=== PATIENT | male | born 1955 | race Caucasian/White ===

== ENCOUNTER → 2020-07-11 | Outpatient (CLI) | payer MEDICARE, MEDICAID ==
[~2020-07-11] MED LIST: CATHETER FLUSH 10 ML SYR IV PRN; HOLD METFORMIN - RECEIVED CONTRAST 20 ML VIAL IV SCH; IOHEXOL 350 MG/ML 100 ML (OMNIPAQUE 350) VIAL IV ONE; NS 100 ML (IVPB) BAG IV ONE
--- NOTE | 2020-07-11 11:02 | Diagnostic Imaging Report ---
PROCEDURE: CT head with and without contrast. TECHNIQUE: Multiple contiguous axial images were obtained through the brain before and after the administration of intravenous contrast. Auto Exposure Controls were utilized during the CT exam to meet ALARA standards for radiation dose reduction. INDICATION: Memory loss, headache and weakness. COMPARISON: No prior studies are available for comparison. FINDINGS: The ventricles and sulci are within normal limits. No sulcal effacement or midline shift is identified. No acute intra-axial or extra-axial hemorrhage is detected. Postcontrast images are without abnormal enhancement. Cisterns are patent. There is some minimal mucosal thickening in the left maxillary sinus. IMPRESSION: Essentially unremarkable pre and postcontrast CT of the brain. Dictated by: Dictated on workstation # [id number]
== END ==
LOC: RAD 10:15
PROVIDERS: ATTEND Family Medicine
DX: R51.9 Headache, unspecified (principal); R41.3 Other amnesia; R53.1 Weakness
CPT/HCPCS: 70470

== ENCOUNTER 2022-01-10 10:09 | Emergency (ER) | payer MEDICARE, MEDICAID ==
[~2022-01-10] VITALS: Ht 173 cm; Wt 77.0 kg
[2022-01-10 11:08] LABS: BILIRUBIN,URINE NEGATIVE (NEGATIVE); CLARITY,URINE CLEAR; COLOR,URINE YELLOW; GLUCOSE, URINE (UA) NEGATIVE (NEGATIVE); KETONES,URINE NEGATIVE (NEGATIVE); LEUKOCYTE ESTERASE ,URINE NEGATIVE (NEGATIVE); NITRITE,URINE NEGATIVE (NEGATIVE); PROTEIN,URINE 1+ (NEGATIVE)
--- NOTE | 2022-01-10 11:09 | ED Cardiac General ---
History of Present Illness General Chief Complaint: Cardiac/General Problems Stated Complaint: HIGH BP 205/105 Nursing Triage Note: PT AMB TO [facility] 5 WITH WITH C/O INCREASED BP OVER ABOUT 1 WEEK. PTS STATES THE DR TOLD HER TO TAKE IT TWICE A DAY AND LOG IT. PTS SYSTOLIC WAS 200S THIS MORNING AT HOME Source: patient Exam Limitations: no limitations History of Present Illness Date Seen by Provider: Jan 10, 2022 Time Seen by Provider: 10:33 Initial Comments Patient to ER with his and chief complaint that for the past week he has been having mounting increased blood pressure. He is on lisinopril 10 mg and atenolol 50 mg at baseline. He is not having any chest pain shortness of air dysuria cough fevers chills. He does have a little more fatigued the past couple days. He called Dr. More the primary care provider who recommended he double up on his lisinopril and follow him up in the clinic. His became concerned when today she noted his blood pressure was well over 220 systolic. In the past his blood pressure has been well controlled. He does not have a history of coronary disease. He has had 10 mg lisinopril this morning. He is on chronic opiate and gabapentin for pain related to throat cancer and diverticulitis and spinal stenosis. He has not ran out of his doses. His sets up his medications for him. No other changes in medications, sick contacts or travel. Allergies and Home Medications Allergies Coded Allergies: Milk Containing Products (Verified Allergy, Unknown, 01/10/22) Patient Home Medication List Home Medication List Reviewed: Yes Review of Systems Review of Systems Constitutional: No chills, No diaphoresis EENTM: No Blurred Vision, No Double Vision Respiratory: Denies Cough, Denies Shortness of Air Cardiovascular: Denies Lightheadedness Gastrointestinal: Denies Constipated, Denies Diarrhea, Denies Nausea Musculoskeletal: No back pain, No joint pain Skin: No pruritus, No rash Psychiatric/Neurological: Denies Anxiety, Denies Depressed All Other Systems Reviewed Negative Unless Noted: Yes Past Ylkvlub-Wgldsj-Expvqr Hx Patient Social History Tobacco Use?: No Substance use?: No Alcohol Use?: Yes Alcohol type: Beer Alcohol Frequency: Once in a while Pt feels they are or have been: No Immunizations Up To Date Influenza Vaccine Up-to-Date: Yes; Up-to-Date First/Initial COVID19 Vaccinat: UNKNOWN DATE Second COVID19 Vaccination Ankit: UNKNOWN DATE Third COVID19 Vaccination Date: UNKNOWN DATE Past Medical History Surgery/Hospitalization HX: CHRONIC PAIN, HX THROAT CANCER, HTN, HLD, SPINAL STENOSIS, DM Physical Exam Vital Signs Vital Signs - First Documented 01/10/22 10:15 Temp 36.5 Pulse 56 Resp 18 B/P (MAP) 224/114 (150) Capillary Refill : Height, Weight, BMI Height: '" Weight: lbs. oz. kg; 25.00 BMI Method: General Appearance: No Apparent Distress, WD/WN HEENT: PERRL/EOMI; No Pharynx Normal (Stable pharyngeal anatomy); Moist Mucous Membranes Neck: Full Range of Motion, Normal Inspection Respiratory: Chest Non Tender, Lungs Clear, Normal Breath Sounds, No Accessory Muscle Use, No Respiratory Distress Cardiovascular: Regular Rate, Rhythm, No Edema, Normal Peripheral Pulses Gastrointestinal: Normal Bowel Sounds, Non Tender, Soft Extremity: Normal Capillary Refill, Normal Inspection, No Pedal Edema Neurologic/Psychiatric: Alert, Oriented x3, No Motor/Sensory Deficits Skin: Normal Color, Warm/Dry Progress/Results/Core Measures Results/Orders Lab Results Laboratory Tests Test 01/10/22 10:25 01/10/22 10:54 Range/Units White Blood Count 6.7 4.3-11.0 10^3/uL Red Blood Count 4.36 4.30-5.52 10^6/uL Hemoglobin 12.0 L 13.3-17.7 g/dL Hematocrit 37 L 40-54 % Mean Corpuscular Volume 84 80-99 fL Mean Corpuscular Hemoglobin 28 25-34 pg Mean Corpuscular Hemoglobin Concent 33 32-36 g/dL Red Cell Distribution Width 15.9 H 10.0-14.5 % Platelet Count 394 130-400 10^3/uL Mean Platelet Volume 10.5 9.0-12.2 fL Immature Granulocyte % (Auto) 1 % Neutrophils (%) (Auto) 83 H 42-75 % Lymphocytes (%) (Auto) 8 L 12-44 % Monocytes (%) (Auto) 5 0-12 % Eosinophils (%) (Auto) 3 0-10 % Basophils (%) (Auto) 1 0-10 % Neutrophils # (Auto) 5.5 1.8-7.8 10^3/uL Lymphocytes # (Auto) 0.5 L 1.0-4.0 10^3/uL Monocytes # (Auto) 0.3 0.0-1.0 10^3/uL Eosinophils # (Auto) 0.2 0.0-0.3 10^3/uL Basophils # (Auto) 0.1 0.0-0.1 10^3/uL Immature Granulocyte # (Auto) 0.0 0.0-0.1 10^3/uL Prothrombin Time 13.7 12.2-14.7 SEC INR Comment 1.0 0.8-1.4 Sodium Level 139 135-145 MMOL/L Potassium Level 4.0 3.6-5.0 MMOL/L Chloride Level 100 98-107 MMOL/L Carbon Dioxide Level 28 21-32 MMOL/L Anion Gap 11 5-14 MMOL/L Blood Urea Nitrogen 19 H 7-18 MG/DL Creatinine 1.41 H 0.60-1.30 MG/DL Estimat Glomerular Filtration Rate 55 BUN/Creatinine Ratio 13 Glucose Level 137 H 70-105 MG/DL Calcium Level 9.6 8.5-10.1 MG/DL Corrected Calcium 9.5 8.5-10.1 MG/DL Magnesium Level 2.0 1.6-2.4 MG/DL Total Bilirubin 0.6 0.1-1.0 MG/DL Aspartate Amino Transf (AST/SGOT) 22 5-34 U/L Alanine Aminotransferase (ALT/SGPT) 7 0-55 U/L Alkaline Phosphatase 51 40-136 U/L Troponin I < 0.028 <0.028 NG/ML C-Reactive Protein High Sensitivity 0.25 0.00-0.50 MG/DL B-Type Natriuretic Peptide 97.1 <100.0 PG/ML Total Protein 6.8 6.4-8.2 GM/DL Albumin 4.1 3.2-4.5 GM/DL Urine Color YELLOW Urine Clarity CLEAR Urine pH 6.0 5-9 Urine Specific Romeo 1.010 L 1.016-1.022 Urine Protein 1+ H NEGATIVE Urine Glucose (UA) NEGATIVE NEGATIVE Urine Ketones NEGATIVE NEGATIVE Urine Nitrite NEGATIVE NEGATIVE Urine Bilirubin NEGATIVE NEGATIVE Urine Urobilinogen 0.2 < = 1.0 MG/DL Urine Leukocyte Esterase NEGATIVE NEGATIVE Urine RBC (Auto) NEGATIVE NEGATIVE Urine RBC NONE /HPF Urine WBC NONE /HPF Urine Squamous Epithelial Cells NONE /HPF Urine Crystals NONE /LPF Urine Bacteria NEGATIVE /HPF Urine Casts NONE /LPF Urine Mucus NEGATIVE /LPF Urine Culture Indicated NO My Orders Orders - MATA LIM Ua Culture If Indicated (01/10/22 10:50) Cbc With Automated Diff (01/10/22 10:50) Comprehensive Metabolic Panel (01/10/22 10:50) Hs C Reactive Protein (01/10/22 10:50) Ekg Tracing (01/10/22 10:50) Continuous Ekg Monitoring (01/10/22 10:50) Bnp Mariano (01/10/22 10:50) Troponin I Phelps (01/10/22 10:50) Protime With Inr (01/10/22 10:50) Magnesium (01/10/22 10:50) Hydralazine Injection (Apresoline Inject (01/10/22 11:15) Lisinopril Tablet (Zestril Tablet) (01/10/22 11:15) Lisinopril Tablet (Zestril Tablet) (01/10/22 11:15) Chest 1 View, Ap/Pa Only (01/10/22 11:10) Medications Given in ED Current Medications Medications Dose Ordered Sig/Jhonny Route Start Time Stop Time Status Last Admin Dose Admin Hydralazine HCl 10 mg ONCE ONCE IV 01/10/22 11:15 01/10/22 11:16 DC 01/10/22 11:15 10 MG Lisinopril 10 mg ONCE ONCE PO 01/10/22 11:15 01/10/22 11:16 DC 01/10/22 11:16 10 MG Lisinopril 20 mg ONCE ONCE PO 01/10/22 11:15 01/10/22 11:16 DC 01/10/22 11:16 20 MG Vital Signs/I&O 01/10/22 10:15 Temp 36.5 Pulse 56 Resp 18 B/P (MAP) 224/114 (150) Blood Pressure Mean: 150 Progress Progress Note #1: Time: 11:09 Progress Note Blood pressure stayed pretty stable around 2 20-2 10 systolic. We will give him 30 mg of lisinopril and while that is working give him a short acting dose of hydralazine. We will work him up but by history were not finding any other reason why his blood pressure has shot up. Neurologically he is intact. EKG chest x-ray, labs and urine. Progress Note #2: Time: 11:45 Progress Note Blood pressure has significantly improved to 150s systolic. Plan to let him go home on lisinopril 20 mg daily with a second 20 mg if he is still having high blood pressure and follow-up with primary care provider. Initial ECG Impression Date: Jan 10, 2022 Initial ECG Impression Time: 11:02 Initial ECG Rate: 55 Initial ECG Rhythm: Normal Sinus Initial ECG Intervals: Normal Initial ECG Impression: Normal, Nonspecific Changes Comment Normal sinus rhythm without clinically relevant ST changes. Diagnostic Imaging Diagonstic Imaging: Xray Plain Films/CT/US/NM/MRI: chest Comments NAME: JAYRO SCHMITT MED REC#: [id number] PT STATUS: REG ER : 1955 PHYSICIAN: MATA LIM MD ADMIT DATE: 01/10/22/ER Draft Date of Exam:01/10/22 CHEST 1 VIEW, AP/PA ONLY EXAMINATION: Chest, one view. HISTORY: Hypertension. COMPARISON: None available. FINDINGS: The lung volumes are normal. No focal consolidation is seen. No large pleural effusion or pneumothorax is seen. The cardiomediastinal silhouette is normal in size and contour. There is calcified aortic atherosclerotic plaque. No acute osseous abnormality is seen. IMPRESSION: 1. No acute pleural-parenchymal process. Dictated on workstation # [id number] Dict: 01/10/22 1134 Trans: 01/10/22 1140 [id number] Interpreted by: HIRAM MASON DO Electronically signed by: Reviewed: Reviewed by Me Departure Impression Primary Impression: Hypertension Qualified Codes: I10 - Essential (primary) hypertension Disposition: 01 HOME, SELF-CARE Condition: Stable Departure-Patient Inst. Decision time for Depature: 11:45 Referrals: ZAYDA MORE MD (PCP/Family) Primary Care Physician Patient Instructions: High Blood Pressure (DC) Add. Discharge Instructions: Lisinopril 20 mg daily. If your blood pressure remains above 180/100 then you may take another 20 mg. Return to the ER if you are having chest pain, shortness of air or other worrisome symptoms. Follow-up with your primary care doctor in 1 to 2 weeks to reevaluate your blood pressure. All discharge instructions reviewed with patient and/or family. Voiced understanding. Scripts Lisinopril (Lisinopril) 20 Mg Tablet 20 MG PO DAILY for 14 Days, #30 TAB 0 Refills Prov: MATA LIM 01/10/22 Copy Copies To 1: ZAYDA MORE MD, TITUS J Jan 10, 2022 11:09
[2022-01-10 11:10] LABS: BASOPHILS # (AUTO) 0.1 10^3/uL (0.0-0.1); BASOPHILS % (AUTO) 1 % (0-10); EOSINOPHILS # (AUTO) 0.2 10^3/uL (0.0-0.3); EOSINOPHILS % (AUTO) 3 % (0-10); HEMATOCRIT 37 % (40-54); LYMPHOCYTES # (AUTO) 0.5 10^3/uL (1.0-4.0); LYMPHOCYTES % (AUTO) 8 % (12-44); MEAN CORPUSCULAR HEMOGLOBIN 28 pg (25-34); MEAN CORPUSCULAR HGB CONC 33 g/dL (32-36); MEAN CORPUSCULAR VOLUME 84 fL (80-99); MEAN PLATELET VOLUME 10.5 fL (9.0-12.2); MONOCYTES # (AUTO) 0.3 10^3/uL (0.0-1.0); MONOCYTES % (AUTO) 5 % (0-12); NEUTROPHILS # (AUTO) 5.5 10^3/uL (1.8-7.8); NEUTROPHILS % (AUTO) 83 % (42-75); PLATELET COUNT 394 10^3/uL (130-400); WHITE BLOOD COUNT 6.7 10^3/uL (4.3-11.0)
[2022-01-10 11:15] LABS: ALBUMIN 4.1 GM/DL (3.2-4.5); CHLORIDE 100 MMOL/L (98-107); PROTHROMBIN TIME PATIENT 13.7 SEC (12.2-14.7); SODIUM 139 MMOL/L (135-145)
[2022-01-10] MEDS ORDERED: hydrALAZINE (APESOLINE) 20 MG/ML VIAL IV ONE (11:15)
[2022-01-10] MEDS ORDERED: lisINopril 20 MG (PRINIVIL) TABLET PO ONE (11:15)
[2022-01-10] MEDS ORDERED: lisINopril 10 MG (PRINIVIL) TABLET PO ONE (11:15)
[2022-01-10 11:16] LABS: CALCIUM 9.6 MG/DL (8.5-10.1)
[2022-01-10 11:17] LABS: GLUCOSE 137 MG/DL (70-105)
[2022-01-10 11:18] LABS: TOTAL PROTEIN 6.8 GM/DL (6.4-8.2)
[2022-01-10 11:19] LABS: BILIRUBIN,TOTAL 0.6 MG/DL (0.1-1.0); CARBON DIOXIDE 28 MMOL/L (21-32)
[2022-01-10 11:20] LABS: BACTERIA,URINE NEGATIVE /HPF
[2022-01-10 11:21] LABS: ALKALINE PHOSPHATASE 51 U/L (40-136); CREATININE SERUM 1.41 MG/DL (0.60-1.30); GFR ESTIMATED 55
[2022-01-10 11:22] LABS: BUN/CREATININE RATIO 13
[2022-01-10 11:24] LABS: ALANINE AMINOTRANSFERASE 7 U/L (0-55)
--- NOTE | 2022-01-10 11:40 | Diagnostic Imaging Report ---
EXAMINATION: Chest, one view. HISTORY: Hypertension. COMPARISON: None available. FINDINGS: The lung volumes are normal. No focal consolidation is seen. No large pleural effusion or pneumothorax is seen. The cardiomediastinal silhouette is normal in size and contour. There is calcified aortic atherosclerotic plaque. No acute osseous abnormality is seen. IMPRESSION: 1. No acute pleural-parenchymal process. Dictated by: Dictated on workstation # [id number]
[2022-01-10] MEDS ORDERED: LISI20TA26 PO (11:49)
[2022-01-10 11:57] VITALS: BP 133/68
== END 2022-01-10 12:00 | disposition home or self-care (01) ==
LOC: EDUNIT# 10:09 → ER 10:10
DX: I10 Essential (primary) hypertension (principal); C32.9 Malignant neoplasm of larynx, unspecified; Z79.891 Long term (current) use of opiate analgesic; Z28.310 Unvaccinated for COVID-19
CPT/HCPCS: 36415; 71045; 80053; 81000; 83735; 83880; 84484; 85025; 85610; 86141; 93005

== ENCOUNTER 2022-10-20 11:09 | Inpatient (IN) | payer MEDICARE, MEDICAID ==
[~2022-10-20] VITALS: Ht 172.2 cm; Wt 76.2 kg
[~2022-10-20 11:09] MED LIST changes: -CATHETER FLUSH 10 ML SYR IV PRN; -HOLD METFORMIN - RECEIVED CONTRAST 20 ML VIAL IV SCH; -IOHEXOL 350 MG/ML 100 ML (OMNIPAQUE 350) VIAL IV ONE; +LISI20TA26 PO; -NS 100 ML (IVPB) BAG IV ONE
[2022-10-20 11:35] VITALS: BP 137/68
--- NOTE | 2022-10-20 12:52 | PM&R Post Admission Assessment ---
PM&R HP Date of Visit: October 20, 2022 Time of Visit: 14:00 History of Present Illness CC: s/p surgery for lumbar spondylosis with myelopathy by Dr Kim HPI: CC - Lumbar laminectomy Post-op Recovery HPI: Manolo Rios is a 67 yo M who presents to inpatient rehab for recovery s/p L2-5 lumbar laminectomy on 10/18. He was seen in inpatient and treated for GERD and DM in addition to recovery. He is doing okay today working with PT upon exam. He notes pain in his hips and burning around his surgical site. He has had good UOP but no BM since Tuesday. He has been ambulating some with and generally working with PT/OT. He denies n/v/f/c at this time. He is eating and drinking without issue. PMH: Anxiety, Arthritis, asthma, head and neck cancer, choanal stenosis, chronic back pain and chronic leg pain (related to spinal stenosis he received procedure for), Depression, DM, Diverticulitis, dysphagia, HTN, GERD, HLD, Hypothyroidism, IBS, OA, PVD PSH: Appendectomy (2006), Cholecystectomy (2010), Colectomy (2006), Colostomy (2008), Laparotomy (10/2006 and 01/2007), large bowel resection (2006), BL Myringotomy (2020), R Neck surgery (2013), transverse colon and sigmoid resection (2006), radical surgery for palate cancer (2013), Rotational flap surgery (2014), Coronoidectomy (2013), Free muscle/myocutaneous flap w/microvasc R (2013), Tracheostomy (2013), Tympanostomy BL (2016, 2019, 2020), Mandibulotomy (2013), Maxillectomy (2013) FMHx: DM, heart disease, cancer, HTN, Alzheimer's, SHx: Former smoker (1ppd for 25 yrs; quit 2006); 3 standard drinks per week Allergy: Lactose and Statins Home Meds: metaxalone 800mg POD at bedtime, indomethacin 25 mg PO BID, dip henoxylate-atropine 2.5mg-0.025mg PRN (max 4 qday), tizanidine 2mg prn, norvasc 5mg POD, lisinopril 20mg POD, ropinirole 0.5mg PO 1 qday 3hr before bed, promethazine 25mg q6 prn, levothyroxine 112 mcg POD, gabapentin 300mg POD, fenofibrate 145 mg POD, atenolol 50mg 1/2 tab BID, albuterol prn, citalopram 20mg POD Current Meds: Standard PRN's + senna and lactulose ROS Constitutional: no fever, sweats, night sweats, or undue fatigue s/p surgery HEENT: No recent changes in vision, taste, or smell; no new issues swallowing Lungs: no respiratory distress, cough or wheezing CV: no chest pain, palpitations, or lightheadedness GI: no nausea or vomiting, some diarrhea : no issues voiding, no dysuria MSK: some hip pain, not joint aches or bone pain outside of recent procedure PE Gen: A&O x 3, NAD HEENT: PERRLA, EOMI, normocephalic, mucous membranes moist without lesion or exudate; no carotid bruit, no palpable adenopathy or thyromegaly CV: RRR, normal s1 and s2, no murmurs rubs or gallops Pulm: CTAB, equal work of breathing BL, no accesory muscle use. Abd: Bowel sounds active, soft, nontender, nondistended, no masses or organomegaly Skin: warm, dry Neuro: Mental status intact, CN 2-12 intact, no focal motor or sensory deficits Assessment: Spinal stenosis s/p laminectomy GERD DM Plan: - Aggressive IS use - ISS and accuchecks for DM - cont bowel regimen - pain mngmt - cont work with PT/OT - carefully monitor labs and vitals Past Sieigxp-Nmkndh-Mebqci Hx Past Med/Social Hx: Reviewed Nursing Past Med/Soc Hx, Reviewed and Corrections made Patient Social History Marrital Status: Employed/Student: retired Alcohol Use: Denies Use Smoking Status: Former Smoker Past Medical History Surgeries: Orthopedic head neck Cardiac: High Cholesterol, Hypertension Gastrointestinal: Gastroesophageal Reflux PM&R Allergy/Meds/Data Review Allergies Coded Allergies: Omuttrw-GXS-BxC Reductase Inhibitor (Verified Allergy, Unknown, 10/20/22) Home Medications Scheduled Amlodipine Besylate (Amlodipine Besylate), 5 MG PO HS, (Reported) Atenolol (Atenolol), 50 MG PO DAILY, (Reported) Citalopram Hydrobromide (Citalopram HBr), 20 MG PO HS, (Reported) Fenofibrate Nanocrystallized (Fenofibrate), 145 MG PO DAILY, (Reported) Gabapentin (Neurontin), 300 MG PO HS, (Reported) Levothyroxine Sodium (Levothyroxine Sodium), 112 MCG PO DAILY, (Reported) Lisinopril (Lisinopril), 20 MG PO DAILY, (Reported) Morphine Sulfate (Morphine Sulfate ER), 30 MG PO BID, (Reported) Pantoprazole Sodium (Pantoprazole Sodium), 40 MG PO DAILY, (Reported) Pilocarpine (Salagen), 5 MG PO BID, (Reported) Ropinirole HCl (Ropinirole HCl), 0.5 MG PO HS, (Reported) Scheduled PRN Albuterol Sulfate (Ventolin Hfa), 2 PUFF INH Q6H PRN for SHORTNESS OF BREATH, (Reported) Cyclobenzaprine HCl (Cyclobenzaprine HCl), 10 MG PO Q8H PRN for MUSCLE SPASMS, (Reported) Diphenoxylate HCl/Atropine (Diphenoxylate-Atrop 2.5-0.025), 1 EACH PO QID PRN for DIARRHEA, (Reported) Docusate Sodium (Docusate Sodium), 100 MG PO BID PRN for CONSTIPATION-1ST LINE, (Reported) Oxycodone HCl (Oxycodone HCl), 5 MG PO Q4H PRN for PAIN-SEVERE (8-10), (Reported) Promethazine HCl (Promethazine Tablet), 25 MG PO Q6H PRN for NAUSEA/VOMITING-2ND LINE, (Reported) Discontinued Medications Lisinopril (Lisinopril), 20 MG PO DAILY Discontinued Reason: Duplicate Order Current Medications Current Medications Reviewed Review of Systems Constitutional: see HPI, malaise, weakness EENTM: mouth pain Respiratory: no symptoms reported Cardiovascular: no symptoms reported Gastrointestinal: no symptoms reported Genitourinary: no symptoms reported Musculoskeletal: back pain, joint pain Psychiatric/Neurological: No Symptoms Reported All Other Systems Reviewed Negative Unless Noted: Yes Physical Exam Physical Exam Vital Signs Capillary Refill : Height, Weight, BMI Height: '" Weight: lbs. oz. kg; 25.00 BMI Method: General Appearance: No Apparent Distress, WD/WN, Chronically ill Eyes: Bilateral Eye Normal Inspection, Bilateral Eye PERRL HEENT: PERRL/EOMI, Normal ENT Inspection, Pharynx Normal Neck: Full Range of Motion, Normal Inspection, Non Tender, Supple, Carotid Bruit Respiratory: Chest Non Tender, Lungs Clear, Normal Breath Sounds, No Accessory Muscle Use, No Respiratory Distress Cardiovascular: Regular Rate, Rhythm, No Edema, No Gallop, No JVD, No Murmur, Normal Peripheral Pulses Gastrointestinal: Normal Bowel Sounds, No Organomegaly, No Pulsatile Mass, Non Tender, Soft Back: Normal Inspection, Decreased Range of Motion, Muscle Spasm, Vertebral Tenderness Extremity: Normal Capillary Refill, Normal Inspection, Normal Range of Motion, Non Tender, No Calf Tenderness, No Pedal Edema Neurologic/Psychiatric: Alert, Oriented x3, No Motor/Sensory Deficits, Normal Mood/Affect Skin: Normal Color, Warm/Dry Lymphatic: No Adenopathy PM&R Medical Assessment & Plan REHAB/MEDICAL ASSESSMENT AND PLAN: REHAB IMPAIRMENT GROUP: lumbar spondylosis with myelopathy by Dr Kim ETIOLOGIC DIAGNOSIS: umbar spondylosis with myelopathy by Dr Kim The comorbidities that impact the patients function and/or functional outcome by: head neck cancer hx with chronic dry mouth, severe pain, fall risk, poor nutrition intake REHAB PLAN: The patient is being admitted to our comprehensive inpatient rehabilitation facility and can tolerate the intensity of service consisting of at least: 180 minutes of therapy a day, 5 out of 7 days a week Rehab treatment will consist of: PT OT will focus on regaining ambulatory abil ities along with ADL's in order to return home The patient/family has a good understanding of our discharge process and will be nefit from an interdisciplinary inpatient rehabilitation program. The patient has potential to make improvement and is in need of at least two of the following multidisciplinary therapies including but not limited to physical, occupational, speech, and prosthetics and orthotics. Additionally the patient will need services from respiratory, nutritional services, wound care, psychol ogy, etc. (Customize this to each patient). Given the patients complex condition and risk of further medical complications, rehabilitation services cannot be safely or effectively provided at a lower level of care such as a detention facility. BARRIERS TO DISCHARGE: Severe pain and slow recovery ESTIMATED LOS: 10 days DISPOSITION: Home RELEVANT CHANGES SINCE PREADMISSION SCREENING: I have compared the patients medical and functional status at the time of the preadmission screening and there are: no changes PROGNOSIS: Good REHABILITATION GOALS: 1.PT OT will focus on regaining ambulatory abilities along with ADL's in order to return home All the above goals were reviewed with the patient and he/she is in agreement. By signing this document, I acknowledge that I have personally performed a full physical examination on this patient within 24 hours of admission to this inpatient rehabilitation facility and have determined the patient to be able to tolerate the above course of treatment at an intensive level for a reasonable period of time. I will be completing a detailed individualized Plan of Care for this patient by day #4 of the patients stay based upon the Preadmission Screen, the Post-Admission Evaluation, and the therapy evaluations. Admission Dx/Comorbidities: (1) Spondylosis, lumbar, with myelopathy ICD Codes: M47.16 - Other spondylosis with myelopathy, lumbar region Assessment/Plan Assessment and Plan Assess & Plan/Chief Complaint Assessment: s/p surgery for lumbar spondylosis with myelopathy by Dr Kim h/o head/neck surgery HTN HLP Depression DM Diverticulosis GERD Hypothyroidism PVD Plan: Monitor closely Fall risk Pain control Home meds PT OT YONAS JOHNSON DO October 20, 2022 12:52
[2022-10-20] MEDS ORDERED: FLEET ENEMA ADULT 1 EA BTL PR PRN (13:00)
[2022-10-20] MEDS ORDERED: cloNIDine 0.1 MG (CATAPRES) TAB PO PRN (13:00)
[2022-10-20] MEDS ORDERED: LOPERAMIDE 2 MG (IMODIUM) TABLET PO PRN (13:00)
[2022-10-20] MEDS ORDERED: ALPRAZolam 0.25 MG (XANAX) TAB PO PRN (13:00)
[2022-10-20] MEDS ORDERED: guaiFENesin/CODEINE (ROBITUSSIN AC) 10ML UDC PO PRN (13:00)
[2022-10-20] MEDS ORDERED: LACTULOSE SYRUP 10GM/15ML (ENULOSE) 30ML UDC PO PRN (13:00)
[2022-10-20] MEDS ORDERED: DOCUSATE SODIUM 100 MG (COLACE) CAP PO PRN ×2 (13:00→17:45)
[2022-10-20] MEDS ORDERED: CALCIUM CARBONATE 500 MG (TUMS) TAB.CHEW PO PRN (13:00)
[2022-10-20] MEDS ORDERED: diphenhydrAMINE 25 MG TAB (BENADRYL) PO PRN (13:00)
[2022-10-20] MEDS ORDERED: MELATONIN 3 MG TABLET PO PRN (13:00)
[2022-10-20] MEDS ORDERED: ACETAMINOPHEN 325 MG TABLET PO PRN (13:00)
[2022-10-20] MEDS ORDERED: BISACODYL 10 MG SUPP (DULCOLAX) PR PRN (13:00)
--- OUTSIDE RECORDS SUMMARY | 2022-10-20 13:02 | XMS REPORT ---
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 Jan, confirmed [id number] -693624_Migrated Problem Chronic cholecystitis K81.1 Nov, confirmed [id number] -693624_Migrated Problem 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 May, confirmed [id number] -693624_Migrated Problem Abnormal computed tomography of lung R91.8 Mar, 7 confirmed [id number] -693624_Migrated Problem Swelling, mass, or lump in head and neck R22.0 Mar, confirmed [id number] -693624_Migrated Problem Disease of larynx J38.7 Mar, confirmed [id number] -693624_Migrated Problem Pure hypercholesterolemia E78.00 confirmed [id number] Problem Acquired hypothyroidism E03.9 confirmed [id number] Problem Benign essential hypertension I10 confirm ed 8700640 Problem Chronic kidney disease, stage 3a N18.31 conf irmed [id number] Problem Degeneration of intervertebral disc, site unspecified [id number] confirmed -693624_Migrated Problem Loss of appetite R63.0 confirmed 287 62134 Problem Diverticulitis of colon (without mention of hemo rrhage)(562.11) K57.32 confirmed [id number] -693624_Migrat ed Problem Essential hypertension, benign I10 confir med 0786747 Problem Recurrent major depressive disorder, remission s tatus unspecified F33.9 confirmed 53897798 Problem Peripheral vascular disease, unspecified I73.9 confirmed 549482406 Problem Chronic kidney disease, stage 3 unspecified N18.30 confirmed 306839340 Problem Degeneration of intervertebral disc of lumbar region M51.36 confirmed [id number] ALLERGIES Allergen (clinical drug ingredient) Drug/Non Drug Allergy do cumented on EMR Reaction Allergy Type Onset Date Status simvastatin Zocor([facility] Code:[address]-28) leg cramps Drug Allergy Active Lactose([facility] Code:[address]-50) Unknown Drug Allergy Active Substance with 9-xiwruxf-8-methylglutary l-coenzyme A reductase inhibitor mechanism of action (substance) Statins muscle pain Drug Allergy Active ENCOUNTERS from 1955 to 2022-10-17 Encounter Location Date Provider Diagnosis [facility] [address] [facility] [id number] [place], [place] [phone] October, ZAYDAPERI OWENSDIA Type 2 diabetes mellitus with diabetic p olyneuropathy, without long-term current use of insulin E11.42 IMMUNIZATIONS Vaccine Route Administration Date Status 1st Booster MODERNA COVID-19, mRNA, 0.25mL Unknown May 202020 Administered PRIVATE FLULAVAL QUAD 0.5ML (6 MO AND UP) 2020 IM Intramuscular Mar 18, 2021 Administered COVID-19 Moderna (history) Unknown September 09, 2020 Admin istered COVID-19 Moderna (history) Unknown Aug 12, 2020 Admin istered PRIVATE FLUZONE HIGH DOSE QUAD 0.7ML (65 and UP) 2019 IM Int ramuscular Mar 18, 2020 Administered PRIVATE TDAP (BOOSTRIX) IM Intramuscular Jul 15, 2020 Adminis tered PRIVATE HIGH DOSE FLU 22-23 (FLUZONE HD) AGE 65YRS AND UP IM Intramuscular Apr 05, 2022 Administered PRIVATE PCV 13 (PREVNAR) Unknown Mar 18, 2017 Adminis tered 1st Booster MODERNA Bivalent, COVID-19, 0.5mL IM Intramuscular O 2021 Administered PRIVATE PPSV23 (PNEUMOVAX) IM Intramuscular Jul 15, 2020 Admi nistered PRIVATE PPSV23 (PNEUMOVAX) Unknown May 24, 2015 Admin istered SOCIAL HISTORY Sex Assigned At : Social History Observation Description Sex Assigned At Unknown Alcohol Screen (Audit-C) Question Answer Notes Did you have a drink containing alcohol in the past year? Ye s Points 6 Interpretation Positive How often did you have 6 or more drinks on one occasio n in the past year? Monthly (2 points) How many drinks did you have on a typica l day when you were drinking in the past year? 5 or 6 (2 points) How often did you have a drink containing alcohol in t he past year? Two to four times a month (2 points) PHQ2 Question Answer Notes In the last 2 weeks, how often have you had little interest or pleasure in doing things? Not at all In the last 2 weeks, how often have you been feeling down, depressed, or hopeless? Not at all Total PHQ2 Score 0 Tobacco use other than smoking: Question Answer Notes Are you an other tobacco user? No REASON FOR REFERRAL No Information VITAL SIGNS No information MEDICATIONS Medication SIG (Take, Route, Frequency, Duration) Notes Start Da te End Date Status Fenofibrate 145 MG Take 1 tablet by mouth once daily for 90 Active Percocet 10-325 mg 1 tablet as needed Orally every 6 hrs for 28 days Sep, Active Atenolol 50 MG Take 1/2 (one-half) tablet by mouth twice daily for 90 Active Citalopram Hydrobromide 20 MG Take 1 tablet by mouth once daily for 9 0 Active Salagen 5 MG 1 tablet Orally Three times a day Active rOPINIRole HCl 0.5 MG TAKE 1 TABLET BY MOUTH ONCE DAILY 1 TO 3 HOURS BEFORE BEDTIME for 90 Active Gabapentin 300 MG Take 2 capsules by mouth once daily for 30 Active NexIUM 40 MG 1 capsule Orally Once a day Active Pilocarpine HCl 5 MG Take 1 tablet by mouth twice daily for 90 Active ProAir HFA 108 (90 Base) MCG/ACT 2 puffs as needed Inh alation every 6 hrs for 30 Active Cyclobenzaprine HCl 10 MG 1 tablet as needed Orally Three times a day Active Lisinopril 20 MG Take 1 tablet by mouth once daily for 90 Active tiZANidine HCl 2 MG 1 tablet as needed Orally Three times a day for 14 days Feb, Active Promethazine HCl 25 MG TAKE 1 TABLET BY MOUTH EVERY 6 HOURS NEEDED FOR NAUSEA for 5 Active amLODIPine Besylate 5 MG Take 1 tablet by mouth once daily for 30 day s Active Ondansetron 4 MG as directed Orally Active Levothyroxine Sodium 112 MCG Take 1 tablet by mouth once daily for 90 Active Tricor 145 MG 1 tablet with food Orally Once a day Active Xanax 0.5 MG 1 tablet Orally Twice a day Active Morphine Sulfate ER 30 MG 1 tablet Orally 2 times a day for 28 d ays Sep, Active Pantoprazole Sodium 40 MG Take 1 tablet by mouth once daily for 90 Active Levitra 10 MG 1 tablet as needed Orally Once a day for 30 day(s) Active Ambien 10 MG 1 tablet at bedtime as needed Orally Once a day for 28 days Sep, Active PROCEDURES from 1955 to 2022-10-17 Procedure Date Ordered Date Performed Result Body Site ROUTINE VENIPUNCTURE 2020-11-06 2020-11-06 N/A RESULTS No Results REASON FOR VISIT Lab (walk-in) -emmie gutierrez MEDICAL (GENERAL) HISTORY Type Description Date Medical History Hypertension Medical History Hypercholesteremia Medical History Type 2 diabetes mellitus Medical History Cholecystitis Surgical History Colon Resection Surgical History Lap Claire Surgical History Lap Appy Surgical History Mouth Surgery Hospitalization History Surgeries Goals Section No Information Health Concerns No Information MEDICAL EQUIPMENT No Information MENTAL STATUS No Information FUNCTIONAL STATUS No Information ASSESSMENTS Encounter Date Diagnosis Assessment Notes Treatment Notes Treatm ent Clinical Notes October, Type 2 diabetes mellitus wit h diabetic polyneuropathy, without long-term current use of insulin (ICD-10 - E11.42) PLAN OF TREATMENT Medication Medication Name Sig Start Date Stop Date Pilocarpine HCl 5 MG Take 1 tablet by mouth twice daily for 90 Pantoprazole Sodium 40 MG Take 1 tablet by mouth once daily for 90 Lisinopril 20 MG Take 1 tablet by mouth once daily for 90 Morphine Sulfate ER 30 MG 1 tablet Orally 2 times a day for 28 days Sep, Gabapentin 300 MG Take 2 capsules by mouth once daily for 30 Citalopram Hydrobromide 20 MG Take 1 tablet by mouth once daily for 90 rOPINIRole HCl 0.5 MG TAKE 1 TABLET BY MOUTH ONCE DAILY 1 TO 3 HOURS BEFORE BEDTIME for 90 Ambien 10 MG 1 tablet at bedtime as needed Orally Onc e a day for 28 days Sep, amLODIPine Besylate 5 MG Take 1 tablet by mouth once daily for 3 0 days Fenofibrate 145 MG Take 1 tablet by mouth once daily for 90 Percocet 10-325 mg 1 tablet as needed Orally every 6 hrs fo r 28 days Sep, Next Appt Details Provider Name:ZAYDA MORE, 09:00:00 AM, [address] [place], [address], Insurance Providers Payer Name Payer Address Payer Phone Insured Name Patient Relati onship to Insured Coverage Start Date Coverage End Date Subscriber Number Group Nu mber WPS [facility] PART A [address] [facility] [phone] Manolo Rios Ginna Self - patient is the insured 2020 [id number] [place] [address] [facility] [id number] Manolo Rios A Self - patient is the insured 0 [id number] [place] MEDICARE Part A FI [address] [facility] [address] Manolo Rios A Self - patient is the insured [id number]
--- OUTSIDE RECORDS SUMMARY | 2022-10-20 13:02 | XMS REPORT ---
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 Jan, confirmed [id number] -693624_Migrated Problem Chronic cholecystitis K81.1 Nov, confirmed [id number] -693624_Migrated Problem 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 May, confirmed [id number] -693624_Migrated Problem Abnormal computed tomography of lung R91.8 Mar, 7 confirmed [id number] -693624_Migrated Problem Swelling, mass, or lump in head and neck R22.0 Mar, confirmed [id number] -693624_Migrated Problem Disease of larynx J38.7 Mar, confirmed [id number] -693624_Migrated Problem Pure hypercholesterolemia E78.00 confirmed 259582481 Problem Acquired hypothyroidism E03.9 confirmed 263436231 Problem Benign essential hypertension I10 confirm ed 0787077 Problem Chronic kidney disease, stage 3a N18.31 conf irmed [id number] Problem Degeneration of intervertebral disc, site unspecified [id number] confirmed -693624_Migrated Problem Loss of appetite R63.0 confirmed 685 76261 Problem Diverticulitis of colon (without mention of hemo rrhage)(562.11) K57.32 confirmed [id number] -693624_Migrat ed Problem Essential hypertension, benign I10 confir med 0418043 Problem Recurrent major depressive disorder, remission s tatus unspecified F33.9 confirmed 61532636 Problem Peripheral vascular disease, unspecified I73.9 confirmed 721446425 Problem Chronic kidney disease, stage 3 unspecified N18.30 confirmed 015747170 Problem Degeneration of intervertebral disc of lumbar region M51.36 confirmed 72646495 ALLERGIES Allergen (clinical drug ingredient) Drug/Non Drug Allergy do cumented on EMR Reaction Allergy Type Onset Date Status simvastatin Zocor([facility] Code:[address]-55) leg cramps Drug Allergy Active Lactose([facility] Code:[address]-03) Unknown Drug Allergy Active Substance with 2-eyzeiha-2-methylglutary l-coenzyme A reductase inhibitor mechanism of action (substance) Statins muscle pain Drug Allergy Active ENCOUNTERS from 1955 to 2022-09-22 Encounter Location Date [facility] [id number] [place] [address] Sep, ZAYDA MORE IMMUNIZATIONS Vaccine Route Administration Date Status 1st [...] by mouth once daily for 90 Active Pantoprazole Sodium 40 MG Take 1 tablet by mouth once daily for 90 Active Atenolol 50 MG Take 1/2 (one-half) tablet by mouth twice daily for 90 Active Ambien 10 MG 1 tablet at bedtime as needed Orally Once a day for 28 days Aug, Active tiZANidine HCl 2 MG 1 tablet as needed Orally Three times a day for 14 days Feb, Active rOPINIRole HCl 0.5 MG TAKE 1 TABLET BY MOUTH ONCE DAILY 1 TO 3 HOURS BEFORE BEDTIME for 90 Active Promethazine HCl 25 MG TAKE 1 TABLET BY MOUTH EVERY 6 HOURS NEEDED FOR NAUSEA for 5 Active Citalopram Hydrobromide 20 MG Take 1 tablet by mouth once daily for 9 0 Active ProAir HFA 108 (90 Base) MCG/ACT 2 puffs as needed Inh alation every 6 hrs for 30 Active Gabapentin 300 MG Take 2 capsules by mouth once daily for 30 Active Pilocarpine HCl 5 MG Take 1 tablet by mouth twice daily for 90 Active Tricor 145 MG 1 tablet with food Orally Once a day Active Lisinopril 20 MG Take 1 tablet by mouth once daily for 90 Active Levitra 10 MG 1 tablet as needed Orally Once a day for 30 day(s) Active Morphine Sulfate ER 30 MG 1 tablet Orally 2 times a day for 28 d ays Aug, Active Xanax 0.5 MG 1 tablet Orally Twice a day Active Salagen 5 MG 1 tablet Orally Three times a day Active amLODIPine Besylate 5 MG Take 1 tablet by mouth once daily for 30 day s Active NexIUM 40 MG 1 capsule Orally Once a day Active Ondansetron 4 MG as directed Orally Active Cyclobenzaprine HCl 10 MG 1 tablet as needed Orally Three times a day Active Levothyroxine Sodium 112 MCG Take 1 tablet by mouth once daily for 90 Active Percocet 10-325 mg 1 tablet as needed Orally every 6 hrs for 28 days Aug, Active PROCEDURES No Information RESULTS No Results REASON FOR VISIT Controlled Med Refill 10/13 MEDICAL (GENERAL) HISTORY Type Description Date Medical History Hypertension Medical History Hypercholesteremia Medical History Type 2 diabetes mellitus Medical History Cholecystitis Surgical History Colon Resection Surgical History Lap Claire Surgical History Lap Appy Surgical History Mouth Surgery Hospitalization History Surgeries Goals Section No Information Health Concerns No Information MEDICAL EQUIPMENT No Information MENTAL STATUS No Information FUNCTIONAL STATUS No Information ASSESSMENTS No Information PLAN OF TREATMENT Medication Medication Name Sig Start Date Stop Date amLODIPine Besylate 5 MG Take 1 tablet by mouth once daily for 3 0 days Lisinopril 20 MG Take 1 tablet by mouth once daily for 90 Percocet 10-325 mg 1 tablet as needed Orally every 6 hrs fo r 28 days Aug, Morphine Sulfate ER 30 MG 1 tablet Orally 2 times a day for 28 days Aug, rOPINIRole HCl 0.5 MG TAKE 1 TABLET BY MOUTH ONCE DAILY 1 TO 3 HOURS BEFORE BEDTIME for 90 Fenofibrate 145 MG Take 1 tablet by mouth once daily for 90 Citalopram Hydrobromide 20 MG Take 1 tablet by mouth once daily for 90 Ambien 10 MG 1 tablet at bedtime as needed Orally Onc e a day for 28 days Aug, Next Appt Details Provider Name:ZAYDA MORE, 09:00:00 AM, [address] [place], [address], Insurance Providers Payer Name Payer Address Payer Phone Insured Name Patient Relati onship to Insured Coverage Start Date Coverage End Date Subscriber Number Group Nu mber [employer] MEDICARE Part A [facility] [address] [facility] [phone] RiosManolo tomlin Ginna Self - patient is the insured [id number] [facility] PART A [address] [facility] [phone] Sonja Riosyd Ginna Self - patient is the insured 2020 [id number] [place] [address] [facility] [address] GabrielManolo Ginna Self - patient is the insured [id number]
[2022-10-20] MEDS ORDERED: LEVO112T55 PO (13:07)
[2022-10-20] MEDS ORDERED: LISI20TA26 PO (13:07)
[2022-10-20] MEDS ORDERED: AMLO-250 PO (13:07)
[2022-10-20] MEDS ORDERED: FENO145T26 PO (13:07)
[2022-10-20] MEDS ORDERED: NF-PILO5T PO (13:07)
[2022-10-20] MEDS ORDERED: CITA20TA9 PO (13:07)
[2022-10-20] MEDS ORDERED: MORP-69 PO (13:07)
[2022-10-20] MEDS ORDERED: ROPI0.5T4 PO (13:07)
[2022-10-20] MEDS ORDERED: PANT40TA52 PO (13:07)
[2022-10-20] MEDS ORDERED: CYCL10TA25 PO (13:07)
[2022-10-20] MEDS ORDERED: GABA300C PO (13:07)
[2022-10-20] MEDS ORDERED: DIPH1TAB25 PO (13:07)
[2022-10-20] MEDS ORDERED: ALBU18HF2 INH (13:07)
[2022-10-20] MEDS ORDERED: OXYC5TAB PO (13:07)
[2022-10-20] MEDS ORDERED: ATEN50TA PO (13:07)
[2022-10-20] MEDS ORDERED: DOCU100C37 PO (13:07)
--- NOTE | 2022-10-20 13:08 | Occupational Therapy Eval ---
OT Evaluation-General/PLF Medical Diagnosis Admission Date October 20, 2022 at 12:35 Medical Diagnosis: s/p L2-5 laminectomy Onset Date: October 18, 2022 Therapy Diagnosis Therapy Diagnosis: decreased ADL status, pain Precautions Comments Back precautions (no lifting >10lbs), back brace when OOB. Pt may shower, but sponge bath encouraged to prevent dressings from getting wet. Change bandages only if they become saturated. Do not soak the incision (bathing/swimming) until after follow up appt. Weight Bear Status Weight Bearing Restriction: Weight Bearing/Tolerated Referral Physician: Svitlana Referral Reason: Evaluation/Treatment Medical History Additional Medical History appendectomy, colectomy, lg bowel resection, myringotomy, neck radial dissect ion, anxiety, arthritis, colon cancer, oral cancer, depression, DM, GERD, HTN, IBS, OA, PVD Current History Chronic axial low back and leg pain, worsening over the last 3-4 months. 10/18/22 s/p L2-5 laminectomy. Social History Home: Single Level Current Living Status: Spouse Entry Into Home: Ramp ADL-Prior Level of Function SCALE: Activities may be completed with or without assistive devices. 8-Wtxzoivoyd-itmjlri completes the activity by him/herself with no assistance from a helper. 5-Set-up or Clean-up Assistance-helper sets up or cleans up; patient completes activity. Como assists only prior to or following the activity. 4-Supervision or Touching Assistance-helper provides verbal cues and/or touching/steadying and/or contact guard assistance as patient completes activity. Assistance may be provided throughout the activity or intermittently. 3-Partial/Moderate Assistance-helper does LESS THAN HALF the effort. Como lifts, holds or supports trunk or limbs, but provides less than half the effort. 2-Substantial/Maximal Assistance-helper does MORE THAN HALF the effort. Como lifts or holds trunk or limbs and provides more than half the effort. 0-Xwhsynpjl-fgzicj does ALL the effort. Patient does none of the effort to complete the activity. Or, the assistance of 2 or more helpers is required for the patient to complete the activity. If activity was not attempted, code reason: 7-Patient Refused. 9-Not Applicable-not attempted and the patient did not perform the activity before the current illness, exacerbation or injury. 10-Not Attempted due to Environmental Limitations-(lack of equipment, weather restraints, etc.). 88-Not Attempted due to Medical Conditions or Safety Concerns. ADL PLOF Comments Pt reports he is typically IND with ADLS and functional mobility at PLOF, using a cane. Based on pain, pt occasionally requires assistance with ADLs. Pt has a walk in shower with small SC. Pt has an elevated toilet. Self Care: Independent Functional Cognition: Independent DME/Equipment: Bath Chair, Shower, Tall Toilet DME/Equipment Comments cane and walker. OT Current Status Subjective Pt agreeable to OT evaluation and tx. Pt's spouse reports pt was able to move around without much pain shortly after surgery. When he sat on a low toilet at other hospital, pt felt a "pop" and has had increased pain and difficulty with mobility since. RN and care team notified. Mental Status/Objective Patient Orientation: Person, Place, Time, Situation Attachments: Other-See Comments (back brace) Current Upper Extremity ROM BUE shoulder flexion to approx 85 degrees. WFL at elbow/wrist/hand Upper Extremity Coordination WFL Upper Extremity Sensation PLOF numbness/tingling in fingers. Upper Extremity Strength Not formally tested due to back precautions and pain. Grossly 3/5 BUEs. ADL-Treatment Eating (QC): 6 Oral Hygiene (QC): 5 (oral swab) Shower/Bathe Self (QC): 3 (Mod A shower due to pain.) Upper Body Dressing (QC): 3 (Assist back brace. pt able to don insole tack puller hand shirt per pt and spouse report.) Lower Body Dressing (QC): 1 (Per report, assist all parts due to pain.) On/Off Footwear (QC): 1 (Per report, assist all parts due to pain.) Toileting Hygiene (QC): 3 (Mod A overall due to pain.) Other Treatments OT evaluation complete. Pt and spouse provided information about PLOF and home set up and pt participated in UE screen. Pt and spouse provide information about current level of function with ADLS. Pt had total assist with footwear and LE clothing prior to transfer to ARU due to pain, pt able to don shirt, but required assistance with back brace. Pt pleasantly declined completing these tasks at this time due to pain and just getting dressed prior to transferring to ARU. Post tx, pt in w/c, PT and pt's spouse present, all needs met. Education OT Patient Education: Correct positioning, Energy conservation, Modified ADL techniques, Progress toward Goal/Update tx plan, Purpose of tx/functional activities, Rehab process Teaching Recipient: Patient Teaching Methods: Discussion Response to Teaching: Verbalize Understanding BIMS CAM BIMS Expression of Ideas and Wants: Difficulty (some difficulty, this is PLOF.) Understanding Verbal Content: Understands Brief Interview/Mental Status: Yes IRF KASHMIR BIMS: IRF KASHMIR BIMS Response (Comments) Value Repitition of Three Words Three 3 Recalls Socks Yes, No Cue Required 2 Recalls Blue Yes, No Cue Required 2 Recalls Bed Yes, After Cueing 1 Year Correct 3 Month Accurate Within 5 Days 2 Day Correct 1 Total 14 [address] Ass[address] Mental [address] No CAM Mental Status Change/Baseline: 0 Inattention: 0 Disorganized thinkin Altered level of consciousness: 0 OT Short Term Goals Short Term Goals Time Frame: November 05, 2022 Toileting hygiene: 4 Upper body dressin Lower body dressin Putting on/taking off footwear: 4 OT Pipe Changer Goals Senior Care Goals Time Frame: Nov 19, 2022 Eating (QC): 6 Oral Hygiene (QC): 6 Toileting Hygiene (QC): 6 Shower/Bathe Self (QC): 5 Upper Body Dressing (QC): 6 Lower Body Dressing (QC): 6 On/Off Footwear (QC): 6 Additional Goals: 1-Demonstrate ADL Tasks, 2-Verbalize Understanding, 3- ImproveStrength/Bradley 1=Demonstrate adherence to instructed precautions during ADL tasks. 2=Patient will verbalize/demonstrate understanding of assistive devices/modifications for ADL. 3=Patient will improve strength/tolerance for activity to enable patient to perform ADL's. OT Education/Plan Problem List/Assessment Assessment: Decreased Activ Tolerance, Decreased UE Strength, Impaired Funct Balance, Impaired I ADL's, Impaired Self-Care Skills Discharge Recommendations Plan/Recommendations: Continue POC Treatment Plan/Plan of Care Patient would benefit from OT for education, treatment and training to promote independence in ADL's, mobility, safety and/or upper extremity function for ADL's. Plan of Care: ADL Retraining, Functional Mobility, Group Exercise/Act as Ind, UE Funct Exercise/Act Treatment Duration: Nov 19, 2022 Frequency: At least 5 of 7 days/Wk (IRF) Estimated Hrs Per Day: 1.5 hours per day Agreement: Yes Rehab Potential: Good Time Start Time: 12:35 Stop Time: 12:55 DATE: October 20, 2022 Total Time Billed (hr/min): 20 Billed Treatment Time 1, PARAG LINN OT October 20, 2022 13:08
[2022-10-20] MEDS ORDERED: SALIVA STIMULANT GEL 1.5 OZ (BIOTENE) TUBE PO PRN (13:15)
[2022-10-20] MEDS ORDERED: PROM25TA14 PO (13:15)
--- NOTE | 2022-10-20 14:16 | Physical Therapy Evaluation ---
PT Evaluation-General Medical Diagnosis Admission Date October 20, 2022 at 12:35 Medical Diagnosis: s/p L2-5 laminectomy Onset Date: October 18, 2022 Therapy Diagnosis Therapy Diagnosis: s/p lumbar laminectomy Precautions Precautions/Isolations: Fall Prevention, Standard Precautions Back precautions - no bending/lifting/twisting. LSO on when out of bed. 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 4-Znkvloajtx-zhscxdw completes the activity by him/herself with no assistance from a helper. 5-Set-up or Clean-up Assistance-helper sets up or cleans up; patient completes activity. [place] assists only prior to or following the activity. 4-Supervision or Touching Assistance-helper provides verbal cues and/or touching/steadying and/or contact guard assistance as patient completes activity. Assistance may be provided throughout the activity or intermittently. 3-Partial/Moderate Assistance-helper does LESS THAN HALF the effort. [place] lifts, holds or supports trunk or limbs, but provides less than half the effort. 2-Substantial/Maximal Assistance-helper does MORE THAN HALF the effort. [place] l ifts or holds trunk or limbs and provides more than half the effort. 4-Knlpjjtor-jkfxop does ALL the effort. Patient does none of the effort to complete the activity. Or, the assistance of 2 or more helpers is required for the patient to complete the activity. If activity was not attempted, code reason: 7-Patient Refused. 9-Not Applicable-not attempted and the patient did not perform the activity before the current illness, exacerbation or injury. 10-Not Attempted due to Environmental Limitations-(lack of equipment, weather restraints, etc.). 88-Not Attempted due to Medical Conditions or Safety Concerns. Bed Mobility: 6 Transfers (B,C,W/C): 6 Gait: 6 Stairs: 6 (curbs, small steps (has ramp at home)) Wheelchair Mobility: 9 Indoor Mobility (Ambulation): Independent Stairs: Not [place] Prior Devices Use: None Has acquired a FWW from Marit[facility] Garcia. PT Evaluation-Current Subjective Rates his (R) hip pain a 9/10. states that patient was doing good after surgery, then sat on a low toilet and felt a pop in his (R) hip and has had increased pain since that time. This information was passed on to nursing and Dr. Shane. Patient with significant dysarthria/garbled speech due to tongue removal. Recommend communication board/white board. Pain Section J - Health Conditions 1. Rarely or not at all 2. Occasionally 3. Frequently 4. Almost constantly 8. Unable to answer Pain Effect on Sleep: 3 Pain Interference with Therapy: 4 Pain Interference w/Day-to-Day: 4 Pt/Family Goals To return home with Objective Patient Orientation: Normal For Age TLSO on when out of bed ROM/Strength ROM Lower Extremities decreased actively (R) ankle DF and hip flexion/abduction/adduction due to pain. Functional at (R) knee given time to complete. (L) LE WFL. Strength Lower Extremities (L) LE: ankle 4+/5 DF/PF, knee extension 3+/5, knee flexion 3+/5, hip flexion 3-/5, hip abd/add 3-/5 in sitting (R) LE: ankle 3-/5 DF, 4/5 PF, knee extension 3-/5, knee flexion 3/5, hip flexion 1+/5, hip abd/add 3-/5 in sitting Transfers Roll Left & Right (QC): 3 (min (A) and cues to log roll safely) Sit to Lying (QC): 2 (max (A) of 1 to maintain LE's in line with upper body) Lying to Sitting/Side of Bed(Q: 2 (max of 1 due to muscle relaxer taking effect) Sit to Stand (QC): 3 (mod (A) of 1 with v.c. for correct hand placement) Chair/Bdy-un-Hacbm Xfer(QC): 3 (min-mod (A) of 1 with FWW and v.c. to fully turn prior to sitting and assist to control descent) Toilet Transfer (QC): 3 (min (A) of 1 with grab bars to step, mod (A) to control descent and to stand back up) Car Transfer (QC): 3 (min (A) of 1 without device, stand pivot) Gait Does the Patient Walk?: Yes Mode of Locomotion: Both Anticipated Mode of Locomotion: Walk Walk 10 feet (QC): 3 (min (A) with FWW, slow benjamin, equal step length (B)) Walk 50 ft with 2 Turns(QC): 88 (unable to cover 50' distance due to pain and f atigue) Walk 150 ft (QC): 88 (unable to cover 50' distance due to pain and fatigue) Walking 10ft/uneven surface-QC: 3 (min-mod (A) of 1 with FWW) Distance: 20' Gait Assistive Device: FWW Comments/Gait Description w/c back-up Wheelchair Training Does the Pt Use a Wheelchair?: Yes Distance: 50' Wheel 50 ft with 2 turns (QC): 5 (using (B) UE's) Wheel 150 ft (QC): 88 (distance not tested due to fatigue, pain in sitting) Type of Wheelchair: Manual Stairs 1 Step (curb) (QC): 3 (2" curb min (A) with FWW) 4 Steps (QC): 88 12 Steps (QC): 88 Walking Assistive Device: Walker Balance Sitting Dynamic: Poor Standing Static: Fair Standing Dynamic: Poor Picking up an Object (QC): 88 (not safe to attempt at end of session due to pain and muscle relaxer taking effect) Special Test Comments Elderly Mobility Index: 10/07 Assessment/Needs 67 year old male with significant continued (R) hip pain following laminectomy - difficult to determine if it is radicular in nature or not. Did have "pop" in hip when sitting on low toilet while in [place] - Dr. Shane aware. Has mobility deficits that require ARU intervention so that patient can regain functional (I) to return home with . Co-treatments may be necessary to address multiple issues due to acuity, requiring 2 skilled therapists to address safely. Rehab Potential: Fair Equipment Needs FWW, W/C PT Jail Goals Jail Goals PT Trolley Car Mechanic Goals Time Frame: November 10, 2022 Roll Left to Right (QC): 6 Sit to Lying (QC): 6 Lying-Sitting on Side/Bed(QC): 6 Sit to Stand (QC): 6 Chair/Rce-lf-Cpcod Xfer(QC): 6 Toilet/Commode Transfer (QC): 6 Car Transfer (QC): 5 Does the Patient Walk: Yes Walk 10 feet (QC): 6 Walk 10ft-Uneven Surface(QC): 6 Walk 50ft with 2 Turns (QC): 6 Walk 150 ft (QC): 5 Does the Pt use WC or Scooter?: No Wheel 50 feet with 2 turns (QC: 6 Type: Manual Wheel 150 feet: 6 Type: Manual 1 Step (curb) (QC): 5 (with FWW) 4 Steps (QC): 5 (with rails) 12 Steps (QC): 9 Picking up an Object (QC): 6 (with AD) Elderly Mobility Index score 10/20 or greater PT Plan Problem List Problem List: Activity Tolerance, Functional Strength, Safety, Balance, Gait, Transfer, Bed Mobility Treatment/Plan Treatment Plan: Continue Plan of Care Treatment Plan: Bed Mobility, Education, Functional Activity Bradley, Functional Strength, Group Therapy, Gait, Safety, Therapeutic Exercise, Transfers, Other (co-treatment as needed to address multiple functional deficits safely with need of 2 skilled therapists) Treatment Duration: November 10, 2022 Frequency: At least 5 of 7 days/Wk (IRF) Estimated Hrs Per Day: 1.5 hours per day Patient and/or Family Agrees t: Yes Safety Risks/Education Safety Risk Comments: Fall risk. Back precautions Patient Education: Gait Training, Transfer Techniques, Safety Issues Teaching Recipient: Patient Teaching Methods: Demonstration, Discussion, Audiovisual Response to Teaching: Reinforcement Needed Discharge Recommendations Therapy Discharge Recommendati: Home & Family, Post Acute PT Equpiment Recommendations-D/C: Front Wheeled Walker Time Time In: 1255 Time Out: 1325 DATE: October 20, 2022 Total Billed Treatment Time: 30 Total Billed Treatment 30' - Amita Hernandez PT October 20, 2022 14:16
--- NOTE | 2022-10-20 14:49 | Progress Note ---
HELEN OTTO 10/20/22 1049: Progress Note CC - Lumbar laminectomy Post-op Recovery HPI: Manolo Rios is a 67 yo M who presents to inpatient rehab for recovery s/p L2-5 lumbar laminectomy on 10/18. He was seen in inpatient and treated for GERD and DM in addition to recovery. He is doing okay today working with PT upon exam. He notes pain in his hips and burning around his surgical site. He has had good UOP but no BM since Tuesday. He has been ambulating some with and generally working with PT/OT. He denies n/v/f/c at this time. He is eating and drinking without issue. PMH: Anxiety, Arthritis, asthma, head and neck cancer, choanal stenosis, chronic back pain and chronic leg pain (related to spinal stenosis he received procedure for), Depression, DM, Diverticulitis, dysphagia, HTN, GERD, HLD, Hypothyroidism, IBS, OA, PVD PSH: Appendectomy (2006), Cholecystectomy (2010), Colectomy (2006), Colostomy (2008), Laparotomy (10/2006 and 01/2007), large bowel resection (2006), BL Myringotomy (2020), R Neck surgery (2013), transverse colon and sigmoid resection (2006), radical surgery for palate cancer (2013), Rotational flap surgery (2014), Coronoidectomy (2013), Free muscle/myocutaneous flap w/microvasc R (2013), Tracheostomy (2013), Tympanostomy BL (2016, 2019, 2020), Mandibulotomy (2013), Maxillectomy (2013) FMHx: DM, heart disease, cancer, HTN, Alzheimer's, SHx: Former smoker (1ppd for 25 yrs; quit 2006); 3 standard drinks per week Allergy: Lactose and Statins Home Meds: metaxalone 800mg POD at bedtime, indomethacin 25 mg PO BID, diphenoxylate-atropine 2.5mg-0.025mg PRN (max 4 qday), tizanidine 2mg prn, norvasc 5mg POD, lisinopril 20mg POD, ropinirole 0.5mg PO 1 qday 3hr before bed, promethazine 25mg q6 prn, levothyroxine 112 mcg POD, gabapentin 300mg POD, fenofibrate 145 mg POD, atenolol 50mg 1/2 tab BID, albuterol prn, citalopram 20mg POD Current Meds: Standard PRN's + senna and lactulose ROS Constitutional: no fever, sweats, night sweats, or undue fatigue s/p surgery HEENT: No recent changes in vision, taste, or smell; no new issues swallowing Lungs: no respiratory distress, cough or wheezing CV: no chest pain, palpitations, or lightheadedness GI: no nausea or vomiting, some diarrhea : no issues voiding, no dysuria MSK: some hip pain, not joint aches or bone pain outside of recent procedure PE Gen: A&O x 3, NAD HEENT: PERRLA, EOMI, normocephalic, mucous membranes moist without lesion or exudate; no carotid bruit, no palpable adenopathy or thyromegaly CV: RRR, normal s1 and s2, no murmurs rubs or gallops Pulm: CTAB, equal work of breathing BL, no accesory muscle use. Abd: Bowel sounds active, soft, nontender, nondistended, no masses or organomegaly Skin: warm, dry Neuro: Mental status intact, CN 2-12 intact, no focal motor or sensory deficits Assessment: Spinal stenosis s/p laminectomy GERD DM Plan: - Aggressive IS use - ISS and accuchecks for DM - cont bowel regimen - pain mngmt - cont work with PT/OT - carefully monitor labs and vitals LUPE JOHNSON DO 10/20/222047: Supervisory-Addendum Brief Verification & Attestation Participated in pt care: history, MDM, physical Personally performed: exam, history, MDM, supervision of care Care discussed with: Medical Student Procedures: n/a Results interpretation: Verified all documentation Verification and Attestation of Medical Student E/M Service A medical student performed and documented this service in my presence. I reviewed and verified all information documented by the medical student and made modifications to such information, when appropriate. I personally performed the physical exam and medical decision making. Lupe Johnson October 20, 2022,20:47 HELEN OTTO October 20, 2022 14:49 LUPE JOHNSON DO October 20, 2022 20:48
--- NOTE | 2022-10-20 15:01 | Occupational Ther Daily Note ---
OT Current Status-Daily Note Subjective Took over care from PT. Pt agrees to therapy. Pt c/o pain though does not rate. states that he had muscle relaxer prior to leaving previous hospital. Pt to order lunch from dietary in room. PT/OT co-treat ([id number]), skills of 2 clinicians required to decrease fall risk, increase stamina and decrease pain. PT focusing on transfers, bed mobility and BLE strengthening while OT focusing on functional mobility, B UE placement during transfers and B UE strengthening. Mental Status/Objective Patient Orientation: Person, Place, Time, Situation Attachments: Other-See Comments (back brace) ADL-Treatment Therapy Code Descriptions/Definitions Functional [place] Measure: 0=Not Assessed/NA 4=Minimal Assistance 1=Total Assistance 5=Supervision or Setup 2=Maximal Assistance 6=Modified [place] 3=Moderate Assistance 7=Complete IndependenceSCALE: Activities may be completed with or without assistive devices. 2-Ygbgshykyb-xvjvvnr completes the activity by him/herself with no assistance from a helper. 5-Set-up or Clean-up Assistance-helper sets up or cleans up; patient completes activity. [place] assists only prior to or following the activity. 4-Supervision or Touching Assistance-helper provides verbal cues and/or touching/steadying and/or contact guard assistance as patient completes activity. Assistance may be provided throughout the activity or intermittently. 3-Partial/Moderate Assistance-helper does LESS THAN HALF the effort. [place] lifts, holds or supports trunk or limbs, but provides less than half the effort. 2-Substantial/Maximal Assistance-helper does MORE THAN HALF the effort. [place] lifts or holds trunk or limbs and provides more than half the effort. 8-Vdwlkjsja-mpjhxx does ALL the effort. Patient does none of the effort to complete the activity. Or, the assistance of 2 or more helpers is required for the patient to complete the activity. If activity was not attempted, code reason: 7-Patient Refused. 9-Not Applicable-not attempted and the patient did not perform the activity before the current illness, exacerbation or injury. 10-Not Attempted due to Environmental Limitations-(lack of equipment, weather restraints, etc.). 88-Not Attempted due to Medical Conditions or Safety Concerns. Other Treatment Pt demonstrated WFL AROM of B UE's. Pt c/o pain in L shldr, R hip and burning sensation in back at surgical site. Pt able to complete B UE tasks against gravity while in supine to increase strength and stamina for daily functional tasks. Pt takes increased time to complete tasks due to lengthy recovery breaks and pain. After therapy, pt left in care of CLERK CHECKER. All needs met in room. OT Short Term Goals Short Term Goals Time Frame: November 05, 2022 Toileting hygiene: 4 Upper body dressin Lower body dressin Putting on/taking off footwear: 4 OT Mcfp Goals Director Of Music Goals Time Frame: Nov 19, 2022 Acute change in mental status: 0 Inattention: 0 Disorganized thinkin Altered level of consciousness: 0 Eating (QC): 6 Oral Hygiene (QC): 6 Toileting Hygiene (QC): 6 Shower/Bathe Self (QC): 5 Upper Body Dressing (QC): 6 Lower Body Dressing (QC): 6 On/Off Footwear (QC): 6 Additional Goals: 1-Demonstrate ADL Tasks, 2-Verbalize Understanding, 3- ImproveStrength/Bradley 1=Demonstrate adherence to instructed precautions during ADL tasks. 2=Patient will verbalize/demonstrate understanding of assistive device s/modifications for ADL. 3=Patient will improve strength/tolerance for activity to enable patient to perform ADL's. OT Education/Plan Problem List/Assessment Assessment: Decreased Activ Tolerance, Decreased UE Strength, Impaired Bed Mobility, Impaired Self-Care Skills Discharge Recommendations Plan/Recommendations: Continue POC Treatment Plan/Plan of Care Patient would benefit from OT for education, treatment and training to promote independence in ADL's, mobility, safety and/or upper extremity function for ADL's. Plan of Care: ADL Retraining, Functional Mobility, Group Exercise/Act as Ind, UE Funct Exercise/Act Treatment Duration: Nov 19, 2022 Frequency: At least 5 of 7 days/Wk (IRF) Estimated Hrs Per Day: 1.5 hours per day Agreement: Yes Rehab Potential: Good Time Start Time: 13:25 Stop Time: 14:35 DATE: October 20, 2022 Total Time Billed (hr/min): 70 Billed Treatment Time 1 visit-EX 5 (70 min) co-treat with PT [id number], individual [id number] FELI SILVER October 20, 2022 15:01
--- NOTE | 2022-10-20 15:27 | Physical Therapy Daily Note ---
PT Daily Note-Current Subjective pt in bed laying down upon arrival. pt willing for therapy. pt reports pain but no number noted. Pt did state he was given a MM relaxor prior to tranfer and pt is very lethargic with attempts at staying awake and waking several times. pt did order dietary in room as he stated he was hungry PT/OT co-treat ([id number]), skills of 2 clinicians required to decrease fall risk, increase stamina and decrease pain. PT focusing on transfers, bed mobility and BLE strengthening while OT focusing on functional mobility, B UE placement during transfers and B UE strengtheng. . Pain Section J - Health Conditions 1. Rarely or not at all 2. Occasionally 3. Frequently 4. Almost constantly 8. Unable to answer Pain Effect on Sleep: 3 Pain Interference with Therapy: 4 Pain Interference w/Day-to-Day: 4 Mental Status Patient Orientation: Person, Place, Time, Situation Transfers SCALE: Activities may be completed with or without assistive devices. 0-Epzciuglgn-blhwsmz completes the activity by him/herself with no assistance from a helper. 5-Set-up or Clean-up Assistance-helper sets up or cleans up; patient completes activity. [place] assists only prior to or following the activity. 4-Supervision or Touching Assistance-helper provides verbal cues and/or touching/steadying and/or contact guard assistance as patient completes activity. Assistance may be provided throughout the activity or intermittently. 3-Partial/Moderate Assistance-helper does LESS THAN HALF the effort. [place] lifts, holds or supports trunk or limbs, but provides less than half the effort. 2-Substantial/Maximal Assistance-helper does MORE THAN HALF the effort. [place] lifts or holds trunk or limbs and provides more than half the effort. 8-Oxjayacyn-oaccep does ALL the effort. Patient does none of the effort to complete the activity. Or, the assistance of 2 or more helpers is required for the patient to complete the activity. If activity was not attempted, code reason: 7-Patient Refused. 9-Not Applicable-not attempted and the patient did not perform the activity before the current illness, exacerbation or injury. 10-Not Attempted due to Environmental Limitations-(lack of equipment, weather restraints, etc.). 88-Not Attempted due to Medical Conditions or Safety Concerns. Weight Bearing Weight Bearing/Tolerated Weight Bearing/Tolerated Exercises Supine Ex: Bridging, Ankle pumps, Quad Set, Glut sets, Heel Slides, Short Arc Quads, Straight leg raise, Hip abd/add Treatments Pt preformed bed mobility and supine ther-ex in all planes of motion available with BLE. pt is able to execute 4 sets of 10-20 reps each depending on pain level. glute sets were the most painful to the patient at this time. pt preformed standing with therapist with MAX A secondary to lethargy from mm relaxer and requires multiple VC for safety this day. Assessment Current Status: Fair Progress PT Halfway Goals Seafood Preparer Goals PT Seafood Preparer Goals Time Frame: November 10, 2022 Roll Left & Right (QC): 6 Sit to Lying (QC): 6 Lying-Sitting on Side/Bed(QC): 6 Sit to Stand (QC): 6 Chair/Cpl-sl-Bntry Xfer(QC): 6 Toilet Transfer (QC): 6 Car Transfer (QC): 5 Does the Patient Walk: Yes Walk 10 feet (QC): 6 Walk 50ft with 2 Turns (QC): 6 Walk 150 ft (QC): 5 Walking 10ft on Uneven Surface: 6 1 Step (curb) (QC): 5 (with FWW) 4 Steps (QC): 5 (with rails) 12 Steps (QC): 9 Picking up an Object (QC): 6 (with AD) Does the Pt use WC or Scooter?: No Wheel 50 feet with 2 turns (QC: 6 Type: Manual Wheel 150 feet: 6 Type: Manual PT Plan Problem List Problem List: Activity Tolerance Treatment/Plan Treatment Plan: Continue Plan of Care Treatment Plan: Bed Mobility, Education, Functional Activity Bradley, Functional Strength, Group Therapy, Gait, Safety, Therapeutic Exercise, Transfers, Other (co-treatment as needed to address multiple functional deficits safely with need of 2 skilled therapists) Treatment Duration: November 10, 2022 Frequency: At least 5 of 7 days/Wk (IRF) Estimated Hrs Per Day: 1.5 hours per day Patient and/or Family Agrees t: Yes Time Time In: 1400 Time Out: 1500 DATE: October 20, 2022 Total Billed Treatment Time: 60 Total Billed Treatment 1 EX x 4 Co treat was 35 mins form 1400 to 1435 Tayler Guzmán LIVESTOCK HAULIER October 20, 2022 15:27
[2022-10-20] MEDS ORDERED: RX-DIPHENO./ATROP. 2.5/0.25 MG (LOMOTIL) TAB PPK#4 PO PRN (17:45)
[2022-10-20] MEDS ORDERED: PROMETHAZINE 25 MG (PHENERGAN) TAB PO PRN (17:45)
[2022-10-20] MEDS ORDERED: RX-CYCLOBENZAPRINE 10 MG (FLEXERIL) TAB PPK#3 PO PRN (17:45)
[2022-10-20] MEDS ORDERED: RT-ALBUTEROL SULF 2.5 MG/3 ML PRE-MIX VIAL INH PRN (17:45)
[2022-10-20] MEDS: SALIVA SUBSTITUTE 236 ML SPRAY (MOUTHKOTE) MM PRN (18:04)
[2022-10-20] MEDS ORDERED: CYCLOBENZAPRINE 10 MG (FLEXERIL) TAB PO PRN (18:15)
[2022-10-20 19:44] VITALS: BP 169/79
[2022-10-20] MEDS: SENNA W/DOCUSATE (SENOKOT S) TABLET PO SCH (20:52)
[2022-10-20] MEDS: GABAPENTIN 300 MG (NEURONTIN) CAP PO SCH (20:52)
[2022-10-20] MEDS ORDERED: amLODIPine 5 MG (NORVASC) TAB PO SCH (21:00)
[2022-10-20] MEDS ORDERED: NON-FORMULARY MEDICATION 1 EA EA (Ropinirole HCl 0.5 MG) PO SCH (21:00)
[2022-10-20] MEDS: rOPINIRole 0.25 MG (REQUIP) TAB PO SCH (21:01)
[2022-10-20] MEDS: morphine ER 30 MG (MS CONTIN) TAB PO SCH (21:07)
[2022-10-20] MEDS: DOCUSATE SODIUM 100 MG (COLACE) CAP PO SCH (21:17)
[2022-10-20] MEDS: polyethylene glycoL POWDER 17 GM (MIRALAX) PACK PO SCH (21:17)
--- NOTE | 2022-10-21 05:30 | PM&R Progress Note ---
Subjective HPI/CC On Admission Date Seen by Provider: October 21, 2022 Time Seen by Provider: 11:30 Subjective/Events-last exam 10/21/2022: Doing well Pain controlled BM regimen maintained No falls Right hip xray ordered Review of Systems General: Fatigue, Malaise Musculoskeletal: back pain Objective Exam Vital Signs Vital Signs Date Time Temp Pulse Resp B/P (MAP) Pulse Ox O2 Delivery O2 Flow Rate FiO2 10/21/22 21:54 96 Room Air 10/21/22 20:00 36.0 63 18 149/73 (98) 10/21/22 07:22 0.00 Capillary Refill : General Appearance: No Apparent Distress, WD/WN, Chronically ill HEENT: PERRL/EOMI, Normal ENT Inspection, Pharynx Normal Neck: Full Range of Motion, Normal Inspection, Non Tender, Supple, Carotid Bruit Respiratory: Chest Non Tender, Lungs Clear, Normal Breath Sounds, No Accessory Muscle Use, No Respiratory Distress Cardiovascular: Regular Rate, Rhythm, No Edema, No Gallop, No JVD, No Murmur, Normal Peripheral Pulses Gastrointestinal: Normal Bowel Sounds, No Organomegaly, No Pulsatile Mass, Non Tender, Soft Back: Normal Inspection, Decreased Range of Motion, Muscle Spasm, Vertebral Tenderness Extremity: Normal Capillary Refill, Normal Inspection, Normal Range of Motion, Non Tender, No Calf Tenderness, No Pedal Edema Neurologic/Psychiatric: Alert, Oriented x3, No Motor/Sensory Deficits, Normal Mood/Affect Skin: Normal Color, Warm/Dry Lymphatic: No Adenopathy Results/Procedures Lab Patient resulted labs reviewed. FIM Transfers Therapy Code Descriptions/Definitions Functional [place] Measure: 0=Not Assessed/NA 4=Minimal Assistance 1=Total Assistance 5=Supervision or Setup 2=Maximal Assistance 6=Modified [place] 3=Moderate Assistance 7=Complete IndependenceSCALE: Activities may be completed with or without assistive devices. 0-Lmqzmzlwvz-ipllnkp completes the activity by him/herself with no assistance from a helper. 5-Set-up or Clean-up Assistance-helper sets up or cleans up; patient completes activity. [place] assists only prior to or following the activity. 4-Supervision or Touching Assistance-helper provides verbal cues and/or touching/steadying and/or contact guard assistance as patient completes activity. Assistance may be provided throughout the activity or intermittently. 3-Partial/Moderate Assistance-helper does LESS THAN HALF the effort. [place] lifts, holds or supports trunk or limbs, but provides less than half the effort. 2-Substantial/Maximal Assistance-helper does MORE THAN HALF the effort. [place] lifts or holds trunk or limbs and provides more than half the effort. 2-Moncaosjt-umizre does ALL the effort. Patient does none of the effort to complete the activity. Or, the assistance of 2 or more helpers is required for the patient to complete the activity. If activity was not attempted, code reason: 7-Patient Refused. 9-Not Applicable-not attempted and the patient did not perform the activity before the current illness, exacerbation or injury. 10-Not Attempted due to Environmental Limitations-(lack of equipment, weather restraints, etc.). 88-Not Attempted due to Medical Conditions or Safety Concerns. Roll Left to Right (QC): 3 (min (A) and cues to log roll safely) Sit to Lying (QC): 2 (max (A) of 1 to maintain LE's in line with upper body) Sit to Stand (QC): 3 (mod (A) of 1 with v.c. for correct hand placement) Chair/Lcx-bj-Nxvvi Xfer(QC): 3 (min-mod (A) of 1 with FWW and v.c. to fully turn prior to sitting and assist to control descent) Car Transfer (QC): 3 (min (A) of 1 without device, stand pivot) Gait Training Does the Patient Walk?: Yes Walk 10 feet (QC): 3 (min (A) with FWW, slow benjamin, equal step length (B)) Walk 50 ft with 2 Turns(QC): 88 (unable to cover 50' distance due to pain and fatigue) Walk 150 ft (QC): 88 (unable to cover 50' distance due to pain and fatigue) Walking 10ft/uneven surface-QC: 3 (min-mod (A) of 1 with FWW) Gait Assistive Device: FWW Wheelchair Training Does the Pt Use a Wheelchair?: Yes Distance: 50' Wheel 50 ft with 2 turns (QC): 5 (using (B) UE's) Wheel 150 ft (QC): 88 (distance not tested due to fatigue, pain in sitting) Type of Wheelchair: Manual Stair Training 1 Step (curb) (QC): 3 (2" curb min (A) with FWW) 4 Steps (QC): 88 12 Steps (QC): 88 Balance Picking up an Object (QC): 88 (not safe to attempt at end of session due to pain and muscle relaxer taking effect) ADL-Treatment Eating (QC): 6 Oral Hygiene (QC): 5 (oral swab) Shower/Bathe Self (QC): 3 (Mod A shower due to pain.) Upper Body Dressing (QC): 3 (Assist back brace. pt able to don car clerk pullman shirt per pt and spouse report.) Lower Body Dressing (QC): 1 (Per report, assist all parts due to pain.) On/Off Footwear (QC): 1 (Per report, assist all parts due to pain.) Toileting Hygiene (QC): 3 (Mod A overall due to pain.) Assessment/Plan Assessment and Plan Assess & Plan/Chief Complaint Assessment: s/p surgery for lumbar spondylosis with myelopathy by Dr Kim h/o head/neck surgery HTN HLP Depression DM Diverticulosis GERD Hypothyroidism PVD Right hip pain since small fall onto toilet in [place] with negative xray Plan: Monitor closely Fall risk Pain control Home meds PT OT 10/21/2022: Reviewed right hip xray (1) Spondylosis, lumbar, with myelopathy YONAS JOHNSON DO October 21, 2022 05:30
--- NOTE | 2022-10-21 05:30 | Individualized Plan of Care ---
Individualized Plan of Care Rehab Nursing IPOC Order Admission Date October 20, 2022 at 12:35 Current Orders Orders Admission Arrival Bed Request (10/20/22 12:44) Admission Order(Inpt,Obs,Sdc) (10/20/22 12:47) Ervin Upton (10/20/22 12:47) Sequential Compression Device (10/20/22 12:47) Picking Table Worker-Inpt Rehab Con (10/20/22 12:47) Rehab Nursing Orders-Ipoc (10/20/22 12:47) Physical Therapy Rehab Orders (10/20/22 12:47) Occupational Therapy Rehab Ord (10/20/22 12:47) Speech Therapy Rehab Orders (10/20/22 12:47) Cbc With Automated Diff (10/21/22 06:00) Comprehensive Metabolic Panel (10/21/22 06:00) Precautions (Aru) (10/20/22 12:47) Weekly Weight WEEK (10/20/22 12:47) Rehab-Intensity Of Therapy (10/20/22 12:47) Initiate Admission Nursing Pro .admission (10/20/22 12:47) Alprazolam Tablet (Xanax Tablet) (10/20/22 13:00) Calcium Carbonate Chew Tablet (Antacid C (10/20/22 13:00) Diphenhydramine Tablet (Benadryl Tablet) (10/20/22 13:00) Docusate Sodium Capsule (Colace Capsule) (10/20/22 21:00) Docusate Sodium Capsule (Colace Capsule) (10/20/22 13:00) Bisacodyl Suppository (Dulcolax Supposit (10/20/22 13:00) Lactulose Oral Solution (Enulose Oral So (10/20/22 13:00) Na Phos/Na Biphos Enema (Fleet Enema Gregg (10/20/22 13:00) Guaifenesin/Codeine Syrup (Robitussin Ac (10/20/22 13:00) Loperamide Tablet (Imodium Tablet) (10/20/22 13:00) Melatonin Tablet (Melatonin Tablet) (10/20/22 13:00) Polyethylene Glycol Powder Pkt (Miralax (10/20/22 21:00) Ondansetron Oral Dissolve Tab (Zofran (10/20/22 13:00) Senna S Tablet (Senokot S Tablet) (10/20/22 21:00) Acetaminophen Tablet/Caplet (Tylenol T (10/20/22 13:00) Code/Resuscitation (10/20/22 12:47) Clonidine Tablet (Catapres Tablet) (10/20/22 13:00) Saliva Stimulant Gel (Biotene Oral Delroy (10/20/22 13:15) Saliva Substitute (Mouthkote Solution) (10/20/22 14:00) Nursing Communication (Order) (10/20/22 14:17) General/Regular (10/20/22 Lunch) Follow-Up Appointment (10/20/22 14:33) Nursing Communication (Order) (10/20/22 14:28) Occupational Therapy Order (10/20/22 14:28) Occupational Therapy Order (10/20/22 14:28) Exercise Therap, Ea 15 Min (10/20/22 ) Albuterol Pre-Mix Nebs (Rt) (Proventil (10/20/22 17:45) Amlodipine Tablet (Norvasc Tablet) (10/20/22 21:00) Citalopram Tablet (Celexa Tablet) (10/20/22 21:00) Rx-Cyclobenzaprine Tablet (Rx-Flexeril T (10/20/22 17:45) Rx-Diphenoxylate/Atropine (Rx-Lomotil 2. (10/20/22 17:45) Docusate Sodium Capsule (Colace Capsule) (10/20/22 17:45) Gabapentin Capsule/Tablet (Neurontin Cap (10/20/22 21:00) Levothyroxine Tablet (Synthroid Tablet) (10/21/22 06:30) Lisinopril Tablet (Zestril Tablet) (10/21/22 09:00) Morphine Er Tablet (Ms Contin Tablet) (10/20/22 21:00) Oxycodone Immediate Rel Tablet (Oxyir Ta (10/20/22 17:45) Pantoprazole Tablet (Protonix Tablet) (10/21/22 09:00) Promethazine Tablet (Phenergan Tablet) (10/20/22 17:45) (Nf) Atenolol (10/21/22 09:00) (Nf) Fenofibrate Nanocrystallized (Fenof (10/21/22 09:00) (Nf) Ropinirole Hcl (10/20/22 21:00) Svn Small Volume Nebulizer (10/20/22 17:45) Atenolol Tablet (Tenormin Tablet) (10/21/22 09:00) Fenofibrate,Micronized Capsule (Lofibra (10/21/22 09:00) Ropinirole Tablet (Requip Tablet) (10/20/22 21:00) Cyclobenzaprine Tablet (Flexeril Tablet) (10/20/22 18:15) Diphenoxylate/Atropine Tablet (Lomotil T (10/20/22 18:15) Manual Differential (10/21/22 05:03) Patient Visit (10/20/22 ) Pt Eval Moderate Complexity (10/20/22 ) Hip, Right, 2 Views (10/21/22 10:14) Amlodipine Tablet (Norvasc Tablet) (10/21/22 11:00) Amlodipine Tablet (Norvasc Tablet) (10/22/22 09:00) Patient Visit (10/21/22 ) Gait Training, Ea 15 Min (10/21/22 ) Exercise Therap, Ea 15 Min (10/21/22 ) Bladder Scan-Straight Cath-Pos (10/21/22 13:42) Lidocaine 2% (Urojet) (Xylocaine Urojet) (10/21/22 14:00) Lidocaine 2% (Urojet) (Xylocaine Urojet) (10/21/22 13:48) Patient Visit (10/21/22 ) Functional Activities, Ea 15 (10/21/22 ) Ensure Plus Variety (10/21/22 14:58) Lidocaine 2% (Urojet) (Xylocaine Urojet) (10/21/22 15:30) Patient May Use Own Meds, All (Patient M (10/21/22 19:00) (Nf) [place] (Salagen) (10/21/22 21:00) Rehab Nursing Orders: Ongoing Assess. of Cognitive Status, Ongoing Assess. of Function Status, Bladder Management, Bladder Scan, Bladder Training, Bowel Management, Bowel Training, Disease Management & Educaiton, DVT Prophylaxis, Fall Prevention, Fluid/Electrolyte/Nutrition Mgmt, Infection Prevention, Medication Management & Education, Management of Risks & Complications, Management of Skin Intergrity, Nutrition Management, Pain Management, Patient/Family Support, Safety Management, Wound Management Intensity of Therapy to be met Patient to be seen: Min.3h per day/5 of 7d PT IPOC Problem List: Activity Tolerance Treatment Plan: Continue Plan of Care Bed Mobility, Education, Functional Activity [place], Functional Strength, Group Therapy, Gait, Safety, Therapeutic Exercise, Transfers, Other (co-treatment as needed to address multiple functional deficits safely with need of 2 skilled therapists) Treatment Duration: November 10, 2022 Frequency: At least 5 of 7 days/Wk (IRF) Estimated Hrs Per Day: 1.5 hours per day OT IPOC Problems: Decreased Activ Tolerance, Decreased UE Strength, Impaired Bed Mobility, Impaired Self-Care Skills OT Treatment, Training and Edu: Yes Plan of Care: ADL Retraining, Functional Mobility, Group Exercise/Act as Ind, UE Funct Exercise/Act Treatment Duration: Nov 19, 2022 Frequency: At least 5 of 7 days/Wk (IRF) Estimated Hrs Per Day: 1.[address] IPOC Speech Therapy Treatment Plan: Discontinue ST Treatment Duration: October 21, 2022 Frequency: Modified Program (IRF) Estimated Hrs Per Day: Other Picking Table Worker/Case Mgmt Picking Table Worker/Case Managemen: Discharge Planning Dietitian/Brick And Blocker Aid Labor Dietitian/[place] [place] [employer] Aid Labor to monitor nutritional status and make changes and/or recommendations as needed and work with speech pathology on dietary upgrades as the occur. Physician IPOC Medical Issues being managed closely and that require the 24 hour availability of a physician: Recent complex lumbar spine surgery with h/o head and neck CA will require close monitoring for any decompensation due to co-morbidities of DM HTN. Medical Issues: Bowel/Bladder Function, DVT Prophylaxis, Falls Precautions, Fluid/Electrolyte/Nutrition Balance, Infection Protection, Pain Management, Wound Care Brief Synthesis of Preadmission Screen, Post-Admission Evaluation, and Therapy Evaluations: PT OT will focus on regaining function with AD in order to regain ambulatory function and ADL's Medical Prognosis: Good Anticipated Length of Stay: 7 days YONAS JOHNSON DO October 21, 2022 05:30
[2022-10-21 05:42] LABS: BASOPHILS % (AUTO) 0 % (0-10); EOSINOPHILS % (AUTO) 0 % (0-10); HEMATOCRIT 29 % (40-54); HEMOGLOBIN 9.4 g/dL (13.3-17.7); LYMPHOCYTES # (AUTO) 0.4 10^3/uL (1.0-4.0); LYMPHOCYTES % (AUTO) 3 % (12-44); MEAN CORPUSCULAR HEMOGLOBIN 27 pg (25-34); MEAN CORPUSCULAR HGB CONC 33 g/dL (32-36); MEAN CORPUSCULAR VOLUME 83 fL (80-99); MONOCYTES % (AUTO) 6 % (0-12); NEUTROPHILS # (AUTO) 14.6 10^3/uL (1.8-7.8); NEUTROPHILS % (AUTO) 90 % (42-75); PLATELET COUNT 365 10^3/uL (130-400); WHITE BLOOD COUNT 16.2 10^3/uL (4.3-11.0)
[2022-10-21 05:56] LABS: ALBUMIN 3.1 GM/DL (3.2-4.5); POTASSIUM 3.5 MMOL/L (3.6-5.0)
[2022-10-21 05:57] LABS: CALCIUM 9.9 MG/DL (8.5-10.1)
[2022-10-21 05:59] LABS: TOTAL PROTEIN 6.3 GM/DL (6.4-8.2)
[2022-10-21 06:00] LABS: BILIRUBIN,TOTAL 0.5 MG/DL (0.1-1.0)
[2022-10-21 06:02] LABS: CREATININE SERUM 1.08 MG/DL (0.60-1.30)
[2022-10-21 06:14] LABS: ANISOCYTOSIS SLIGHT; LYMPHOCYTES % (MANUAL) 1 %; MONOCYTES % (MANUAL) 5 %; NEUTROPHILS % (MANUAL) 94 %
[2022-10-21] MEDS: LEVOTHYROXINE 112 MCG (LEVOTHROID) TAB PO SCH (06:27)
[2022-10-21] MEDS: ATENOLOL 25 MG (TENORMIN) TAB PO SCH (07:18)
[2022-10-21] MEDS: lisINopril 20 MG (PRINIVIL) TABLET PO SCH (07:19)
[2022-10-21] MEDS: PANTOPRAZOLE 40 MG (PROTONIX) TAB PO SCH (07:19)
[2022-10-21] MEDS: FENOFIBRATE 134 MG (LOFIBRA) CAPSULE PO SCH (07:19)
[2022-10-21] MEDS: morphine ER 30 MG (MS CONTIN) TAB PO SCH ×2 (07:19→21:32)
[2022-10-21] MEDS: SALIVA SUBSTITUTE 236 ML SPRAY (MOUTHKOTE) MM PRN (07:20)
[2022-10-21 07:23] VITALS: BP 173/75
--- NOTE | 2022-10-21 07:41 | Occupational Ther Daily Note ---
OT Current Status-Daily Note Subjective Pt laying in bed eating breakfast. OT provided education on importance of sitting upright with intake, but pt adamantly declined all offered repositioning due to pain. 9+/10 pain reported in R hip, no pain reported in back. Pt has had increased hip pain since he felt a "pop" at OSH prior to transferring to ARU. Pt feels like he needs imaging of his him. OT notified RN and therapy care team. Mental Status/Objective Patient Orientation: Normal For Age Attachments: Other-See Comments (back brace OOB) ADL-Treatment Therapy Code Descriptions/Definitions Functional [place] Measure: 0=Not Assessed/NA 4=Minimal Assistance 1=Total Assistance 5=Supervision or Setup 2=Maximal Assistance 6=Modified [place] 3=Moderate Assistance 7=Complete IndependenceSCALE: Activities may be completed with or without assistive devices. 9-Ipjxuwjmdt-irnayst completes the activity by him/herself with no assistance from a helper. 5-Set-up or Clean-up Assistance-helper sets up or cleans up; patient completes activity. [place] assists only prior to or following the activity. 4-Supervision or Touching Assistance-helper provides verbal cues and/or touching/steadying and/or contact guard assistance as patient completes activity. Assistance may be provided throughout the activity or intermittently. 3-Partial/Moderate Assistance-helper does LESS THAN HALF the effort. [place] lifts, holds or supports trunk or limbs, but provides less than half the effort. 2-Substantial/Maximal Assistance-helper does MORE THAN HALF the effort. [place] lifts or holds trunk or limbs and provides more than half the effort. 1-Fxvzelcjs-vlbnpn does ALL the effort. Patient does none of the effort to complete the activity. Or, the assistance of 2 or more helpers is required for the patient to complete the activity. If activity was not attempted, code reason: 7-Patient Refused. 9-Not Applicable-not attempted and the patient did not perform the activity before the current illness, exacerbation or injury. 10-Not Attempted due to Environmental Limitations-(lack of equipment, weather restraints, etc.). 88-Not Attempted due to Medical Conditions or Safety Concerns. Eating (QC): 6 Upper Body Dressing (QC): 2 (Max A donning/doffing back brace due to pain) Other Treatment Pt laying in bed eating breakfast. OT provided education on importance of sitting upright with intake, but pt adamantly declined all offered repositioning due to pain. After breakfast, pt transferred supine to sit EOB with min A. Pt stood from EOB, min A, then used FWW to transfer to w/c, CGA. Pt had difficulty positioning in w/c due to R hip pain. Pt propelled w/c around ARU Common area, then reports increased pain requesting to return to bed. Pt able to tolerate sitting up in w/c ~20 mins. Pt stood from w/c, min A, then CGA transfer to EOB, min A sit to supine. OT tx terminated at this time, as pt is unable to tolerate further OT tx due to extreme R hip pain. OT will attempt tx again later today. Post tx, pt in recliner, call light in reach and all needs met. Education OT Patient Education: Correct positioning, Energy conservation, Modified ADL techniques, Progress toward Goal/Update tx plan, Purpose of tx/functional activities, Rehab process Teaching Recipient: Patient Teaching Methods: Discussion Response to Teaching: Verbalize Understanding OT Short Term Goals Short Term Goals Time Frame: November 05, 2022 Toileting hygiene: 4 Upper body dressin Lower body dressin Putting on/taking off footwear: 4 OT Local Bulk Driver Goals [facility] Goals Time Frame: Nov 19, 2022 Acute change in mental status: 0 Inattention: 0 Disorganized thinkin Altered level of consciousness: 0 Eating (QC): 6 Oral Hygiene (QC): 6 Toileting Hygiene (QC): 6 Shower/Bathe Self (QC): 5 Upper Body Dressing (QC): 6 Lower Body Dressing (QC): 6 On/Off Footwear (QC): 6 Additional Goals: 1-Demonstrate ADL Tasks, 2-Verbalize Understanding, 3- ImproveStrength/[place] 1=Demonstrate adherence to instructed precautions during ADL tasks. 2=Patient will verbalize/demonstrate understanding of assistive devices/modifications for ADL. 3=Patient will improve strength/tolerance for activity to enable patient to perform ADL's. OT Education/Plan Problem List/Assessment Assessment: Decreased Activ Tolerance, Decreased UE Strength, Impaired Funct Balance, Impaired I ADL's, Impaired Self-Care Skills Discharge Recommendations Plan/Recommendations: Continue POC Treatment Plan/Plan of Care Patient would benefit from OT for education, treatment and training to promote independence in ADL's, mobility, safety and/or upper extremity function for ADL's. Plan of Care: ADL Retraining, Functional Mobility, Group Exercise/Act as Ind, UE Funct Exercise/Act Treatment Duration: Nov 19, 2022 Frequency: At least 5 of 7 days/Wk (IRF) Estimated Hrs Per Day: 1.5 hours per day Agreement: Yes Rehab Potential: Fair Time Start Time: 07:30 Stop Time: 08:30 DATE: October 21, 2022 Total Time Billed (hr/min): 60 Billed Treatment Time 1, ADL 2 (30'), FA 2 (30') PARAG VALDERRAMA OT October 21, 2022 07:41
[2022-10-21] MEDS: polyethylene glycoL POWDER 17 GM (MIRALAX) PACK PO SCH ×2 (08:43→21:30)
[2022-10-21] MEDS: DOCUSATE SODIUM 100 MG (COLACE) CAP PO SCH ×2 (08:43→21:34)
[2022-10-21] MEDS: SENNA W/DOCUSATE (SENOKOT S) TABLET PO SCH ×2 (08:44→21:30)
[2022-10-21] MEDS ORDERED: NON-FORMULARY MEDICATION 1 EA EA (Fenofibrate Nanocrystallized (Fenofibrate) 145 MG) PO SCH (09:00)
[2022-10-21] MEDS ORDERED: NON-FORMULARY MEDICATION 1 EA EA (Atenolol 50 MG) PO SCH (09:00)
[2022-10-21] MEDS ORDERED: amLODIPine 5 MG (NORVASC) TAB PO NR (11:00)
--- NOTE | 2022-10-21 11:21 | Occupational Ther Daily Note ---
OT Current Status-Daily Note Subjective Pt agreeable to OT tx. Pt had an xray of R hip earlier this AM, he is awaiting results Mental Status/Objective Patient Orientation: Normal For Age ADL-Treatment Therapy Code Descriptions/Definitions Functional [place] Measure: 0=Not Assessed/NA 4=Minimal Assistance 1=Total Assistance 5=Supervision or Setup 2=Maximal Assistance 6=Modified [place] 3=Moderate Assistance 7=Complete IndependenceSCALE: Activities may be completed with or without assistive devices. 2-Lirgxvatla-fhcmzyo completes the activity by him/herself with no assistance from a helper. 5-Set-up or Clean-up Assistance-helper sets up or cleans up; patient completes activity. [place] assists only prior to or following the activity. 4-Supervision or Touching Assistance-helper provides verbal cues and/or touching/steadying and/or contact guard assistance as patient completes activity. Assistance may be provided throughout the activity or intermittently. 3-Partial/Moderate Assistance-helper does LESS THAN HALF the effort. [place] lifts, holds or supports trunk or limbs, but provides less than half the effort. 2-Substantial/Maximal Assistance-helper does MORE THAN HALF the effort. [place] lifts or holds trunk or limbs and provides more than half the effort. 4-Scfksktxi-ckyxxv does ALL the effort. Patient does none of the effort to complete the activity. Or, the assistance of 2 or more helpers is required for the patient to complete the activity. If activity was not attempted, code reason: 7-Patient Refused. 9-Not Applicable-not attempted and the patient did not perform the activity before the current illness, exacerbation or injury. 10-Not Attempted due to Environmental Limitations-(lack of equipment, weather restraints, etc.). 88-Not Attempted due to Medical Conditions or Safety Concerns. Other Treatment Pt laying supine in bed, states he has most pain relief in his hip while laying down. Pt did not verbalize pain rating during tx. OT tx focused on increasing BUE strength and activity. Pt completed BUE dowel exercises, 1lb dowel magali, 2x15 reps each of the following: front punch, shoulder flexion, bicep curls. Pt required rest breaks between exercises. Post tx, pt in bed, call light in reach and all needs met. Education OT Patient Education: Correct positioning, Energy conservation, Modified ADL techniques, Progress toward Goal/Update tx plan, Purpose of tx/functional activities, Rehab process Teaching Recipient: Patient Teaching Methods: Discussion Response to Teaching: Verbalize Understanding OT Short Term Goals Short Term Goals Time Frame: November 05, 2022 Toileting hygiene: 4 Upper body dressin Lower body dressin Putting on/taking off footwear: 4 OT [place] Goals Group Home Goals Time Frame: Nov 19, 2022 Acute change in mental status: 0 Inattention: 0 Disorganized thinkin Altered level of consciousness: 0 Eating (QC): 6 Oral Hygiene (QC): 6 Toileting Hygiene (QC): 6 Shower/Bathe Self (QC): 5 Upper Body Dressing (QC): 6 Lower Body Dressing (QC): 6 On/Off Footwear (QC): 6 Additional Goals: 1-Demonstrate ADL Tasks, 2-Verbalize Understanding, 3- ImproveStrength/[place] 1=Demonstrate adherence to instructed precautions during ADL tasks. 2=Patient will verbalize/demonstrate understanding of assistive devices/modifications for ADL. 3=Patient will improve strength/tolerance for activity to enable patient to perform ADL's. OT Education/Plan Problem List/Assessment Assessment: Decreased Activ Tolerance, Decreased UE Strength, Impaired Funct Balance, Impaired I ADL's, Impaired Self-Care Skills Discharge Recommendations Plan/Recommendations: Continue POC Treatment Plan/Plan of Care Patient would benefit from OT for education, treatment and training to promote independence in ADL's, mobility, safety and/or upper extremity function for ADL's. Plan of Care: ADL Retraining, Functional Mobility, Group Exercise/Act as Ind, UE Funct Exercise/Act Treatment Duration: Nov 19, 2022 Frequency: At least 5 of 7 days/Wk (IRF) Estimated Hrs Per Day: 1.5 hours per day Agreement: Yes Rehab Potential: Fair Time Start Time: 11:10 Stop Time: 11:40 DATE: October 21, 2022 Total Time Billed (hr/min): 30 Billed Treatment Time 1, EX 2 PARAG VALDERRAMA OT October 21, 2022 11:20
[2022-10-21] MEDS: ONDANSETRON 4 MG (ZOFRAN) ORAL DISSOLVE TAB PO PRN (12:31)
--- NOTE | 2022-10-21 12:39 | Physical Therapy Daily Note ---
PT Daily Note-Current Subjective Pt laying in bed upon arrival and stated his pain is currently 7/10 nursing is aware. pt agreed to TENS until for pain management of Right Hip. pt has stated earlier in the morning that pain was at a 9/10 sitting in WC for aprox 20 mins. Pt stated pain did decrease to 6.5/10 after TENS unit. after TENS pt did ambulat e and stated pain shot back up to a 9/10. X ray was ordered this day per nursing. Pain Section J - Health Conditions 1. Rarely or not at all 2. Occasionally 3. Frequently 4. Almost constantly 8. Unable to answer Pain Effect on Sleep: 3 Pain Interference with Therapy: 4 Pain Interference w/Day-to-Day: 4 Transfers SCALE: Activities may be completed with or without assistive devices. 3-Vlcwbnbdsb-jlduzsc completes the activity by him/herself with no assistance from a helper. 5-Set-up or Clean-up Assistance-helper sets up or cleans up; patient completes activity. Mathias assists only prior to or following the activity. 4-Supervision or Touching Assistance-helper provides verbal cues and/or touching/steadying and/or contact guard assistance as patient completes ac tivity. Assistance may be provided throughout the activity or intermittently. 3-Partial/Moderate Assistance-helper does LESS THAN HALF the effort. Mathias lifts, holds or supports trunk or limbs, but provides less than half the effort. 2-Substantial/Maximal Assistance-helper does MORE THAN HALF the effort. Mathias lifts or holds trunk or limbs and provides more than half the effort. 6-Wkfcnxyyn-egafof does ALL the effort. Patient does none of the effort to complete the activity. Or, the assistance of 2 or more helpers is required for the patient to complete the activity. If activity was not attempted, code reason: 7-Patient Refused. 9-Not Applicable-not attempted and the patient did not perform the activity before the current illness, exacerbation or injury. 10-Not Attempted due to Environmental Limitations-(lack of equipment, weather restraints, etc.). 88-Not Attempted due to Medical Conditions or Safety Concerns. Weight Bearing Weight Bearing/Tolerated Weight Bearing/Tolerated Gait Training Pt is able to ambulate 46ft with RW and CGA with 2 pivot turns. Pt requires VC for sequencing of foot and AD for 20% to prevent falls. Exercises Supine Ex: Bridging, Ankle pumps, Quad Set, Rolling, Glut sets, Heel Slides, Short Arc Quads, Scooting, Straight leg raise Treatments Pt received TENS education and was preformed to decrease pain in the right Lower hip. TENS was applied for 20 min on right lower posterior hip area . Pulse was 20 sec on 5 sec off. Frequency was 100Hz Intensity was 6 then ramped to 8. pt was able to preform bed to WC tranfers with Min a getting legs in and out of bed to stay in precautions before back brace is on. Pt is able to preform sit to stand from EOB with CGA. PT Composer Teaching Artist Goals Snf Goals PT Snf Goals Time Frame: November 10, 2022 Roll Left & Right (QC): 6 Sit to Lying (QC): 6 Lying-Sitting on Side/Bed(QC): 6 Sit to Stand (QC): 6 Chair/Hqd-mf-Rhbqg Xfer(QC): 6 Toilet Transfer (QC): 6 Car Transfer (QC): 5 Does the Patient Walk: Yes Walk 10 feet (QC): 6 Walk 50ft with 2 Turns (QC): 6 Walk 150 ft (QC): 5 Walking 10ft on Uneven Surface: 6 1 Step (curb) (QC): 5 (with FWW) 4 Steps (QC): 5 (with rails) 12 Steps (QC): 9 Picking up an Object (QC): 6 (with AD) Does the Pt use WC or Scooter?: No Wheel 50 feet with 2 turns (QC: 6 Type: Manual Wheel 150 feet: 6 Type: Manual PT Plan Problem List Problem List: Activity Tolerance Treatment/Plan Treatment Plan: Continue Plan of Care Treatment Plan: Bed Mobility, Education, Functional Activity Bradley, Functional Strength, Group Therapy, Gait, Safety, Therapeutic Exercise, Transfers, Other (co-treatment as needed to address multiple functional deficits safely with need of 2 skilled therapists) Treatment Duration: November 10, 2022 Frequency: At least 5 of 7 days/Wk (IRF) Estimated Hrs Per Day: 1.5 hours per day Patient and/or Family Agrees t: Yes Time Time In: 929 Time Out: 1025 DATE: October 21, 2022 Total Billed Treatment Time: 55 Total Billed Treatment 1 TNS GT EX x 3 Tayler Guzmán TURNING MACHINE OPERATOR HELPER October 21, 2022 12:39
--- NOTE | 2022-10-21 13:17 | Diagnostic Imaging Report ---
HIP, RIGHT, 2 VIEWS INDICATION: Right hip pain. COMPARISON: None available. TECHNIQUE: Two views of the right hip. FINDINGS: Mild osteoarthritis of the right hip. Osseous bump along the femoral neck can predispose to femoroacetabular impingement. No fracture. No features of avascular necrosis. IMPRESSION: No acute osseous abnormality about the right hip. Dictated by: Dictated on workstation # [id number]
[2022-10-21] MEDS ORDERED: LIDOCAINE UROJET 2% GEL 10 ML PKG ONE (13:48)
[2022-10-21] MEDS ORDERED: LIDOCAINE UROJET 2% GEL 10 ML PKG TOP ONE (14:00)
--- NOTE | 2022-10-21 14:16 | Physical Therapy Daily Note ---
PT Daily Note-Current Subjective Pt laying in bed upon arrival. pt willing for therapy. pt stated he felt hot and his cheeks were flushed. had nursing check his temp. it was WNL no sign of fever. pt stated his pain was 7/10. pt asked if i could step out twice to use the urinal. upon reentering the room pt had voided a miniscule amount. spoke with nursing about a possible UTI and nursing did a bladder scan. upon scanning bladder after pt had just voided, scan showed 1451 ml in the bladder. nursing called dr for possible catheter placement. pt was left in bed with call light and all needs met after therapy. Pain Section J - Health Conditions 1. Rarely or not at all 2. Occasionally 3. Frequently 4. Almost constantly 8. Unable to answer Pain Effect on Sleep: 3 Pain Interference with Therapy: 4 Pain Interference w/Day-to-Day: 4 Transfers SCALE: Activities may be completed with or without assistive devices. 4-Hwjmxlsdzh-upeydwr completes the activity by him/herself with no assistance from a helper. 5-Set-up or Clean-up Assistance-helper sets up or cleans up; patient completes activity. [place]vid assists only prior to or following the activity. 4-Supervision or Touching Assistance-helper provides verbal cues and/or touching/steadying and/or contact guard assistance as patient completes activity. Assistance may be provided throughout the activity or intermittently. 3-Partial/Moderate Assistance-helper does LESS THAN HALF the effort. Ovid lifts, holds or supports trunk or limbs, but provides less than half the effort. 2-Substantial/Maximal Assistance-helper does MORE THAN HALF the effort. Ovid lifts or holds trunk or limbs and provides more than half the effort. 8-Pljamqdah-gpqytb does ALL the effort. Patient does none of the effort to complete the activity. Or, the assistance of 2 or more helpers is required for the patient to complete the activity. If activity was not attempted, code reason: 7-Patient Refused. 9-Not Applicable-not attempted and the patient did not perform the activity before the current illness, exacerbation or injury. 10-Not Attempted due to Environmental Limitations-(lack of equipment, weather restraints, etc.). 88-Not Attempted due to Medical Conditions or Safety Concerns. Weight Bearing Weight Bearing/Tolerated Weight Bearing/Tolerated Treatments pt bridging and preforming bed mobility to preform urine expulsion into the urinal. pt was very fatigued and required rest in between bed mobility. Vc of 40% were needed for correct movement to prevent any breaking of precautions from recent surgery PT Utility Worker [place] Goals Utility Worker [place] Goals PT Senior Care Goals Time Frame: November 10, 2022 Roll Left & Right (QC): 6 Sit to Lying (QC): 6 Lying-Sitting on Side/Bed(QC): 6 Sit to Stand (QC): 6 Chair/Kov-kc-Lcmmd Xfer(QC): 6 Toilet Transfer (QC): 6 Car Transfer (QC): 5 Does the Patient Walk: Yes Walk 10 feet (QC): 6 Walk 50ft with 2 Turns (QC): 6 Walk 150 ft (QC): 5 Walking 10ft on Uneven Surface: 6 1 Step (curb) (QC): 5 (with FWW) 4 Steps (QC): 5 (with rails) 12 Steps (QC): 9 Picking up an Object (QC): 6 (with AD) Does the Pt use WC or Scooter?: No Wheel 50 feet with 2 turns (QC: 6 Type: Manual Wheel 150 feet: 6 Type: Manual PT Plan Treatment/Plan Treatment Plan: Continue Plan of Care Treatment Plan: Bed Mobility, Education, Functional Activity Bradley, Functional Strength, Group Therapy, Gait, Safety, Therapeutic Exercise, Transfers, Other (co-treatment as needed to address multiple functional deficits safely with need of 2 skilled therapists) Treatment Duration: November 10, 2022 Frequency: At least 5 of 7 days/Wk (IRF) Estimated Hrs Per Day: 1.5 hours per day Patient and/or Family Agrees t: Yes Time Time In: 1300 Time Out: 1335 DATE: October 21, 2022 Total Billed Treatment Time: 35 Total Billed Treatment 1 FA x 2 Tayler Guzmán RIB BENDER October 21, 2022 14:16
[2022-10-21] MEDS ORDERED: LIDOCAINE UROJET 2% GEL 10 ML PKG TOP PRN (15:30)
[2022-10-21] MEDS ORDERED: PATIENT MAY USE OWN MEDS, ALL MC SCH (19:00)
[2022-10-21 20:00] VITALS: BP 149/73
[2022-10-21] MEDS: rOPINIRole 0.25 MG (REQUIP) TAB PO SCH (21:32)
[2022-10-21] MEDS: GABAPENTIN 300 MG (NEURONTIN) CAP PO SCH (21:33)
[2022-10-21] MEDS: PILOCARPINE 5 MG TABLET PO SCH (21:35)
[2022-10-22] MEDS: ONDANSETRON 4 MG (ZOFRAN) ORAL DISSOLVE TAB PO PRN (02:39)
--- NOTE | 2022-10-22 06:26 | PM&R Progress Note ---
Subjective HPI/CC On Admission Date Seen by Provider: October 22, 2022 Time Seen by Provider: 11:30 Subjective/Events-last exam 10/22/2022: Doing well No major pain unless he moves Will start pain pill at 0600 before therapy In/Out catheter required Check UA today Flomax initiated 10/21/2022: Doing well Pain controlled BM regimen maintained No falls Right hip xray ordered Review of Systems General: Fatigue, Malaise Musculoskeletal: back pain Objective Exam Vital Signs Vital Signs Date Time Temp Pulse Resp B/P (MAP) Pulse Ox O2 Delivery O2 Flow Rate FiO2 10/22/22 19:13 35.8 60 20 102/57 (72) 94 Room Air 10/22/22 07:45 0.00 0.00 Capillary Refill : General Appearance: No Apparent Distress, WD/WN, Chronically ill HEENT: PERRL/EOMI, Normal ENT Inspection, Pharynx Normal Neck: Full Range of Motion, Normal Inspection, Non Tender, Supple, Carotid Bruit Respiratory: Chest Non Tender, Lungs Clear, Normal Breath Sounds, No Accessory Muscle Use, No Respiratory Distress Cardiovascular: Regular Rate, Rhythm, No Edema, No Gallop, No JVD, No Murmur, Normal Peripheral Pulses Gastrointestinal: Normal Bowel Sounds, No Organomegaly, No Pulsatile Mass, Non Tender, Soft Back: Normal Inspection, Decreased Range of Motion, Muscle Spasm, Vertebral Tenderness Extremity: Normal Capillary Refill, Normal Inspection, Normal Range of Motion, Non Tender, No Calf Tenderness, No Pedal Edema Neurologic/Psychiatric: Alert, Oriented x3, No Motor/Sensory Deficits, Normal Mood/Affect Skin: Normal Color, Warm/Dry Lymphatic: No Adenopathy Results/Procedures Lab Patient resulted labs reviewed. FIM Transfers Therapy Code Descriptions/Definitions Functional [place] Measure: 0=Not Assessed/NA 4=Minimal Assistance 1=Total Assistance 5=Supervision or Setup 2=Maximal Assistance 6=Modified [place] 3=Moderate Assistance 7=Complete IndependenceSCALE: Activities may be completed with or without assistive devices. 1-Hfmbxwlway-kdktdxb completes the activity by him/herself with no assistance from a helper. 5-Set-up or Clean-up Assistance-helper sets up or cleans up; patient completes activity. [place] assists only prior to or following the activity. 4-Supervision or Touching Assistance-helper provides verbal cues and/or touching/steadying and/or contact guard assistance as patient completes activity. Assistance may be provided throughout the activity or intermittently. 3-Partial/Moderate Assistance-helper does LESS THAN HALF the effort. [place] lifts, holds or supports trunk or limbs, but provides less than half the effort. 2-Substantial/Maximal Assistance-helper does MORE THAN HALF the effort. [place] lifts or holds trunk or limbs and provides more than half the effort. 9-Ofwdhdghn-bxkjbg does ALL the effort. Patient does none of the effort to complete the activity. Or, the assistance of 2 or more helpers is required for the patient to complete the activity. If activity was not attempted, code reason: 7-Patient Refused. 9-Not Applicable-not attempted and the patient did not perform the activity before the current illness, exacerbation or injury. 10-Not Attempted due to Environmental Limitations-(lack of equipment, weather restraints, etc.). 88-Not Attempted due to Medical Conditions or Safety Concerns. Roll Left to Right (QC): 3 (min (A) and cues to log roll safely) Sit to Lying (QC): 2 (max (A) of 1 to maintain LE's in line with upper body) Sit to Stand (QC): 3 (mod (A) of 1 with v.c. for correct hand placement) Chair/Wws-zw-Colbp Xfer(QC): 3 (min-mod (A) of 1 with FWW and v.c. to fully turn prior to sitting and assist to control descent) Car Transfer (QC): 3 (min (A) of 1 without device, stand pivot) Gait Training Does the Patient Walk?: Yes Walk 10 feet (QC): 3 (min (A) with FWW, slow benjamin, equal step length (B)) Walk 50 ft with 2 Turns(QC): 88 (unable to cover 50' distance due to pain and fatigue) Walk 150 ft (QC): 88 (unable to cover 50' distance due to pain and fatigue) Walking 10ft/uneven surface-QC: 3 (min-mod (A) of 1 with FWW) Gait Assistive Device: FWW Wheelchair Training Does the Pt Use a Wheelchair?: Yes Distance: 50' Wheel 50 ft with 2 turns (QC): 5 (using (B) UE's) Wheel 150 ft (QC): 88 (distance not tested due to fatigue, pain in sitting) Type of Wheelchair: Manual Stair Training 1 Step (curb) (QC): 3 (2" curb min (A) with FWW) 4 Steps (QC): 88 12 Steps (QC): 88 Balance Picking up an Object (QC): 88 (not safe to attempt at end of session due to pain and muscle relaxer taking effect) ADL-Treatment Eating (QC): 6 Oral Hygiene (QC): 5 (oral swab) Shower/Bathe Self (QC): 3 (Mod A shower due to pain.) Upper Body Dressing (QC): 2 (Max A donning/doffing back brace due to pain) Lower Body Dressing (QC): 1 (Per report, assist all parts due to pain.) On/Off Footwear (QC): 1 (Per report, assist all parts due to pain.) Toileting Hygiene (QC): 3 (Mod A overall due to pain.) Assessment/Plan Assessment and Plan Assess & Plan/Chief Complaint Assessment: s/p surgery for lumbar spondylosis with myelopathy by Dr Kim h/o head/neck surgery HTN HLP Depression DM Diverticulosis GERD Hypothyroidism PVD Right hip pain since small fall onto toilet in [place] with negative xray Urinary retention-in/out caths ordered Plan: Monitor closely Fall risk Pain control Home meds PT OT 10/21/2022: Reviewed right hip xray 10/22/2022: Check UA (1) Spondylosis, lumbar, with myelopathy YONAS JOHNSON DO October 22, 2022 06:26
[2022-10-22] MEDS: LEVOTHYROXINE 112 MCG (LEVOTHROID) TAB PO SCH (06:35)
[2022-10-22 07:41] VITALS: BP 149/73
[2022-10-22 07:42] VITALS: BP 132/62
[2022-10-22 07:45] VITALS: BP 132/62
[2022-10-22] MEDS: polyethylene glycoL POWDER 17 GM (MIRALAX) PACK PO SCH ×2 (07:46→19:30)
--- NOTE | 2022-10-22 08:29 | Speech Therapy Progress Note ---
Therapy Progress Note Speech pathology received a "cognitive training" consultation for the patient as a part of the group acute rehabilitation order set. At this time, skilled speech pathology services have not been requested or warranted. Please re-consult speech pathology with any changes or concerns. Thank you. ALFREDA SHEARER October 22, 2022 08:29
[2022-10-22] MEDS: ATENOLOL 25 MG (TENORMIN) TAB PO SCH (08:34)
[2022-10-22] MEDS: SENNA W/DOCUSATE (SENOKOT S) TABLET PO SCH ×2 (08:34→20:52)
[2022-10-22] MEDS: PANTOPRAZOLE 40 MG (PROTONIX) TAB PO SCH (08:35)
[2022-10-22] MEDS: FENOFIBRATE 134 MG (LOFIBRA) CAPSULE PO SCH (08:35)
[2022-10-22] MEDS: DOCUSATE SODIUM 100 MG (COLACE) CAP PO SCH ×2 (08:35→20:52)
[2022-10-22] MEDS: lisINopril 20 MG (PRINIVIL) TABLET PO SCH (08:35)
[2022-10-22] MEDS: morphine ER 30 MG (MS CONTIN) TAB PO SCH ×2 (08:35→20:25)
[2022-10-22] MEDS: amLODIPine 5 MG (NORVASC) TAB PO SCH (08:35)
[2022-10-22] MEDS: PILOCARPINE 5 MG TABLET PO SCH ×2 (08:38→20:23)
--- NOTE | 2022-10-22 08:59 | Occupational Ther Daily Note ---
OT Current Status-Daily Note Subjective Pt agreeable to OT tx, rates pain / ADL-Treatment Therapy Code Descriptions/Definitions Functional [place] Measure: 0=Not Assessed/NA 4=Minimal Assistance 1=Total Assistance 5=Supervision or Setup 2=Maximal Assistance 6=Modified [place] 3=Moderate Assistance 7=Complete IndependenceSCALE: Activities may be completed with or without assistive devices. 1-Mutpssenzl-arvxlto completes the activity by him/herself with no assistance from a helper. 5-Set-up or Clean-up Assistance-helper sets up or cleans up; patient completes activity. [place] assists only prior to or following the activity. 4-Supervision or Touching Assistance-helper provides verbal cues and/or touching/steadying and/or contact guard assistance as patient completes activity. Assistance may be provided throughout the activity or intermittently. 3-Partial/Moderate Assistance-helper does LESS THAN HALF the effort. [place] lifts, holds or supports trunk or limbs, but provides less than half the effort. 2-Substantial/Maximal Assistance-helper does MORE THAN HALF the effort. [place] lifts or holds trunk or limbs and provides more than half the effort. 9-Fjzkliswf-pegupn does ALL the effort. Patient does none of the effort to co mplete the activity. Or, the assistance of 2 or more helpers is required for the patient to complete the activity. If activity was not attempted, code reason: 7-Patient Refused. 9-Not Applicable-not attempted and the patient did not perform the activity before the current illness, exacerbation or injury. 10-Not Attempted due to Environmental Limitations-(lack of equipment, weather restraints, etc.). 88-Not Attempted due to Medical Conditions or Safety Concerns. Eating (QC): 7 (Pt declined breakfast due to feeling sick throughout night/morning) Shower/Bathe Self (QC): 4 (SBA, Education on AE for washing/dring LEs.) Upper Body Dressing (QC): 3 (Min A doffing overhead shirt, pt able to doff back brace with VCs. SBA with donning shirt and back brace.) Lower Body Dressing (QC): 2 (Pt required assistance with threading BLEs and some assist wtih pant hike due to c/o pain.) On/Off Footwear: 4 (Pt able to doff gripper socks with SBA, VCs for precautions. Pt able to don slip on shoes with set up.) Other Treatment Pt in bed, agreeable to OT Tx with focus on ADLs. Pt transferred supine to sit EOB, min A. Sit to stand from EOB, CGA, CGA with FWW to transfer to SC. Pt doffed clothes, completed shower, then donned clothes. Frequent rest breaks required throughout session due to c/o pain. Pt used FWW to transfer to recliner, CGA. OT educated pt on UE AROM HEP, copy placed in pt's possession, paper chart, and 1 copy attached to dry erase board in his room. Pt instructed on 6/6 exercises, no resistance band utilized due to c/o pain, x10 reps each. Pt used FWW to transfer from recliner to EOB, CGA, then min A to transfer supine. Post tx, pt in bed, call light in reach and all needs met. Education OT Patient Education: Correct positioning, Energy conservation, Modified ADL techniques, Progress toward Goal/Update tx plan, Purpose of tx/functional activities, Rehab process Teaching Recipient: Patient Teaching Methods: Discussion Response to Teaching: Verbalize Understanding OT Short Term Goals Short Term Goals Time Frame: November 05, 2022 Toileting hygiene: 4 Upper body dressin Lower body dressin Putting on/taking off footwear: 4 OT Longterm Goals Ruffler Goals Time Frame: Nov 19, 2022 Acute change in mental status: 0 Inattention: 0 Disorganized thinkin Altered level of consciousness: 0 Eating (QC): 6 Oral Hygiene (QC): 6 Toileting Hygiene (QC): 6 Shower/Bathe Self (QC): 5 Upper Body Dressing (QC): 6 Lower Body Dressing (QC): 6 On/Off Footwear (QC): 6 Additional Goals: 1-Demonstrate ADL Tasks, 2-Verbalize Understanding, 3- ImproveStrength/Bradley 1=Demonstrate adherence to instructed precautions during ADL tasks. 2=Patient will verbalize/demonstrate understanding of assistive devices/modifications for ADL. 3=Patient will improve strength/tolerance for activity to enable patient to perform ADL's. OT Education/Plan Problem List/Assessment Assessment: Decreased Activ Tolerance, Decreased UE Strength, Impaired Funct Balance, Impaired I ADL's, Impaired Self-Care Skills Discharge Recommendations Plan/Recommendations: Continue POC Treatment Plan/Plan of Care Patient would benefit from OT for education, treatment and training to promote independence in ADL's, mobility, safety and/or upper extremity function for ADL's. Plan of Care: ADL Retraining, Functional Mobility, Group Exercise/Act as Ind, UE Funct Exercise/Act Treatment Duration: Nov 19, 2022 Frequency: At least 5 of 7 days/Wk (IRF) Estimated Hrs Per Day: 1.5 hours per day Agreement: Yes Rehab Potential: Fair Time Start Time: 07:25 Stop Time: 08:55 DATE: October 22, 2022 Total Time Billed (hr/min): 90 Billed Treatment Time 1, ADL 5 (75'), EX (15') PARAG VALDERRAMA OT October 22, 2022 08:59
[2022-10-22] MEDS: TAMSULOSIN 0.4 MG (FLOMAX) CAP PO SCH ×2 (11:43→20:25)
--- NOTE | 2022-10-22 14:08 | Physical Therapy Daily Note ---
PT Daily Note-Current Subjective pt in bed upon arrival and willing for therapy. pt reports 5/10 pain this day lowest it has been since arrival. pt stated that during ambulation pain increased to a 7/10. pt stated this day he is feeling the best he has since arrival. Pain Section J - Health Conditions 1. Rarely or not at all 2. Occasionally 3. Frequently 4. Almost constantly 8. Unable to answer Pain Effect on Sleep: 3 Pain Interference with Therapy: 4 Pain Interference w/Day-to-Day: 4 Transfers SCALE: Activities may be completed with or without assistive devices. 3-Kegfxoezvx-bjlnmat completes the activity by him/herself with no assistance from a helper. 5-Set-up or Clean-up Assistance-helper sets up or cleans up; patient completes activity. [place] assists only prior to or following the activity. 4-Supervision or Touching Assistance-helper provides verbal cues and/or touching/steadying and/or contact guard assistance as patient completes activity. Assistance may be provided throughout the activity or intermittently. 3-Partial/Moderate Assistance-helper does LESS THAN HALF the effort. Scott lift s, holds or supports trunk or limbs, but provides less than half the effort. 2-Substantial/Maximal Assistance-helper does MORE THAN HALF the effort. [place] lifts or holds trunk or limbs and provides more than half the effort. 1-Ecqghdrjq-xqzxmo does ALL the effort. Patient does none of the effort to complete the activity. Or, the assistance of 2 or more helpers is required for the patient to complete the activity. If activity was not attempted, code reason: 7-Patient Refused. 9-Not Applicable-not attempted and the patient did not perform the activity before the current illness, exacerbation or injury. 10-Not Attempted due to Environmental Limitations-(lack of equipment, weather restraints, etc.). 88-Not Attempted due to Medical Conditions or Safety Concerns. Weight Bearing Weight Bearing/Tolerated Weight Bearing/Tolerated Exercises Standing: Mini squats Treatments Pt ambulated 337 ft with RW and SBA with 1 rest aprox prison though and is able to resume ambulation after rest. pt is able to preform 8 stairs ascend and descend with SBA. pt is also able to preform sitting ther-ex with red thera band. for 2 sets of 15 this day with BLE in all planes of motion available. Assessment Current Status: Excellent Progress PT Custodial Goals Mounter [place] [employer] [place] Goals PT Custodial Goals Time Frame: November 10, 2022 Roll Left & Right (QC): 6 Sit to Lying (QC): 6 Lying-Sitting on Side/Bed(QC): 6 Sit to Stand (QC): 6 Chair/Cdh-gr-Pseew Xfer(QC): 6 Toilet Transfer (QC): 6 Car Transfer (QC): 5 Does the Patient Walk: Yes Walk 10 feet (QC): 6 Walk 50ft with 2 Turns (QC): 6 Walk 150 ft (QC): 5 Walking 10ft on Uneven Surface: 6 1 Step (curb) (QC): 5 (with FWW) 4 Steps (QC): 5 (with rails) 12 Steps (QC): 9 Picking up an Object (QC): 6 (with AD) Does the Pt use WC or Scooter?: No Wheel 50 feet with 2 turns (QC: 6 Type: Manual Wheel 150 feet: 6 Type: Manual PT Plan Treatment/Plan Treatment Plan: Continue Plan of Care Treatment Plan: Bed Mobility, Education, Functional Activity Bradley, Functional Strength, Group Therapy, Gait, Safety, Therapeutic Exercise, Transfers, Other (co-treatment as needed to address multiple functional deficits safely with need of 2 skilled therapists) Treatment Duration: November 10, 2022 Frequency: At least 5 of 7 days/Wk (IRF) Estimated Hrs Per Day: 1.5 hours per day Patient and/or Family Agrees t: Yes Time Time In: 929 Time Out: 1030 DATE: October 22, 2022 Total Billed Treatment Time: 60 Total Billed Treatment 1 GT x 2 EX x 2 Tayler Guzmán PTA October 22, 2022 14:08
--- NOTE | 2022-10-22 14:12 | Physical Therapy Daily Note ---
PT Daily Note-Current Subjective pt in recliner upon arrival and willing for therapy. pt states his pain was at 3/10 after resting. pt notes no increased pain during therapy. Pain Section J - Health Conditions 1. Rarely or not at all 2. Occasionally 3. Frequently 4. Almost constantly 8. Unable to answer Pain Effect on Sleep: 3 Pain Interference with Therapy: 4 Pain Interference w/Day-to-Day: 4 Transfers SCALE: Activities may be completed with or without assistive devices. 0-Etkklrgetk-mqsyxdt completes the activity by him/herself with no assistance from a helper. 5-Set-up or Clean-up Assistance-helper sets up or cleans up; patient completes activity. [place] assists only prior to or following the activity. 4-Supervision or Touching Assistance-helper provides verbal cues and/or touching/steadying and/or contact guard assistance as patient completes acti vity. Assistance may be provided throughout the activity or intermittently. 3-Partial/Moderate Assistance-helper does LESS THAN HALF the effort. [place] lifts, holds or supports trunk or limbs, but provides less than half the effort. 2-Substantial/Maximal Assistance-helper does MORE THAN HALF the effort. [place] lifts or holds trunk or limbs and provides more than half the effort. 5-Xdcxwpggd-cvsvbf does ALL the effort. Patient does none of the effort to complete the activity. Or, the assistance of 2 or more helpers is required for the patient to complete the activity. If activity was not attempted, code reason: 7-Patient Refused. 9-Not Applicable-not attempted and the patient did not perform the activity before the current illness, exacerbation or injury. 10-Not Attempted due to Environmental Limitations-(lack of equipment, weather restraints, etc.). 88-Not Attempted due to Medical Conditions or Safety Concerns. Weight Bearing Weight Bearing/Tolerated Weight Bearing/Tolerated Treatments Pt is able to preform 10 stairs ascend and descend with SBA. rest after. pt is able to preform car transfer with SBA. pt is able to preform transfers out of and into recliner with no VC. pt left sitting EOB wt call light and all needs met. Assessment Current Status: Excellent Progress PT Dive Superintendent Goals Dive Superintendent Goals PT Residential Goals Time Frame: November 10, 2022 Roll Left & Right (QC): 6 Sit to Lying (QC): 6 Lying-Sitting on Side/Bed(QC): 6 Sit to Stand (QC): 6 Chair/Ilv-gi-Iqlkx Xfer(QC): 6 Toilet Transfer (QC): 6 Car Transfer (QC): 5 Does the Patient Walk: Yes Walk 10 feet (QC): 6 Walk 50ft with 2 Turns (QC): 6 Walk 150 ft (QC): 5 Walking 10ft on Uneven Surface: 6 1 Step (curb) (QC): 5 (with FWW) 4 Steps (QC): 5 (with rails) 12 Steps (QC): 9 Picking up an Object (QC): 6 (with AD) Does the Pt use WC or Scooter?: No Wheel 50 feet with 2 turns (QC: 6 Type: Manual Wheel 150 feet: 6 Type: Manual PT Plan Treatment/Plan Treatment Plan: Continue Plan of Care Treatment Plan: Bed Mobility, Education, Functional Activity [place], Functional Strength, Group Therapy, Gait, Safety, Therapeutic Exercise, Transfers, Other (co-treatment as needed to address multiple functional deficits safely with need of 2 skilled therapists) Treatment Duration: November 10, 2022 Frequency: At least 5 of 7 days/Wk (IRF) Estimated Hrs Per Day: 1.5 hours per day Patient and/or Family Agrees t: Yes Time Time In: 1245 Time Out: 1315 DATE: October 22, 2022 Total Billed Treatment Time: 30 Total Billed Treatment 1 GT FA Tayler Guzmán PHOTOSTAT OPERATOR October 22, 2022 14:12
[2022-10-22 18:40] LABS: BILIRUBIN,URINE NEGATIVE (NEGATIVE); CLARITY,URINE CLEAR; COLOR,URINE YELLOW; GLUCOSE, URINE (UA) NEGATIVE (NEGATIVE); KETONES,URINE NEGATIVE (NEGATIVE); LEUKOCYTE ESTERASE ,URINE TRACE (NEGATIVE); NITRITE,URINE NEGATIVE (NEGATIVE); PH,URINE 5.5 (5-9); PROTEIN,URINE 2+ (NEGATIVE)
[2022-10-22 18:49] LABS: AMORPHOUS SEDIMENT,UR RARE AMOR URATES /LPF; BACTERIA,URINE TRACE /HPF; RBC,URINE RARE /HPF; SQUAMOUS EPITHELIAL CELL,UR 0-2 /HPF
[2022-10-22 18:50] LABS: HYALINE CASTS, URINE 0-2 /LPF
[2022-10-22 19:13] VITALS: BP 102/57
[2022-10-22] MEDS: GABAPENTIN 300 MG (NEURONTIN) CAP PO SCH (20:25)
[2022-10-22] MEDS: rOPINIRole 0.25 MG (REQUIP) TAB PO SCH (20:25)
[2022-10-23] MEDS: DIPHENOXYLATE/ATROPINE 2.5MG/0.025MG (LOMOTIL) TAB PO PRN ×3 (02:07→14:07)
[2022-10-23] MEDS: LEVOTHYROXINE 112 MCG (LEVOTHROID) TAB PO SCH (06:21)
--- NOTE | 2022-10-23 06:45 | PM&R Progress Note ---
Subjective HPI/CC On Admission Date Seen by Provider: October 23, 2022 Time Seen by Provider: 11:30 Subjective/Events-last exam 10/23/2022: Doing ok Slow recovery Diarrhea is chronic No pain reported except back Hypotension noted so changing Flomax 10/22/2022: Doing well No major pain unless he moves Will start pain pill at 0600 before therapy In/Out catheter required Check UA today Flomax initiated 10/21/2022: Doing well Pain controlled BM regimen maintained No falls Right hip xray ordered Review of Systems General: Fatigue, Malaise Musculoskeletal: back pain Objective Exam Vital Signs Vital Signs Date Time Temp Pulse Resp B/P (MAP) Pulse Ox O2 Delivery O2 Flow Rate FiO2 10/23/22 09:40 Room Air 0.00 10/23/22 08:30 59 20 124/62 (82) 94 10/23/22 07:20 36.2 Capillary Refill : General Appearance: No Apparent Distress, WD/WN, Chronically ill HEENT: PERRL/EOMI, Normal ENT Inspection, Pharynx Normal Neck: Full Range of Motion, Normal Inspection, Non Tender, Supple, Carotid Bruit Respiratory: Chest Non Tender, Lungs Clear, Normal Breath Sounds, No Accessory Muscle Use, No Respiratory Distress Cardiovascular: Regular Rate, Rhythm, No Edema, No Gallop, No JVD, No Murmur, Normal Peripheral Pulses Gastrointestinal: Normal Bowel Sounds, No Organomegaly, No Pulsatile Mass, Non Tender, Soft Back: Normal Inspection, Decreased Range of Motion, Muscle Spasm, Vertebral Tenderness Extremity: Normal Capillary Refill, Normal Inspection, Normal Range of Motion, Non Tender, No Calf Tenderness, No Pedal Edema Neurologic/Psychiatric: Alert, Oriented x3, No Motor/Sensory Deficits, Normal Mood/Affect Skin: Normal Color, Warm/Dry Lymphatic: No Adenopathy Results/Procedures Lab Patient resulted labs reviewed. FIM Transfers Therapy Code Descriptions/Definitions Functional [place] Measure: 0=Not Assessed/NA 4=Minimal Assistance 1=Total Assistance 5=Supervision or Setup 2=Maximal Assistance 6=Modified [place] 3=Moderate Assistance 7=Complete IndependenceSCALE: Activities may be completed with or without assistive devices. 8-Psoylifjir-entxkmj completes the activity by him/herself with no assistance from a helper. 5-Set-up or Clean-up Assistance-helper sets up or cleans up; patient completes activity. [place] assists only prior to or following the activity. 4-Supervision or Touching Assistance-helper provides verbal cues and/or touching/steadying and/or contact guard assistance as patient completes activity. Assistance may be provided throughout the activity or intermittently. 3-Partial/Moderate Assistance-helper does LESS THAN HALF the effort. [place] lifts, holds or supports trunk or limbs, but provides less than half the effort. 2-Substantial/Maximal Assistance-helper does MORE THAN HALF the effort. [place] lifts or holds trunk or limbs and provides more than half the effort. 4-Qoladspmw-nlrthd does ALL the effort. Patient does none of the effort to complete the activity. Or, the assistance of 2 or more helpers is required for the patient to complete the activity. If activity was not attempted, code reason: 7-Patient Refused. 9-Not Applicable-not attempted and the patient did not perform the activity before the current illness, exacerbation or injury. 10-Not Attempted due to Environmental Limitations-(lack of equipment, weather restraints, etc.). 88-Not Attempted due to Medical Conditions or Safety Concerns. Roll Left to Right (QC): 3 (min (A) and cues to log roll safely) Sit to Lying (QC): 2 (max (A) of 1 to maintain LE's in line with upper body) Sit to Stand (QC): 3 (mod (A) of 1 with v.c. for correct hand placement) Chair/Vvs-rt-Yoyjk Xfer(QC): 3 (min-mod (A) of 1 with FWW and v.c. to fully turn prior to sitting and assist to control descent) Car Transfer (QC): 3 (min (A) of 1 without device, stand pivot) Gait Training Does the Patient Walk?: Yes Walk 10 feet (QC): 3 (min (A) with FWW, slow benjamin, equal step length (B)) Walk 50 ft with 2 Turns(QC): 88 (unable to cover 50' distance due to pain and fatigue) Walk 150 ft (QC): 88 (unable to cover 50' distance due to pain and fatigue) Walking 10ft/uneven surface-QC: 3 (min-mod (A) of 1 with FWW) Gait Assistive Device: FWW Wheelchair Training Does the Pt Use a Wheelchair?: Yes Distance: 50' Wheel 50 ft with 2 turns (QC): 5 (using (B) UE's) Wheel 150 ft (QC): 88 (distance not tested due to fatigue, pain in sitting) Type of Wheelchair: Manual Stair Training 1 Step (curb) (QC): 3 (2" curb min (A) with FWW) 4 Steps (QC): 88 12 Steps (QC): 88 Balance Picking up an Object (QC): 88 (not safe to attempt at end of session due to pain and muscle relaxer taking effect) ADL-Treatment Eating (QC): 7 (Pt declined breakfast due to feeling sick throughout night/morning) Oral Hygiene (QC): 5 (oral swab) Shower/Bathe Self (QC): 4 (SBA, Education on AE for washing/dring LEs.) Upper Body Dressing (QC): 3 (Min A doffing overhead shirt, pt able to doff back brace with VCs. SBA with donning shirt and back brace.) Lower Body Dressing (QC): 2 (Pt required assistance with threading BLEs and some assist wtih pant hike due to c/o pain.) On/Off Footwear (QC): 4 (Pt able to doff gripper socks with SBA, VCs for precautions. Pt able to don slip on shoes with set up.) Toileting Hygiene (QC): 3 (Mod A overall due to pain.) Assessment/Plan Assessment and Plan Assess & Plan/Chief Complaint Assessment: s/p surgery for lumbar spondylosis with myelopathy by Dr Kim h/o head/neck surgery HTN HLP Depression DM Diverticulosis GERD Hypothyroidism PVD Right hip pain since small fall onto toilet in [place] with negative xray Urinary retention-in/out caths ordered Plan: Monitor closely Fall risk Pain control Home meds PT OT 10/21/2022: Reviewed right hip xray 10/22/2022: Check UA 10/23/2022: Flomax change to once daily at night due to hypotension (1) Spondylosis, lumbar, with myelopathy YONAS JOHNSON DO October 23, 2022 06:45
[2022-10-23 07:20] VITALS: BP 88/53
[2022-10-23 08:30] VITALS: BP 124/62
[2022-10-23] MEDS: morphine ER 30 MG (MS CONTIN) TAB PO SCH ×2 (08:38→21:25)
[2022-10-23] MEDS: PANTOPRAZOLE 40 MG (PROTONIX) TAB PO SCH (08:38)
[2022-10-23] MEDS: FENOFIBRATE 134 MG (LOFIBRA) CAPSULE PO SCH (08:38)
[2022-10-23] MEDS: PILOCARPINE 5 MG TABLET PO SCH ×2 (08:41→21:24)
[2022-10-23] MEDS: lisINopril 20 MG (PRINIVIL) TABLET PO SCH (09:00)
[2022-10-23] MEDS ORDERED: ATENOLOL 25 MG (TENORMIN) TAB PO SCH (09:00)
[2022-10-23] MEDS: DOCUSATE SODIUM 100 MG (COLACE) CAP PO SCH ×2 (12:40→19:21)
[2022-10-23] MEDS: SENNA W/DOCUSATE (SENOKOT S) TABLET PO SCH ×2 (12:40→19:21)
[2022-10-23] MEDS: polyethylene glycoL POWDER 17 GM (MIRALAX) PACK PO SCH ×2 (12:40→19:21)
[2022-10-23] MEDS: amLODIPine 5 MG (NORVASC) TAB PO SCH (12:41)
[2022-10-23] MEDS: ONDANSETRON 4 MG (ZOFRAN) ORAL DISSOLVE TAB PO PRN (14:07)
[2022-10-23 20:20] VITALS: BP 109/61
[2022-10-23] MEDS ORDERED: VANCOMYCIN INJECTION 0.1 MG in NS (IVPB) 250 ML IV SCH (20:30)
[2022-10-23] MEDS ORDERED: NS IV 1000 ML 1,000 ML IV SCH (20:30)
--- NOTE | 2022-10-23 20:55 | Diagnostic Imaging Report ---
INDICATION: Fever. COMPARISON: 01/10/2022. FINDINGS: There are chronic pulmonary interstitial changes within the lungs with new interstitial alveolar airspace opacities within the mid right lung and at the right base likely reflecting a pneumonia. The left lung remains clear. There is no effusion. There is no pneumothorax. Heart size is normal. There are surgical clips in the right neck. IMPRESSION: Chronic pulmonary interstitial changes with new interstitial and alveolar airspace opacities within the mid right lung and at the right base suggesting a new right-sided pneumonia. Dictated by: Dictated on workstation # [id number]
[2022-10-23] MEDS ORDERED: TAMSULOSIN 0.4 MG (FLOMAX) CAP PO SCH (21:00)
[2022-10-23 21:06] LABS: POTASSIUM 3.5 MMOL/L (3.6-5.0)
[2022-10-23 21:07] LABS: CALCIUM 8.7 MG/DL (8.5-10.1)
[2022-10-23 21:08] LABS: TOTAL PROTEIN 6.3 GM/DL (6.4-8.2)
[2022-10-23 21:09] LABS: ABG BASE EXCESS -0.7 MMOL/L (-2.5-2.5); ABG OXYGEN SATURATION 67 % (94-100); ABG PCO2 39 MMHG (35-45); ABG PO2 44 MMHG (79-93); ABG TCO2 24.6 MMOL/L (21.0-31.0)
[2022-10-23 21:10] LABS: BILIRUBIN,TOTAL 0.4 MG/DL (0.1-1.0)
[2022-10-23 21:10] LABS: ALLENS TEST YES-POS; INSPIRED O2 6; VENTILATOR NO
[2022-10-23] MEDS: RT-ALBUTEROL/IPRATROPIUM 3 ML (DUONEB) VIAL INH SCH (21:11)
[2022-10-23 21:12] LABS: CREATININE SERUM 2.19 MG/DL (0.60-1.30)
[2022-10-23] MEDS ORDERED: VANCOMYCIN 1500MG/300ML PREMIX 300 ML IV ONE (21:15)
[2022-10-23] MEDS ORDERED: PIPERACILLIN SODIUM/TAZOBACTAM 4.5 GM in NS (IVPB) 100 ML IV ONE (21:15)
[2022-10-23 21:25] VITALS: BP 107/66
[2022-10-23] MEDS: GABAPENTIN 300 MG (NEURONTIN) CAP PO SCH (21:26)
[2022-10-23] MEDS: rOPINIRole 0.25 MG (REQUIP) TAB PO SCH (21:26)
[2022-10-23 21:33] LABS: BASOPHILS % (AUTO) 0 % (0-10); EOSINOPHILS # (AUTO) 0.2 10^3/uL (0.0-0.3); EOSINOPHILS % (AUTO) 4 % (0-10); HEMATOCRIT 29 % (40-54); HEMOGLOBIN 9.5 g/dL (13.3-17.7); LYMPHOCYTES # (AUTO) 0.2 10^3/uL (1.0-4.0); LYMPHOCYTES % (AUTO) 3 % (12-44); MEAN CORPUSCULAR HEMOGLOBIN 27 pg (25-34); MEAN CORPUSCULAR HGB CONC 33 g/dL (32-36); MEAN CORPUSCULAR VOLUME 81 fL (80-99); MEAN PLATELET VOLUME 11.5 fL (9.0-12.2); MONOCYTES # (AUTO) 0.4 10^3/uL (0.0-1.0); MONOCYTES % (AUTO) 7 % (0-12); NEUTROPHILS # (AUTO) 4.9 10^3/uL (1.8-7.8); NEUTROPHILS % (AUTO) 85 % (42-75); PLATELET COUNT 513 10^3/uL (130-400); WHITE BLOOD COUNT 5.8 10^3/uL (4.3-11.0)
[2022-10-23 21:53] LABS: BILIRUBIN,URINE NEGATIVE (NEGATIVE); CLARITY,URINE CLEAR; COLOR,URINE YELLOW; GLUCOSE, URINE (UA) NEGATIVE (NEGATIVE); KETONES,URINE NEGATIVE (NEGATIVE); LEUKOCYTE ESTERASE ,URINE NEGATIVE (NEGATIVE); NITRITE,URINE NEGATIVE (NEGATIVE); PH,URINE 5.5 (5-9); PROTEIN,URINE TRACE (NEGATIVE)
[2022-10-23 22:05] LABS: AMORPHOUS SEDIMENT,UR FEW AMOR URATES /LPF; BACTERIA,URINE TRACE /HPF; SQUAMOUS EPITHELIAL CELL,UR RARE /HPF; WBC,URINE 0-2 /HPF
[2022-10-23 22:24] VITALS: BP 97/59
[2022-10-24] MEDS ORDERED: PIPERACILLIN SODIUM/TAZOBACTAM 4.5 GM in NS (IVPB) 100 ML IV SCH (03:00)
[2022-10-24 03:11] LABS: ABG BASE EXCESS -2.2 MMOL/L (-2.5-2.5); ABG OXYGEN SATURATION 63 % (94-100); ABG PCO2 41 MMHG (35-45); ABG PH 7.35 (7.37-7.43); ABG PO2 41 MMHG (79-93); ABG TCO2 23.9 MMOL/L (21.0-31.0); ALLENS TEST YES-POS
[2022-10-24 03:12] LABS: INSPIRED O2 15L; PATIENT TEMP 36.2; VENTILATOR NO
[2022-10-24] MEDS: DIPHENOXYLATE/ATROPINE 2.5MG/0.025MG (LOMOTIL) TAB PO PRN (03:50)
[2022-10-24] MEDS: ONDANSETRON 4 MG (ZOFRAN) ORAL DISSOLVE TAB PO PRN (04:15)
[2022-10-24 05:40] LABS: BASOPHILS % (AUTO) 0 % (0-10); EOSINOPHILS % (AUTO) 1 % (0-10); HEMATOCRIT 25 % (40-54); HEMOGLOBIN 8.2 g/dL (13.3-17.7); LYMPHOCYTES # (AUTO) 0.1 10^3/uL (1.0-4.0); LYMPHOCYTES % (AUTO) 3 % (12-44); MEAN CORPUSCULAR HEMOGLOBIN 27 pg (25-34); MEAN CORPUSCULAR HGB CONC 33 g/dL (32-36); MEAN CORPUSCULAR VOLUME 82 fL (80-99); MEAN PLATELET VOLUME 11.3 fL (9.0-12.2); MONOCYTES # (AUTO) 0.3 10^3/uL (0.0-1.0); MONOCYTES % (AUTO) 7 % (0-12); NEUTROPHILS # (AUTO) 3.6 10^3/uL (1.8-7.8); NEUTROPHILS % (AUTO) 89 % (42-75); PLATELET COUNT 384 10^3/uL (130-400)
[2022-10-24 06:13] LABS: ALBUMIN 2.6 GM/DL (3.2-4.5); BILIRUBIN,TOTAL 0.7 MG/DL (0.1-1.0); CALCIUM 8.3 MG/DL (8.5-10.1); CREATININE SERUM 2.86 MG/DL (0.60-1.30); POTASSIUM 3.3 MMOL/L (3.6-5.0); TOTAL PROTEIN 5.4 GM/DL (6.4-8.2)
[2022-10-24] MEDS: LEVOTHYROXINE 112 MCG (LEVOTHROID) TAB PO SCH (06:33)
[2022-10-24] MEDS ORDERED: LIDOCAINE UROJET 2% GEL 10 ML PKG TOP ONE (06:45)
--- NOTE | 2022-10-24 07:02 | Discharge Summary ---
Diagnosis/Chief Complaint Date of Admission October 20, 2022 at 12:35 Date of Discharge Discharge Diagnosis Assessment: Acute hypoxic respiratory failure due to RLL HAP requiring transfer to ICU on 10/24/22 and placed on Vapotherm Acute kidney injury from normal 1.0 to 2.9 creat s/p surgery for lumbar spondylosis with myelopathy by Dr Kim h/o head/neck surgery HTN HLP Depression DM Diverticulosis GERD Hypothyroidism PVD Right hip pain since small fall onto toilet in [place] with negative xray Urinary retention-in/out caths ordered Plan: Monitor closely Fall risk Pain control Home meds PT OT 10/21/2022: Reviewed right hip xray 10/22/2022: Check UA 10/23/2022: Flomax change to once daily at night due to hypotension Discharge Summary Discharge Physical Examination Allergies: Coded Allergies: Bnwlwzh-UGN-PeX Reductase Inhibitor (Verified Allergy, Unknown, 10/20/22) Vitals & I&Os Vital Signs Date Time Temp Pulse Resp B/P (MAP) Pulse Ox O2 Delivery O2 Flow Rate FiO2 10/24/22 07:43 97 Vapotherm 35.00 75 10/23/22 22:25 38.4 10/23/22 22:24 95 20 97/59 (72) Hospital Course Was the Problem List Reviewed?: Yes Standard course after he was admitted on 10/20 from [place] after an uncomplicated lumbar spine surgery. Patient has had a multitude of medical issues including head/neck cancer and multiple colon resections and was chronically ill and debilitated but he seemed to remain stable and improved during his ARU but he rapidly decompensated and required ICU transfer for new onset RLL PNA HAP requiring Vapotherm and new JULITA with creat 2.9. Labs (last 24 hrs) Laboratory Tests 10/21/22 05:03: White Blood Count 16.2H, Red Blood Count 3.47L, Hemoglobin 9.4L, Hematocrit 29L, Mean Corpuscular Volume 83, Mean Corpuscular Hemoglobin 27, Mean Corpuscular Hemoglobin Concent 33, Red Cell Distribution Width 17.3H, Platelet Count 365, Mean Platelet Volume 11.0, Immature Granulocyte % (Auto) 1, Neutrophils (%) (Auto) 90H, Lymphocytes (%) (Auto) 3L, Monocytes (%) (Auto) 6, Eosinophils (%) (Auto) 0, Basophils (%) (Auto) 0, Neutrophils # (Auto) 14.6H, Lymphocytes # (Auto) 0.4L, Monocytes # (Auto) 1.0, Eosinophils # (Auto) 0.0, Basophils # (Auto) 0.0, Immature Granulocyte # (Auto) 0.1, Neutrophils % (Manual) 94, Lymphocytes % (Manual) 1, Monocytes % (Manual) 5, Anisocytosis SLIGHT, Sodium Level 135, Potassium Level 3.5L, Chloride Level 100, Carbon Dioxide Level 24, Anion Gap 11, Blood Urea Nitrogen 26H, Creatinine 1.08, Estimat Glomerular Filtration Rate 75, BUN/Creatinine Ratio 24, Glucose Level 114H, Calcium Level 9.9, Corrected Calcium 10.6H, Total Bilirubin 0.5, Aspartate Amino Transf (AST/SGOT) 28, Alanine Aminotransferase (ALT/SGPT) 6, Alkaline Phosphatase 37L, Total Protein 6.3L, Albumin 3.1L 10/22/22 18:30: Urine Color YELLOW, Urine Clarity CLEAR, Urine pH 5.5, Urine Specific [place] 1.020, Urine Protein 2+H, Urine Glucose (UA) NEGATIVE, Urine Ketones NEGATIVE, Urine Nitrite NEGATIVE, Urine Bilirubin NEGATIVE, Urine Urobilinogen 0.2, Urine Leukocyte Esterase TRACEH, Urine RBC (Auto) NEGATIVE, Urine RBC RARE, Urine WBC 5-10H, Urine Squamous Epithelial Cells 0-2, Urine Crystals PRESENTH, Urine Amorphous Sediment RARE ELISA URATESH, Urine Bacteria TRACE, Urine Casts PRESENT, Urine Hyaline Casts 0-2H, Urine Mucus SMALLH, Urine Culture Indicated YES 10/23/22 20:41: Lactic Acid Level 0.89 10/23/22 20:46: White Blood Count 5.8, Red Blood Count 3.58L, Hemoglobin 9.5L, Hematocrit 29L, Mean Corpuscular Volume 81, Mean Corpuscular Hemoglobin 27, Mean Corpuscular Hemoglobin Concent 33, Red Cell Distribution Width 16.7H, Platelet Count 513H, Mean Platelet Volume 11.5, Immature Granulocyte % (Auto) 1, Neutrophils (%) (Auto) 85H, Lymphocytes (%) (Auto) 3L, Monocytes (%) (Auto) 7, Eosinophils (%) (Auto) 4, Basophils (%) (Auto) 0, Neutrophils # (Auto) 4.9, Lymphocytes # (Auto) 0.2L, Monocytes # (Auto) 0.4, Eosinophils # (Auto) 0.2, Basophils # (Auto) 0.0, Immature Granulocyte # (Auto) 0.0, Sodium Level 127L, Potassium Level 3.5L, Chloride Level 93L, Carbon Dioxide Level 19L, Anion Gap 15H, Blood Urea Nitrogen 64H, Creatinine 2.19H, Estimat Glomerular Filtration Rate 32, BUN/Creatinine Ratio 29, Glucose Level 114H, Calcium Level 8.7, Corrected Calcium 9.5, Total Bilirubin 0.4, Aspartate Amino Transf (AST/SGOT) 45H, Alanine Aminotransferase (ALT/SGPT) 20, Alkaline Phosphatase 56, Total Protein 6.3L, Albumin 3.0L 10/23/22 20:53: Glucometer 119H 10/23/22 21:00: Blood Gas Puncture Site LEFT RADIAL, Blood Gas Patient Temperature UNKNOWN, Arterial Blood pH 7.40, Arterial Blood Partial Pressure CO2 39, Arterial Blood Partial Pressure O2 44L, Arterial Blood HCO3 23, Arterial Blood Total CO2 24.6, Arterial Blood Oxygen Saturation 67L, Arterial Blood Base Excess -0.7, [place] Test YES-POS, Blood Gas Ventilator Setting NO, Blood Gas Inspired Oxygen 6 10/23/22 21:09: Influenza Type A (RT-PCR) Not Detected, Influenza Type B (RT-PCR) Not Detected, SARS-CoV-2 RNA (RT-PCR) Not Detected 10/23/22 21:45: Urine Color YELLOW, Urine Clarity CLEAR, Urine pH 5.5, Urine Specific [place] 1.010L, Urine Protein TRACEH, Urine Glucose (UA) NEGATIVE, Urine Ketones NEGATIVE, Urine Nitrite NEGATIVE, Urine Bilirubin NEGATIVE, Urine Urobilinogen 0.2, Urine Leukocyte Esterase NEGATIVE, Urine RBC (Auto) NEGATIVE, Urine RBC NONE, Urine WBC 0-2, Urine Squamous Epithelial Cells RARE, Urine Crystals PRESENTH, Urine Amorphous Sediment FEW ELISA URATESH, Urine Bacteria TRACE, Urine Casts NONE, Urine Mucus NEGATIVE, Urine Culture Indicated NO 10/24/22 03:05: Blood Gas Puncture Site LEFT RADIAL, Blood Gas Patient Temperature 36.2, Arterial Blood pH 7.35L, Arterial Blood Partial Pressure CO2 41, Arterial Blood Partial Pressure O2 41L, Arterial Blood HCO3 23, Arterial Blood Total CO2 23.9, Arterial Blood Oxygen Saturation 63L, Arterial Blood Base Excess -2.2, [place] Test YES-POS, Blood Gas Ventilator Setting NO, Blood Gas Inspired Oxygen 15L 10/24/22 05:25: White Blood Count 4.0L, Red Blood Count 3.02L, Hemoglobin 8.2L, Hematocrit 25L, Mean Corpuscular Volume 82, Mean Corpuscular Hemoglobin 27, Mean Corpuscular Hemoglobin Concent 33, Red Cell Distribution Width 16.8H, Platelet Count 384, Mean Platelet Volume 11.3, Immature Granulocyte % (Auto) 0, Neutrophils (%) (Auto) 89H, Lymphocytes (%) (Auto) 3L, Monocytes (%) (Auto) 7, Eosinophils (%) (Auto) 1, Basophils (%) (Auto) 0, Neutrophils # (Auto) 3.6, Lymphocytes # (Auto) 0.1L, Monocytes # (Auto) 0.3, Eosinophils # (Auto) 0.0, Basophils # (Auto) 0.0, Immature Granulocyte # (Auto) 0.0, Sodium Level 128L, Potassium Level 3.3L, Chloride Level 96L, Carbon Dioxide Level 20L, Anion Gap 12, Blood Urea Nitrogen 67H, Creatinine 2.86#H, Estimat Glomerular Filtration Rate 23, BUN/Creatinine Ratio 23, Glucose Level 123H, Calcium Level 8.3L, Corrected Calcium 9.4, Total Bilirubin 0.7, Aspartate Amino Transf (AST/SGOT) 82H, Alanine Aminotransferase (ALT/SGPT) 26, Alkaline Phosphatase 59, Total Protein 5.4L, Albumin 2.6L Microbiology 10/23/22 Blood Culture - Preliminary, Resulted No growth 10/22/22 Urine Culture - Final, Complete NO GROWTH Pending Labs Microbiology Date/Time Source Procedure Growth Status 10/23/22 20:46 Peripheral Lt Ac Blood Culture - Preliminary No growth Resulted 10/23/22 20:41 Peripheral Rt Ac Blood Culture - Preliminary No growth Resulted 10/22/22 18:30 Urine Clean Catch Urine Culture - Final NO GROWTH Complete Laboratory Tests 10/21/22 05:03: White Blood Count 16.2, Red Blood Count 3.47, Hemoglobin 9.4, Hematocrit 29, Mean Corpuscular Volume 83, Mean Corpuscular Hemoglobin 27, Mean Corpuscular Hemoglobin Concent 33, Red Cell Distribution Width 17.3, Platelet Count 365, Mean Platelet Volume 11.0, Immature Granulocyte % (Auto) 1, Neutrophils (%) (Auto) 90, Lymphocytes (%) (Auto) 3, Monocytes (%) (Auto) 6, Eosinophils (%) (Auto) 0, Basophils (%) (Auto) 0, Neutrophils # (Auto) 14.6, Lymphocytes # (Auto) 0.4, Monocytes # (Auto) 1.0, Eosinophils # (Auto) 0.0, Basophils # (Auto) 0.0, Immature Granulocyte # (Auto) 0.1, Neutrophils % (Manual) 94, Lymphocytes % (Manual) 1, Monocytes % (Manual) 5, Anisocytosis SLIGHT, Sodium Level 135, Potassium Level 3.5, Chloride Level 100, Carbon Dioxide Level 24, Anion Gap 11, Blood Urea Nitrogen 26, Creatinine 1.08, Estimat Glomerular Filtration Rate 75, BUN/Creatinine Ratio 24, Glucose Level 114, Calcium Level 9.9, Corrected Calcium 10.6, Total Bilirubin 0.5, Aspartate Amino Transf (AST/SGOT) 28, Alanine Aminot ransferase (ALT/SGPT) 6, Alkaline Phosphatase 37, Total Protein 6.3, Albumin 3.1 10/22/22 18:30: Urine Color YELLOW, Urine Clarity CLEAR, Urine pH 5.5, Urine Specific [place] 1.020, Urine Protein 2+, Urine Glucose (UA) NEGATIVE, Urine Ketones NEGATIVE, Urine Nitrite NEGATIVE, Urine Bilirubin NEGATIVE, Urine Urobilinogen 0.2, Urine Leukocyte Esterase TRACE, Urine RBC (Auto) NEGATIVE, Urine RBC RARE, Urine WBC 5-10, Urine Squamous Epithelial Cells 0-2, Urine Crystals PRESENT, Urine Amorpho us Sediment RARE ELISA URATES, Urine Bacteria TRACE, Urine Casts PRESENT, Urine Hyaline Casts 0-2, Urine Mucus SMALL, Urine Culture Indicated YES 10/23/22 20:41: Lactic Acid Level 0.89 10/23/22 20:46: White Blood Count 5.8, Red Blood Count 3.58, Hemoglobin 9.5, Hematocrit 29, Mean Corpuscular Volume 81, Mean Corpuscular Hemoglobin 27, Mean Corpuscular Hemoglobin Concent 33, Red Cell Distribution Width 16.7, Platelet Count 513, Mean Platelet Volume 11.5, Immature Granulocyte % (Auto) 1, Neutrophils (%) (Auto) 85, Lymphocytes (%) (Auto) 3, Monocytes (%) (Auto) 7, Eosinophils (%) (Auto) 4, Basophils (%) (Auto) 0, Neutrophils # (Auto) 4.9, Lymphocytes # (Auto) 0.2, Monocytes # (Auto) 0.4, Eosinophils # (Auto) 0.2, Basophils # (Auto) 0.0, Immature Granulocyte # (Auto) 0.0, Sodium Level 127, Potassium Level 3.5, Chloride Level 93, Carbon Dioxide Level 19, Anion Gap 15, Blood Urea Nitrogen 64, Creatinine 2.19, Estimat Glomerular Filtration Rate 32, BUN/Creatinine Ratio 29, Glucose Level 114, Calcium Level 8.7, Corrected Calcium 9.5, Total Bilirubin 0.4, Aspartate Amino Transf (AST/SGOT) 45, Alanine Aminotransferase (ALT/SGPT) 20, Alkaline Phosphatase 56, Total Protein 6.3, Albumin 3.0 10/23/22 20:53: Glucometer 119 10/23/22 21:00: Blood Gas Puncture Site LEFT RADIAL, Blood Gas Patient Temperature UNKNOWN, Arterial Blood pH 7.40, Arterial Blood Partial Pressure CO2 39, Arterial Blood Partial Pressure O2 44, Arterial Blood HCO3 23, Arterial Blood Total CO2 24.6, Arterial Blood Oxygen Saturation 67, Arterial Blood Base Excess -0.7, [place] Test YES-POS, Blood Gas Ventilator Setting NO, Blood Gas Inspired Oxygen 6 10/23/22 21:09: Influenza Type A (RT-PCR) Not Detected, Influenza Type B (RT-PCR) Not Detected, SARS-CoV-2 RNA (RT-PCR) Not Detected 10/23/22 21:45: Urine Color YELLOW, Urine Clarity CLEAR, Urine pH 5.5, Urine Specific [place] 1.010, Urine Protein TRACE, Urine Glucose (UA) NEGATIVE, Urine Ketones NEGATIVE, Urine Nitrite NEGATIVE, Urine Bilirubin NEGATIVE, Urine Urobilinogen 0.2, Urine Leukocyte Esterase NEGATIVE, Urine RBC (Auto) NEGATIVE, Urine RBC NONE, Urine WBC 0-2, Urine Squamous Epithelial Cells RARE, Urine Crystals PRESENT, Urine Amorphous Sediment FEW ELISA URATES, Urine Bacteria TRACE, Urine Casts NONE, Urine Mucus NEGATIVE, Urine Culture Indicated NO 10/24/22 03:05: Blood Gas Puncture Site LEFT RADIAL, Blood Gas Patient Temperature 36.2, Arterial Blood pH 7.35, Arterial Blood Partial Pressure CO2 41, Arterial Blood Partial Pressure O2 41, Arterial Blood HCO3 23, Arterial Blood Total CO2 23.9, Arterial Blood Oxygen Saturation 63, Arterial Blood Base Excess -2.2, [place] Test YES-POS, Blood Gas Ventilator Setting NO, Blood Gas Inspired Oxygen 15L 10/24/22 05:25: White Blood Count 4.0, Red Blood Count 3.02, Hemoglobin 8.2, Hematocrit 25, Mean Corpuscular Volume 82, Mean Corpuscular Hemoglobin 27, Mean Corpuscular Hemoglobin Concent 33, Red Cell Distribution Width 16.8, Platelet Count 384, Mean Platelet Volume 11.3, Immature Granulocyte % (Auto) 0, Neutrophils (%) (Auto) 89, Lymphocytes (%) (Auto) 3, Monocytes (%) (Auto) 7, Eosinophils (%) (Auto) 1, Basophils (%) (Auto) 0, Neutrophils # (Auto) 3.6, Lymphocytes # (Auto) 0.1, Monocytes # (Auto) 0.3, Eosinophils # (Auto) 0.0, Basophils # (Auto) 0.0, Immature Granulocyte # (Auto) 0.0, Sodium Level 128, Potassium Level 3.3, Chloride Level 96, Carbon Dioxide Level 20, Anion Gap 12, Blood Urea Nitrogen 67, Creatinine 2.86, Estimat Glomerular Filtration Rate 23, BUN/Creatinine Ratio 23, Glucose Level 123, Calcium Level 8.3, Corrected Calcium 9.4, Total Bilirubin 0.7, Aspartate Amino Transf (AST/SGOT) 82, Alanine Aminotransferase (ALT/SGPT) 26, Alkaline Phosphatase 59, Total Protein 5.4, Albumin 2.6 Discharge Home Medications: Active Scripts Active Reported Promethazine Tablet (Promethazine HCl) 25 Mg Tablet 25 Mg PO Q6H PRN Ropinirole HCl 0.5 Mg Tablet 0.5 Mg PO HS [place] (Pilocarpine) 5 Mg Tab 5 Mg PO BID Pantoprazole Sodium 40 Mg Tablet.dr 40 Mg PO DAILY Oxycodone HCl 5 Mg Tablet 5 Mg PO Q4H PRN MDD 30MG Morphine Sulfate ER (Morphine Sulfate) 30 Mg Tablet.er 30 Mg PO BID Lisinopril 20 Mg Tablet 20 Mg PO DAILY Levothyroxine Sodium 112 Mcg Tablet 112 Mcg PO DAILY Neurontin (Gabapentin) 300 Mg Capsule 300 Mg PO HS Fenofibrate (Fenofibrate Nanocrystallized) 145 Mg Tablet 145 Mg PO DAILY Docusate Sodium 100 Mg Capsule 100 Mg PO BID PRN Diphenoxylate-Atrop 2.5-0.025 (Diphenoxylate HCl/Atropine) 2.5 Mg-0.025 Mg Tablet 1 Each PO QID PRN Cyclobenzaprine HCl 10 Mg Tablet 10 Mg PO Q8H PRN Citalopram HBr (Citalopram Hydrobromide) 20 Mg Tablet 20 Mg PO HS Atenolol 50 Mg Tablet 50 Mg PO DAILY Amlodipine Besylate 5 Mg Tablet 5 Mg PO HS Ventolin Hfa (Albuterol Sulfate) 90 Mcg Hfa.aer.ad 2 Puff INH Q6H PRN Instructions to patient/family Please see electronic discharge instructions given to patient. Diagnosis/Problems Diagnosis/Problems (1) Spondylosis, lumbar, with myelopathy YONAS JOHNSON DO October 24, 2022 07:02
[2022-10-24] MEDS: RT-ALBUTEROL/IPRATROPIUM 3 ML (DUONEB) VIAL INH SCH (07:43)
[2022-10-24] MEDS ORDERED: morphine ER 15 MG (MS CONTIN) TAB PO SCH (09:00)
[2022-10-24] MEDS ORDERED: RT-ALBUTEROL/IPRATROPIUM 3 ML (DUONEB) VIAL INH SCH (10:00)
[2022-10-24] MEDS ORDERED: VANCOMYCIN 1 GM/NS 250 ML IVPB IV SCH ×2 (23:00)
--- NOTE | 2022-10-25 12:39 | Therapy Team Discharge Summary ---
Therapy Discharge Summary Discharge Recommendations Date of Discharge Physical Therapy Roll Left to Right (QC): 3 (min (A) and cues to log roll safely) Sit to Lying (QC): 2 (max (A) of 1 to maintain LE's in line with upper body) Lying to Sitting/Side of Bed(Q: 2 (max of 1 due to muscle relaxer taking effect) Sit to Stand (QC): 3 (mod (A) of 1 with v.c. for correct hand placement) Chair/Xvc-cb-Bihyz Xfer(QC): 3 (min-mod (A) of 1 with FWW and v.c. to fully turn prior to sitting and assist to control descent) Toilet Transfer (QC): 4 Car Transfer (QC): 3 (min (A) of 1 without device, stand pivot) Does the Patient Walk: Yes Mode of Locomotion: Both Anticipated Mode of Locomotion: Walk Walk 10 feet (QC): 3 (min (A) with FWW, slow benjamin, equal step length (B)) Walk 50 ft with 2 Turns(QC): 88 (unable to cover 50' distance due to pain and fatigue) Walk 150 ft (QC): 88 (unable to cover 50' distance due to pain and fatigue) Walking 10ft on uneven surface: 3 (min-mod (A) of 1 with FWW) Distance: 20' Gait Assistive Device: FWW Does the Pt Use a Wheelchair: Yes Wheelchair Distance: 50' Wheel 50 ft with 2 turns (QC): 5 (using (B) UE's) Wheel 150 ft (QC): 88 (distance not tested due to fatigue, pain in sitting) Type of Wheelchair: Manual 1 Step (curb) (QC): 3 (2" curb min (A) with FWW) 4 Steps (QC): 88 12 Steps (QC): 88 Walking Assistive Device: Walker Balance Sitting Dynamic: Poor Balance-Standing Static: Fair Picking up an Object (QC): 88 (not safe to attempt at end of session due to pain and muscle relaxer taking effect) Occupational Therapy Pt admitted to [facility]U s/p L2-5 laminectomy. At [facility], pt was independent with ADLs and functional mobility. Upon initial evaluation, pt was independent with eating, required set up with oral care, mod A showering, UE dressing and toileting, and total assist with LE dressing and footwear. OT tx focused on increased BUE Strength and activity tolerance, and increasing safety and independence with ADLs and functional mobility. Pt had a decline in medical status, requiring transfer to ICU, thus QC scores unable to be obtained prior to discharge. Pt made some functional progress towards ADLs while on ARU, but only attained LTG for eating due to short stay. Pt discharged to higher level of care , d/c from OT. Decreased Activ Tolerance, Decreased UE Strength, Impaired Funct Balance, Impaired I ADL's, Impaired Self-Care Skills Eating (QC): 7 (Pt declined breakfast due to feeling sick throughout night/morning) Oral Hygiene (QC): 5 (oral swab) Shower/Bathe Self (QC): 4 (SBA, Education on AE for washing/dring LEs.) Upper Body Dressing (QC): 3 (Min A doffing overhead shirt, pt able to doff back brace with VCs. SBA with donning shirt and back brace.) Lower Body Dressing (QC): 2 (Pt required assistance with threading BLEs and some assist wtih pant hike due to c/o pain.) On/Off Footwear (QC): 4 (Pt able to doff gripper socks with SBA, VCs for precautions. Pt able to don slip on shoes with set up.) Toileting Hygiene (QC): 3 (Mod A overall due to pain.) PT Mcfp Goals [place] Operator Goals PT [place] Operator Goals Time Frame: November 10, 2022 Roll Left to Right (QC): 6 Sit to Lying (QC): 6 Lying-Sitting on Side/Bed(QC): 6 Sit to Stand (QC): 6 Chair/Uzp-oj-Tmbku Xfer(QC): 6 Toilet/Commode Transfer (QC): 6 Car Transfer (QC): 5 Does the Patient Walk: Yes Walk 10 feet (QC): 6 Walk 10ft-Uneven Surface(QC): 6 Walk 50ft with 2 Turns (QC): 6 Walk 150 ft (QC): 5 Does the Pt use WC or Scooter?: No Wheel 50 feet with 2 turns (QC: 6 Type: Manual Wheel 150 feet: 6 Type: Manual 1 Step (curb) (QC): 5 (with FWW) 4 Steps (QC): 5 (with rails) 12 Steps (QC): 9 Picking up an Object (QC): 6 (with AD) OT [place] Operator Goals [place] Operator Goals Time Frame: Nov 19, 2022 Acute change in mental status: 0 Inattention: 0 Disorganized thinkin Altered level of consciousness: 0 Eating (QC): 6 (met) Oral Hygiene (QC): 6 (not met) Toileting Hygiene (QC): 6 (not met) Shower/Bathe Self (QC): 5 (not met) Upper Body Dressing (QC): 6 (not met) Lower Body Dressing (QC): 6 (not met) On/Off Footwear (QC): 6 (not met) Additional Goals: 1-Demonstrate ADL Tasks, 2-Verbalize Understanding, 3- ImproveStrength/Bradley 1=Demonstrate adherence to instructed precautions during ADL tasks. 2=Patient will verbalize/demonstrate understanding of assistive devices/modifications for ADL. 3=Patient will improve strength/tolerance for activity to enable patient to perform ADL's. PARAG VALDERRAMA OT October 25, 2022 12:39
[2022-10-25] MEDS ORDERED: TROUGH ORDER-PHARMACY XX NR (22:00)
--- NOTE | 2022-10-26 08:20 | Therapy Team Discharge Summary ---
Therapy Discharge Summary Discharge Recommendations Date of Discharge Physical Therapy Patient admitted to ARU s/p lumbar laminectomy, but D/C'd to acute 10/23/22 due to medical complications. Had been having a lot of urinary retention while on ARU. Pain remained high on ARU with TENS unit utilized in attempt to decrease pain. As of 10/22/22, pt ambulated 337 ft with RW and SBA with 1 rest aprox correction though and was able to resume ambulation after rest. Patient was able to perform 8 stairs ascend and descend with SBA. pt was also able to perform sitting ther- ex with red thera band, for 2 sets of 15 with BLE in all planes of motion available. He was CGA for sit<>stand on 10/21/22 and min (A) with bed mobility with assist with LE's prior to donning brace. Roll Left to Right (QC): 3 (min (A) and cues to log roll safely) Sit to Lying (QC): 3 Lying to Sitting/Side of Bed(Q: 3 Sit to Stand (QC): 4 Chair/Hnp-ti-Qdswi Xfer(QC): 3 Toilet Transfer (QC): 4 Car Transfer (QC): 3 (No change from eval - unable to reassess due to d/c to acute) Does the Patient Walk: Yes Mode of Locomotion: Both Anticipated Mode of Locomotion: Walk Walk 10 feet (QC): 5 Walk 50 ft with 2 Turns(QC): 5 Walk 150 ft (QC): 5 Walking 10ft on uneven surface: 3 (No change since eval - unable to reassess due to D/C to acute) Distance: 20' Gait Assistive Device: FWW Does the Pt Use a Wheelchair: Yes Wheelchair Distance: 337' Wheel 50 ft with 2 turns (QC): 5 (using (B) UE's) Wheel 150 ft (QC): 5 Type of Wheelchair: Manual 1 Step (curb) (QC): 5 (with FWW) 4 Steps (QC): 5 (with (B) rails) 12 Steps (QC): 9 Walking Assistive Device: Walker Balance Sitting Dynamic: Poor Balance-Standing Static: Fair Picking up an Object (QC): 88 (no change since eval - not assessed due to unexpected D/C to acute.) Occupational Therapy Decreased Activ Tolerance, Decreased UE Strength, Impaired Funct Balance, Impaired I ADL's, Impaired Self-Care Skills Eating (QC): 7 (Pt declined breakfast due to feeling sick throughout night/morning) Oral Hygiene (QC): 5 (oral swab) Shower/Bathe Self (QC): 4 (SBA, Education on AE for washing/dring LEs.) Upper Body Dressing (QC): 3 (Min A doffing overhead shirt, pt able to doff back brace with VCs. SBA with donning shirt and back brace.) Lower Body Dressing (QC): 2 (Pt required assistance with threading BLEs and some assist wtih pant hike due to c/o pain.) On/Off Footwear (QC): 4 (Pt able to doff gripper socks with SBA, VCs for precautions. Pt able to don slip on shoes with set up.) Toileting Hygiene (QC): 3 (Mod A overall due to pain.) PT Group Home Goals Group Home Goals PT Group Home Goals Time Frame: November 10, 2022 Roll Left to Right (QC): 6 Sit to Lying (QC): 6 Lying-Sitting on Side/Bed(QC): 6 Sit to Stand (QC): 6 Chair/Era-gk-Qpuzv Xfer(QC): 6 Toilet/Commode Transfer (QC): 6 Car Transfer (QC): 5 Does the Patient Walk: Yes Walk 10 feet (QC): 6 Walk 10ft-Uneven Surface(QC): 6 Walk 50ft with 2 Turns (QC): 6 Walk 150 ft (QC): 5 Does the Pt use WC or Scooter?: No Wheel 50 feet with 2 turns (QC: 6 Type: Manual Wheel 150 feet: 6 Type: Manual 1 Step (curb) (QC): 5 (with FWW) 4 Steps (QC): 5 (with rails) 12 Steps (QC): 9 Picking up an Object (QC): 6 (with AD) OT Ware Server Goals Group Home Goals Time Frame: Nov 19, 2022 Acute change in mental status: 0 Inattention: 0 Disorganized thinkin Altered level of consciousness: 0 Eating (QC): 6 (met) Oral Hygiene (QC): 6 (not met) Toileting Hygiene (QC): 6 (not met) Shower/Bathe Self (QC): 5 (not met) Upper Body Dressing (QC): 6 (not met) Lower Body Dressing (QC): 6 (not met) On/Off Footwear (QC): 6 (not met) Additional Goals: 1-Demonstrate ADL Tasks, 2-Verbalize Understanding, 3- ImproveStrength/Bradley 1=Demonstrate adherence to instructed precautions during ADL tasks. 2=Patient will verbalize/demonstrate understanding of assistive devices/modifications for ADL. 3=Patient will improve strength/tolerance for activity to enable patient to perform ADL's. Amita Velez PT October 26, 2022 08:20
== END 2022-10-24 07:35 | disposition short-term general hospital (02) | DRG 93 ==
PROVIDERS: ADMIT Internal Medicine; ATTEND Internal Medicine
DX: G95.89 Other specified diseases of spinal cord (principal); R53.81 Other malaise; Z98.890 Other specified postprocedural states; K21.9 Gastro-esophageal reflux disease without esophagitis; I10 Essential (primary) hypertension; M25.551 Pain in right hip; R33.9 Retention of urine, unspecified; F41.9 Anxiety disorder, unspecified; F32.A Depression, unspecified; E03.9 Hypothyroidism, unspecified; M19.90 Unspecified osteoarthritis, unspecified site; E11.51 Type 2 diabetes mellitus with diabetic peripheral angiopathy without gangrene; E78.00 Pure hypercholesterolemia, unspecified; R68.2 Dry mouth, unspecified; K57.90 Diverticulosis of intestine, part unspecified, without perforation or abscess without bleeding; Z87.891 Personal history of nicotine dependence; Z85.89 Personal history of malignant neoplasm of other organs and systems; Z79.899 Other long term (current) drug therapy; Z20.822 Contact with and (suspected) exposure to COVID-19
CPT/HCPCS: 36415; 36600; 71045; 73502; 80053; 81000; 82805; 82947; 83605; 85007; 85025; 85027; 87040; 87088; 87636; 94640; 94664; 94760

== ENCOUNTER 2022-10-24 07:00 | Inpatient (IN) | payer MEDICARE, MEDICAID ==
[~2022-10-24] VITALS: Ht 172 cm; Wt 75.8 kg
[~2022-10-24 07:00] MED LIST changes: +ALBU18HF2 INH; +AMLO-250 PO; +ATEN50TA PO; +CITA20TA9 PO; +CYCL10TA25 PO; +DIPH1TAB25 PO; +DOCU100C37 PO; +FENO145T26 PO; +GABA300C PO; +LEVO112T55 PO; +MORP-69 PO; +NF-PILO5T PO; +OXYC5TAB PO; +PANT40TA52 PO; +PROM25TA14 PO; +ROPI0.5T4 PO
--- OUTSIDE RECORDS SUMMARY | 2022-10-24 07:40 | XMS REPORT ---
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 Jan, confirmed [id number] -693624_Migrated Problem Chronic cholecystitis K81.1 Nov, confirmed [id number] -693624_Migrated Problem 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 May, confirmed [id number] -693624_Migrated Problem Abnormal computed tomography of lung R91.8 Mar, 7 confirmed [id number] -693624_Migrated Problem Swelling, mass, or lump in head and neck R22.0 Mar, confirmed [id number] -693624_Migrated Problem Disease of larynx J38.7 Mar, confirmed [id number] -693624_Migrated Problem Pure hypercholesterolemia E78.00 confirmed [id number] Problem Acquired hypothyroidism E03.9 confirmed 039568261 Problem Benign essential hypertension I10 confirm ed 3765296 Problem Chronic kidney disease, stage 3a N18.31 conf irmed [id number] Problem Degeneration of intervertebral disc, site unspecified [id number] confirmed -693624_Migrated Problem Loss of appetite R63.0 confirmed 913 03225 Problem Diverticulitis of colon (without mention of hemo rrhage)(562.11) K57.32 confirmed [id number] -693624_Migrat ed Problem Essential hypertension, benign I10 confir med 5020465 Problem Recurrent major depressive disorder, remission s tatus unspecified F33.9 confirmed 33267904 Problem Peripheral vascular disease, unspecified I73.9 confirmed 762851191 Problem Chronic kidney disease, stage 3 unspecified N18.30 confirmed 192654026 Problem Degeneration of intervertebral disc of lumbar region M51.36 confirmed 71400551 ALLERGIES Allergen (clinical drug ingredient) Drug/Non Drug Allergy do cumented on EMR Reaction Allergy Type Onset Date Status simvastatin Zocor([facility] Code:[address]-29) leg cramps Drug Allergy Active Lactose(ND Code:[address]-66) Unknown Drug Allergy Active Substance with 6-ccirtwm-2-methylglutary l-coenzyme A reductase inhibitor mechanism of action (substance) Statins muscle pain Drug Allergy Active ENCOUNTERS from 1955 to 2022-10-20 Encounter Location Date Provider Diagnosis [facility] [id number] [place] [address] October, ZAYDA MORE IMMUNIZATIONS Vaccine Route Administration Date Status PRIVATE TDAP (BOOSTRIX) IM Intramuscular Jul 15, 2020 Adminis tered PRIVATE FLUZONE HIGH DOSE QUAD 0.7ML (65 and UP) 2019 IM Int ramuscular Mar 18, 2020 Administered PRIVATE HIGH DOSE FLU 22-23 (FLUZONE HD) AGE 65YRS AND UP IM Intramuscular Apr 05, 2022 Administered 1st Booster MODERNA Bivalent, COVID-19, 0.5mL IM Intramuscular O ct 2021 Administered PRIVATE FLULAVAL QUAD 0.5ML (6 MO AND UP) 2020 IM Intramuscular Mar 18, 2021 Administered COVID-19 Moderna (history) Unknown September 09, 2020 Admin istered PRIVATE PPSV23 (PNEUMOVAX) IM Intramuscular Jul 15, 2020 Admi nistered COVID-19 Moderna (history) Unknown Aug 12, 2020 Admin istered 1st Booster MODERNA COVID-19, mRNA, 0.25mL Unknown May 202020 Administered PRIVATE PCV 13 (PREVNAR) Unknown Mar 18, 2017 Adminis tered PRIVATE PPSV23 (PNEUMOVAX) Unknown May 24, 2015 [...] day for 28 days Sep, Active PROCEDURES No Information RESULTS No Results REASON FOR VISIT Controlled Med Refill 11/10 MEDICAL (GENERAL) HISTORY Type Description Date Medical [...] Provider Name:ZAYDA MORE, 09:00:00 AM, [address] [place], [address], Insurance Providers Payer Name Payer Address Payer Phone Insured Name Patient Relati onship to Insured Coverage Start Date Coverage End Date Subscriber Number Group Nu mber [place] [employer] [address] [facility] [id number] Manolo Rios Ginna Self - patient is the insured 0 [id number] W[facility] PART A [address] [facility] [id number] Manolo Rios Ginna Self - patient is the insured 2020 [id number] [employer] MED[employer] Part A [address] [facility] [phone] RiosManolo tomlin Ginna Self - patient is the insured [id number]
[2022-10-24] MEDS ORDERED: NS IV 1000 ML 1,000 ML ONE (07:52)
[2022-10-24] MEDS ORDERED: polyethylene glycoL POWDER 17 GM (MIRALAX) PACK PO PRN (08:00)
[2022-10-24] MEDS ORDERED: LACTULOSE SYRUP 10GM/15ML (ENULOSE) 30ML UDC PO PRN (08:00)
[2022-10-24] MEDS ORDERED: ANTACID SUSP 30 ML UDC (MYLANTA) PO PRN (08:00)
[2022-10-24] MEDS ORDERED: BISACODYL 10 MG SUPP (DULCOLAX) PR PRN (08:00)
[2022-10-24] MEDS ORDERED: MELATONIN 3 MG TABLET PO PRN (08:00)
[2022-10-24] MEDS ORDERED: PHARMACY TO DOSE IV SCH (08:00)
[2022-10-24] MEDS ORDERED: NS IV 500 ML 500 ML IV PRN (08:00)
[2022-10-24] MEDS ORDERED: ACETAMINOPHEN 325 MG TABLET PO PRN (08:00)
[2022-10-24] MEDS ORDERED: diphenhydrAMINE 25 MG TAB (BENADRYL) PO PRN (08:00)
[2022-10-24] MEDS ORDERED: MILK OF MAGNESIA 400 MG/5 ML 30 ML UDC PO PRN (08:00)
[2022-10-24] MEDS ORDERED: ONDANSETRON 4 MG (ZOFRAN) ORAL DISSOLVE TAB PO PRN (08:00)
[2022-10-24] MEDS ORDERED: NS IV 1000 ML 1,000 ML IV SCH ×2 (08:00→16:15)
[2022-10-24] MEDS ORDERED: RT-ALBUTEROL/IPRATROPIUM 3 ML (DUONEB) VIAL INH PRN (08:00)
--- NOTE | 2022-10-24 08:31 | Tele-ICU Progress Note ---
Subjective Date Seen by a Provider: October 24, 2022 Subjective/Events-last exam This virtual visit was conducted using real time audio/video. Thank you for asking us to see this patient for respiratory insufficiency due to R pna and possible undiagnosed COPD. Also hypotensive. Recent events: Transferred from rehab s/p laminectomy 10/18. PMH: ENT cancer, DM, HTN, GERD, Dep., PAD, spinal sten. SH: smoking history:former: quit 2006. FH: Non-contributory PE: VSS. SBP 108 following NS 1 L bolus. O2 sat 94% on Vapotherm 100% HEENT: No obvious masses, adenopathy or JVD. Chest: clear to auscultation. CV: RRR S1 S2 No murmur or added sounds. Abd: Non-tender. Bowel sounds Y. : Unremarkable. Fong .Y LINOTYPE OPERATOR/psychiatric: Grossly intact. No obvious focal findings. Extremities: No edema. Capillary refill < 3 seconds. Skin: unremarkable. Results: Elevated BUN 67, Creat 2.86, BG 123. Decreased WCC 4.0, Hb 8.2. AB.35/41/41 on 15 LPM. CXR: hyperinflated with new R infilts.. Available chart/ vitals / labs / images reviewed. Video assessment done using teleICU camera, rest of exam as per RN. A/P: Respiratory insufficiency: Continue present management with VT/ BiPAP PRN. Duonebs added. Monitor for increasing oxygenation needs and/or need for intubation. Critical Care: critically ill patient. Cont. abx, pain meds PRN, Levo PRN. Discussed with RN Doris white 2. Asked RN to reach out to eICU if any questions or concerns later. Time spent with patient/coordination of care with other health professionals (mins): 25 Sepsis Event Evaluation Height, Weight, BMI Height: '" Weight: lbs. oz. kg; 25.69 BMI Method: Exam Exam Patient acknowledged, consented, and participated in this virtual visit which was conducted using real time audio/video Height & Weight Height: '" Weight: lbs. oz. kg; 25.69 BMI Method: General Appearance: Cachetic, Moderate Distress Respiratory: Decreased Breath Sounds (See free text) Peripheral Pulses: 1+ Dorsalis Pedis (R), 1+ Left Dors-Pedis (L) Assessment/Plan Assessment/Plan See free text. Critical Care: Critically Ill Patient DAVID LAN MD October 24, 2022 08:31
[2022-10-24] MEDS: DOCUSATE SODIUM 100 MG (COLACE) CAP PO SCH ×2 (08:40→21:04)
[2022-10-24] MEDS: SENNOSIDES 8.6 MG (SENOKOT) TAB PO SCH ×2 (08:40→21:04)
--- NOTE | 2022-10-24 08:40 | History & Physical ---
History of Present Illness HPI/Chief Complaint CC: RLL HAP with hypoxic acute respiratory failure with JULITA and hypotension HPI: This is a 67yoWM clinic patient of [facility] who was transferred from ARU after admitted on 10/20/22 following 3 day course in [facility] following uncomplicated lumbar spine surgery by Dr Kim but he suffered from slow recovery. He participated in therapy and remained stable but became febrile and hypoxic on evening of 10/23/22 requiring septic w/u and empiric abx for RLL HAP and given IVF due to JULITA but he required Vapotherm and ICU transfer due to worsened status. Currently he is stable and midline is in process of being placed due to poor vascular access. at bedside and patient and very clear he is DNI if his lungs should worsen. Hopefully we can improve status and ultimately return back to ARU within 3 days. Source: patient, family, RN/MD, old records Exam Limitations: clinical condition Date Seen 10/24/22 Time Seen by a Provider: 11:00 Attending Physician Rudi Larsen MD PCP Admitting Physician: Lupe Shane DO Attending Physician: Lupe Shane DO Referring Physician Date of Admission October 24, 2022 at 07:32 Home Medications & Allergies Home Medications Reviewed patient Home Medication Reconciliation performed by pharmacy medication reconciliations artificial breeding technician and/or nursing. Patients Allergies have been reviewed. Allergies Allergies Coded Allergies Utagctc-UZT-PiQ Reductase Inhibitor (Verified Allergy, Unknown, 10/20/22) Past Cmdfqsw-Sgdnlg-Kakxqc Hx Past Med/Social Hx: Reviewed Nursing Past Med/Soc Hx, Reviewed and Corrections made Patient Social History Marrital Status: Employed/Student: retired Alcohol Use: Denies Use Smoking Status: Former Smoker Past Medical History Surgeries: Orthopedic head neck Cardiac: High Cholesterol, Hypertension Gastrointestinal: Gastroesophageal Reflux Cancer: Colon, Oral What Type of Treatment Did You: Chemotherapy, Radiation, Surgical Intervention Review of Systems Constitutional: see HPI, dizziness, fever, malaise, weakness EENTM: no symptoms reported Respiratory: dyspnea on exertion, short of breath Cardiovascular: no symptoms reported Gastrointestinal: no symptoms reported Genitourinary: no symptoms reported Musculoskeletal: back pain Skin: no symptoms reported Psychiatric/Neurological: No Symptoms Reported All Other Systems Reviewed Negative Unless Noted: Yes Physical Exam Physical Exam Vital Signs Vital Signs - First Documented 10/24/22 10/24/22 10/24/22 07:35 07:45 12:00 Pulse 62 Resp 10 B/P (MAP) 87/45 (59) Pulse Ox 95 O2 Delivery Vapotherm O2 Flow Rate 25.00 FiO2 95 Capillary Refill : Height, Weight, BMI Height: '" Weight: lbs. oz. kg; 25.69 BMI Method: General Appearance: Chronically ill, Cachetic, Mild Distress, Thin, Other (pale) Eyes: Bilateral Eye Normal Inspection, Bilateral Eye PERRL HEENT: PERRL/EOMI, TMs Normal, Normal ENT Inspection, Pharynx Normal Neck: Full Range of Motion, Normal Inspection, Non Tender, Supple, Carotid Bruit Respiratory: No Respiratory Distress, Accessory Muscle Use, Decreased Breath Sounds (See free text) Cardiovascular: Regular Rate, Rhythm, No Edema, No Gallop, No JVD, No Murmur, Normal Peripheral Pulses Gastrointestinal: Normal Bowel Sounds, No Organomegaly, No Pulsatile Mass, Non Tender, Soft Back: Normal Inspection, CVA Tenderness (L), CVA Tenderness (R), Decreased Range of Motion Extremity: Normal Capillary Refill, Normal Inspection, Normal Range of Motion, Non Tender, No Calf Tenderness, No Pedal Edema Neurologic/Psychiatric: Alert, Oriented x3, chief deputy coroner II-XII Norm as Tested, Depressed Affect, Motor Weakness (generalized) Skin: Normal Color, Warm/Dry Lymphatic: No Adenopathy Results Results/Procedures Labs Laboratory Tests 10/24/22 15:10 Patient resulted labs reviewed. Assessment/Plan Admission Diagnosis Assessment: Acute hypoxic respiratory failure requiring ICU transfer and Vapotherm Sepsis RLL HAP JULITA s/p lumbar spine surgery on 10/18/22 DM HTN HLP Head/neck cancer hx Colon resections Anemia Plan: IV abx ICU Vapotherm Pain control Admission Status: Inpatient Order (span 2 midnights) Reason for Inpatient Admission: sepsis LUPE SHANE DO October 24, 2022 08:40
[2022-10-24] MEDS: NS IV 1000 ML 1,000 ML IV SCH ×2 (09:06→18:22)
[2022-10-24] MEDS: POTASSIUM CL 10MEQ/50ML IVPB 50 ML IV SCH ×7 (09:06→19:48)
--- NOTE | 2022-10-24 09:18 | Diagnostic Imaging Report ---
INDICATION: Dyspnea, follow-up pneumonia. COMPARISON: 10/23/2022. DISCUSSION: Single portable upright view of the chest was obtained. Patchy infiltrates throughout the right lung are increased, likely worsening pneumonia. Stable heart size. Left lung is unremarkable. No pleural fluid or pneumothorax. No osseous abnormality. IMPRESSION: 1. Worsening right-sided pulmonary infiltrates. Dictated by: Dictated on workstation # [id number]
[2022-10-24] MEDS: CALCIUM CARBONATE 500 MG (TUMS) TAB.CHEW PO PRN (09:47)
[2022-10-24] MEDS: PIPERACILLIN SODIUM/TAZOBACTAM 4.5 GM in NS (IVPB) 100 ML IV SCH ×2 (09:47→18:22)
[2022-10-24] MEDS: NOREPINEPHRINE 8 MG/250 ML 250 ML IV SCH (10:05)
[2022-10-24 14:22] VITALS: BP 92/39
[2022-10-24 15:29] LABS: POTASSIUM 3.9 MMOL/L (3.6-5.0)
[2022-10-24 15:30] LABS: CALCIUM 8.2 MG/DL (8.5-10.1)
[2022-10-24 15:34] LABS: CREATININE SERUM 2.22 MG/DL (0.60-1.30)
[2022-10-24 15:36] LABS: MAGNESIUM 1.9 MG/DL (1.6-2.4)
[2022-10-24] MEDS: RT-ALBUTEROL/IPRATROPIUM 3 ML (DUONEB) VIAL INH SCH ×2 (18:25→21:15)
[2022-10-24] MEDS ORDERED: TROUGH ORDER-PHARMACY XX NR (22:00)
[2022-10-24] MEDS ORDERED: VANCOMYCIN 1 GM/NS 250 ML IVPB IV SCH ×2 (23:00)
[2022-10-25] MEDS: NS IV 1000 ML 1,000 ML IV SCH ×2 (00:19→08:20)
[2022-10-25] MEDS: NOREPINEPHRINE 8 MG/250 ML 250 ML IV SCH ×2 (00:50→17:33)
[2022-10-25] MEDS: PIPERACILLIN SODIUM/TAZOBACTAM 4.5 GM in NS (IVPB) 100 ML IV SCH ×3 (02:03→17:44)
[2022-10-25] MEDS: RT-ALBUTEROL/IPRATROPIUM 3 ML (DUONEB) VIAL INH SCH ×6 (02:08→21:37)
[2022-10-25 03:59] LABS: BASOPHILS % (AUTO) 0 % (0-10); EOSINOPHILS % (AUTO) 1 % (0-10); HEMATOCRIT 22 % (40-54); HEMOGLOBIN 7.5 g/dL (13.3-17.7); LYMPHOCYTES # (AUTO) 0.1 10^3/uL (1.0-4.0); LYMPHOCYTES % (AUTO) 3 % (12-44); MEAN CORPUSCULAR HEMOGLOBIN 27 pg (25-34); MEAN CORPUSCULAR HGB CONC 34 g/dL (32-36); MEAN CORPUSCULAR VOLUME 80 fL (80-99); MONOCYTES # (AUTO) 0.3 10^3/uL (0.0-1.0); MONOCYTES % (AUTO) 8 % (0-12); NEUTROPHILS # (AUTO) 3.2 10^3/uL (1.8-7.8); NEUTROPHILS % (AUTO) 87 % (42-75); PLATELET COUNT 421 10^3/uL (130-400); WHITE BLOOD COUNT 3.7 10^3/uL (4.3-11.0)
[2022-10-25 04:18] LABS: ALBUMIN 2.4 GM/DL (3.2-4.5); BILIRUBIN,TOTAL 0.4 MG/DL (0.1-1.0); CALCIUM 8.2 MG/DL (8.5-10.1); CREATININE SERUM 1.68 MG/DL (0.60-1.30); MAGNESIUM 1.8 MG/DL (1.6-2.4); PHOSPHORUS 2.2 MG/DL (2.3-4.7); TOTAL PROTEIN 5.2 GM/DL (6.4-8.2)
[2022-10-25] MEDS ORDERED: POTASSIUM CL 10MEQ/50ML IVPB 400 ML IV ONE (04:32)
[2022-10-25] MEDS: POTASSIUM CL 10MEQ/50ML IVPB 50 ML IV SCH ×7 (04:41→11:53)
[2022-10-25] MEDS: CALCIUM CARBONATE 500 MG (TUMS) TAB.CHEW PO PRN (04:43)
[2022-10-25] MEDS ORDERED: NS IV 500 ML 500 ML IV SCH (05:30)
[2022-10-25] MEDS: MAGNESIUM 1 GM/100 ML IVPB 100 ML IV SCH (06:13)
[2022-10-25] MEDS: KCL 20 MEQ TAB (K-DUR) PO SCH (06:14)
[2022-10-25] MEDS ORDERED: PIPERACILLIN SODIUM/TAZOBACTAM 4.5 GM in NS (IVPB) 100 ML IV ONE (07:18)
--- NOTE | 2022-10-25 08:07 | Diagnostic Imaging Report ---
EXAMINATION: Chest 1 view HISTORY: Short of breath COMPARISON: 10/24/2022 FINDINGS: Right-sided airspace opacities have worsened. No pneumothorax. No pleural effusion. Heart size is normal. There are surgical clips in the neck. IMPRESSION: 1. Worsening right-sided airspace opacities likely representing pneumonia. Dictated by: Dictated on workstation # [id number]
[2022-10-25] MEDS: ONDANSETRON 4 MG/2 ML (SDV) Z0FRAN IV PRN (08:19)
[2022-10-25 08:25] VITALS: BP 161/74
[2022-10-25 08:30] VITALS: BP 162/68
[2022-10-25 08:35] VITALS: BP 149/68
[2022-10-25 08:40] VITALS: BP 159/73
[2022-10-25] MEDS: DOCUSATE SODIUM 100 MG (COLACE) CAP PO SCH ×2 (09:00→21:42)
[2022-10-25] MEDS: SENNOSIDES 8.6 MG (SENOKOT) TAB PO SCH ×2 (09:00→21:42)
[2022-10-25] MEDS ORDERED: ATENOLOL 25 MG (TENORMIN) TAB PO ONE (10:00)
[2022-10-25] MEDS: diphenhydrAMINE 50 MG/ML INJ (BENADRYL) IVP PRN (10:30)
--- NOTE | 2022-10-25 10:31 | Tele-ICU Progress Note ---
Subjective Date Seen by a Provider: October 25, 2022 Time Seen by a Provider: 10:31 Subjective/Events-last exam (Tele-ICU Physician , Progress Note ) Service provided via interactive audio and video telecommunications E-CARE system to a patient admitted to ICU bed in [facility]. Patient is seen today due to persistent need of ICU care Available chart/ vitals / labs / Images reviewed Video assessment done using teleICU camera, rest of exam as per RN Discussed with RN Events overnight : Afebrile hemodynamically stable Respiratory - - VT 30L 70 % I/O = + Drips: NS 125 Pressors- no Hospital course: (10/24) 67 y M from floor (rehab) with ARF, PNA post recent Lami L2-L5 10/25 - VT 30L 70 % A/P Acute hypoxic respiratory failure rdue to PNA- on - VT 30L 70 % - cont abx -stop IVF - DNI Sepsis= vital stable - stop IVF RLL HAP - zosyn and vanco - speech eval - ? asp PNA JULITA/ CKD - stable , folow Hyponatremia - slow improvement s/p lumbar spine surgery on 10/18/22 - pain control DM - ISS Anemia - slow drift 9.4-->7.5 - no acute bleeding iron level orded Anxiety - cont xanax Head/neck cancer hx Colon resections DNI Lines : periph , (Central Line Necessity Reviewed) Fong: + OG: Nutrition: Analgesia: Anxiety/ delirium VTE Prophylaxis: hep q8 Stress Ulcer Prophylaxis: PPI Plans in collaboration with bedside consultants and IM MDs. Discussed with RN to reach out if any questions or concerns Case and care daily discussed on multidisciplinary rounds ( RN, PharmD, Life Support Technician , Respiratory Therapy, derrick worker ) A total of 31 minutes of critical care time was devoted to this patient today, required to treat and/or prevent further deterioration of critical care condition ( as above ) . I am remotely monitoring this patient from another state. I am unable to do the bedside exam, and history/physical and pertinent information is taken from other notes in the computer and bedside staff. Sepsis Event Evaluation Height, Weight, BMI Height: '" Weight: lbs. oz. kg; 25.75 BMI Method: Focused Exam Lactate Level 10/24/22 09:09: Lactic Acid Level 1.58 Exam Exam Patient acknowledged, consented, and participated in this virtual visit which was conducted using real time audio/video Vital Signs Date Time Temp Pulse Resp B/P (MAP) Pulse Ox O2 Delivery O2 Flow Rate FiO2 10/25/22 10:23 91 Vapotherm 30.00 60 10/25/22 09:30 107 26 180/77 (111) 96 Vapotherm 30.00 60.00 10/25/22 09:15 105 25 171/79 (125) 96 Vapotherm 30.00 60.00 10/25/22 09:00 105 31 166/72 (107) 95 Vapotherm 30.00 60.00 10/25/22 08:45 107 31 158/96 (106) 96 Vapotherm 30.00 70.00 10/25/22 08:40 36.8 107 18 159/73 95 Vapotherm 30.00 10/25/22 08:35 36.8 106 18 149/68 96 Vapotherm 30.00 70 10/25/22 08:30 105 34 149/68 (111) 91 Vapotherm 30.00 70.00 10/25/22 08:30 36.8 104 18 162/68 92 Vapotherm 30.00 100 10/25/22 08:25 36.8 105 18 161/74 90 30.00 100 10/25/22 08:15 113 18 161/108 (125) 89 Vapotherm 30.00 70.00 10/25/22 08:00 96 Vapotherm 30.00 70 10/25/22 08:00 36.6 10/25/22 08:00 106 28 151/74 (99) 94 Vapotherm 30.00 70.00 10/25/22 07:45 106 27 155/84 (111) 94 Vapotherm 30.00 70.00 10/25/22 07:30 104 30 142/67 (101) 94 Vapotherm 30.00 70.00 10/25/22 07:24 104 10/25/22 07:15 101 23 138/63 (91) 94 Vapotherm 30.00 70.00 10/25/22 07:00 104 27 134/66 (88) 93 Vapotherm 30.00 70.00 10/25/22 06:44 93 30.00 70 10/25/22 06:33 Vapotherm 30.00 60.00 10/25/22 06:22 90 Vapotherm 30.00 40 10/25/22 06:00 98 21 127/67 (87) 94 Vapotherm 30.00 40.00 10/25/22 05:10 160 10/25/22 05:10 95 10/25/22 05:00 96 20 128/63 (84) 93 Vapotherm 30.00 40.00 10/25/22 04:00 36.0 10/25/22 04:00 97 22 133/58 (83) 94 Vapotherm 30.00 40.00 10/25/22 04:00 96 Vapotherm 30.00 40 10/25/22 03:53 99 10/25/22 03:52 166 10/25/22 03:00 108 19 122/60 (83) 94 Vapotherm 30.00 40.00 10/25/22 02:08 94 Vapotherm 30.00 40 10/25/22 02:00 105 18 127/63 (88) 93 Vapotherm 30.00 40.00 10/25/22 01:00 103 13 116/60 (76) 94 Vapotherm 30.00 40.00 10/25/22 01:00 103 10/25/22 00:00 36.2 10/25/22 00:00 96 Vapotherm 30.00 40 10/25/22 00:00 106 20 125/61 (82) 94 Vapotherm 30.00 40.00 10/24/22 23:00 109 26 127/62 (83) 96 Vapotherm 30.00 40.00 10/24/22 22:00 106 21 132/67 (93) 95 Vapotherm 30.00 40.00 10/24/22 21:18 107 15 96 Vapotherm 30.00 40.00 10/24/22 21:15 99 Vapotherm 30.00 45 10/24/22 21:00 111 19 113/57 (69) 96 Vapotherm 30.00 45.00 10/24/22 20:00 97 Vapotherm 30.00 45 10/24/22 20:00 36.0 Vapotherm 30.00 45.00 10/24/22 20:00 113 18 121/53 (82) 95 Vapotherm 30.00 45.00 10/24/22 19:45 108 16 138/57 (87) 92 Vapotherm 30.00 50.00 10/24/22 19:41 135 10/24/22 19:30 114 13 157/83 (102) 90 Vapotherm 30.00 50.00 10/24/22 19:15 107 15 128/58 (99) 95 Vapotherm 30.00 50.00 10/24/22 19:00 111 10/24/22 19:00 111 13 151/68 (111) 92 Vapotherm 30.00 50.00 10/24/22 18:33 Vapotherm 30.00 50.00 10/24/22 18:25 93 Vapotherm 30.00 45 10/24/22 18:05 92 Vapotherm 25.00 55.00 10/24/22 18:00 87 18 154/71 (98) 87 Vapotherm 25.00 55.00 10/24/22 17:03 80 15 120/71 (87) 95 Vapotherm 25.00 55.00 10/24/22 16:00 68 10 86/43 (57) 95 Vapotherm 25.00 55.00 10/24/22 16:00 97 Vapotherm 25.00 10/24/22 15:44 95 Vapotherm 25.00 45 10/24/22 15:06 71 10 112/70 (84) 97 Vapotherm 25.00 55.00 10/24/22 14:22 35.8 67 92 10/24/22 14:00 67 13 104/49 (67) 100 Vapotherm 25.00 55.00 10/24/22 13:00 65 25 85/47 (60) 96 Vapotherm 25.00 55.00 10/24/22 12:16 67 10/24/22 12:05 67 13 92/39 (56) 92 Vapotherm 25.00 55.00 10/24/22 12:00 Vapotherm 25.00 95 10/24/22 11:00 74 8 122/48 (72) 97 Vapotherm 30.00 50.00 10/24/22 11:00 35.8 I & O 10/25/22 07:00 Intake Total 3500 ml Output Total 2800 ml Balance 700 ml Height & Weight Height: '" Weight: lbs. oz. kg; 25.75 BMI Method: General Appearance: Chronically ill, Cachetic, Mild Distress, Thin, Other (pale) HEENT: PERRL/EOMI, TMs Normal, Normal ENT Inspection, Pharynx Normal Neck: Full Range of Motion, Normal Inspection, Non Tender, Supple, Carotid Bruit Respiratory: No Respiratory Distress, Accessory Muscle Use, Decreased Breath Sounds (See free text) Cardiovascular: Regular Rate, Rhythm, No Edema, No Gallop, No JVD, No Murmur, Normal Peripheral Pulses Peripheral Pulses: 1+ Dorsalis Pedis (R), 1+ Left Dors-Pedis (L) Extremity: Normal Capillary Refill, Normal Inspection, Normal Range of Motion, Non Tender, No Calf Tenderness, No Pedal Edema Neurologic/Psychiatric: Alert, Oriented x3, weekend caregiver II-XII Norm as Tested, Depressed Affect, Motor Weakness (generalized) Skin: Normal Color, Warm/Dry Lymphatic: No Adenopathy Results Lab Laboratory Tests 10/24/22 15:10 10/25/22 03:23 Assessment/Plan Assessment/Plan 1 LUIS CARLOS ANAYA MD October 25, 2022 10:31
--- NOTE | 2022-10-25 10:58 | Progress Note ---
HELEN OTTO 10/25/22 1057: Subjective Date Seen by a Provider: October 25, 2022 Time Seen by a Provider: 09:00 Subjective/Events-last exam Pt doing okay today, appears to be in some distress. Satting 92% on 30Lpm 70%% FiO2 vapotherm. He endorses pleuritic chest pain. some nausea, and episodes of vomiting last night and the night before. He denies fevers or chills. He has been unable to eat well or drink much. Focused Exam Lactate Level 10/24/22 09:09: Lactic Acid Level 1.58 Objective Exam Last Set of Vital Signs Vital Signs Date Time Temp Pulse Resp B/P (MAP) Pulse Ox O2 Delivery O2 Flow Rate FiO2 10/25/22 10:23 91 Vapotherm 30.00 60 10/25/22 09:30 107 26 180/77 (111) 10/25/22 08:40 36.8 Capillary Refill : I&O Intake and Output 10/25/22 00:00 Intake Total 3050 ml Output Total 1900 ml Balance 1150 ml Intake Oral 750 ml IV Total 2300 ml Output Urine Total 1900 ml # Bowel Movements 1 Daily Weight Change Unsure General: Alert, Oriented X3, Cooperative, Mild Distress HEENT: Atraumatic, PERRLA Neck: Supple, No JVD Lungs: Other (Decreased breath sounds and crackles) Heart: Regular Rate (tachycardic), Normal S1, Normal S2, No Murmurs Abdomen: Normal Bowel Sounds, Soft, No Tenderness, No Hepatosplenomegaly, No Masses Extremities: No Clubbing, No Cyanosis, No Edema, Normal Pulses, No Tenderness/Swelling Results Lab Laboratory Tests 10/24/22 15:10: Sodium Level 132L, Potassium Level 3.9, Chloride Level 100, Carbon Dioxide Level 18L, Anion Gap 14, Blood Urea Nitrogen 62H, Creatinine 2.22H, Estimat Glomerular Filtration Rate 32, BUN/Creatinine Ratio 28, Glucose Level 104, Calcium Level 8.2L, Magnesium Level 1.9 10/25/22 03:23: Sodium Level 134L, Potassium Level 3.0L, Chloride Level 105, Carbon Dioxide Level 18L, Anion Gap 11, Blood Urea Nitrogen 45H, Creatinine 1.68H, Estimat Glomerular Filtration Rate 44, BUN/Creatinine Ratio 27, Glucose Level 167H, Calcium Level 8.2L, Magnesium Level 1.8, White Blood Count 3.7L, Red Blood Count 2.81L, Hemoglobin 7.5L, Hematocrit 22L, Mean Corpuscular Volume 80, Mean Corpuscular Hemoglobin 27, Mean Corpuscular Hemoglobin Concent 34, Red Cell Distribution Width 17.2H, Platelet Count 421H, Mean Platelet Volume 11.0, Immature Granulocyte % (Auto) 1, Neutrophils (%) (Auto) 87H, Lymphocytes (%) (Auto) 3L, Monocytes (%) (Auto) 8, Eosinophils (%) (Auto) 1, Basophils (%) (Auto) 0, Neutrophils # (Auto) 3.2, Lymphocytes # (Auto) 0.1L, Monocytes # (Auto) 0.3, Eosinophils # (Auto) 0.0, Basophils # (Auto) 0.0, Immature Granulocyte # (Auto) 0.0, Corrected Calcium 9.5, Phosphorus Level 2.2L, Total Bilirubin 0.4, Aspartate Amino Transf (AST/SGOT) 32, Alanine Aminotransferase (ALT/SGPT) 17, Alkaline Phosphatase 51, Total Protein 5.2L, Albumin 2.4L 10/25/22 10:08: Microbiology 10/24/22 MRSA Screen - Final, Complete MRSA not isolated Assessment/Plan Assessment/Plan Assess & Plan/Chief Complaint AHRF - 2/2 PNA - on VT 30L 70% - DNI - ctm Sepsis (resolved) RLL HAP - vitals now stable - CXR's worsening - cont vanc and zosyn - narrow abx as able with ID and susceptibilities - possible aspiration PNA given location, may need speech eval JULITA - resolving - Cr down to 1.68 today - ctm Anemia - Hb 7.5 this am - receiving 1U PRBC's - ctm Chronic: DM - ISS and accuchecks HTN - atenolol HLP - ctm Head/neck cancer hx Colon resections LUPE JOHNSON DO 10/26/22 0512: Supervisory-Addendum Brief Verification & Attestation Participated in pt care: history, MDM, physical Personally performed: exam, history, MDM, supervision of care Care discussed with: Medical Student Procedures: n/a Results interpretation: Verified all documentation Verification and Attestation of Medical Student E/M Service A medical student performed and documented this service in my presence. I reviewed and verified all information documented by the medical student and made modifications to such information, when appropriate. I personally performed the physical exam and medical decision making. Lupe Johnson, October 26, 2022,05:12 HELEN OTTO October 25, 2022 10:57 LUPE JOHNSON DO October 26, 2022 05:12
--- NOTE | 2022-10-25 11:38 | Diagnostic Imaging Report ---
INDICATION: PICC line placement COMPARISON: Imaging from same date. TECHNIQUE: 3 radiographs of the chest are submitted dated 10/25/2022. Two of these images appear to be the same image with different processing. FINDINGS: Interval placement of a left-sided PICC line. The distal tip is not well visualized secondary to overlying structures. The distal tip extends at least into the mid aspect of the superior vena cava. No pneumothorax. The cardiac silhouette is within normal limits in size. No significant pulmonary vascular congestion. Surgical clips in the right neck are again noted. Extensive bilateral pulmonary infiltrates are again identified, right greater than left. This is slightly improved on the right when compared to the prior examination. This is slightly worsened on the left. No significant pleural effusion. No pneumothorax. Scattered osseous degenerative changes without acute osseous abnormality. IMPRESSION: Interval placement of left-sided PICC line. The distal tip is difficult to definitively visualize, though it extends at least into the mid aspect of the superior vena cava. No pneumothorax. Persistent right greater than left pulmonary opacities, slightly improved on the right though slightly worsened within the left lung base. Additional stable findings as above. Dictated by: Dictated on workstation # [id number]
--- NOTE | 2022-10-25 12:17 | Speech Therapy Progress Note ---
Therapy Progress Note Speech pathology attempted requested clinical bedside swallowing evaluation at 1100 on this date. At this time, the patient is undergoing a sterile procedure at bedside. ST will re-attempt the evaluation as able. Thank you. ALFREDA SHEARER October 25, 2022 12:17
--- NOTE | 2022-10-25 14:27 | Speech Therapy Progress Note ---
Therapy Progress Note Speech pathology attempted the clinical bedside swallowing evaluation on this date. At this time, the patient is nauseated and politely requests a HOLD on the clinical bedside swallowing assessment. The patient's is present at bedside and provides a large amount of beneficial prior medical history for the clinician. The patient completed a video swallow in 2017 or 2018 at [facility]. Per patient's spouse, the patient was recommended thickened liquids at the time of his swallow study in 2017 or 2018, however, "they were too hard and it didn't do them." The clinician visited with the patient and the patient's per plan of care. The patient's stated, "I don't think he wants a feeding tube again. He might do the thickened liquids but I don't know for sure." The patient is unable to raise the head of bed higher than 30 degrees. Consuming P.O. at 30 degrees is deemed unsafe by the clinician and highly not recommended, increasing aspiration risks. The information was shared with the patient but he stated he would be unable to be seated any higher at this time due to pain. The patient has a current and prior medical history placing him at a high risk factor for aspiration and silent aspiration with P.O. intake of any kind (head and neck cancer reconstruction, radiation therapy, previous tracheostomy, previous PEG tube placement, use of heated high flow nasal cannula). The clinician will continue attempts at completion once the patient's nausea improves. The speech pathologist visited with the patient's RN following the discussion. If PT and OT are warranted and appropriate, ST will attempt to complete the assessment once PT and OT are able to have the patient seated at bedside (appropriate swallowing position). ALFREDA SHEARER October 25, 2022 14:27
[2022-10-25] MEDS ORDERED: METOCLOPRAMIDE INJ 10 MG/2 ML (REGLAN) IVP PRN (16:15)
[2022-10-25] MEDS: meTOprolol 5 MG/5 ML (LOPRESSOR) VIAL IV PRN ×2 (16:33→21:39)
[2022-10-25] MEDS ORDERED: TROUGH ORDER-PHARMACY XX NR (22:00)
[2022-10-25] MEDS ORDERED: VANCOMYCIN 1250MG/250ML PREMIX 250 ML IV SCH (23:30)
[2022-10-26] MEDS: PIPERACILLIN SODIUM/TAZOBACTAM 4.5 GM in NS (IVPB) 100 ML IV SCH ×3 (01:09→18:00)
[2022-10-26] MEDS: meTOprolol 5 MG/5 ML (LOPRESSOR) VIAL IV PRN ×2 (01:09→16:59)
[2022-10-26] MEDS: RT-ALBUTEROL/IPRATROPIUM 3 ML (DUONEB) VIAL INH SCH ×6 (02:47→21:29)
[2022-10-26] MEDS: hydrALAZINE (APESOLINE) 20 MG/ML VIAL IV PRN ×2 (03:53→20:46)
[2022-10-26 04:21] LABS: BASOPHILS # (AUTO) 0.1 10^3/uL (0.0-0.1); BASOPHILS % (AUTO) 1 % (0-10); EOSINOPHILS % (AUTO) 0 % (0-10); HEMATOCRIT 28 % (40-54); HEMOGLOBIN 9.7 g/dL (13.3-17.7); LYMPHOCYTES # (AUTO) 0.3 10^3/uL (1.0-4.0); LYMPHOCYTES % (AUTO) 2 % (12-44); MEAN CORPUSCULAR HGB CONC 35 g/dL (32-36); MEAN CORPUSCULAR VOLUME 79 fL (80-99); MEAN PLATELET VOLUME 10.4 fL (9.0-12.2); MONOCYTES # (AUTO) 0.4 10^3/uL (0.0-1.0); MONOCYTES % (AUTO) 2 % (0-12); NEUTROPHILS # (AUTO) 18.3 10^3/uL (1.8-7.8); NEUTROPHILS % (AUTO) 94 % (42-75); PLATELET COUNT 661 10^3/uL (130-400); WHITE BLOOD COUNT 19.4 10^3/uL (4.3-11.0)
[2022-10-26 04:22] LABS: MEAN CORPUSCULAR HEMOGLOBIN 27 pg (25-34)
[2022-10-26 04:42] LABS: ALBUMIN 2.5 GM/DL (3.2-4.5); BILIRUBIN,TOTAL 0.8 MG/DL (0.1-1.0); CALCIUM 8.7 MG/DL (8.5-10.1); CREATININE SERUM 1.13 MG/DL (0.60-1.30); TOTAL PROTEIN 5.7 GM/DL (6.4-8.2)
[2022-10-26] MEDS: POTASSIUM CL 10MEQ/50ML IVPB 50 ML IV SCH (05:07)
[2022-10-26] MEDS: KCL 20 MEQ TAB (K-DUR) PO SCH (05:08)
[2022-10-26] MEDS: MAGNESIUM 1 GM/100 ML IVPB 100 ML IV SCH (05:08)
[2022-10-26] MEDS ORDERED: POTASSIUM PHOSPHATE INJ 30 MM in NS (IVPB) 250 ML IV ONE (06:30)
[2022-10-26] MEDS: ONDANSETRON 4 MG/2 ML (SDV) Z0FRAN IV PRN ×2 (06:31→22:49)
--- NOTE | 2022-10-26 06:52 | Diagnostic Imaging Report ---
INDICATION: 67-year-old male follow-up shortness of breath, ICA care management COMPARISONS: 10/25/2022 FINDINGS: Single view chest shows the cardiac contour to be normal. There is extensive 5 lobe alveolar infiltrates more prominent in the right lower lobe and inferior right upper lobe. There is increasing infiltrates in the left lower lobe. There is no effusion or pneumothorax. Cardiac contour is normal. There is aortic calcific atherosclerosis. Soft tissues and bony thorax are unchanged. IMPRESSION: 1. Increasing right lung infiltrates primarily in the right lower lobe and lower right upper lobe. 2. There is also increasing left lower lobe alveolar infiltrates. Dictated by: Dictated on workstation # [id number]
[2022-10-26] MEDS: DOCUSATE SODIUM 100 MG (COLACE) CAP PO SCH ×2 (09:00→20:17)
[2022-10-26] MEDS: SENNOSIDES 8.6 MG (SENOKOT) TAB PO SCH ×2 (09:00→20:17)
[2022-10-26] MEDS ORDERED: CYANOCOBALAMIN INJ 1000 MCG/ML IM ONE (09:15)
[2022-10-26] MEDS: IRON SUCROSE 200 MG/10 ML (VENOFER) VIAL IV SCH (10:29)
[2022-10-26] MEDS: ATENOLOL 25 MG (TENORMIN) TAB PO SCH (10:31)
--- NOTE | 2022-10-26 11:01 | ST Dysphagia Evaluation ---
Speech Evaluation-General Medical Diagnosis Right Lobe Pneumonia Onset Date: October 26, 2022 Therapy Diagnosis Therapy Diagnosis: Suspected Oropharyngeal Dysphagia Precautions Precautions: Fall, Pressure Ulcer, Aspiration Precautions/Isolations: Aspiration, Fall Prevention, Standard Precautions, Pressure Ulcer Referral Referring Physician: Dr. Shane Reason for Referral: Evaluation/Treatment Medical History Pertinent Medical History: Atrial Fib, Arthritis, Back Injury, DM, Diverticulitis, HTN, Hypothroidism, PVD - Head and neck cancer (treated with radiation therapy and reconstruction). - Prior tracheostomy (removed). - Prior PEG tube (removed). Reviewed History: Yes Speech PLF/Current-Dysphagia Prior Level of Function Please refer to the patient's prior speech pathology progress note for extensive past level of function and medical history. Subjective The patient recently completed physical therapy and occupational therapy, therefore, he was seated upright in the recliner. The patient was alert and awake upon entrance to his room by the clinician. Per patient's spouse, the patient is "very confused" on this date. The patient greeted the clinician and was agreeable to participation in the clinical bedside swallowing evaluation. The patient is receiving heated high flow nasal cannula (HHFNC, Vapotherm) at a rate of 40 L/min, 100 FiO2. The patient's oxygen needs have increased from the prior date of 30 L/min. 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 The dysarthria results in reduced articulation and reduced overall intelligibility.) Tracheostomy Type: Other (Previous tracheostomy, removed.) Other Contributing Factors: Radiation Therapy (Approximately 2014, 33 treatments, head and neck region.), PEG Tube (Prior, removed.) Voice Voice Phonatory-Based Quality: Breathy, Harsh Voice Pitch: Normal Voice Loudness: Normal Face Facial Symmetry: Asymmetrical (Due to oral reconstruction secondary to head and neck cancer.) Oral-Facial Assessment Labial Seal Description: Reduced ROM, Poor Coordination Lingual Protrusion: Abnormal (Previous right lingual resection. Limited protrusion to the left, limited bilateral range of motion.) Lingual ROM: Abnormal Lingual Strength: Abnormal Volitional Dry Swallow: Yes Voluntary Cough: Yes Can Clear Throat Volitionally: Yes Productive Cough: Yes Productive Throat Clear: Yes Dysphagia Evaluation Consistencies Presented: Thin Liquid (Teaspoon.), [place] Thick Liquid (Teaspoon.), Pureed (Coated teaspoon.) Oral Phase: Reduced Oral Transit The patient displayed poor oral coordination, bolus formation, and timely posterior bolus transfer secondary to decreased oral and lingual range of motion and strength (oral, lingual reconstruction, flap placement) Pharyngeal Phase: Multiple Swallow Attempts, Reduced Laryngeal Elevation (Suspected.), Delayed Swallow (Suspected.) The patient displays two effortful swallows per each small, teaspoon bolus. Funct. Velo/Pharyngeal Symptom: Clears Throat, Cough After Swallow The patient was provided two ice chips, three teaspoons of water, five teaspoons of nectar-thick liquid, and one coated teaspoon of puree. The patient was unable to complete the pharyngeal swallow with the puree consistency, displaying a "hacking-like" motion and expectorating the bolus into a tissue. The patient was unable to explain the cause of the expectoration and politely refused additional puree boluses. The patient consistently displayed a delayed, rigorous cough following each consistency provided, as well as, an intermittent subtle throat clear. The patient politely deferred additional consistencies due to respiratory fatigue and overall effort required for P.O. intake. Dietary Recommendations: NPO Liquid Recommendations: NPO Recommendations: - N.P.O. - Frequent and excellent oral care to reduce the transfer of oral bacteria to the lungs should aspiration of secretions occur. - Ice chips, sparingly, for oral comfort and rehabilitation. - Completion of a modified barium swallow to visualize the oral pharyngeal swal low function and rule out the presence of aspiration with specific P.O. consistencies. - The patient's modified barium swallow is schedule for 10/27/22, at 1115. - Additional recommendations to follow completion of the modified barium swallow. The results and recommendations were discussed extensively with the patient, the patient's spouse, the patient's daughter, and the RN. P.O. items were removed from bedside by this clinician. Dysphagia Evaluation Summary The patient displayed suspected oropharyngeal dysphagia characterized by reduced oral and lingual range of motion, strength, coordination, and sensation, a suspected delay in the pharyngeal swallow, and poor airway protection in the presence of bolus material. Due to the s/s of suspected aspiration displayed throughout the bedside swallowing evaluation, as well as, the patient's aspiration risk factors (head and neck cancer, reconstruction of the oral cavity, radiation therapy to the head and neck region, current right lower lobe pneumonia), the clinician recommends a modified barium swallow to assess for the possibility of aspiration with P.O. intake. Additionally, high flow nasal cannula rates above 40 L/min are associated with increased risk of aspiration and a decreased swallowing function Speech Short Term Goals Short Term Goals Short Term Goals 1. The patient will demonstrate safe swallowing maneuvers and strategies with 80% accuracy, independently. Time Frame-STG: Three Days. Speech Fdc Goals Fdc Goals 1. The patient will tolerate the least restrictive diet consistency without s/s of suspected aspiration. Time Frame: Five Days. Speech-Plan Treatment Plan Speech Therapy Treatment Plan: Continue Plan of Care Treatment Duration: October 29, 2022 Frequency: 3 times per week Estimated Hrs Per Day: .25 hour per day Rehab Potential: Guarded Pt/Family Agrees to Plan: Yes Safety Risks/Education Teaching Recipient: Patient, Family, Significant Other Teaching Methods: Discussion Response to Teaching: Verbalize Understanding Education Topics Provided: Results, Recommendations, Plan of Care, S/S of Suspected Aspiration, Aspiration Risks Time Speech Therapy Time In: 10:35 Speech Therapy Time Out: 10:55 DATE: October 26, 2022 Total Billed Time: 20 Billed Treatment Time 1, TODD BOWMAN [facility] ST October 26, 2022 11:01
--- NOTE | 2022-10-26 11:09 | Physical Therapy Evaluation ---
PT Evaluation-General Medical Diagnosis Admission Date October 24, 2022 at 07:32 Medical Diagnosis: pneumonia Onset Date: October 24, 2022 Therapy Diagnosis Therapy Diagnosis: debility/weakness Precautions Precautions/Isolations: Fall Prevention, Standard Precautions Referral Physician: Svitlana Medical History Pertinent Medical History: Atrial Fib, Arthritis, Back Injury, DM, Diverticulitis, HTN, Hypothroidism, PVD Additional Medical History s/p lumbar laminectomy Current History transfer from ARU due to increase im O2 demand (currently on Vapotherm 100%/40L) Reviewed History: Yes Social History Home: Single Level Current Living Status: Spouse Entry Into Home: Ramp Prior Prior Level of Function SCALE: Activities may be completed with or without assistive devices. 7-Hxgsdqbioq-ucnxwdy completes the activity by him/herself with no assistance from a helper. 5-Set-up or Clean-up Assistance-helper sets up or cleans up; patient completes activity. [place] assists only prior to or following the activity. 4-Supervision or Touching Assistance-helper provides verbal cues and/or touching/steadying and/or contact guard assistance as patient completes activity. Assistance may be provided throughout the activity or intermittently. 3-Partial/Moderate Assistance-helper does LESS THAN HALF the effort. [place] lifts, holds or supports trunk or limbs, but provides less than half the effort. 2-Substantial/Maximal Assistance-helper does MORE THAN HALF the effort. [place] lifts or holds trunk or limbs and provides more than half the effort. 4-Pnogaqasi-bqbwaa does ALL the effort. Patient does none of the effort to complete the activity. Or, the assistance of 2 or more helpers is required for the patient to complete the activity. If activity was not attempted, code reason: 7-Patient Refused. 9-Not Applicable-not attempted and the patient did not perform the activity before the current illness, exacerbation or injury. 10-Not Attempted due to Environmental Limitations-(lack of equipment, weather restraints, etc.). 88-Not Attempted due to Medical Conditions or Safety Concerns. Bed Mobility: 6 Transfers (B,C,W/C): 6 Gait: 6 Indoor Mobility (Ambulation): Independent PT Evaluation-Current Subjective Patient slightly confused on this date. Agrees to PT. Family present and very attentive. Objective Patient Orientation: Person ROM/Strength ROM Lower Extremities bilateral LE WFL Strength Lower Extremities no formal testing due to patient's urgency for commode use (grossly 3/5 bilaterally) Integumentary/Posture Bladder Incontinence: Fong Cath Posture WFL Neuromuscular (Tone, Coordination, Reflexes) grossly intact Sensory Vision: Functional Hearing: Impaired Transfers Lying to Sitting/Side of Bed(Q: 3 Sit to Stand (QC): 3 Chair/Ljx-vj-Qrcsb Xfer(QC): 3 Toilet Transfer (QC): 3 Gait Mode of Locomotion: Walk Anticipated Mode of Locomotion: Walk Walk 10 feet (QC): 3 Walk 50 ft with 2 Turns(QC): 88 Walk 150 ft (QC): 88 Distance: 10' Gait Assistive Device: FWW Comments/Gait Description limited by Vapotherm tubing (functional gait sequence) Balance Sitting Static: Normal Sitting Dynamic: Normal Standing Static: Fair Standing Dynamic: Fair Assessment/Needs Patient will benefit from skilled PT to address functional strength and mobility to improve current LOF. Patient currently require min to mod assist with all mobility and demonstrate barrel to left side to perform bed mobility to sit EOB. Dependent assist to don TLSO. Rehab Potential: Guarded PT Motor Rebuilder Goals Motor Rebuilder Goals PT Mcc Goals Time Frame: November 13, 2022 Roll Left & Right (QC): 6 Sit to Lying (QC): 6 Lying-Sitting on Side/Bed(QC): 6 Sit to Stand (QC): 6 Chair/Vel-pl-Rceug Xfer(QC): 6 Toilet Transfer (QC): 6 Walk 10 feet (QC): 4 Walk 50ft with 2 Turns (QC): 4 Walk 150 ft (QC): 4 PT Plan Problem List Problem List: Activity Tolerance, Functional Strength, Safety, Balance, Gait, Transfer, Bed Mobility Treatment/Plan Treatment Plan: Continue Plan of Care Treatment Plan: Bed Mobility, Education, Functional Activity [place], Functional Strength, Gait, Safety, Therapeutic Exercise, Transfers Treatment Duration: November 13, 2022 Frequency: 6 times per week Estimated Hrs Per Day: .25 hour per day Time Time In: 1020 Time Out: 1036 DATE: October 26, 2022 Total Billed Treatment Time: 16 Total Billed Treatment 1 visit EVMod 16 min CHENG PAPPAS PT October 26, 2022 11:09
--- NOTE | 2022-10-26 11:32 | Progress Note ---
HELEN OTTO 10/26/22 1132: Subjective Date Seen by a Provider: October 26, 2022 Time Seen by a Provider: 09:15 Subjective/Events-last exam Pt severely agitated and delirious this morning. Nursing reports pt was acting this way overnight after being told he could not take a shower at 2am. On exam his arrived. Unable to perform ROS at that time. Later, after pt's was able to calm him down pt did endorse pain in his back and some nausea. He was on VT 40Lpm at 100 FiO2 with O2 sats below 90 when agitated and occasionally above 90 at rest. He has not had BM since 10/24 but is producing urine. Focused Exam Lactate Level 10/24/22 09:09: Lactic Acid Level 1.58 Objective Exam Last Set of Vital Signs Vital Signs Date Time Temp Pulse Resp B/P (MAP) Pulse Ox O2 Delivery O2 Flow Rate FiO2 10/26/22 11:08 96 Vapotherm 40.00 100 10/26/22 11:00 105 29 10/25/22 21:00 36.0 Capillary Refill : I&O Intake and Output 10/26/22 00:00 Intake Total 1050 ml Output Total 2800 ml Balance -1750 ml Intake Oral 1050 ml Output Urine Total 2800 ml General: Alert, Moderate Distress, Other (agitated and delirious) HEENT: Atraumatic, PERRLA Neck: Supple, No JVD Lungs: Other (unable to examine 2/2 agitation) Heart: Other (unable to examine 2/2 agitation) Abdomen: Other (unable to examine 2/2 agitation) Extremities: No Clubbing, No Cyanosis, No Edema, Normal Pulses, No Tenderness/ Swelling Psych/Mental Status: Other (Pt agitated and delirious) Results Lab Laboratory Tests 10/25/22 22:05: Vancomycin Level Trough 9.3L 10/26/22 04:05: White Blood Count 19.4H, Red Blood Count 3.53L, Hemoglobin 9.7#L, Hematocrit 28L , Mean Corpuscular Volume 79L, Mean Corpuscular Hemoglobin 27, Mean Corpuscular Hemoglobin Concent 35, Red Cell Distribution Width 17.2H, Platelet Count 661H, Mean Platelet Volume 10.4, Immature Granulocyte % (Auto) 1, Neutrophils (%) (Auto) 94H, Lymphocytes (%) (Auto) 2L, Monocytes (%) (Auto) 2, Eosinophils (%) (Auto) 0, Basophils (%) (Auto) 1, Neutrophils # (Auto) 18.3H, Lymphocytes # (Auto) 0.3L, Monocytes # (Auto) 0.4, Eosinophils # (Auto) 0.0, Basophils # (Auto) 0.1, Immature Granulocyte # (Auto) 0.2H, Sodium Level 140, Potassium Level 3.0L, Chloride Level 105, Carbon Dioxide Level 20L, Anion Gap 15H, Blood Urea Nitrogen 26H, Creatinine 1.13, Estimat Glomerular Filtration Rate 71, BUN/Creatinine Ratio 23, Glucose Level 146H, Calcium Level 8.7, Corrected Calcium 9.9, Phosphorus Level 2.0L, Magnesium Level 2.0, Total Bilirubin 0.8, Aspartate Amino Transf (AST/SGOT) 22, Alanine Aminotransferase (ALT/SGPT) 12, Alkaline Phosphatase 52, Total Protein 5.7L, Albumin 2.5L Microbiology 10/24/22 Blood Culture - Preliminary, Resulted No growth 10/24/22 MRSA Screen - Final, Complete MRSA not isolated Assessment/Plan Assessment/Plan Assess & Plan/Chief Complaint Mixed Delirium/Toxic Metabolic Encephalopathy - long hospital course s/p surgery and general anesthesia - sepsis 2/2 PNA leading to transfer from IRF to ICU - continue to treat underlying issues (abx, duonebs, and O2 support for PNA and AHRF; bowel regimen for constipation; pain control s/p lumbar spine surgery) - orient as able AHRF - 2/2 PNA - on VT 40L 100% - poor sats (<90%) with agitation and okay saturations (89-92%) at rest - DNI, now "no chest compressions" as well - cont duonebs - ctm Sepsis (resolved) RLL HAP - vitals now stable - CXR's worsening - MRSA nares negative, dc vanc - bcx's no growth - cont zosyn - possible aspiration PNA given location, speech unable to complete evaluation, known swallowing issues HTN - atenolol and metoprolol tartrate + hydralazine prn for SBP <160 Constipation - start bowel regimen - ctm S/p lumbar spine surgery 10/18 - pain control - ctm JULITA - resolved - Cr down to 1.13 today - ctm Anemia - resolved - Hb 9.7 this am - Iron deficient, will supplement with venefor 200mg IV q48 - ctm Chronic: DM - ISS and accuchecks HLP - ctm Head/neck cancer hx Colon resections LUPE JOHNSON DO 10/27/22 0507: Assessment/Plan Assessment/Plan Assess & Plan/Chief Complaint Prognosis poor Supportive care DNI and no chest compressions Supervisory-Addendum Brief Verification & Attestation Participated in pt care: history, MDM, physical Personally performed: exam, history, MDM, supervision of care Care discussed with: Medical Student Procedures: n/a Results interpretation: Verified all documentation Verification and Attestation of Medical Student E/M Service A medical student performed and documented this service in my presence. I reviewed and verified all information documented by the medical student and made modifications to such information, when appropriate. I personally performed the physical exam and medical decision making. Lupe Johnson October 27, 2022,05:06 HELEN OTTO October 26, 2022 11:32 LUPE JOHNSON DO October 27, 2022 05:07
[2022-10-26] MEDS ORDERED: VANCOMYCIN INJECTION 0.1 MG in NS (IVPB) 250 ML IV SCH (11:45)
--- NOTE | 2022-10-26 11:49 | Occupational Therapy Eval ---
OT Evaluation-General/PLF Medical Diagnosis Admission Date October 24, 2022 at 07:32 Medical Diagnosis: Right Lobe Pneumonia Onset Date: October 26, 2022 Therapy Diagnosis Therapy Diagnosis: weakness Precautions Precautions/Isolations: Aspiration, Fall Prevention, Standard Precautions, Pressure Ulcer Weight Bear Status Weight Bearing Restriction: Weight Bearing/Tolerated Referral Physician: Svitlana Medical History Pertinent Medical History: Atrial Fib, Arthritis, Back Injury, DM, Diverticulitis, HTN, Hypothroidism, PVD Reviewed History: Yes Social History Home: Single Level Current Living Status: Spouse Entry Into Home: Ramp ADL-Prior Level of Function SCALE: Activities may be completed with or without assistive devices. 4-Eqzfrjvcqk-jfhkiai completes the activity by him/herself with no assistance from a helper. 5-Set-up or Clean-up Assistance-helper sets up or cleans up; patient completes activity. Roxana assists only prior to or following the activity. 4-Supervision or Touching Assistance-helper provides verbal cues and/or touching/steadying and/or contact guard assistance as patient completes activity. Assistance may be provided throughout the activity or intermittently. 3-Partial/Moderate Assistance-helper does LESS THAN HALF the effort. Roxana l ifts, holds or supports trunk or limbs, but provides less than half the effort. 2-Substantial/Maximal Assistance-helper does MORE THAN HALF the effort. Roxana lifts or holds trunk or limbs and provides more than half the effort. 6-Hhuyixxez-twjvgu does ALL the effort. Patient does none of the effort to complete the activity. Or, the assistance of 2 or more helpers is required for t he patient to complete the activity. If activity was not attempted, code reason: 7-Patient Refused. 9-Not Applicable-not attempted and the patient did not perform the activity before the current illness, exacerbation or injury. 10-Not Attempted due to Environmental Limitations-(lack of equipment, weather restraints, etc.). 88-Not Attempted due to Medical Conditions or Safety Concerns. ADL PLOF Comments PLOF from ARU Self Care: Needed Some Help Functional Cognition: Needed Some Help Drive Self: No OT Current Status Subjective Confused, attention focus on transfer to BSC and medical lines, required new 02 forehead monitor, spouse and daughter present in room during evaluation.Multitude of distreaction form various staff and family member in room reduced patient attending to therapy tasks. Current Upper Extremity ROM B UE ROM WFLS Upper Extremity Coordination impaired Upper Extremity Strength -4/5 BUE calciminer 4/5 ADL-Treatment Eating (QC): 88 (NPO) Oral Hygiene (QC): 88 (NPO, use swabs please) Shower/Bathe Self (QC): 88 Upper Body Dressing (QC): 3 Lower Body Dressing (QC): 2 (LSO donned by therapist in sitting EOB, patient does not attempt to assist, implusive to exit bed wtihout LSO. Amberly does lift BUEs when asked for OT to secure and place brace) On/Off Footwear (QC): 1 Toileting Hygiene (QC): 2 Education OT Patient Education: Correct positioning, Modified ADL techniques, Progress toward Goal/Update tx plan, Purpose of tx/functional activities, Reviewed precautions, Rehab process, Safety issues, Transfer techniques, Use of adapted equipment Teaching Recipient: Patient, Family Teaching Methods: Demonstration, Discussion Response to Teaching: Reinforcement Needed OT Prison Goals Belt Changer Goals Oral Hygiene (QC): 4 Toileting Hygiene (QC): 4 Shower/Bathe Self (QC): 3 Upper Body Dressing (QC): 5 Lower Body Dressing (QC): 4 On/Off Footwear (QC): 4 (w/ ADs) 1=Demonstrate adherence to instructed precautions during ADL tasks. 2=Patient will verbalize/demonstrate understanding of assistive devices/modifications for ADL. 3=Patient will improve strength/tolerance for activity to enable patient to perform ADL's. OT Education/Plan Problem List/Assessment Assessment: Decreased Activ Tolerance, Decreased Safety Aware, Decreased UE Strength, Impaired Cognition, Impaired Coordination, Impaired Funct Balance, Impaired Self-Care Skills Discharge Recommendations Plan/Recommendations: Continue POC Therapy Discharge Recommendati: Post Acute OT Treatment Plan/Plan of Care Treatment,Training & Education: Yes Patient would benefit from OT for education, treatment and training to promote independence in ADL's, mobility, safety and/or upper extremity function for ADL's. Plan of Care: ADL Retraining, Cognitive Retraining, Concurrent Therapy, Group Exercise/Act as Ind, UE Funct Exercise/Act Treatment Duration: November 06, 2022 Frequency: 3 times per week (3-5 times per week) Estimated Hrs Per Day: .25 hour per day Agreement: Yes Rehab Potential: Fair Time Start Time: 10:15 Stop Time: 10:34 DATE: October 26, 2022 Total Time Billed (hr/min): 19 Billed Treatment Time EVM 19 min LEVI LINDSAY OT October 26, 2022 11:49
--- NOTE | 2022-10-26 14:33 | Tele-ICU Progress Note ---
Subjective Date Seen by a Provider: October 26, 2022 Time Seen by a Provider: 14:27 Subjective/Events-last exam (Tele-ICU Physician , Progress Note ) Service provided via interactive audio and video telecommunications E-CARE sys tem to a patient admitted to ICU bed in [facility]. Patient is seen today due to persistent need of ICU care Available chart/ vitals / labs / Images reviewed Video assessment done using teleICU camera, rest of exam as per RN Discussed with RN Events overnight : Still c/o sob and noted ot have increased O2 requirement. CXR notable for worsening infiltrates concerning for possible pneumonia. Respiratory - - VT 40L 100 % I/O = + Drips: NS 125 Pressors- no A/P Acute hypoxic respiratory failure 2/2 aspiration PNA- on - VT 30L 70 % - cont abx (given rising WBC readded Vanc and cont Zosyn) - DNI Sepsis= -will check lactate and sent sputum culture -Antibiotics as noted above. -failed speech eval given increased FiO2 hold feeds at this time. JULITA/ CKD - stable , follow Hyponatremia - resolved s/p lumbar spine surgery on 10/18/22 - pain control DM - ISS Anemia -Stable Anxiety - cont xanax Head/neck cancer hx Colon resections DNI Lines : periph , (Central Line Necessity Reviewed) Fong: + Nutrition: NPO VTE Prophylaxis: hep SQ Stress Ulcer Prophylaxis: PPI Plans in collaboration with bedside consultants and IM MDs. Discussed with RN to reach out if any questions or concerns A total of 31 minutes of critical care time was devoted to this patient today, required to treat and/or prevent further deterioration of critical care condition ( as above ) I am remotely monitoring this patient from another state. I am unable to do the bedside exam, and history/physical and pertinent information is taken from other notes in the computer and bedside staff. Sepsis Event Evaluation Height, Weight, BMI Height: '" Weight: lbs. oz. kg; 26.06 BMI Method: Focused Exam Lactate Level 10/24/22 09:09: Lactic Acid Level 1.58 Exam Exam Patient acknowledged, consented, and participated in this virtual visit which was conducted using real time audio/video Vital Signs Date Time Temp Pulse Resp B/P (MAP) Pulse Ox O2 Delivery O2 Flow Rate FiO2 10/26/22 12:52 112 10/26/22 11:08 96 Vapotherm 40.00 100 10/26/22 11:00 105 29 94 Vapotherm 40.00 100.00 10/26/22 10:01 91 Vapotherm 40.00 100 10/26/22 10:00 107 12 86 Vapotherm 40.00 100.00 10/26/22 08:00 115 34 90 Vapotherm 40.00 100.00 10/26/22 07:31 113 10/26/22 07:00 117 146/94 (111) 90 Vapotherm 40.00 100.00 10/26/22 06:42 89 Vapotherm 40.00 100 10/26/22 06:00 107 146/81 (102) 98 Vapotherm 40.00 100.00 10/26/22 05:00 112 147/103 (116) 97 Vapotherm 40.00 100.00 10/26/22 04:00 114 161/73 (93) 93 Vapotherm 40.00 100.00 10/26/22 04:00 92 Vapotherm 40.00 100 10/26/22 03:35 Vapotherm 40.00 100.00 10/26/22 03:00 117 167/77 (98) 85 Vapotherm 30.00 80.00 10/26/22 02:47 92 Vapotherm 30.00 80 10/26/22 02:00 113 165/77 (94) 97 Vapotherm 30.00 80.00 10/26/22 01:30 138 139/78 (114) 91 Vapotherm 30.00 80.00 10/26/22 01:00 174 22 163/101 (111) 81 Vapotherm 30.00 80.00 10/26/22 01:00 174 10/26/22 00:00 124 32 147/82 (121) 85 Vapotherm 30.00 80.00 10/26/22 00:00 89 Vapotherm 30.00 80 10/25/22 23:00 163 27 166/82 (107) Vapotherm 30.00 80.00 10/25/22 22:30 118 11 134/91 (105) 87 Vapotherm 30.00 80.00 10/25/22 22:00 114 13 152/78 (122) 88 Vapotherm 30.00 80.00 10/25/22 21:37 Vapotherm 30.00 60 10/25/22 21:35 Vapotherm 30.00 80.00 10/25/22 21:15 125 37 158/64 (95) 86 Vapotherm 30.00 60.00 10/25/22 21:00 122 21 177/67 (105) 88 Vapotherm 30.00 60.00 10/25/22 21:00 36.0 10/25/22 20:45 125 20 139/86 (103) 89 Vapotherm 30.00 60.00 10/25/22 20:00 124 24 147/81 (96) 91 Vapotherm 30.00 60.00 10/25/22 20:00 91 Vapotherm 30.00 80 10/25/22 19:45 126 34 171/91 (106) 89 Vapotherm 30.00 60.00 10/25/22 19:30 129 18 172/76 (90) 92 Vapotherm 30.00 60.00 10/25/22 19:15 130 21 184/83 (118) 94 Vapotherm 30.00 60.00 10/25/22 19:00 126 10/25/22 19:00 126 29 187/94 (108) 90 Vapotherm 30.00 60.00 10/25/22 18:37 91 Vapotherm 30.00 60 10/25/22 18:00 114 153/73 (99) 92 Vapotherm 30.00 60.00 10/25/22 17:33 116 164/94 10/25/22 17:00 116 164/94 (117) 90 Vapotherm 30.00 60.00 10/25/22 16:22 124 10/25/22 16:21 148 10/25/22 16:20 96 Vapotherm 30.00 60 10/25/22 16:11 120 10/25/22 16:09 128 10/25/22 16:08 128 10/25/22 16:00 36.0 10/25/22 16:00 138 202/81 (121) 90 Vapotherm 30.00 60.00 10/25/22 15:00 122 186/64 (104) 93 Vapotherm 30.00 60.00 10/25/22 14:38 93 Vapotherm 30.00 60 I & O 10/26/22 07:00 Intake Total 1140 ml Output Total 2800 ml Balance -1660 ml Height & Weight Height: '" Weight: lbs. oz. kg; 26.06 BMI Method: General Appearance: Chronically ill, Cachetic, Mild Distress, Thin, Other (pale) HEENT: PERRL/EOMI, TMs Normal, Normal ENT Inspection, Pharynx Normal Neck: Full Range of Motion, Normal Inspection, Non Tender, Supple, Carotid Bruit Respiratory: No Respiratory Distress, Accessory Muscle Use, Decreased Breath Sounds (See free text) Cardiovascular: Regular Rate, Rhythm, No Edema, No Gallop, No JVD, No Murmur, Normal Peripheral Pulses Peripheral Pulses: 1+ Dorsalis Pedis (R), 1+ Left Dors-Pedis (L) Extremity: Normal Capillary Refill, Normal Inspection, Normal Range of Motion, Non Tender, No Calf Tenderness, No Pedal Edema Neurologic/Psychiatric: Alert, Oriented x3, 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 CHRIST ALLEN MD October 26, 2022 14:33
[2022-10-26] MEDS ORDERED: ADENOSINE 6 MG/2 ML (ADENOCARD) VIAL IV ONE (17:06)
[2022-10-26] MEDS ORDERED: meTOprolol 5 MG/5 ML (LOPRESSOR) VIAL IV NR (17:15)
[2022-10-26] MEDS ORDERED: dilTIAZem DRIP PRE-MIX 125 ML IV ONE (17:25)
--- NOTE | 2022-10-26 17:29 | Consultation-Cardiology ---
HPI-Cardiology Cardiology Consultation: Date of Consultation 10/26/22 Time Seen by a Provider: 17:05 Date of Admission Attending Physician Rudi Larsen MD Admitting Physician Admitting Physician: Lupe Shane DO Attending Physician: Lupe Shane DO Consulting Physician TODD LEMUS MD, MA, FACP, FACC, [facility], CCDS Physician requesting consult: Dr Shane HPI: Chief Complaint: Reason for consultation: Tachycardia 67 yo man admitted to Dr Shane's service in the ICU with ac on ch resp failure, pneumonia, and sepsis. Remains short of breath and is generally weak. Denies cp. Has been exhibiting tachycardia and we have been asked to see him for that. He does not report cp. He does not report h/o SVT or A Fib or other tachyarrhythmias. He denies swelling. He has had intermittent nausea and diarrhea and some vomiting. He has chronic swallowing difficulty (since surgery for tongue cancer in 2013) and recently been having problems with aspiration. He does not report syncope. He has expressed the desire not to be intubated or be put on [facility] ventilation. Review of Systems-Cardiology Review of Systems Constitutional: malaise; No weight loss Eyes: No vision change Ears/Nose/Throat: No ear discharge, No nasal drainage, No recent hearing loss Respiratory: As described under HPI Cardiovascular: As described under HPI Gastrointestinal: As described under HPI Genitourinary: No hematuria Musculoskeletal: back pain (chroni) Skin: No rash, No ulcerations Psychiatric/Neurological: No seizure, No focal weakness, No syncope Hematologic: No bleeding abnormalities All Other Systems Reviewed Negative Unless Noted: Yes [id number] Hx Patient Social History Marrital Status: Employed/Student: retired Smoking Status: Former Smoker Have you traveled recently?: No Alcohol Use?: No Pt feels they are or have been: No Past Medical History PMH As described under Assessment. Family Medical History Family Medical History: He does not report fam h/o early CAD or SCD Allergies and Home Medications Allergies Coded Allergies: Oslnkro-FUH-WaF Reductase Inhibitor (Verified Allergy, Unknown, 10/20/22) simvastatin (Verified Allergy, Unknown, leg cramps, 10/25/22) Uncoded Allergies: SUBSTANCE WITH 3-[id number]-METHYLGL (Allergy, Unknown, muscle pain, 10/25/22) Patient Home Medication List Home Medication List Reviewed: Yes Albuterol Sulfate (Ventolin Hfa) 90 Mcg Hfa.aer.ad, 2 PUFF INH Q6H PRN for SHORTNESS OF BREATH, (Reported) Entered as Reported by: LUCIA PURDY on 10/20/221306 Amlodipine Besylate (Amlodipine Besylate) 5 Mg Tablet, 5 MG PO HS, (Reported) Entered as Reported by: LUCIA PURDY on 10/20/221306 Atenolol (Atenolol) 50 Mg Tablet, 50 MG PO DAILY, (Reported) Entered as Reported by: LUCIA PURDY on 10/20/221306 Citalopram Hydrobromide (Citalopram HBr) 20 Mg Tablet, 20 MG PO HS, (Reported) Entered as Reported by: LUCIA PURDY on 10/20/221306 Cyclobenzaprine HCl (Cyclobenzaprine HCl) 10 Mg Tablet, 10 MG PO Q8H PRN for MUSCLE SPASMS, (Reported) Entered as Reported by: LUCIA PURDY on 10/20/221306 Diphenoxylate HCl/Atropine (Diphenoxylate-Atrop 2.5-0.025) 2.5 Mg-0.025 Mg Tablet, 1 EACH PO QID PRN for DIARRHEA, (Reported) Entered as Reported by: LUCIA PURDY on 10/20/221306 Docusate Sodium (Docusate Sodium) 100 Mg Capsule, 100 MG PO BID PRN for CONSTIPATION-1ST LINE, (Reported) Entered as Reported by: LUCIA PURDY on 10/20/221306 Fenofibrate Nanocrystallized (Fenofibrate) 145 Mg Tablet, 145 MG PO DAILY, (Reported) Entered as Reported by: LUCIA PURDY on 10/20/221306 Gabapentin (Neurontin) 300 Mg Capsule, 300 MG PO HS, (Reported) Entered as Reported by: LUCIA PURDY on 10/20/221306 Levothyroxine Sodium (Levothyroxine Sodium) 112 Mcg Tablet, 112 MCG PO DAILY, (Reported) Entered as Reported by: LUCIA PURDY on 10/20/221306 Lisinopril (Lisinopril) 20 Mg Tablet, 20 MG PO DAILY, (Reported) Entered as Reported by: LUCIA PURDY on 10/20/22 1307 Morphine Sulfate (Morphine Sulfate ER) 30 Mg Tablet.er, 30 MG PO BID, (Reported) Entered as Reported by: LUCIA PURDY on 10/20/22 1307 Oxycodone HCl (Oxycodone HCl) 5 Mg Tablet, 5 MG PO Q4H PRN for PAIN-SEVERE (8- 10), (Reported) Entered as Reported by: LUCIA PURDY on 10/20/22 1307 Pantoprazole Sodium (Pantoprazole Sodium) 40 Mg Tablet.dr, 40 MG PO DAILY, (Reported) Entered as Reported by: LUCIA PURDY on 10/20/22 1307 Pilocarpine (Salagen) 5 Mg Tab, 5 MG PO BID, (Reported) Entered as Reported by: LUCIA PURYD on 10/20/22 1307 Promethazine HCl (Promethazine Tablet) 25 Mg Tablet, 25 MG PO Q6H PRN for NAUSEA/VOMITING-2ND LINE, (Reported) Entered as Reported by: LUCIA PURDY on 10/20/22 1315 Ropinirole HCl (Ropinirole HCl) 0.5 Mg Tablet, 0.5 MG PO HS, (Reported) Entered as Reported by: LUCIA PURDY on 10/20/22 1307 Discontinued Medications Lisinopril (Lisinopril) 20 Mg Tablet, 20 MG PO DAILY Discontinued Reason: Duplicate Order Prescribed by: MATA LIM on 01/10/22 1149 Physical Exam-Cardiology Physical Exam Vital Signs/I&O 10/26/22 10/26/22 10/26/22 10/26/22 06:00 06:42 07:00 07:31 Pulse 107 117 113 B/P (MAP) 146/81 (102) 146/94 (111) Pulse Ox 98 89 90 O2 Delivery Vapotherm Vapotherm Vapotherm O2 Flow Rate 40.00 40.00 40.00 100.00 100.00 FiO2 100 10/26/22 10/26/22 10/26/22 10/26/22 08:00 10:00 10:01 11:00 Pulse 115 107 105 Resp 34 12 29 B/P (MAP) Pulse Ox 90 86 91 94 O2 Delivery Vapotherm Vapotherm Vapotherm Vapotherm O2 Flow Rate 40.00 40.00 40.00 40.00 100.00 100.00 100.00 FiO2 100 10/26/22 10/26/22 10/26/22 10/26/22 11:08 12:00 12:52 13:45 Pulse 112 104 Resp 28 B/P (MAP) 132/74 (93) Pulse Ox 96 91 97 O2 Delivery Vapotherm Vapotherm Vapotherm O2 Flow Rate 40.00 40.00 40.00 100.00 FiO2 100 100 10/26/22 10/26/22 14:00 14:06 Pulse 103 Pulse Ox 95 O2 Delivery Vapotherm O2 Flow Rate 40.00 FiO2 100 10/26/22 00:00 Intake Total 450 ml Output Total 1350 ml Balance -900 ml Capillary Refill : Constitutional: AAO x 3, well-developed, other (frail, short of breath) HEENT: PERRL, EOMI, hearing is well preserved; No xanthelasmas are seen Neck: carotid pulses are 2 + bilaterally, with good upstrokes Respiratory: accessory muscle use, chest expansion is symmetric, chest is bilaterally symmetric, other (scattered rhonchi, exp wheezes, prolonged exp, basal coarse crackles) Cardiovascular: irregularly irregular, S1 and S2, systolic murmur (soft LYNETTE at card base) Gastrointestinal: No tender; soft; No guarding, No rebound; audible bowel sounds Extremities: No clubbing, No cyanosis, No significant edema Neurologic/Psychiatric: oriented x 3, other (moves all limbs) Skin: No rash on exposed areas, No ulcerations on exposed areas Data Review Labs Laboratory Tests 10/25/22 22:05: Vancomycin Level Trough 9.3L 10/26/22 04:05: White Blood Count 19.4H, Red Blood Count 3.53L, Hemoglobin 9.7#L, Hematocrit 28L , Mean Corpuscular Volume 79L, Mean Corpuscular Hemoglobin 27, Mean Corpuscular Hemoglobin Concent 35, Red Cell Distribution Width 17.2H, Platelet Count 661H, Mean Platelet Volume 10.4, Immature Granulocyte % (Auto) 1, Neutrophils (%) (Auto) 94H, Lymphocytes (%) (Auto) 2L, Monocytes (%) (Auto) 2, Eosinophils (%) (Auto) 0, Basophils (%) (Auto) 1, Neutrophils # (Auto) 18.3H, Lymphocytes # (Auto) 0.3L, Monocytes # (Auto) 0.4, Eosinophils # (Auto) 0.0, Basophils # (Auto) 0.1, Immature Granulocyte # (Auto) 0.2H, Sodium Level 140, Potassium Level 3.0L, Chloride Level 105, Carbon Dioxide Level 20L, Anion Gap 15H, Blood Urea Nitrogen 26H, Creatinine 1.13, Estimat Glomerular Filtration Rate 71, BUN /Creatinine Ratio 23, Glucose Level 146H, Calcium Level 8.7, Corrected Calcium 9.9, Phosphorus Level 2.0L, Magnesium Level 2.0, Total Bilirubin 0.8, Aspartate Amino Transf (AST/SGOT) 22, Alanine Aminotransferase (ALT/SGPT) 12, Alkaline Phosphatase 52, Total Protein 5.7L, Albumin 2.5L 10/26/22 11:40: 10/26/22 12:57: Lab Scanned Report Transfusion Reaction Form Microbiology 10/24/22 Blood Culture - Preliminary, Resulted No growth 10/24/22 MRSA Screen - Final, Complete MRSA not isolated Laboratory Tests 10/25/22 03:23 10/26/22 04:05 A/P-Cardiology Assessment/Admission Diagnosis Ac resp failure probably due to aspiration pneumonia on advanced COPD Sepsis PAF with RVR due to above-mentioned conditions Poor swallowing since tongue cancer surgery in 2014 N/V/D of undetermined etiology - frequent diarrhea resulting in electrolyte abnormalities Discussion and Recomendations * We recommend intensive treatment of patient's pneumonia, sepsis, electrolyte abnormalities, breathing issues, diarrhea, anemia, and ac resp failure. These issues are being managed by Dr Shane and EICU service. Without good control of these issues, heart rate cannot be expected to be in the normal range * Start iv dilt with the goal of keeping average heart rate around 120 or less. Consider dig if dilt inadequate * Eliquis for stroke prophylaxis if allowed by the Hospitalist and EICU services. If Eliquis is not suitable (because of swallowing issues) then consider treatment-dose enoxaparin TODD LEMUS [facility] CCDS October 26, 2022 17:29
[2022-10-26] MEDS ORDERED: ENOXAPARIN 100 MG/1 ML (LOVENOX) SYR SC SCH (17:45)
[2022-10-26] MEDS: ENOXAPARIN 80 MG/0.8 ML (LOVENOX) SYR SC SCH (18:31)
[2022-10-26] MEDS: HYDROmorphone 2 MG/ML VIAL (DILAUDID) IV PRN (22:43)
[2022-10-26] MEDS: VANCOMYCIN 1250MG/250ML PREMIX 250 ML IV SCH (23:12)
[2022-10-26] MEDS: dilTIAZem DRIP PRE-MIX 125 ML IV SCH (23:12)
[2022-10-27] MEDS: PIPERACILLIN SODIUM/TAZOBACTAM 4.5 GM in NS (IVPB) 100 ML IV SCH (02:02)
[2022-10-27] MEDS: TEMAZEPAM 15 MG (RESTORIL) CAP PO ONE ×2 (02:02→02:11)
[2022-10-27] MEDS: RT-ALBUTEROL/IPRATROPIUM 3 ML (DUONEB) VIAL INH SCH ×6 (02:37→22:13)
[2022-10-27] MEDS: hydrALAZINE (APESOLINE) 20 MG/ML VIAL IV PRN (03:52)
[2022-10-27 04:15] LABS: BASOPHILS # (AUTO) 0.1 10^3/uL (0.0-0.1); BASOPHILS % (AUTO) 1 % (0-10); EOSINOPHILS % (AUTO) 0 % (0-10); HEMATOCRIT 27 % (40-54); HEMOGLOBIN 9.3 g/dL (13.3-17.7); LYMPHOCYTES # (AUTO) 0.4 10^3/uL (1.0-4.0); LYMPHOCYTES % (AUTO) 2 % (12-44); MEAN CORPUSCULAR HEMOGLOBIN 27 pg (25-34); MEAN CORPUSCULAR HGB CONC 35 g/dL (32-36); MEAN CORPUSCULAR VOLUME 78 fL (80-99); MEAN PLATELET VOLUME 10.2 fL (9.0-12.2); MONOCYTES # (AUTO) 0.8 10^3/uL (0.0-1.0); MONOCYTES % (AUTO) 4 % (0-12); NEUTROPHILS # (AUTO) 20.9 10^3/uL (1.8-7.8); NEUTROPHILS % (AUTO) 89 % (42-75); PLATELET COUNT 728 10^3/uL (130-400); WHITE BLOOD COUNT 23.4 10^3/uL (4.3-11.0)
[2022-10-27 04:16] LABS: ALBUMIN 2.3 GM/DL (3.2-4.5)
[2022-10-27 04:17] LABS: POTASSIUM 2.8 MMOL/L (3.6-5.0)
[2022-10-27 04:18] LABS: CALCIUM 8.7 MG/DL (8.5-10.1)
[2022-10-27 04:19] LABS: TOTAL PROTEIN 5.5 GM/DL (6.4-8.2)
[2022-10-27 04:21] LABS: BILIRUBIN,TOTAL 0.6 MG/DL (0.1-1.0)
[2022-10-27 04:22] LABS: PHOSPHORUS 2.1 MG/DL (2.3-4.7)
[2022-10-27 04:23] LABS: CREATININE SERUM 0.87 MG/DL (0.60-1.30)
[2022-10-27 04:50] LABS: EOSINOPHILS % (MANUAL) 1 %; LYMPHOCYTES % (MANUAL) 3 %; MONOCYTES % (MANUAL) 1 %; NEUTROPHILS % (MANUAL) 95 %
[2022-10-27 04:51] LABS: ELLIPT/OVALOCYTES SLIGHT; MICROCYTOSIS SLIGHT; NUCLEATED RED BLOOD CELLS 1
[2022-10-27] MEDS: KCL 20 MEQ TAB (K-DUR) PO SCH (05:52)
[2022-10-27] MEDS: POTASSIUM CL 10MEQ/50ML IVPB 50 ML IV SCH ×7 (05:52→13:00)
[2022-10-27] MEDS: MAGNESIUM 1 GM/100 ML IVPB 100 ML IV SCH (05:52)
[2022-10-27] MEDS: ENOXAPARIN 80 MG/0.8 ML (LOVENOX) SYR SC SCH ×2 (06:08→17:58)
[2022-10-27 07:12] LABS: ABG BASE EXCESS -0.6 MMOL/L (-2.5-2.5); ABG OXYGEN SATURATION 77 % (94-100); ABG PCO2 36 MMHG (35-45); ABG PH 7.42 (7.37-7.43); ABG PO2 46 MMHG (79-93); ABG TCO2 24.5 MMOL/L (21.0-31.0)
[2022-10-27 07:13] LABS: ALLENS TEST YES-POS; INSPIRED O2 100%; PATIENT TEMP 36.1; VENTILATOR NO
[2022-10-27 08:18] VITALS: BP 169/81
--- NOTE | 2022-10-27 08:50 | Diagnostic Imaging Report ---
INDICATION: Shortness of air. COMPARISON: 10/26/2022 FINDINGS: Single frontal radiograph view the chest was obtained and demonstrates persistent stable scattered patchy and confluent infiltrate appearing opacities greatest within the right midlung and left base. There is no large effusion or pneumothorax. Cardiac silhouette and pulmonary vasculature are within normal limits. Left upper extremity PICC line is seen with tip in the SVC. IMPRESSION: 1. Stable exam of the chest showing bilateral diffuse pneumonia type infiltrate. Dictated by: Dictated on workstation # [id number]
--- NOTE | 2022-10-27 08:55 | Progress Note - Cardiology ---
Cardiology SOAP Progress Note Objective: I&O/Vital Signs 10/27/22 10/27/22 10/27/22 10/27/22 22:00 22:13 23:00 23:05 Pulse 90 96 105 Resp 25 34 B/P (MAP) 183/79 (113) 189/79 (115) 176/85 Pulse Ox 95 95 96 O2 Delivery Vapotherm Vapotherm Vapotherm O2 Flow Rate 40.00 40.00 40.00 50.00 50.00 FiO2 50 10/28/22 10/28/22 10/28/22 10/28/22 00:00 00:00 00:00 01:00 Temp 36.1 Pulse 91 90 Resp 22 B/P (MAP) 170/83 (112) 168/97 (120) Pulse Ox 97 92 97 O2 Delivery Vapotherm Vapotherm Vapotherm O2 Flow Rate 40.00 40.00 40.00 50.00 50.00 FiO2 50 10/28/22 10/28/22 10/28/22 10/28/22 01:00 02:00 02:10 03:00 Pulse 92 86 87 Resp 24 30 B/P (MAP) 166/81 (109) 180/80 (113) Pulse Ox 98 95 96 O2 Delivery Vapotherm Vapotherm Vapotherm O2 Flow Rate 40.00 35.00 40.00 50.00 50.00 FiO2 45 10/28/22 10/28/22 10/28/22 10/28/22 04:00 04:00 04:00 05:00 Temp 35.8 Pulse 90 88 Resp 20 27 B/P (MAP) 144/93 (110) 196/87 (123) Pulse Ox 95 91 96 O2 Delivery Vapotherm Vapotherm Vapotherm O2 Flow Rate 40.00 40.00 40.00 50.00 50.00 FiO2 50 10/28/22 10/28/22 10/28/22 10/28/22 06:00 07:00 07:00 08:00 Temp 35.9 Pulse 91 89 92 Resp 23 31 B/P (MAP) 187/72 (110) 197/82 (120) Pulse Ox 97 95 O2 Delivery Vapotherm Vapotherm O2 Flow Rate 40.00 40.00 50.00 50.00 10/28/22 10/28/22 10/28/22 08:00 08:01 09:00 Pulse 85 78 Resp 29 25 B/P (MAP) 191/93 (125) 186/93 (124) Pulse Ox 98 95 98 O2 Delivery Vapotherm Vapotherm Vapotherm O2 Flow Rate 40.00 35.00 40.00 50.00 50.00 FiO2 50 10/28/22 00:00 Intake Total 200 ml Output Total 1500 ml Balance -1300 ml Constitutional: AAO x 3, well-developed, other (frail, short of breath) Respiratory: accessory muscle use, chest expansion is symmetric, chest is bilaterally symmetric, other (scattered rhonchi, exp wheezes, prolonged exp, basal coarse crackles) Cardiovascular: regular rate-rhythm, S1 and S2, systolic murmur (soft LYNETTE at card base) Gastrointestional: No tender; soft; No guarding, No rebound; audible bowel sounds Extremities: No clubbing, No cyanosis, No significant edema Neurologic/Psychiatric: oriented x 3, other (moves all limbs) Skin: No rash on exposed areas, No ulcerations on exposed areas Results/Procedures: Labs Laboratory Tests 10/27/22 18:19: Potassium Level 3.4L 10/27/22 22:15: Vancomycin Level Trough 9.9L 10/28/22 05:25: Potassium Level 3.1L, White Blood Count 26.8H, Red Blood Count 3.41L, Hemoglobin 9.3L, Hematocrit 27L, Mean Corpuscular Volume 79L, Mean Corpuscular Hemoglobin 27, Mean Corpuscular Hemoglobin Concent 34, Red Cell Distribution Width 18.1H, Platelet Count 717H, Mean Platelet Volume 10.2, Immature Granulocyte % (Auto) 9, Neutrophils (%) (Auto) 85H, Lymphocytes (%) (Auto) 2L, Monocytes (%) (Auto) 4, Eosinophils (%) (Auto) 0, Basophils (%) (Auto) 0, Neutrophils # (Auto) 22.6H, Lymphocytes # (Auto) 0.5L, Monocytes # (Auto) 1.1H, Eosinophils # (Auto) 0.1, Basophils # (Auto) 0.1, Immature Granulocyte # (Auto) 2.4H, Sodium Level 146H, Chloride Level 116H, Carbon Dioxide Level 17L, Anion Gap 13, Blood Urea Nitrogen 23H, Creatinine 0.81, Estimat Glomerular Filtration Rate 97, BUN/Creatinine Ratio 28, Glucose Level 123H, Calcium Level 8.9, Corrected Calcium 10.1, Phosphorus Level 2.8, Magnesium Level 2.9H, Total Bilirubin 0.5, Aspartate Amino Transf (AST/SGOT) 25, Alanine Aminotransferase (ALT/SGPT) 13, Alkaline Phosphatase 73, Total Protein 5.7L, Albumin 2.5L Microbiology 10/26/22 Stool Culture - Preliminary, Resulted 10/24/22 Blood Culture - Preliminary, Resulted No growth 10/24/22 MRSA Screen - Final, Complete MRSA not isolated A/P: Assessment: Ac resp failure probably due to aspiration pneumonia on advanced COPD Dysphagia - failed bedside swallow eval on 10-26-22 (possible video swallow eval today) Sepsis PAF with RVR due to above-mentioned conditions - converted to SR as of 10-27-22 Poor swallowing since tongue cancer surgery in 2013 N/V/D of undetermined etiology - frequent diarrhea resulting in electrolyte abnormalities Plan: * We recommend intensive treatment of patient's pneumonia, sepsis, electrolyte abnormalities, breathing issues, diarrhea, anemia, and ac resp failure. These issues are being managed by Dr Shane and EICU service. Without good control of these issues, heart rate cannot be expected to be in the normal range * Converted to SR - Continue iv dilt and IV BB (d/t inability to take oral) * Continue Lovenox * Continue IV meds d/t failed swallow eval on 10-26-22 YENIFER OLMOS October 27, 2022 08:55
[2022-10-27] MEDS: SENNOSIDES 8.6 MG (SENOKOT) TAB PO SCH (09:00)
[2022-10-27] MEDS: DOCUSATE SODIUM 100 MG (COLACE) CAP PO SCH (09:00)
[2022-10-27] MEDS: ATENOLOL 25 MG (TENORMIN) TAB PO SCH (09:00)
--- NOTE | 2022-10-27 09:52 | Tele-ICU Progress Note ---
Subjective Date Seen by a Provider: October 27, 2022 Time Seen by a Provider: 09:52 Subjective/Events-last exam 1 Sepsis Event Evaluation Height, Weight, BMI Height: '" Weight: lbs. oz. kg; 27.58 BMI Method: Exam Exam Patient acknowledged, consented, and participated in this virtual visit which was conducted using real time audio/video Vital Signs Date Time Temp Pulse Resp B/P (MAP) Pulse Ox O2 Delivery O2 Flow Rate FiO2 10/27/22 09:00 92 17 155/80 (105) 100 Vapotherm 40.00 80.00 10/27/22 08:18 36.2 86 100 100 10/27/22 08:00 88 23 167/68 (101) 100 Vapotherm 40.00 80.00 10/27/22 08:00 94 23 150/79 (102) 97 Vapotherm 40.00 80.00 10/27/22 08:00 92 Vapotherm 40.00 80 10/27/22 07:47 36.2 Vapotherm 40.00 80.00 10/27/22 07:10 Vapotherm 40.00 80.00 10/27/22 07:04 Vapotherm 40.00 80 10/27/22 07:00 100 Vapotherm 40.00 100 10/27/22 07:00 89 10/27/22 07:00 89 20 169/81 (110) 97 Vapotherm 40.00 100.00 10/27/22 06:00 86 24 161/71 (101) 100 Vapotherm 40.00 100.00 10/27/22 05:00 88 30 140/77 (98) 100 Vapotherm 40.00 100.00 10/27/22 04:00 88 23 167/68 (101) 100 Vapotherm 40.00 100.00 10/27/22 04:00 92 Vapotherm 40.00 100 10/27/22 03:48 35.9 10/27/22 03:00 89 26 163/79 (107) 100 Vapotherm 40.00 100.00 10/27/22 02:37 99 Vapotherm 40.00 100 10/27/22 02:15 87 29 164/85 (111) Vapotherm 40.00 100.00 10/27/22 01:00 84 10/27/22 01:00 84 25 142/78 (99) 100 Vapotherm 40.00 100.00 10/27/22 00:00 92 26 139/54 (82) 95 Vapotherm 40.00 100.00 10/27/22 00:00 94 Vapotherm 40.00 100 10/26/22 23:21 36.3 10/26/22 23:12 94 129/100 10/26/22 23:00 92 37 129/100 (104) 100 Vapotherm 40.00 100.00 10/26/22 22:30 93 24 158/70 (91) 97 Vapotherm 40.00 100.00 10/26/22 22:00 88 26 143/83 (96) 100 Vapotherm 40.00 100.00 10/26/22 21:30 100 Vapotherm 40.00 100 10/26/22 21:30 90 28 137/71 (93) 100 Vapotherm 40.00 100.00 10/26/22 21:00 92 100 Vapotherm 40.00 100.00 10/26/22 20:00 92 Vapotherm 40.00 100 10/26/22 20:00 99 32 95 Vapotherm 40.00 100.00 10/26/22 19:47 36.2 19 170/108 (128) 91 Vapotherm 40.00 100.00 10/26/22 19:11 90 Vapotherm 40.00 100 10/26/22 19:00 98 10/26/22 19:00 98 27 91 Vapotherm 40.00 100.00 10/26/22 17:00 172 28 179/109 (132) 90 Vapotherm 40.00 100.00 10/26/22 16:45 149 18 146/118 (127) 90 Vapotherm 40.00 100.00 10/26/22 14:06 95 Vapotherm 40.00 100 10/26/22 14:00 103 10/26/22 13:45 104 28 132/74 (93) 97 Vapotherm 40.00 100.00 10/26/22 12:52 112 10/26/22 12:00 91 Vapotherm 40.00 100 10/26/22 11:08 96 Vapotherm 40.00 100 10/26/22 11:00 105 29 94 Vapotherm 40.00 100.00 10/26/22 10:01 91 Vapotherm 40.00 100 10/26/22 10:00 107 12 86 Vapotherm 40.00 100.00 I & O 10/27/22 07:00 Intake Total 910 ml Output Total 1300 ml Balance -390 ml Height & Weight Height: '" Weight: lbs. oz. kg; 27.58 BMI Method: General Appearance: Chronically ill, Cachetic, Mild Distress, Thin, Other (pale) HEENT: PERRL/EOMI, TMs Normal, Normal ENT Inspection, Pharynx Normal Neck: Full Range of Motion, Normal Inspection, Non Tender, Supple, Carotid Bruit Respiratory: No Respiratory Distress, Accessory Muscle Use, Decreased Breath Sounds (See free text) Cardiovascular: Regular Rate, Rhythm, No Edema, No Gallop, No JVD, No Murmur, Normal Peripheral Pulses Capillary Refill: Less Than 3 Seconds Peripheral Pulses: 1+ Dorsalis Pedis (R), 1+ Left Dors-Pedis (L) Extremity: Normal Capillary Refill, Normal Inspection, Normal Range of Motion, Non Tender, No Calf Tenderness, No Pedal Edema Neurologic/Psychiatric: Alert, Oriented x3, screw machine tender II-XII Norm as Tested, Depressed Affect, Motor Weakness (generalized) Skin: Normal Color, Warm/Dry Lymphatic: No Adenopathy Results Lab Laboratory Tests 10/26/22 04:05 10/27/22 04:00 Assessment/Plan Assessment/Plan 1 LUIS CARLOS ANAYA MD October 27, 2022 09:52
--- NOTE | 2022-10-27 10:10 | Speech Therapy Progress Note ---
Therapy Progress Note Radiology contacted stating modified barium swallow orders were not in place. ST contacted the RN at 0835 on this date requesting placement of the modified barium swallow orders from the prior assessment. RN stated the order would be placed. ALFREDA SHEARER October 27, 2022 10:10
--- NOTE | 2022-10-27 10:28 | Speech Therapy Progress Note ---
Therapy Progress Note Radiology contacted the clinician at 1022. Per RN, the patient is not appropriate for participation in the modified barium swallow on this date due to increased oxygen needs. 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 Due to the RN's request, the patient will be placed on HOLD on this date. ST will continue to re-schedule the modified barium swallow pending appropriateness of the patient to safely participate. At this time, the patient's modified barium swallow is rescheduled to 10/28/2022 at 1245. ALFREDA SHEARER October 27, 2022 10:28
--- NOTE | 2022-10-27 11:51 | Occ Therapy Progress Note ---
Therapy Progress Note OT arrived for therapy w/ RN consent to treat. Patient family member refused therapy this morning stated that patient has not slept in 30+ hours. Family member request patient be seen at later time today. OT advised family member of possibility of not returning this afternoon and recalled family request at 4 pm yesterday to walk patient for second time and no available therapist at that time OT informed family member PT would monitor for appropriateness of session and consent. Family member acknowledges LEVI LINDSAY OT October 27, 2022 11:51
[2022-10-27] MEDS: HYDROmorphone 2 MG/ML VIAL (DILAUDID) IV PRN (12:07)
--- NOTE | 2022-10-27 12:26 | Speech Therapy Progress Note ---
Therapy Progress Note Speech pathologist visited the patient's room at 1130 to discuss speech pathology's plan of care with the patient and his spouse and answer any questions within speech pathology's scope of practice. Upon entrance, the patient's returned the clinician's verbal greeting with "well, I guess we're going to [place]." The clinician stated she had not received updated information or recommendations from the medical team at this time but arrived to the room to answer any questions the family may have regarding the patient's swallowing function. The patient appears discouraged at this time. Per , "I'm not directing this at you, I know this is not your fault, but I don't think his swallowing is the reason for all this. I think he vomited downstairs and aspirated some of that but he was doing fine before that." The clinician provided supportive listening to the spouse and allowed the spouse to discuss her concerns in an accepting environment. The clinician stated she was unable to respond to medical questions outside of her scope of practice but could explain the swallowing function and it's correlation to the respiratory system, as well as, specific risk factors the clinician must consider prior to recommending P.O. intake. The clinician stated she did not have an opportunity to evaluate the patient prior to his most recent surgical procedure, during the time period his stated the patient was "doing well." The clinician explained she received a consultation request two days prior and must evaluate the patient at his current level with all current risk factors in place. The patient's stated, "I know he's probably been aspirating, the other study showed that, but he has compensations he does for it. It may take it awhile but he gets it down. Every one wants to just focus on his swallowing now and that's not it. Now they are talking feeding tubes." The clinician provided education on feeding tube decisions, rehabilitation course of the oropharyngeal swallowing function, and quality of life. Per patient's , "I know he didn't want that. He worked hard to get off the tube the last time." Due to the 's statement, the clinician encouraged a quality of life discussion between the patient and the (as information and extensive education has been provided to the patient's by the clinician regarding the patient's aspiration risk factors and possible risks of continued aspiration). The clinician will continue to monitor the patient for appropriateness of safe participation in the modified barium swallow as deemed by the medical team. The patient's spouse denied additional questions for the clinician at this time but was encouraged to have staff contact the clinician for any additional questions that may arise. ALFREDA SHEARER October 27, 2022 12:26
--- NOTE | 2022-10-27 13:04 | Progress Note ---
HELEN OTTO 10/27/22 1304: Subjective Date Seen by a Provider: October 27, 2022 Time Seen by a Provider: 11:00 Subjective/Events-last exam Yesterday afternoon pt had multiple runs of SVT and was able to resolve the first 2 with prn metoprolol and vaso-vagal maneuvers. Cardiology was consulted and pt was identified to be in afib with RVR. Diltiazem drip was started and resolved pt's arrhythmia. Pt sleeping upon arrival for first time in two days, report obtained per nursing and pt's . Nurse noted he was confused, agitated, and at times combative over the past 24hrs. Additionally, pt has continued to experience nausea but has not vomited He is NPO for failed speech evaluation and continued aspiration of water. Decision was made with pts to have PEG tube placed. Pt is sleeping comfortably satting 93% on VT 40Lpm 60%. Objective Exam Last Set of Vital Signs Vital Signs Date Time Temp Pulse Resp B/P (MAP) Pulse Ox O2 Delivery O2 Flow Rate FiO2 10/27/22 12:03 37.0 10/27/22 11:09 Vapotherm 40.00 60.00 10/27/22 11:03 94 60 10/27/22 11:00 92 28 Capillary Refill : Less Than 3 Seconds I&O Intake and Output 10/26/22 23:59 Intake Total 990 ml Output Total 1675 ml Balance -685 ml Intake Oral 990 ml Output Urine Total 1675 ml General: No Acute Distress, Other (Sleeping at time of exam/per report was still confused at time of exam) HEENT: Atraumatic, PERRLA Neck: Supple, No JVD, No Thyromegaly Lungs: Normal Air Movement, Other (some crackles) Heart: Regular Rate, Normal S1, Normal S2, No Murmurs Abdomen: Normal Bowel Sounds, Soft, No Tenderness Extremities: No Clubbing, No Cyanosis, No Edema, Normal Pulses, No Tender ness/Swelling Results Lab Laboratory Tests 10/27/22 04:00: White Blood Count 23.4H, Red Blood Count 3.44L, Hemoglobin 9.3L, Hematocrit 27L, Mean Corpuscular Volume 78L, Mean Corpuscular Hemoglobin 27, Mean Corpuscular Hemoglobin Concent 35, Red Cell Distribution Width 17.4H, Platelet Count 728H, Mean Platelet Volume 10.2, Immature Granulocyte % (Auto) 5, Neutrophils (%) (Auto) 89H, Lymphocytes (%) (Auto) 2L, Monocytes (%) (Auto) 4, Eosinophils (%) (Auto) 0, Basophils (%) (Auto) 1, Neutrophils # (Auto) 20.9H, Lymphocytes # (Auto) 0.4L, Monocytes # (Auto) 0.8, Eosinophils # (Auto) 0.0, Basophils # (Auto) 0.1, Immature Granulocyte # (Auto) 1.1H, Neutrophils % (Manual) 95, Lymphocytes % (Manual) 3, Monocytes % (Manual) 1, Eosinophils % (Manual) 1, Nucleated Red Blood Cells 1, Dohle Bodies SLIGHT, Microcytosis SLIGHT, Elliptocytes SLIGHT, Sodium Level 139, Potassium Level 2.8L, Chloride Level 107, Carbon Dioxide Level 19L, Anion Gap 13, Blood Urea Nitrogen 24H, Creatinine 0.87, Estimat Glomerular Filtration Rate 95, BUN/Creatinine Ratio 28, Glucose Level 111H, Calcium Level 8.7, Corrected Calcium 10.1, Phosphorus Level 2.1L, Magnesium Level 2.0, Total Bilirubin 0.6, Aspartate Amino Transf (AST/SGOT) 27, Alanine Aminotransferase (ALT/SGPT) 13, Alkaline Phosphatase 69, Total Protein 5.5L, Albumin 2.3L 10/27/22 06:57: Blood Gas Puncture Site RIGHT RADIAL, Blood Gas Patient Temperature 36.1, Arterial Blood pH 7.42, Arterial Blood Partial Pressure CO2 36, Arterial Blood Partial Pressure O2 46L, Arterial Blood HCO3 23, Arterial Blood Total CO2 24.5, Arterial Blood Oxygen Saturation 77L, Arterial Blood Base Excess -0.6, Arnulfo Test YES-POS, Blood Gas Ventilator Setting NO, Blood Gas Inspired Oxygen 100% Microbiology 10/24/22 Blood Culture - Preliminary, Resulted No growth 10/24/22 MRSA Screen - Final, Complete MRSA not isolated Assessment/Plan Assessment/Plan Assess & Plan/Chief Complaint Mixed Delirium/Toxic Metabolic Encephalopathy - long hospital course s/p surgery and general anesthesia - sepsis 2/2 PNA leading to transfer from IRF to ICU - continue to treat underlying issues (abx, duonebs, and O2 support for PNA and AHRF; bowel regimen for constipation; pain control s/p lumbar spine surgery) - orient as able aFib w/ RVR - cards consulted and managing - diltiazem, drip AHRF - 2/2 PNA - on VT 40L 60% - better saturations (89-95%) at rest today - DNI, now "no chest compressions" as well - cont duonebs - ctm Sepsis (resolved) RLL HAP - vitals now stable - CXR stable today - bcx's no growth (though obtained after empiric abxs) - cont vanc and zosyn - possible aspiration PNA given location, speech unable to complete evaluation, known swallowing issues (cont NPO) Aspiration/swallowing issues - s/p multiple head and neck surgeries and radiation doses for head and neck cancer - continue aspiration and failed speech eval requiring NPO - approves of PEG tube needed for food and medication - consult surgery for PEG placement HTN - atenolol and metoprolol tartrate + hydralazine prn for SBP <160 - better s/p diltiazem drip Constipation (resolved) - multiple loose stools yesterday - ctm S/p lumbar spine surgery 10/18 - pain control - ctm JULITA - resolved - Cr down to 1.13 today - ctm Anemia - resolved - Hb 9.3 this am - Iron deficient, will supplement with venefor 200mg IV q48 - ctm Chronic: DM - ISS and accuchecks HLP - ctm Head/neck cancer hx Colon resections LUPE JOHNSON DO 10/28/22 0506: Supervisory-Addendum Brief Verification & Attestation Participated in pt care: history, MDM, physical Personally performed: exam, history, MDM, supervision of care Care discussed with: Medical Student Procedures: n/a Results interpretation: Verified all documentation Verification and Attestation of Medical Student E/M Service A medical student performed and documented this service in my presence. I reviewed and verified all information documented by the medical student and made modifications to such information, when appropriate. I personally performed the physical exam and medical decision making. Lupe Johnson, October 28, 2022,05:06 HELEN OTTO October 27, 2022 13:04 LUPE JOHNSON DO October 28, 2022 05:06
--- NOTE | 2022-10-27 13:14 | Progress Note - Cardiology ---
Cardiology SOAP Progress Note Subjective: Gen weakness and malaise No cp or palp or syncope Shortness of breath at rest Swallowing difficulty and nausea and diarrhea continue No focal weakness No swelling Objective: I&O/Vital Signs 10/27/22 10/27/22 10/27/22 10/27/22 02:15 02:37 03:00 03:48 Temp 35.9 Pulse 87 89 Resp 29 26 B/P (MAP) 164/85 (111) 163/79 (107) Pulse Ox 99 100 O2 Delivery Vapotherm Vapotherm Vapotherm O2 Flow Rate 40.00 40.00 40.00 100.00 100.00 FiO2 100 10/27/22 10/27/22 10/27/22 10/27/22 04:00 04:00 05:00 06:00 Pulse 88 88 86 Resp 23 30 24 B/P (MAP) 167/68 (101) 140/77 (98) 161/71 (101) Pulse Ox 92 100 100 100 O2 Delivery Vapotherm Vapotherm Vapotherm Vapotherm O2 Flow Rate 40.00 40.00 40.00 40.00 100.00 100.00 100.00 FiO2 100 10/27/22 10/27/22 10/27/22 10/27/22 07:00 07:00 07:00 07:04 Pulse 89 89 Resp 20 B/P (MAP) 169/81 (110) Pulse Ox 97 100 O2 Delivery Vapotherm Vapotherm Vapotherm O2 Flow Rate 40.00 40.00 40.00 100.00 FiO2 100 80 10/27/22 10/27/22 10/27/22 10/27/22 07:10 07:47 08:00 08:00 Temp 36.2 Pulse 94 Resp 23 B/P (MAP) 150/79 (102) Pulse Ox 92 97 O2 Delivery Vapotherm Vapotherm Vapotherm Vapotherm O2 Flow Rate 40.00 40.00 40.00 40.00 80.00 80.00 80.00 FiO2 80 10/27/22 10/27/22 10/27/22 10/27/22 08:00 08:18 09:00 10:00 Temp 36.2 Pulse 88 86 92 91 Resp 23 17 28 B/P (MAP) 167/68 (101) 155/80 (105) 178/94 (122) Pulse Ox 100 100 100 96 O2 Delivery Vapotherm Vapotherm Vapotherm O2 Flow Rate 40.00 40.00 40.00 80.00 80.00 80.00 FiO2 100 10/27/22 10/27/22 10/27/22 10/27/22 10:58 11:00 11:03 11:09 Pulse 92 Resp 28 B/P (MAP) 158/76 (103) Pulse Ox 96 95 94 O2 Delivery Vapotherm Vapotherm Vapotherm Vapotherm O2 Flow Rate 40.00 40.00 40.00 40.00 80.00 60.00 FiO2 80 60 10/27/22 12:03 Temp 37.0 10/27/22 00:00 Intake Total 450 ml Output Total 775 ml Balance -325 ml Constitutional: AAO x 3, well-developed, other (frail, short of breath; impaired speech) Respiratory: accessory muscle use, chest expansion is symmetric, chest is bilaterally symmetric, other (scattered rhonchi, exp wheezes, prolonged exp, basal coarse crackles) Cardiovascular: regular rate-rhythm, S1 and S2, systolic murmur (soft LYNETTE at card base) Gastrointestional: No tender; soft; No guarding, No rebound; audible bowel sounds Extremities: No clubbing, No cyanosis, No significant edema Neurologic/Psychiatric: oriented x 3, other (moves all limbs) Skin: No rash on exposed areas, No ulcerations on exposed areas Results/Procedures: Labs Laboratory Tests 10/27/22 04:00: White Blood Count 23.4H, Red Blood Count 3.44L, Hemoglobin 9.3L, Hematocrit 27L, Mean Corpuscular Volume 78L, Mean Corpuscular Hemoglobin 27, Mean Corpuscular Hemoglobin Concent 35, Red Cell Distribution Width 17.4H, Platelet Count 728H, Mean Platelet Volume 10.2, Immature Granulocyte % (Auto) 5, Neutrophils (%) (Auto) 89H, Lymphocytes (%) (Auto) 2L, Monocytes (%) (Auto) 4, Eosinophils (%) (Auto) 0, Basophils (%) (Auto) 1, Neutrophils # (Auto) 20.9H, Lymphocytes # (Auto) 0.4L, Monocytes # (Auto) 0.8, Eosinophils # (Auto) 0.0, Basophils # (Auto) 0.1, Immature Granulocyte # (Auto) 1.1H, Neutrophils % (Manual) 95, Lymphocytes % (Manual) 3, Monocytes % (Manual) 1, Eosinophils % (Manual) 1, N ucleated Red Blood Cells 1, Dohle Bodies SLIGHT, Microcytosis SLIGHT, Elliptocytes SLIGHT, Sodium Level 139, Potassium Level 2.8L, Chloride Level 107, Carbon Dioxide Level 19L, Anion Gap 13, Blood Urea Nitrogen 24H, Creatinine 0.87, Estimat Glomerular Filtration Rate 95, BUN/Creatinine Ratio 28, Glucose Level 111H, Calcium Level 8.7, Corrected Calcium 10.1, Phosphorus Level 2.1L, Magnesium Level 2.0, Total Bilirubin 0.6, Aspartate Amino Transf (AST/SGOT) 27, Alanine Aminotransferase (ALT/SGPT) 13, Alkaline Phosphatase 69, Total Protein 5.5L, Albumin 2.3L 10/27/22 06:57: Blood Gas Puncture Site RIGHT RADIAL, Blood Gas Patient Temperature 36.1, Ar terial Blood pH 7.42, Arterial Blood Partial Pressure CO2 36, Arterial Blood Partial Pressure O2 46L, Arterial Blood HCO3 23, Arterial Blood Total CO2 24.5, Arterial Blood Oxygen Saturation 77L, Arterial Blood Base Excess -0.6, Arnulfo Test YES-POS, Blood Gas Ventilator Setting NO, Blood Gas Inspired Oxygen 100% Microbiology 10/24/22 Blood Culture - Preliminary, Resulted No growth 10/24/22 MRSA Screen - Final, Complete MRSA not isolated Laboratory Tests 10/26/22 04:05 10/27/22 04:00 A/P: Assessment: Ac resp failure probably due to aspiration pneumonia on advanced COPD Dysphagia - failed bedside swallow eval on 10-26-22 (possible video swallow eval today) Sepsis PAF with RVR due to above-mentioned conditions - converted to SR as of 10-27-22 Poor swallowing since tongue cancer surgery in 2014 N/V/D of undetermined etiology - frequent diarrhea resulting in electrolyte abnormalities Plan: * We recommend intensive treatment of patient's pneumonia, sepsis, electrolyte abnormalities, breathing issues, diarrhea, anemia, and ac resp failure. These issues are being managed by Dr Shane and EICU service. * Converted to SR - Continue iv dilt and IV BB (d/t inability to take oral) * Continue Lovenox * Continue IV meds d/t failed swallow eval on 10-26-22 TODD LEMUS MD FACP FACC CCDS October 27, 2022 13:14
--- NOTE | 2022-10-27 14:46 | Physical Therapy Progress Note ---
Therapy Progress Note Patient family member refused treatment reporting the patient has not slept well. Nurse notified and reports patient may be transferring to [facility] due to decline in medical status. Will attempt treatment again in the am and progress per patient tolerance. BIA PLAZA PT October 27, 2022 14:46
--- NOTE | 2022-10-27 14:49 | Progress Note-Pre Operative ---
Pre-Operative Progress Note Date of Available H&P: October 27, 2022 Date H&P Reviewed: October 27, 2022 Time H&P Reviewed: 14:30 History & Physical: No changes noted Pre-Operative Diagnosis: dysphagia, failed swallow KATJA GARCIA MD October 27, 2022 14:49
[2022-10-27] MEDS: meTOprolol 5 MG/5 ML (LOPRESSOR) VIAL IV PRN (17:58)
--- NOTE | 2022-10-27 18:40 | CONSULTATION REPORT ---
DATE OF SERVICE: 10/27/2022 ATTENDING PRIMARY CARE PHYSICIAN: Dr. Larsen. ADMITTING PHYSICIAN: Dr. Shane. HISTORY OF PRESENT ILLNESS: The patient is a 67-year-old male who was transferred from the acute rehabilitation unit. He underwent an uncomplicated lumbar surgery and was then transferred on 10/20/2022 for rehabilitation due to weakness and slow recovery. The patient remained stable; however, but did develop fever as well as hypoxia and was worked up and was found to have a right lower lobe pneumonia as well as acute kidney injury and was placed on Vapotherm therapy and transferred to the ICU. Due to the patient's respiratory issues and inability to proceed with alimentation, the patient was also evaluated by speech therapy. The patient was deemed to be a high risk of aspiration due to his respiratory condition and it was recommended that he proceed with placement of a percutaneous endoscopic gastrostomy tube. This was discussed with the patient's family and they are understanding of the risks and benefits of the procedure and would like to proceed with the placement of the gastrostomy tube, which we will schedule. PAST MEDICAL HISTORY: Hypertension, hypercholesterolemia, gastroesophageal reflux disease, hypothyroid, restless leg, peripheral neuropathy, history of oropharyngeal cancer, spinal stenosis. PAST SURGICAL HISTORY: Previous tracheostomy and gastrostomy tube, L5-S1 laminectomy. SOCIAL HISTORY: Previous smoker, negative alcohol. FAMILY HISTORY: Noncontributory. ALLERGIES: HMG-CoA REDUCTASE INHIBITORS, SUBSTANCES WITH 3-HYDROXY-3. VITAL SIGNS: Temperature 37.0, blood pressure 166/72, pulse 101, respirations 28, pulse ox 91% on 40% Vapotherm. REVIEW OF SYSTEMS: A well-nourished male, on the Vapotherm therapy, who does have some exertional shortness of breath as well as cough. No nausea, vomiting. No hematemesis or coffee-ground emesis. He is unsure when he had his last bowel movement. He does not report any episodes of diarrhea as well as no red blood per rectum, nor any dark tarry stools. No known fever or chills or any recent inadvertent weight loss. All other review of systems negative. PHYSICAL EXAMINATION: CHEST: Decreased breath sounds and scattered rhonchi and wheezes bilaterally. HEART: Regular. No murmurs. EXTREMITIES: No lower extremity edema. Negative Homans sign. HEENT: No scleral icterus. No cervical lymphadenopathy. ABDOMEN: Soft, nontender, nondistended. SKIN: Warm, dry. LABORATORY DATA: WBC 23.4, hemoglobin 9.3, hematocrit 27, platelets 728, BUN 24, creatinine 0.87. Liver function enzymes normal. ASSESSMENT AND PLAN: A 67-year-old male with high aspiration risk as well as bilateral pneumonia. He will require an EGD and placement of a percutaneous endoscopic gastrostomy tube for alimentation which we will proceed with in the a.m. Job ID: [id number] DocumentID: [id number] Dictated Date: 10/27/2022 17:44:23 Dehydrator Operator Date: 10/27/2022 18:37:00 Dictated By: KATJA GARCIA MD MTDD
[2022-10-27] MEDS: NOREPINEPHRINE 8 MG/250 ML 250 ML IV SCH (19:21)
[2022-10-27] MEDS ORDERED: TROUGH ORDER-PHARMACY XX ONE (22:00)
[2022-10-27] MEDS: dilTIAZem DRIP PRE-MIX 125 ML IV SCH (23:05)
[2022-10-28] MEDS: VANCOMYCIN 1250MG/250ML PREMIX 250 ML IV SCH (00:05)
[2022-10-28] MEDS: RT-ALBUTEROL/IPRATROPIUM 3 ML (DUONEB) VIAL INH SCH ×5 (02:10→22:21)
[2022-10-28] MEDS ORDERED: PIPERACILLIN SODIUM/TAZOBACTAM 4.5 GM in NS (IVPB) 100 ML IV ONE (04:35)
[2022-10-28] MEDS: HYDROmorphone 2 MG/ML VIAL (DILAUDID) IV PRN ×5 (04:40→19:58)
[2022-10-28] MEDS: meTOprolol 5 MG/5 ML (LOPRESSOR) VIAL IV PRN ×2 (05:22→12:24)
[2022-10-28 05:40] LABS: BASOPHILS # (AUTO) 0.1 10^3/uL (0.0-0.1); BASOPHILS % (AUTO) 0 % (0-10); EOSINOPHILS # (AUTO) 0.1 10^3/uL (0.0-0.3); EOSINOPHILS % (AUTO) 0 % (0-10); HEMATOCRIT 27 % (40-54); HEMOGLOBIN 9.3 g/dL (13.3-17.7); LYMPHOCYTES # (AUTO) 0.5 10^3/uL (1.0-4.0); LYMPHOCYTES % (AUTO) 2 % (12-44); MEAN CORPUSCULAR HEMOGLOBIN 27 pg (25-34); MEAN CORPUSCULAR HGB CONC 34 g/dL (32-36); MEAN CORPUSCULAR VOLUME 79 fL (80-99); MEAN PLATELET VOLUME 10.2 fL (9.0-12.2); MONOCYTES # (AUTO) 1.1 10^3/uL (0.0-1.0); MONOCYTES % (AUTO) 4 % (0-12); NEUTROPHILS # (AUTO) 22.6 10^3/uL (1.8-7.8); NEUTROPHILS % (AUTO) 85 % (42-75); PLATELET COUNT 717 10^3/uL (130-400); WHITE BLOOD COUNT 26.8 10^3/uL (4.3-11.0)
[2022-10-28 05:49] LABS: ALBUMIN 2.5 GM/DL (3.2-4.5); POTASSIUM 3.1 MMOL/L (3.6-5.0)
[2022-10-28 05:50] LABS: CALCIUM 8.9 MG/DL (8.5-10.1)
[2022-10-28 05:52] LABS: TOTAL PROTEIN 5.7 GM/DL (6.4-8.2)
[2022-10-28 05:54] LABS: BILIRUBIN,TOTAL 0.5 MG/DL (0.1-1.0)
[2022-10-28 05:55] LABS: PHOSPHORUS 2.8 MG/DL (2.3-4.7)
[2022-10-28 05:56] LABS: CREATININE SERUM 0.81 MG/DL (0.60-1.30)
[2022-10-28 05:58] LABS: MAGNESIUM 2.9 MG/DL (1.6-2.4)
[2022-10-28] MEDS: KCL 20 MEQ TAB (K-DUR) PO SCH (06:08)
[2022-10-28] MEDS: MAGNESIUM 1 GM/100 ML IVPB 100 ML IV SCH (06:08)
[2022-10-28] MEDS: POTASSIUM CL 10MEQ/50ML IVPB 50 ML IV SCH ×7 (06:08→13:33)
[2022-10-28] MEDS: hydrALAZINE (APESOLINE) 20 MG/ML VIAL IV PRN ×3 (06:22→13:34)
[2022-10-28] MEDS: ONDANSETRON 4 MG/2 ML (SDV) Z0FRAN IV PRN (07:03)
--- NOTE | 2022-10-28 07:16 | Progress Note ---
Subjective Date Seen by a Provider: October 28, 2022 Time Seen by a Provider: 11:00 Subjective/Events-last exam Doing about the same Remains with elevated BP PEG tube today Poor prognosis overall [place] when able Review of Systems General: Fatigue, Malaise Neurological: Confusion Objective Exam Last Set of Vital Signs Vital Signs Date Time Temp Pulse Resp B/P (MAP) Pulse Ox O2 Delivery O2 Flow Rate FiO2 10/28/22 06:00 91 23 187/72 (110) 97 Vapotherm 40.00 50.00 10/28/22 04:00 50 10/28/22 04:00 35.8 Capillary Refill : Less Than 3 Seconds I&O Intake and Output 10/28/22 00:00 Intake Total 710 ml Output Total 2325 ml Balance -1615 ml Intake Oral 260 ml IV Total 450 ml Output Urine Total 2325 ml General: Alert, Other (confused) Lungs: Other (coarse) Heart: Regular Rate Results Lab Laboratory Tests 10/27/22 18:19: Potassium Level 3.4L 10/27/22 22:15: Vancomycin Level Trough 9.9L 10/28/22 05:25: Potassium Level 3.1L, White Blood Count 26.8H, Red Blood Count 3.41L, Hemoglobin 9.3L, Hematocrit 27L, Mean Corpuscular Volume 79L, Mean Corpuscular Hemoglobin 27, Mean Corpuscular Hemoglobin Concent 34, Red Cell Distribution Width 18.1H, Platelet Count 717H, Mean Platelet Volume 10.2, Immature Granulocyte % (Auto) 9, Neutrophils (%) (Auto) 85H, Lymphocytes (%) (Auto) 2L, Monocytes (%) (Auto) 4, Eosinophils (%) (Auto) 0, Basophils (%) (Auto) 0, Neutrophils # (Auto) 22.6H, Lymphocytes # (Auto) 0.5L, Monocytes # (Auto) 1.1H, Eosinophils # (Auto) 0.1, Basophils # (Auto) 0.1, Immature Granulocyte # (Auto) 2.4H, Sodium Level 146H, Chloride Level 116H, Carbon Dioxide Level 17L, Anion Gap 13, Blood Urea Nitrogen 23H, Creatinine 0.81, Estimat Glomerular Filtration Rate 97, BUN/Creatinine Ratio 28, Glucose Level 123H, Calcium Level 8.9, Corrected Calcium 10.1, Phosphorus Level 2.8, Magnesium Level 2.9H, Total Bilirubin 0.5, Aspartate Amino Transf (AST/SGOT) 25, Alanine Aminotransferase (ALT/SGPT) 13, Alkaline Phosphatase 73, Total Protein 5.7L, Albumin 2.5L Microbiology 10/26/22 Stool Culture - Preliminary, Resulted 10/24/22 Blood Culture - Preliminary, Resulted No growth 10/24/22 MRSA Screen - Final, Complete MRSA not isolated Assessment/Plan Assessment/Plan Assess & Plan/Chief Complaint Prognosis poor Supportive care DNI and no chest compressions Assessment: Assess & Plan/Chief Complaint Mixed Delirium/Toxic Metabolic Encephalopathy - long hospital course s/p surgery and general anesthesia - sepsis 2/2 PNA leading to transfer from IRF to ICU - continue to treat underlying issues (abx, duonebs, and O2 support for PNA and AHRF; bowel regimen for constipation; pain control s/p lumbar spine surgery) - orient as able aFib w/ RVR - cards consulted and managing - diltiazem, drip AHRF - 2/2 PNA - on VT 40L 60% - better saturations (89-95%) at rest today - DNI, now "no chest compressions" as well - cont duonebs - ctm Sepsis (resolved) RLL HAP - vitals now stable - CXR stable today - bcx's no growth (though obtained after empiric abxs) - cont vanc and zosyn - possible aspiration PNA given location, speech unable to complete evaluation, known swallowing issues (cont NPO) Aspiration/swallowing issues - s/p multiple head and neck surgeries and radiation doses for head and neck cancer - continue aspiration and failed speech eval requiring NPO - approves of PEG tube needed for food and medication - consult surgery for PEG placement HTN - atenolol and metoprolol tartrate + hydralazine prn for SBP <160 - better s/p diltiazem drip Constipation (resolved) - multiple loose stools yesterday - ctm S/p lumbar spine surgery 10/18 - pain control - ctm JULITA - resolved - Cr down to 1.13 today - ctm Anemia - resolved - Hb 9.3 this am - Iron deficient, will supplement with venefor 200mg IV q48 - ctm Chronic: DM - ISS and accuchecks HLP - ctm Head/neck cancer hx Colon resections YONAS JOHNSON DO October 28, 2022 07:16
[2022-10-28] MEDS: PIPERACILLIN SODIUM/TAZOBACTAM 4.5 GM in NS (IVPB) 100 ML IV SCH ×2 (08:08→17:58)
[2022-10-28] MEDS: IRON SUCROSE 200 MG/10 ML (VENOFER) VIAL IV SCH (08:08)
[2022-10-28] MEDS: ATENOLOL 25 MG (TENORMIN) TAB PO SCH (08:08)
--- NOTE | 2022-10-28 09:44 | Progress Note - Cardiology ---
Cardiology SO Progress Note Objective: I&O/Vital Signs 10/28/22 10/28/22 10/28/22 10/28/22 20:00 20:00 20:00 21:00 Temp 36.7 Pulse 80 77 Resp 23 24 Pulse Ox 99 97 95 O2 Delivery High Flow N/C High Flow N/C Nasal Cannula High Flow N/C O2 Flow Rate 6.00 6.00 10.00 6.00 10/28/22 10/28/22 10/28/22 10/29/22 22:00 22:21 23:00 00:00 Pulse 69 76 68 Resp 25 30 26 B/P (MAP) 188/93 (124) Pulse Ox 98 98 98 98 O2 Delivery High Flow N/C High Flow N/C High Flow N/C High Flow N/C O2 Flow Rate 6.00 6.00 6.00 6.00 10/29/22 10/29/22 10/29/22 10/29/22 00:32 01:00 01:00 01:22 Pulse 82 82 83 Resp 20 B/P (MAP) 141/114 (123) 175/81 Pulse Ox 96 91 O2 Delivery High Flow N/C High Flow N/C O2 Flow Rate 6.00 6.00 10/29/22 10/29/22 10/29/22 10/29/22 01:59 02:00 03:00 04:00 Pulse 68 71 Resp 19 27 B/P (MAP) 160/73 (102) 162/66 (98) Pulse Ox 99 100 96 92 O2 Delivery High Flow N/C High Flow N/C High Flow N/C High Flow N/C O2 Flow Rate 5.00 4.00 4.00 4.00 10/29/22 10/29/22 10/29/22 10/29/22 04:00 05:00 06:00 06:39 Pulse 81 79 82 Resp 30 15 12 B/P (MAP) 170/85 (113) 161/94 (116) 154/119 (131) Pulse Ox 92 95 90 98 O2 Delivery High Flow N/C High Flow N/C High Flow N/C Vapotherm O2 Flow Rate 4.00 4.00 4.00 30.00 FiO2 50 10/29/22 10/29/22 10/29/22 06:50 07:00 07:00 Pulse 94 87 Resp 16 B/P (MAP) 177/83 (99) O2 Delivery Vapotherm Vapotherm O2 Flow Rate 30.00 30.00 50.00 50.00 10/29/22 00:00 Intake Total 150 ml Output Total 1025 ml Balance -875 ml Constitutional: AAO x 3, well-developed, other (frail, short of breath; impaired speech) Respiratory: accessory muscle use, chest expansion is symmetric, chest is bilaterally symmetric, other (scattered rhonchi, exp wheezes, prolonged exp, basal coarse crackles) Cardiovascular: regular rate-rhythm, S1 and S2, systolic murmur (soft LYNETTE at card base) Gastrointestional: No tender; soft; No guarding, No rebound; audible bowel sounds Extremities: No clubbing, No cyanosis, No significant edema Neurologic/Psychiatric: oriented x 3, other (moves all limbs) Skin: No rash on exposed areas, No ulcerations on exposed areas Results/Procedures: Labs Laboratory Tests 10/28/22 19:00: Potassium Level 4.4 10/29/22 04:15: Potassium Level 4.0, White Blood Count 32.2*H, Red Blood Count 3.94L, Hemoglobin 10.5L, Hematocrit 32L, Mean Corpuscular Volume 81, Mean Corpuscular Hemoglobin 27, Mean Corpuscular Hemoglobin Concent 33, Red Cell Distribution Width 18.6H, Platelet Count 772H, Mean Platelet Volume 10.3, Immature Granulocyte % (Auto) 14, Neutrophils (%) (Auto) 80H, Lymphocytes (%) (Auto) 3L, Monocytes (%) (Auto) 3, Eosinophils (%) (Auto) 0, Basophils (%) (Auto) 1, Neutrophils # (Auto) 25.6H, Lymphocytes # (Auto) 0.8L, Monocytes # (Auto) 1.1H, Eosinophils # (Auto) 0.1, Basophils # (Auto) 0.2H, Immature Granulocyte # (Auto) 4.5H, Sodium Level 150H, Chloride Level 120H, Carbon Dioxide Level 20L, Anion Gap 10, Blood Urea Nitrogen 26H, Creatinine 0.86, Estimat Glomerular Filtration Rate 95, BUN/Creatinine Ratio 30, Glucose Level 135H, Calcium Level 8.4L, Corrected Calcium 9.8, Phosphorus Level 2.9, Magnesium Level 2.1, Total Bilirubin 0.6, Aspartate Amino Transf (AST/SGOT) 28, Alanine Aminotransferase (ALT/SGPT) 10, Alkaline Phosph atase 84, Total Protein 5.3L, Albumin 2.3L 10/29/22 06:39: Blood Gas Puncture Site R radial, Blood Gas Patient Temperature , Arterial Blood pH 7.52H, Arterial Blood Partial Pressure CO2 27L, Arterial Blood Partial Pressure O2 55L, Arterial Blood HCO3 22L, Arterial Blood Total CO2 22.5, Arterial Blood Oxygen Saturation 90L, Arterial Blood Base Excess -1.2, Arnulfo T est , Blood Gas Ventilator Setting NO, Blood Gas Inspired Oxygen Microbiology 10/26/22 Stool Culture - Preliminary, Resulted 10/24/22 Blood Culture - Preliminary, Resulted No growth 10/24/22 MRSA Screen - Final, Complete MRSA not isolated A/P: Assessment: Ac resp failure probably due to aspiration pneumonia on advanced COPD Dysphagia - failed bedside swallow eval on 10-26-22 - management per medical/surgical services Sepsis PAF with RVR due to above-mentioned conditions - converted to SR as of 10-27-22 Poor swallowing since tongue cancer surgery in 2013 N/V/D of undetermined etiology - frequent diarrhea resulting in electrolyte abnormalities Plan: * We recommend intensive treatment of patient's pneumonia, sepsis, electrolyte abnormalities, breathing issues, diarrhea, anemia, and ac resp failure. These issues are being managed by Dr Shane and EICU service. * Converted to SR - Continue iv dilt and IV BB (d/t inability to take oral) * Continue Lovenox * Continue IV meds d/t failed swallow eval on 10-26-22 - possible PEG tube placement today with consideration for transfer to [address] YENIFER OLMOS [facility] October 28, 2022 09:44
--- NOTE | 2022-10-28 09:45 | Speech Therapy Progress Note ---
Therapy Progress Note Speech pathology contacted the RN to discuss the appropriateness of the patient for completion of the scheduled modified barium swallow at 1245 on this date. Per RN, the patient was able to rest the day prior and displays overall improvement on this date. The RN stated the patient's heart rate and respiratory status have improved, as well as, his mentation. The RN requested repetition of the clinical bedside swallowing evaluation. The speech pathologist provided the prior documented aspiration risks and stated a modified barium swallow would remain most appropriate prior to the advancement of P.O. (and one is scheduled for this date). The RN stated he would like to avoid PEG placement due to the patient's improvem ent. The clinician agrees with the RN and stated the modified barium swallow is scheduled for 1245 on this date (as the RN stated the patient has displayed improved medical stability, the patient would be appropriate to safely participate). The RN requested an earlier time, therefore, the clinician contact radiology to attempt an overbook time slot. Radiology agreed and provided the speech pathologist with 1030. The clinician will notify the RN at this time. ALFREDA SHEARER October 28, 2022 09:45
--- NOTE | 2022-10-28 10:08 | Tele-ICU Progress Note ---
Subjective Date Seen by a Provider: October 28, 2022 Time Seen by a Provider: 10:08 Subjective/Events-last exam (Tele-ICU Physician , Progress Note ) Service provided via interactive audio and video telecommunications E-CARE system to a patient admitted to ICU bed in [facility]. Patient is seen today due to persistent need of ICU care Available chart/ vitals / labs / Images reviewed Video assessment done using teleICU camera, rest of exam as per RN Discussed with RN Events overnight : Afebrile hemodynamically stable Respiratory - - VT 30L 70 % I/O = + Drips: NS 125 Pressors- no Hospital course: (10/24) 67 y M from floor (rehab) with ARF, PNA post recent Lami L2-L5 10/25 - VT 30L 70 % 10/26 - sa fib RVR , cardizem gtt 10/27 VT 40L 80%, cardizem gtt 5 - SINUS , confused 10/28- VT 35 L 50 % , AAO , cardizem 5 , HTN A/P Acute hypoxic respiratory failure rdue to PNA- on VT 35 L 50 %- - SLOW IMPROVENEBT , clinically and on CXR - cont abx - DNI Sepsis= resolved RLL HAP - zosyn and vanco , possible asp PNA - cxr slow improving - NPO 10/25--> svideo swallow 10/28 A fib RVR 10/26 - cardozem gtt 5 - change to PO meds if can swallow - SINUS 10/27 Hyponatremia - resolved - hypernatremic now - will add D5W and follow closely - to stop if pass swallow eval JULITA/ CKD - RESOLVED - off IVF s/p lumbar spine surgery on 10/18/22 - pain control DM - ISS Anemia - slow drift 9.4-->7.5 - no acute bleeding iron level low - supplemented Anxiety - cont xanax Disphagia - failed swallow 10/27, but todau mental status better - video swallow scheduled - sx on consult for possible PEG placement Head/neck cancer hx Colon resections DNI Lines : periph , (Central Line Necessity Reviewed) Fong: + OG: Nutrition: npo Analgesia: Anxiety/ delirium VTE Prophylaxis: hep q8 Stress Ulcer Prophylaxis: PPI Plans in collaboration with bedside consultants and IM MDs. Discussed with RN to reach out if any questions or concerns Case and care daily discussed on multidisciplinary rounds ( RN, PharmD, Process Eng , Respiratory Therapy, balancing machine set up worker ) A total of 31 minutes of critical care time was devoted to this patient today, required to treat and/or prevent further deterioration of critical care condition ( as above ) . I am remotely monitoring this patient from another state. I am unable to do the bedside exam, and history/physical and pertinent information is taken from other notes in the computer and bedside staff. Sepsis Event Evaluation Height, Weight, BMI Height: '" Weight: lbs. oz. kg; 27.71 BMI Method: Exam Exam Patient acknowledged, consented, and participated in this virtual visit which was conducted using real time audio/video Vital Signs Date Time Temp Pulse Resp B/P (MAP) Pulse Ox O2 Delivery O2 Flow Rate FiO2 10/28/22 09:00 78 25 186/93 (124) 98 Vapotherm 40.00 50.00 10/28/22 08:01 95 Vapotherm 35.00 50 10/28/22 08:00 85 29 191/93 (125) 98 Vapotherm 40.00 50.00 10/28/22 08:00 35.9 10/28/22 07:00 92 31 197/82 (120) 95 Vapotherm 40.00 50.00 10/28/22 07:00 89 10/28/22 06:00 91 23 187/72 (110) 97 Vapotherm 40.00 50.00 10/28/22 05:00 88 27 196/87 (123) 96 Vapotherm 40.00 50.00 10/28/22 04:00 91 Vapotherm 40.00 50 10/28/22 04:00 90 20 144/93 (110) 95 Vapotherm 40.00 50.00 10/28/22 04:00 35.8 10/28/22 03:00 87 30 180/80 (113) 96 Vapotherm 40.00 50.00 10/28/22 02:10 95 Vapotherm 35.00 45 10/28/22 02:00 86 24 166/81 (109) 98 Vapotherm 40.00 50.00 10/28/22 01:00 92 10/28/22 01:00 90 22 168/97 (120) 97 Vapotherm 40.00 50.00 10/28/22 00:00 92 Vapotherm 40.00 50 10/28/22 00:00 91 26 170/83 (112) 97 Vapotherm 40.00 50.00 10/28/22 00:00 36.1 10/27/22 23:05 105 176/85 10/27/22 23:00 96 34 189/79 (115) 96 Vapotherm 40.00 50.00 10/27/22 22:13 95 Vapotherm 40.00 50 10/27/22 22:00 90 25 183/79 (113) 95 Vapotherm 40.00 50.00 10/27/22 21:00 98 25 197/85 (122) 95 Vapotherm 40.00 50.00 10/27/22 20:00 89 Vapotherm 40.00 50 10/27/22 20:00 97 11 160/87 (111) 94 Vapotherm 40.00 50.00 10/27/22 19:30 36.0 105 22 176/85 (115) 88 Vapotherm 40.00 50.00 10/27/22 19:00 101 10/27/22 19:00 102 26 177/88 (117) 91 Vapotherm 40.00 50.00 10/27/22 18:34 92 Vapotherm 40.00 50 10/27/22 18:00 91 35 197/92 (127) 94 Vapotherm 40.00 50.00 10/27/22 18:00 36.2 10/27/22 17:55 92 26 204/102 (136) 94 40.00 50.00 10/27/22 16:00 101 28 166/72 (103) 91 Vapotherm 40.00 50.00 10/27/22 15:40 Vapotherm 40.00 50.00 10/27/22 15:39 94 Vapotherm 40.00 50 10/27/22 15:37 95 Vapotherm 40.00 60 10/27/22 15:00 96 13 144/51 (82) 95 Vapotherm 40.00 60.00 10/27/22 14:00 94 25 159/62 (94) 92 Vapotherm 40.00 60.00 10/27/22 13:50 92 Vapotherm 40.00 80 10/27/22 13:22 95 10/27/22 13:00 95 38 173/71 (105) 91 Vapotherm 40.00 60.00 10/27/22 12:03 37.0 10/27/22 12:00 101 22 169/75 (106) 93 Vapotherm 40.00 60.00 10/27/22 11:09 Vapotherm 40.00 60.00 10/27/22 11:03 94 Vapotherm 40.00 60 10/27/22 11:00 92 28 158/76 (103) 95 Vapotherm 40.00 80.00 10/27/22 10:58 96 Vapotherm 40.00 80 I & O 10/28/22 07:00 Intake Total 600 ml Output Total 2550 ml Balance -1950 ml Height & Weight Height: '" Weight: lbs. oz. kg; 27.71 BMI Method: General Appearance: Chronically ill, Cachetic, Mild Distress, Thin, Other (pal e) HEENT: PERRL/EOMI, TMs Normal, Normal ENT Inspection, Pharynx Normal Neck: Full Range of Motion, Normal Inspection, Non Tender, Supple, Carotid Bruit Respiratory: No Respiratory Distress, Accessory Muscle Use, Decreased Breath Sounds (See free text) Cardiovascular: Regular Rate, Rhythm, No Edema, No Gallop, No JVD, No Murmur, Normal Peripheral Pulses Capillary Refill: Less Than 3 Seconds Peripheral Pulses: 1+ Dorsalis Pedis (R), 1+ Left Dors-Pedis (L) Extremity: Normal Capillary Refill, Normal Inspection, Normal Range of Motion, Non Tender, No Calf Tenderness, No Pedal Edema Neurologic/Psychiatric: Alert, Oriented x3, supervisor electronics processing II-XII Norm as Tested, Depressed Affect, Motor Weakness (generalized) Skin: Normal Color, Warm/Dry Lymphatic: No Adenopathy Results Lab Laboratory Tests 10/27/22 04:00 10/27/22 18:19 10/28/22 05:25 Assessment/Plan Assessment/Plan 1 LUIS CARLOS ANAYA MD October 28, 2022 10:08
[2022-10-28] MEDS: D5W 1000 ML IV SOLUTION 1,000 ML IV SCH (10:14)
--- NOTE | 2022-10-28 11:28 | Diagnostic Imaging Report ---
INDICATION: Dysphagia. Study was performed in conjunction with speech pathology. Video fluoroscopy was performed during swallowing of barium in multiple consistencies. 102 seconds of fluoroscopic time was utilized. Patient ingested thin as well as nectar and thick consistency. Abnormalities are noted on all swallows. There is reflux of the oral contrast into the nasopharynx with all swallows and all consistencies. There is a laryngeal penetration with aspiration with all consistencies. Moderate vallecular residue is seen. There is poor epiglottic tilt. IMPRESSION: Abnormal modified barium swallow, as described. Dictated by: Dictated on workstation # [id number]
--- NOTE | 2022-10-28 11:52 | Diagnostic Imaging Report ---
INDICATION: Followup pneumonia. COMPARISON: 10/27/2022 FINDINGS: Single frontal radiographic view of the chest was obtained and again demonstrates diffuse scattered patchy and confluent pneumonia type infiltrates. Since the previous exam, there does appear to be slight interval improved aeration. There is no large effusion or pneumothorax. Cardiac silhouette and pulmonary vasculature are within normal limits. Left upper extremity PICC line is noted. Osseous structures show no acute abnormalities. IMPRESSION: 1. Persistent, but slightly improved bilateral infiltrate. Dictated by: Dictated on workstation # [id number]
--- NOTE | 2022-10-28 12:02 | Speech Therapy Progress Note ---
Therapy Progress Note Speech pathology has completed the modified barium swallow at this time, full report with details to follow. The patient silently aspirated thin liquids and mildly thick (nectar) liquids following the swallow. Aspiration was additionally visualized with moderately thick liquids (honey) following the swallow with a delayed, subtle (ineffective) throat clear displayed. Nasopharyngeal escape was appreciated with all bolus consistency during the initial swallow response. Minimal bolus material passed through the cricopharyngeal region. The swallow study was terminated following four half teaspoon attempts (one thin liquid, one mildly thick liquid, two moderately thick liquids) due to the patient's declining respiratory state, failed compensatory swallowing strategies, and consistent visualized aspiration. The clinician continues to recommend strict N.P.O. ALFREDA SHEARER October 28, 2022 12:01
[2022-10-28] MEDS: VANCOMYCIN 750 MG/NS 250 ML IVPB IV SCH ×2 (12:17)
--- NOTE | 2022-10-28 12:58 | ST Mod Barium Swallow ---
Speech Evaluation-General Medical Diagnosis Right Lobe Pneumonia Onset Date: October 26, 2022 Therapy Diagnosis Therapy Diagnosis: Severe Oropharyngeal Dysphagia Precautions Precautions: Fall, Pressure Ulcer, Aspiration Precautions/Isolations: Aspiration, Fall Prevention, Standard Precautions, Pressure Ulcer Referral Referring Physician: Dr. Shane Reason for Referral: Evaluation/Treatment Medical History Pertinent Medical History: Atrial Fib, Arthritis, Back Injury, DM, Diverticulitis, HTN, Hypothroidism, PVD Please see extensive swallowing history from speech pathology's previous documentation. Reviewed History: Yes Social History Current Living Status: Spouse Speech Mod Barium Swallow Prior Level of Function Please see extensive swallowing history and prior level of function information from speech pathology's previous documentation. Oral Motor Skills Lingual Protrusion: Abnormal (Secondary to oral and pharyngeal resection (previous head and neck cancer)) Lingual ROM: Abnormal Lingual Strength: Abnormal Velum: Abnormal (Absent.) Textures-Lateral View Lateral View Food Presentation: Thin Liquid via Spoon, [place] Liquid via Spoon, Honey Liquid via Spoon Oral Phase Labial Closure: Mild Impairment Bolus Formation Pooling L/R: Moderate Impairment Bolus Formation Placement: Moderate Impairment A/P Lingual Propulsion: Moderate Impairment Lingual Movement: Moderate Impairment Oral Phase Residue: Moderate Impairment The patient was able to orally accept bolus material via teaspoon, with minimal bolus escape (not passed the labial structures). Bolus pooling was displayed throughout the oral cavity, with the inability to display bolus manipulation and coordinated posterior bolus transfer. Marked premature spillage was present with all consistencies into the open laryngeal vestibule (laryngeal penetration prior to the swallow). Pharyngeal Phase Base of Tongue: Moderate Impairment (Moderate to severe.) Epiglottic Movement: Severe Impairment (Absent epiglottic inversion, edematous structure (previous radiation).) Laryngeal Elevation: Moderate Impairment Vallecular Residue: Moderate Pharyngeal Wall Residue: Mild Piriform Sinus Residue: Moderate Laryngeal Penetration: Severe (Thin liquid, mildly thick liquid, moderately thick liquid prior to and during the swallow.) Aspiration Observations: Moderate (Thin liquid, mildly thick liquid, moderately thick liquid following the swallow.) A marked delayed of the pharyngeal swallow occurred, with bolus material reaching the true vocal cords and remaining prior to the trigger. Moderately reduced laryngeal elevation and laryngeal excursion were visualized, with absent epiglottic inversion. Laryngeal penetration of all bolus material appeared prior to the swallow, to the level of the true vocal cords. The patient silently aspirated thin liquids and mildly thick (nectar) liquids upon initiation of the swallow, with continued aspiration of residual following the swallow. Aspiration was additionally visualized with moderately thick liquids (honey) following the swallow with a delayed, subtle (ineffective) throat clear displayed. Nasopharyngeal escape was appreciated with all bolus consistency during the initial swallow response. Moderately to severely reduced base of tongue retraction and pharyngeal contraction were present, with minimal bolus material passed through the cricopharyngeal region. Marked pharyngeal residual was not cleared with subsequent dry swallows (cued). Swallowing maneuvers and strategies were attempted (super glottic swallow, effortful swallow, bolus manipulation, head positioning), however, inefficient at eliminating or reducing aspiration. The swallow study was terminated following four half teaspoon attempts (one thin liquid, one mildly thick liquid, two moderately thick liquids) due to the patient's declining respiratory state, failed compensatory swallowing strategies, and consistent visualized aspiration. Summary/Impressions The patient demonstrated a severe oropharyngeal swallow function characterized by reduced labial and lingual range of motion, strength, and coordination, poor velar closure, decreased pharyngeal and laryngeal sensation in the presence of bolus material, a delayed onset of the pharyngeal swallow, decreased laryngeal elevation, reduced hyo-laryngeal excursion, absent epiglottic inversion, decreased base of tongue retraction, and reduced pharyngeal contractions. Aspiration was visualized with all bolus consistencies provided regardless of protective maneuvers and strategies attempted. The clinician recommends: - N.P.O. - Frequent oral care to reduce the transfer of oral bacteria to the lungs should aspiration of secretions occur. - Intensive skilled speech pathology services to target oropharyngeal musculature and function. - Consideration of long-term alternative sources to P.O. - Repetition of the modified barium swallow following eight to twelve weeks of intensive dysphagia therapy. The results and recommendations were provided to the patient, the patient's spouse, and the RN. The video of the exam was shared with the patient and the patient's , with explanations of oropharyngeal swallowing function and anatomy. All questions were answered within the scope of the clinician's practice. Speech Short Term Goals Short Term Goals Short Term Goals 1. The patient will demonstrate safe swallowing maneuvers and strategies with 80% accuracy, independently. Time Frame-STG: Three Days. Speech Alf Goals Alf Goals 1. The patient will tolerate the least restrictive diet consistency without s/s of suspected aspiration. Time Frame: Five Days. Speech-Plan Treatment Plan Speech Therapy Treatment Plan: Continue Plan of Care Treatment Duration: October 29, 2022 Frequency: 3 times per week Estimated Hrs Per Day: .25 hour per day Rehab Potential: Poor Pt/Family Agrees to Plan: Yes Safety Risks/Education Teaching Recipient: Patient, Significant Other Teaching Methods: Demonstration, Discussion, Audiovisual Response to Teaching: Verbalize Understanding Education Topics Provided: Results, Recommendations, Plan of Care Time Speech Therapy Time In: 10:30 Speech Therapy Time Out: 11:00 DATE: October 28, 2022 Total Billed Time: 30 Billed Treatment Time 1, MOD, DYST ALFREDA SHEARER October 28, 2022 12:58
--- NOTE | 2022-10-28 14:54 | Physical Therapy Progress Note ---
Therapy Progress Note Attempted to see patient for PT treatment. Nursing reports patient will be going to surgery soon for PEG tube placement. Will attempt to see patient again tomorrow if patient able to participate. BIA PLAZA PT October 28, 2022 14:54
[2022-10-28] MEDS ORDERED: LACTATED RINGERS 1,000 ML IV STA (14:55)
[2022-10-28] MEDS ORDERED: PROPOFOL INJECTION 50 ML IV ONE (14:57)
[2022-10-28] MEDS ORDERED: LIDOCAINE JELLY 2% 6 ML SYRINGE MM PRN (15:00)
[2022-10-28] MEDS ORDERED: HURRICAINE EXT TUBE (BENZOCAINE) XX PRN (15:00)
[2022-10-28] MEDS ORDERED: LACTATED RINGERS 1,000 ML IV ONE (15:02)
[2022-10-28] MEDS ORDERED: HURRICAINE EXT TUBE (BENZOCAINE) ONE (15:02)
[2022-10-28] MEDS ORDERED: MIDAZOLAM 2 MG/2 ML (VERSED) VIAL ONE (15:04)
[2022-10-28] MEDS ORDERED: KETAMINE 50 MG/5 ML SYRINGE ONE (15:04)
[2022-10-28] MEDS ORDERED: LIDOCAINE JELLY 2% 6 ML SYRINGE ONE (15:06)
[2022-10-28] MEDS ORDERED: PHENYLEPHRINE 100 MCG/ML 10 ML (ANESTHESIA) SYR ONE (15:24)
[2022-10-28 15:38] VITALS: BP 141/67
--- NOTE | 2022-10-28 16:07 | Anesthesia-General Post-Op ---
MAC Patient Condition Mental Status/LOC: Same as Preop Cardiovascular: Satisfactory Nausea/Vomiting: Absent Respiratory: Satisfactory Pain: Controlled Complications: Absent Post Op Complications Complications None Follow Up Care/Instructions Patient Instructions None needed. Anesthesiology Discharge Order Discharge Order Patient was awake and doing well after the procedure with no complaints, stable vital signs, no apparent adverse anesthesia problems. No complications reported per nursing. DIOGENES HERRMANN DO October 28, 2022 16:07
--- NOTE | 2022-10-28 16:23 | Progress Note-Post Operative ---
Post-Operative Progess Note Surgeon (s)/Tester Equipment (s) Surgeon KATJA GARCIA MD Tester Equipment: none Pre-Operative Diagnosis dysphagia, failed swallow Post-Operative Diagnosis esophageal candidiasis, reflux esophagitis(grade B), small-mod HH(2.5cm), moderate gastritis, no distal obstructions. Procedure & Operative Findings Date of Procedure 10/28/22 Procedure Performed/Findings EGD with bx and brushings, placement endoscopic gastrostomy tube. Anesthesia Type mac with local Estimated Blood Loss Estimated blood loss (mL): minimal Specimens/Packing Specimens Removed ge jxn, antrum KATJA GARCIA MD October 28, 2022 16:23
--- NOTE | 2022-10-28 17:26 | Progress Note - Cardiology ---
Cardiology SOAP Progress Note Subjective: No cp or palp or syncope Gen weakness Shortness of breath with activity N/V/D as before Objective: I&O/Vital Signs 10/28/22 10/28/22 10/28/22 10/28/22 06:00 07:00 07:00 08:00 Temp 35.9 Pulse 91 89 92 Resp 23 31 B/P (MAP) 187/72 (110) 197/82 (120) Pulse Ox 97 95 O2 Delivery Vapotherm Vapotherm O2 Flow Rate 40.00 40.00 50.00 50.00 10/28/22 10/28/22 10/28/22 10/28/22 08:00 08:00 08:01 09:00 Pulse 85 78 Resp 29 25 B/P (MAP) 191/93 (125) 186/93 (124) Pulse Ox 98 96 95 98 O2 Delivery Vapotherm Vapotherm Vapotherm Vapotherm O2 Flow Rate 40.00 30.00 35.00 40.00 50.00 50.00 FiO2 50 50 10/28/22 10/28/22 10/28/22 10/28/22 10:00 11:00 12:00 12:00 Pulse 71 80 85 Resp 20 16 29 B/P (MAP) 179/110 (133) 205/119 (147) 191/93 (125) Pulse Ox 99 99 97 98 O2 Delivery Vapotherm Vapotherm High Flow N/C Vapotherm O2 Flow Rate 40.00 40.00 10.00 40.00 50.00 50.00 50.00 10/28/22 10/28/22 10/28/22 10/28/22 12:00 12:00 13:00 13:00 Temp 35.8 Pulse 82 85 80 Resp 22 29 22 B/P (MAP) 208/97 (134) 191/93 (125) 213/108 (143) Pulse Ox 100 98 98 O2 Delivery Vapotherm High Flow N/C High Flow N/C O2 Flow Rate 40.00 10.00 10.00 50.00 10/28/22 10/28/22 10/28/22 10/28/22 13:00 14:00 15:38 16:00 Pulse 79 74 74 82 Resp 19 16 24 B/P (MAP) 232/100 (144) 155/68 (97) Pulse Ox 97 100 94 O2 Delivery High Flow N/C Nasal Cannula High Flow N/C O2 Flow Rate 10.00 10.00 10.00 10/28/22 10/28/22 16:00 17:00 Temp 37.1 36.2 Pulse 78 82 Resp 15 25 B/P (MAP) 150/61 (90) 153/87 (109) Pulse Ox 97 95 O2 Delivery Nasal Cannula Nasal Cannula O2 Flow Rate 10.00 10.00 10/28/22 00:00 Intake Total 200 ml Output Total 1500 ml Balance -1300 ml Constitutional: AAO x 3, well-developed, other (frail, short of breath; impaired speech) Respiratory: accessory muscle use, chest expansion is symmetric, chest is b ilaterally symmetric, other (scattered rhonchi, exp wheezes, prolonged exp, basal coarse crackles) Cardiovascular: regular rate-rhythm, S1 and S2, systolic murmur (soft LYNETTE at ca rd base) Gastrointestional: No tender; soft; No guarding, No rebound; audible bowel sounds Extremities: No clubbing, No cyanosis, No significant edema Neurologic/Psychiatric: oriented x 3, other (moves all limbs) Skin: No rash on exposed areas, No ulcerations on exposed areas Results/Procedures: Labs Laboratory Tests 10/27/22 18:19: Potassium Level 3.4L 10/27/22 22:15: Vancomycin Level Trough 9.9L 10/28/22 05:25: Potassium Level 3.1L, White Blood Count 26.8H, Red Blood Count 3.41L, Hemoglobin 9.3L, Hematocrit 27L, Mean Corpuscular Volume 79L, Mean Corpuscular Hemoglobin 27, Mean Corpuscular Hemoglobin Concent 34, Red Cell Distribution Width 18.1H, Platelet Count 717H, Mean Platelet Volume 10.2, Immature Granulocyte % (Auto) 9, Neutrophils (%) (Auto) 85H, Lymphocytes (%) (Auto) 2L, Monocytes (%) (Auto) 4, Eosinophils (%) (Auto) 0, Basophils (%) (Auto) 0, Neutrophils # (Auto) 22.6H, Lymphocytes # (Auto) 0.5L, Monocytes # (Auto) 1.1H, Eosinophils # (Auto) 0.1, Basophils # (Auto) 0.1, Immature Granulocyte # (Auto) 2.4H, Sodium Level 146H, Chloride Level 116H, Carbon Dioxide Level 17L, Anion Gap 13, Blood Urea Nitrogen 23H, Creatinine 0.81, Estimat Glomerular Filtration Rate 97, BUN/Creatinine Ratio 28, Glucose Level 123H, Calcium Level 8.9, Corrected Calcium 10.1, Phosphorus Level 2.8, Magnesium Level 2.9H, Total Bilirubin 0.5, Aspartate Amino Transf (AST/SGOT) 25, Alanine Aminotransferase (ALT/SGPT) 13, Alkaline Phosphatase 73, Total Protein 5.7L, Albumin 2.5L Microbiology 10/26/22 Stool Culture - Preliminary, Resulted 10/24/22 Blood Culture - Preliminary, Resulted No growth 10/24/22 MRSA Screen - Final, Complete MRSA not isolated Laboratory Tests 10/27/22 04:00 10/27/22 18:19 10/28/22 05:25 A/P: Assessment: Ac resp failure probably due to aspiration pneumonia on advanced COPD Dysphagia - failed bedside swallow eval on 10-26-22 - management per medical/surgical services Sepsis PAF with RVR due to above-mentioned conditions - converted to SR as of 10-27-22 Poor swallowing since tongue cancer surgery in 2014 N/V/D of undetermined etiology - frequent diarrhea resulting in electrolyte abnormalities Plan: * We recommend intensive treatment of patient's pneumonia, sepsis, electrolyte abnormalities, breathing issues, diarrhea, anemia, and ac resp failure. These issues are being managed by Dr Shane and EICU service. * Converted to SR - Continue iv dilt and IV BB (d/t inability to take oral) * Continue Lovenox * Continue IV meds d/t failed swallow eval on 10-26-22 - possible PEG tube placement today with consideration for transfer to TODD Tolbert MD FACP FAC [facility] October 28, 2022 17:26
[2022-10-28] MEDS: DOCUSATE SODIUM 100 MG (COLACE) CAP PO SCH (21:00)
[2022-10-28] MEDS: SENNOSIDES 8.6 MG (SENOKOT) TAB PO SCH (21:00)
[2022-10-28] MEDS: dilTIAZem DRIP PRE-MIX 125 ML IV SCH (22:30)
--- NOTE | 2022-10-28 23:25 | OPERATIVE REPORT ---
DATE OF SERVICE: 10/28/2022 ATTENDING PRIMARY CARE PHYSICIAN: Dr. Larsen. PREOPERATIVE DIAGNOSES: Dysphagia and failed swallow study. POSTOPERATIVE DIAGNOSES: Dysphagia and failed swallow study. Reflux esophagitis, Starke grade B, small hiatal hernia, 2 cm in size, moderate gastritis, no distal obstructions. PROCEDURE: EGD with biopsy, brushing and placement of an endoscopic gastrostomy tube. SURGEON: Katja Garcia MD ANESTHESIA: Monitored anesthesia care. ESTIMATED BLOOD LOSS: Minimal. FINDINGS: Dysphagia and failed swallow study. Reflux esophagitis, Starke grade B, small hiatal hernia, 2 cm in size, moderate gastritis, no distal obstructions. DISPOSITION: The patient tolerated the procedure well. INDICATIONS: The patient is a 67-year-old male who was admitted for shortness of breath, cough and found to have bilateral pneumonia. 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 It is unsure if he underwent radiation to the neck. Since that time, he has lost a significant amount of weight and has had issues with dysphagia. Since being admitted, he has been evaluated by speech pathology where a number of tests were performed and he did undergo a barium swallow study today, which did show a significant risk of aspiration, likely the cause of his bilateral pneumonia. For this issue, he will require a percutaneous endoscopic gastrostomy tube for alimentation as well as for medication and decrease the risk of aspiration. DESCRIPTION OF PROCEDURE: The patient was brought to the endoscopy suite and laid supine on his bed with the head slightly elevated. After adequate IV pain and sedative medications and monitored anesthesia care, the mouthpiece was applied. The endoscope was placed in the mouth, visualizing the pharynx and hypopharyngeal region. There was a considerable amount of phlegm as well as undigested food within the hypopharyngeal region, which was suctioned out as well as possible. The endoscope was then gently intubated into the esophageal opening and esophagus insufflated. There was a yellowish plaque material on the esophageal wall, likely consistent with an esophageal candidiasis. Brushings were taken and sent for fungal culture and sensitivity. The endoscope was then advanced through the gastroesophageal junction, where reflux esophagitis, Starke grade B identified with no strictures identified. A biopsy was taken of the GE junction with forceps with visualization of good hemostasis. The endoscope was then advanced into the stomach and endoscope retroflexed, visualizing a small hiatal hernia approximately 2 cm in size. There was moderate gastritis. A biopsy was taken of the antrum to rule out H. pylori with visualization of good hemostasis. The endoscope was then advanced to the pylorus and the first and second portion of the duodenum, which appeared normal with no distal obstructions. With the stomach insufflated, an area was marked along the left upper abdominal quadrant for placement of the gastrostomy tube, which happened to be his previous gastrostomy tube site. The skin, subcutaneous tissue and muscle layers as well as the stomach was then anesthetized with 1% lidocaine under direct visualization. A transverse skin incision was then made using an 11 blade and the needle and sheath were placed under direct visualization. The needle was then removed and the guidewire placed through the sheath and looped through the scope and pulled out of the mouth. The gastrostomy tube was then placed onto the wire and pulled through under direct visualization until the end rubber bolster was firmly apposing the anterior stomach wall. Antibiotic ointment was then placed at the exit site, followed by drain sponge, followed by the external bolster causing firm apposition of the abdominal wall layers. The tubing was then cut down to size and the rubber bolster placed on the end as well as a clamp. The endoscope was then slowly withdrawn while taking a second look and suctioning of residual air with no additional findings. The patient tolerated the procedure well. We will recommend a gravity drainage for the next day and after this, the gastrostomy tube may be accessed and used at any time. Job ID: [id number] DocumentID: [id number] Dictated Date: 10/28/2022 15:43:19 Substation Operator Date: 10/28/2022 23:23:00 Dictated By: KATJA GARCIA MD [facility]
[2022-10-28] MEDS: NOREPINEPHRINE 8 MG/250 ML 250 ML IV SCH (23:34)
[2022-10-29] MEDS: hydrALAZINE (APESOLINE) 20 MG/ML VIAL IV PRN ×5 (00:19→21:59)
[2022-10-29] MEDS: HYDROmorphone 2 MG/ML VIAL (DILAUDID) IV PRN ×8 (00:53→21:58)
[2022-10-29] MEDS: PIPERACILLIN SODIUM/TAZOBACTAM 4.5 GM in NS (IVPB) 100 ML IV SCH ×3 (00:54→15:50)
[2022-10-29 01:22] VITALS: BP 175/81
[2022-10-29] MEDS: dilTIAZem DRIP PRE-MIX 125 ML IV SCH (01:22)
[2022-10-29] MEDS: meTOprolol 5 MG/5 ML (LOPRESSOR) VIAL IV PRN ×4 (01:24→18:07)
[2022-10-29] MEDS: RT-ALBUTEROL/IPRATROPIUM 3 ML (DUONEB) VIAL INH SCH ×6 (01:59→22:06)
[2022-10-29 04:20] LABS: BASOPHILS # (AUTO) 0.2 10^3/uL (0.0-0.1); BASOPHILS % (AUTO) 1 % (0-10); EOSINOPHILS # (AUTO) 0.1 10^3/uL (0.0-0.3); EOSINOPHILS % (AUTO) 0 % (0-10); HEMATOCRIT 32 % (40-54); HEMOGLOBIN 10.5 g/dL (13.3-17.7); LYMPHOCYTES # (AUTO) 0.8 10^3/uL (1.0-4.0); LYMPHOCYTES % (AUTO) 3 % (12-44); MEAN CORPUSCULAR HEMOGLOBIN 27 pg (25-34); MEAN CORPUSCULAR HGB CONC 33 g/dL (32-36); MEAN CORPUSCULAR VOLUME 81 fL (80-99); MEAN PLATELET VOLUME 10.3 fL (9.0-12.2); MONOCYTES # (AUTO) 1.1 10^3/uL (0.0-1.0); MONOCYTES % (AUTO) 3 % (0-12); NEUTROPHILS # (AUTO) 25.6 10^3/uL (1.8-7.8); NEUTROPHILS % (AUTO) 80 % (42-75); PLATELET COUNT 772 10^3/uL (130-400)
[2022-10-29 04:37] LABS: WHITE BLOOD COUNT 32.2 10^3/uL (4.3-11.0)
[2022-10-29 04:41] LABS: ALBUMIN 2.3 GM/DL (3.2-4.5); BILIRUBIN,TOTAL 0.6 MG/DL (0.1-1.0); CALCIUM 8.4 MG/DL (8.5-10.1); CREATININE SERUM 0.86 MG/DL (0.60-1.30); MAGNESIUM 2.1 MG/DL (1.6-2.4); PHOSPHORUS 2.9 MG/DL (2.3-4.7); TOTAL PROTEIN 5.3 GM/DL (6.4-8.2)
[2022-10-29] MEDS: NOREPINEPHRINE 8 MG/250 ML 250 ML IV SCH (04:42)
[2022-10-29] MEDS: POTASSIUM CL 10MEQ/50ML IVPB 50 ML IV SCH (05:24)
[2022-10-29] MEDS: KCL 20 MEQ TAB (K-DUR) PO SCH (05:24)
[2022-10-29] MEDS: MAGNESIUM 1 GM/100 ML IVPB 100 ML IV SCH (05:24)
[2022-10-29] MEDS: D5W 1000 ML IV SOLUTION 1,000 ML IV SCH ×2 (06:17→11:54)
[2022-10-29 06:52] LABS: ABG BASE EXCESS -1.2 MMOL/L (-2.5-2.5); ABG OXYGEN SATURATION 90 % (94-100); ABG PCO2 27 MMHG (35-45); ABG PH 7.52 (7.37-7.43); ABG PO2 55 MMHG (79-93); ABG TCO2 22.5 MMOL/L (21.0-31.0)
[2022-10-29 06:53] LABS: VENTILATOR NO
[2022-10-29] MEDS: DOCUSATE SODIUM 100 MG (COLACE) CAP PO SCH ×2 (07:36→21:00)
[2022-10-29] MEDS: SENNOSIDES 8.6 MG (SENOKOT) TAB PO SCH ×2 (07:36→21:00)
--- NOTE | 2022-10-29 08:25 | Speech Therapy Progress Note ---
Therapy Progress Note The patient is scheduled to be transferred to [place] on this date. ST to sign off at this time. Please re-consult with any additional concerns. Thank you for the consultation. ALFREDA SHEARER October 29, 2022 08:25
--- NOTE | 2022-10-29 08:26 | Progress Note - Cardiology ---
Cardiology SOAP Progress Note Subjective: Lying in bed No c/o CP Continued SOB C/O abd discomfort at site of PEG tube placement Objective: I&O/Vital Signs 10/28/22 10/28/22 10/28/22 10/28/22 21:00 22:00 22:21 23:00 Pulse 77 69 76 Resp 24 25 30 Pulse Ox 95 98 98 98 O2 Delivery High Flow N/C High Flow N/C High Flow N/C High Flow N/C O2 Flow Rate 6.00 6.00 6.00 6.00 10/29/22 10/29/22 10/29/22 10/29/22 00:00 00:32 01:00 01:00 Pulse 68 82 82 Resp 26 20 B/P (MAP) 188/93 (124) 141/114 (123) Pulse Ox 98 96 91 O2 Delivery High Flow N/C High Flow N/C High Flow N/C O2 Flow Rate 6.00 6.00 6.00 10/29/22 10/29/22 10/29/22 10/29/22 01:22 01:59 02:00 03:00 Pulse 83 68 71 Resp 19 27 B/P (MAP) 175/81 160/73 (102) 162/66 (98) Pulse Ox 99 100 96 O2 Delivery High Flow N/C High Flow N/C High Flow N/C O2 Flow Rate 5.00 4.00 4.00 10/29/22 10/29/22 10/29/22 10/29/22 04:00 04:00 05:00 06:00 Pulse 81 79 82 Resp 30 15 12 B/P (MAP) 170/85 (113) 161/94 (116) 154/119 (131) Pulse Ox 92 92 95 90 O2 Delivery High Flow N/C High Flow N/C High Flow N/C High Flow N/C O2 Flow Rate 4.00 4.00 4.00 4.00 10/29/22 10/29/22 10/29/22 10/29/22 06:39 06:50 07:00 07:00 Pulse 94 87 Resp 16 B/P (MAP) 177/83 (99) Pulse Ox 98 O2 Delivery Vapotherm Vapotherm Vapotherm O2 Flow Rate 30.00 30.00 30.00 50.00 50.00 FiO2 50 10/29/22 08:00 Pulse 78 Resp 35 B/P (MAP) 184/77 (114) Pulse Ox 95 O2 Delivery Vapotherm O2 Flow Rate 30.00 50.00 10/28/22 23:59 Intake Total 150 ml Output Total 1025 ml Balance -875 ml Constitutional: AAO x 3, well-developed, other (frail, short of breath; impaired speech) Respiratory: accessory muscle use, chest expansion is symmetric, chest is bilaterally symmetric, other (scattered rhonchi, exp wheezes, prolonged exp, basal coarse crackles) Cardiovascular: regular rate-rhythm, S1 and S2, systolic murmur (soft LYNETTE at card base) Gastrointestional: No tender; soft; No guarding, No rebound; audible bowel sounds, other (PEG tube in place to drainage) Extremities: No clubbing, No cyanosis, No significant edema Neurologic/Psychiatric: oriented x 3, other (moves all limbs) Skin: No rash on exposed areas, No ulcerations on exposed areas Results/Procedures: Labs Laboratory Tests 10/28/22 19:00: Potassium Level 4.4 10/29/22 04:15: Potassium Level 4.0, White Blood Count 32.2*H, Red Blood Count 3.94L, Hemoglobin 10.5L, Hematocrit 32L, Mean Corpuscular Volume 81, Mean Corpuscular Hemoglobin 27, Mean Corpuscular Hemoglobin Concent 33, Red Cell Distribution Width 18.6H, Platelet Count 772H, Mean Platelet Volume 10.3, Immature Granulocyte % (Auto) 14, Neutrophils (%) (Auto) 80H, Lymphocytes (%) (Auto) 3L, Monocytes (%) (Auto) 3, Eosinophils (%) (Auto) 0, Basophils (%) (Auto) 1, Neutrophils # (Auto) 25.6H, Lymphocytes # (Auto) 0.8L, Monocytes # (Auto) 1.1H, Eosinophils # (Auto) 0.1, Basophils # (Auto) 0.2H, Immature Granulocyte # (Auto) 4.5H, Sodium Level 150H, Chloride Level 120H, Carbon Dioxide Level 20L, Anion Gap 10, Blood Urea Nitrogen 26H, Creatinine 0.86, Estimat Glomerular Filtration Rate 95, BUN/Creatinine Ratio 30, Glucose Level 135H, Calcium Level 8.4L, Corrected Calcium 9.8, Phosphorus Level 2.9, Magnesium Level 2.1, Total Bilirubin 0.6, Aspartate Amino Transf (AST/SGOT) 28, Alanine Aminotransferase (ALT/SGPT) 10, Alkaline Phosphatase 84, Total Protein 5.3L, Albumin 2.3L 10/29/22 06:39: Blood Gas Puncture Site R radial, Blood Gas Patient Temperature , Arterial Blood pH 7.52H, Arterial Blood Partial Pressure CO2 27L, Arterial Blood Partial Pressure O2 55L, Arterial Blood HCO3 22L, Arterial Blood Total CO2 22.5, Arterial Blood Oxygen Saturation 90L, Arterial Blood Base Excess -1.2, Arnulfo Test , Blood Gas Ventilator Setting NO, Blood Gas Inspired Oxygen Microbiology 10/26/22 Stool Culture - Preliminary, Resulted 10/24/22 Blood Culture - Preliminary, Resulted No growth 10/24/22 MRSA Screen - Final, Complete MRSA not isolated Laboratory Tests 10/27/22 18:19 10/28/22 05:25 10/28/22 19:00 10/29/22 04:15 A/P: Assessment: Ac resp failure probably due to aspiration pneumonia on advanced COPD Dysphagia - failed bedside swallow eval on 10-26-22 - S/P EGD and PEG tube placement by Dr. Gillis on 10-28-22: Dysphagia and failed swallow study. Reflux esophagitis, [place] grade B, small hiatal hernia, 2 cm in size, moderate gastritis, no distal obstructions - tube placed to drainage Sepsis - worsening leukocytosis on lab this morning (10-29-22) PAF with RVR due to above-mentioned conditions - converted to SR as of 10-27-22 Poor swallowing since tongue cancer surgery in 2014 N/V/D of undetermined etiology - frequent diarrhea resulting in electrolyte abnormalities Plan: * We recommend intensive treatment of patient's pneumonia, sepsis, electrolyte abnormalities, breathing issues, diarrhea, anemia, and ac resp failure. These issues are being managed by Dr Shane and EICU service. Worsening leukocytosis this morning. * Converted to SR - Continue iv dilt and IV BB (d/t inability to take oral) - change to via PEG tube when ok to use PEG tube * Continue Lovenox * Continue IV meds until ok to use PEG tube placed yesterday - possible transfer to [facility] YENIFER OLMOS October 29, 2022 08:26
--- NOTE | 2022-10-29 08:40 | Diagnostic Imaging Report ---
INDICATION: Dyspnea Frontal chest obtained at 0508 a.m. and compared to 10/28/2022. Heart and mediastinal silhouette are normal in appearance. Infiltrate in the right midlung and base appears similar to the prior study. There appears to be mild improvement in the left basilar infiltrate. There is no pneumothorax or pleural fluid. Left-sided PICC line is unchanged. IMPRESSION: Unchanged right-sided infiltrates compared to the prior study. There is some mild improvement in the left basilar infiltrate. There is no pneumothorax or pleural fluid or other new finding. Dictated by: Dictated on workstation # [id number]
--- NOTE | 2022-10-29 08:44 | Progress Note - Cardiology ---
Cardiology SOAP Progress Note Subjective: No cp or palp or syncope No n/v/d No focal weakness Short of breath as before Gen weakness and malaise present Objective: I&O/Vital Signs 10/28/22 10/28/22 10/28/22 10/28/22 21:00 22:00 22:21 23:00 Pulse 77 69 76 Resp 24 25 30 Pulse Ox 95 98 98 98 O2 Delivery High Flow N/C High Flow N/C High Flow N/C High Flow N/C O2 Flow Rate 6.00 6.00 6.00 6.00 10/29/22 10/29/22 10/29/22 10/29/22 00:00 00:32 01:00 01:00 Pulse 68 82 82 Resp 26 20 B/P (MAP) 188/93 (124) 141/114 (123) Pulse Ox 98 96 91 O2 Delivery High Flow N/C High Flow N/C High Flow N/C O2 Flow Rate 6.00 6.00 6.00 10/29/22 10/29/22 10/29/22 10/29/22 01:22 01:59 02:00 03:00 Pulse 83 68 71 Resp 19 27 B/P (MAP) 175/81 160/73 (102) 162/66 (98) Pulse Ox 99 100 96 O2 Delivery High Flow N/C High Flow N/C High Flow N/C O2 Flow Rate 5.00 4.00 4.00 10/29/22 10/29/22 10/29/22 10/29/22 04:00 04:00 05:00 06:00 Pulse 81 79 82 Resp 30 15 12 B/P (MAP) 170/85 (113) 161/94 (116) 154/119 (131) Pulse Ox 92 92 95 90 O2 Delivery High Flow N/C High Flow N/C High Flow N/C High Flow N/C O2 Flow Rate 4.00 4.00 4.00 4.00 10/29/22 10/29/22 10/29/22 10/29/22 06:39 06:50 07:00 07:00 Pulse 94 87 Resp 16 B/P (MAP) 177/83 (99) Pulse Ox 98 O2 Delivery Vapotherm Vapotherm Vapotherm O2 Flow Rate 30.00 30.00 30.00 50.00 50.00 FiO2 50 10/29/22 08:00 Pulse 78 Resp 35 B/P (MAP) 184/77 (114) Pulse Ox 95 O2 Delivery Vapotherm O2 Flow Rate 30.00 50.00 10/29/22 00:00 Intake Total 150 ml Output Total 1025 ml Balance -875 ml Constitutional: AAO x 3, well-developed, other (frail, short of breath; impaired speech) Respiratory: accessory muscle use, chest expansion is symmetric, chest is bilaterally symmetric, other (scattered rhonchi, exp wheezes, prolonged exp, basal coarse crackles) Cardiovascular: regular rate-rhythm, S1 and S2, systolic murmur (soft LYNETTE at card base) Gastrointestional: No tender; soft; No guarding, No rebound; audible bowel sounds, other (PEG tube in place to drainage) Extremities: No clubbing, No cyanosis, No significant edema Neurologic/Psychiatric: oriented x 3, other (moves all limbs) Skin: No rash on exposed areas, No ulcerations on exposed areas Results/Procedures: Labs Laboratory Tests 10/28/22 19:00: Potassium Level 4.4 10/29/22 04:15: Potassium Level 4.0, White Blood Count 32.2*H, Red Blood Count 3.94L, Hemoglobin 10.5L, Hematocrit 32L, Mean Corpuscular Volume 81, Mean Corpuscular Hemoglobin 27, Mean Corpuscular Hemoglobin Concent 33, Red Cell Distribution Width 18.6H, Platelet Count 772H, Mean Platelet Volume 10.3, Immature Granulocyte % (Auto) 14, Neutrophils (%) (Auto) 80H, Lymphocytes (%) (Auto) 3L, Monocytes (%) (Auto) 3, Eosinophils (%) (Auto) 0, Basophils (%) (Auto) 1, Neutrophils # (Auto) 25.6H, Lymphocytes # (Auto) 0.8L, Monocytes # (Auto) 1.1H, Eosinophils # (Auto) 0.1, Basophils # (Auto) 0.2H, Immature Granulocyte # (Auto) 4.5H, Sodium Level 150H, Chloride Level 120H, Carbon Dioxide Level 20L, Anion Gap 10, Blood Urea Nitrogen 26H, Creatinine 0.86, Estimat Glomerular Filtration Rate 95, BUN/Creatinine Ratio 30, Glucose Level 135H, Calcium Level 8.4L, Corrected Calcium 9.8, Phosphorus Level 2.9, Magnesium Level 2.1, Total Bilirubin 0.6, Aspartate Amino Transf (AST/SGOT) 28, Alanine Aminotransferase (ALT/SGPT) 10, Alkaline Ph osphatase 84, Total Protein 5.3L, Albumin 2.3L 10/29/22 06:39: Blood Gas Puncture Site R radial, Blood Gas Patient Temperature , Arterial Blood pH 7.52H, Arterial Blood Partial Pressure CO2 27L, Arterial Blood Partial Pressure O2 55L, Arterial Blood HCO3 22L, Arterial Blood Total CO2 22.5, Arterial Blood Oxygen Saturation 90L, Arterial Blood Base Excess -1.2, Arnulfo Test , Blood Gas Ventilator Setting NO, Blood Gas Inspired Oxygen Microbiology 10/26/22 Stool Culture - Preliminary, Resulted 10/24/22 Blood Culture - Preliminary, Resulted No growth 10/24/22 MRSA Screen - Final, Complete MRSA not isolated Laboratory Tests 10/27/22 18:19 10/28/22 05:25 10/28/22 19:00 10/29/22 04:15 A/P: Assessment: Ac resp failure probably due to aspiration pneumonia on advanced COPD Dysphagia - failed bedside swallow eval on 10-26-22 - S/P EGD and PEG tube placement by Dr. Gillis on 10-28-22: Dysphagia and failed swallow study. Reflux esophagitis, [place] grade B, small hiatal hernia, 2 cm in size, moderate gastritis, no distal obstructions - tube placed to drainage Sepsis - worsening leukocytosis on lab this morning (10-29-22) PAF with RVR due to above-mentioned conditions - converted to SR as of 10-27-22 Poor swallowing since tongue cancer surgery in 2014 N/V/D of undetermined etiology - frequent diarrhea resulting in electrolyte abnormalities Plan: * We recommend intensive treatment of patient's pneumonia, sepsis, electrolyte abnormalities, breathing issues, diarrhea, anemia, and ac resp failure. These issues are being managed by Dr Shane and EICU service. Worsening leukocytosis this morning. * Converted to SR - Continue iv dilt and IV BB (d/t inability to take oral) - change to via PEG tube when ok to use PEG tube * Continue Lovenox * Continue IV meds until ok to use PEG tube placed yesterday - possible transfer to [place] today TODD LEMUS MD F[facility] October 29, 2022 08:44
--- NOTE | 2022-10-29 09:25 | Tele-ICU Progress Note ---
Subjective Date Seen by a Provider: October 29, 2022 Time Seen by a Provider: 09:25 Subjective/Events-last exam (Tele-ICU Physician , Progress Note ) Service provided via interactive audio and video telecommunications E-CARE system to a patient admitted to ICU bed in [facility]. Patient is seen today due to persistent need of ICU care Available chart/ vitals / labs / Images reviewed Video assessment done using teleICU camera, rest of exam as per RN Discussed with RN Events overnight : Afebrile hemodynamically stable Respiratory - - VT 30L 70 % I/O = + Drips: d5 w 50 Pressors- no Hospital course: (10/24) 67 y M from floor (rehab) with ARF, PNA post recent Lami L2-L5 10/25 - VT 30L 70 % 10/26 - sa fib RVR , cardizem gtt 10/27 VT 40L 80%, cardizem gtt 5 - SINUS , confused 10/28- VT 30 L 50 % , AAO , cardizem 5 , HTN , PEG placement 10/28 10/29- VT 30 L 50 % ,, few hours on 4 l HF O2 , AAO , cardizem 5 , WBC 32 K A/P Acute hypoxic respiratory failure rdue to PNA- -VT 30 L 50 % ,, few hours on 4 l HF O2 - SLOW IMPROVEMENT , clinically and on CXR - cont abx - DNI Sepsis= resolved - hypertensive now RLL HAP - zosyn and vanco , possible asp PNA - cxr slow improving , -rising WBC - no fever , diarrhea resolved A fib RVR 10/26 - cardizem gtt 5 - change to PO meds when can use PEG - SINUS 10/27, not on AC hypernatremia -- will add D5W and follow closely - to stop if can use PEG and start water with TF JULITA/ CKD - RESOLVED s/p lumbar spine surgery on 10/18/22 - pain control DM - ISS Anemia - slow drift 9.4-->7.5 - no acute bleeding iron level low - supplemented Anxiety - cont xanax Disphagia - PEG placement 10/28 Head/neck cancer hx Colon resections DNI Lines : periph , (Central Line Necessity Reviewed) Fong: + OG: Nutrition: npo Analgesia: Anxiety/ delirium VTE Prophylaxis: on hold for SX =peg , to resume when Ok with sx Stress Ulcer Prophylaxis: PPI Plans in collaboration with bedside consultants and IM MDs. Discussed with RN to reach out if any questions or concerns Case and care daily discussed on multidisciplinary rounds ( RN, PharmD, Speech Coach , Respiratory Therapy, typing office worker ) A total of 31 minutes of critical care time was devoted to this patient today, required to treat and/or prevent further deterioration of critical care condition ( as above ) . I am remotely monitoring this patient from another state. I am unable to do the bedside exam, and history/physical and pertinent information is taken from other notes in the computer and bedside staff. Sepsis Event Evaluation Height, Weight, BMI Height: '" Weight: lbs. oz. kg; 27.37 BMI Method: Exam Exam Patient acknowledged, consented, and participated in this virtual visit which was conducted using real time audio/video Vital Signs Date Time Temp Pulse Resp B/P (MAP) Pulse Ox O2 Delivery O2 Flow Rate FiO2 10/29/22 08:00 78 35 184/77 (114) 95 Vapotherm 30.00 50.00 10/29/22 07:00 87 10/29/22 07:00 94 16 177/83 (99) Vapotherm 30.00 50.00 10/29/22 06:50 Vapotherm 30.00 50.00 10/29/22 06:39 98 Vapotherm 30.00 50 10/29/22 06:00 82 12 154/119 (131) 90 High Flow N/C 4.00 10/29/22 05:00 79 15 161/94 (116) 95 High Flow N/C 4.00 10/29/22 04:00 81 30 170/85 (113) 92 High Flow N/C 4.00 10/29/22 04:00 92 High Flow N/C 4.00 10/29/22 03:00 71 27 162/66 (98) 96 High Flow N/C 4.00 10/29/22 02:00 68 19 160/73 (102) 100 High Flow N/C 4.00 10/29/22 01:59 99 High Flow N/C 5.00 10/29/22 01:22 83 175/81 10/29/22 01:00 82 20 141/114 (123) 91 High Flow N/C 6.00 10/29/22 01:00 82 10/29/22 00:32 96 High Flow N/C 6.00 10/29/22 00:00 68 26 188/93 (124) 98 High Flow N/C 6.00 10/28/22 23:00 76 30 98 High Flow N/C 6.00 10/28/22 22:21 98 High Flow N/C 6.00 10/28/22 22:00 69 25 98 High Flow N/C 6.00 10/28/22 21:00 77 24 95 High Flow N/C 6.00 10/28/22 20:00 36.7 Nasal Cannula 10.00 10/28/22 20:00 97 High Flow N/C 6.00 10/28/22 20:00 80 23 99 High Flow N/C 6.00 10/28/22 19:00 67 25 94 High Flow N/C 6.00 10/28/22 19:00 71 10/28/22 18:49 98 High Flow N/C 6.00 10/28/22 18:00 76 26 96 High Flow N/C 10.00 10/28/22 17:00 82 21 153/87 (109) 94 High Flow N/C 10.00 10/28/22 17:00 36.2 82 25 153/87 (109) 95 Nasal Cannula 10.00 10/28/22 16:00 37.1 78 15 150/61 (90) 97 Nasal Cannula 10.00 10/28/22 16:00 82 24 155/68 (97) 94 High Flow N/C 10.00 10/28/22 16:00 97 High Flow N/C 6.00 10/28/22 15:38 74 16 100 Nasal Cannula 10.00 10/28/22 14:00 74 19 232/100 (144) 97 High Flow N/C 10.00 10/28/22 13:00 79 10/28/22 13:00 80 22 213/108 (143) 98 High Flow N/C 10.00 10/28/22 13:00 85 29 191/93 (125) 98 High Flow N/C 10.00 10/28/22 12:00 35.8 10/28/22 12:00 82 22 208/97 (134) 100 Vapotherm 40.00 50.00 10/28/22 12:00 85 29 191/93 (125) 98 Vapotherm 40.00 50.00 10/28/22 12:00 97 High Flow N/C 10.00 10/28/22 11:00 80 16 205/119 (147) 99 Vapotherm 40.00 50.00 10/28/22 10:00 71 20 179/110 (133) 99 Vapotherm 40.00 50.00 I & O 10/29/22 07:00 Intake Total 625 ml Output Total 2425 ml Balance -1800 ml Height & Weight Height: '" Weight: lbs. oz. kg; 27.37 BMI Method: General Appearance: Chronically ill, Cachetic, Mild Distress, Thin, Other (pale) HEENT: PERRL/EOMI, TMs Normal, Normal ENT Inspection, Pharynx Normal Neck: Full Range of Motion, Normal Inspection, Non Tender, Supple, Carotid Bruit Respiratory: No Respiratory Distress, Accessory Muscle Use, Decreased Breath Sounds (See free text) Cardiovascular: Regular Rate, Rhythm, No Edema, No Gallop, No JVD, No Murmur, Normal Peripheral Pulses Capillary Refill: Less Than 3 Seconds Peripheral Pulses: 1+ Dorsalis Pedis (R), 1+ Left Dors-Pedis (L) Extremity: Normal Capillary Refill, Normal Inspection, Normal Range of Motion, Non Tender, No Calf Tenderness, No Pedal Edema Neurologic/Psychiatric: Alert, Oriented x3, geophysical data technician II-XII Norm as Tested, Depressed Affect, Motor Weakness (generalized) Skin: Normal Color, Warm/Dry Lymphatic: No Adenopathy Results Lab Laboratory Tests 10/27/22 18:19 10/28/22 05:25 10/28/22 19:00 10/29/22 04:15 Assessment/Plan Assessment/Plan 1 LUIS CARLOS ANAYA MD October 29, 2022 09:25
[2022-10-29] MEDS: VANCOMYCIN 750 MG/NS 250 ML IVPB IV SCH ×6 (11:54→23:53)
[2022-10-29] MEDS ORDERED: IPRA3AMP31 INH (12:16)
[2022-10-29] MEDS ORDERED: [UNRECOGNIZED DRUG - CODE] IV (12:16)
[2022-10-29] MEDS ORDERED: ENOX80DI7 SC (12:16)
[2022-10-29] MEDS ORDERED: PIPE4.5F IV (12:16)
[2022-10-29] MEDS ORDERED: HYDR2VIA IV (12:16)
[2022-10-29] MEDS ORDERED: HYDR20VI17 IV (12:16)
[2022-10-29] MEDS ORDERED: VANC750F2 IV (12:16)
--- NOTE | 2022-10-29 12:16 | Discharge Summary ---
Diagnosis/Chief Complaint Date of Admission October 24, 2022 at 07:32 Date of Discharge Discharge Date: October 29, 2022 Discharge Diagnosis Assess & Plan/Chief Complaint Prognosis poor Supportive care DNI and no chest compressions Assessment: Assess & Plan/Chief Complaint Mixed Delirium/Toxic Metabolic Encephalopathy - long hospital course s/p surgery and general anesthesia - sepsis 2/2 PNA leading to transfer from IRF to ICU - continue to treat underlying issues (abx, duonebs, and O2 support for PNA and AHRF; bowel regimen for constipation; pain control s/p lumbar spine surgery) - orient as able aFib w/ RVR - cards consulted and managing - diltiazem, drip AHRF - 2/2 PNA - on VT 40L 60% - better saturations (89-95%) at rest today - DNI, now "no chest compressions" as well - cont duonebs - ctm Sepsis (resolved) RLL HAP - vitals now stable - CXR stable today - bcx's no growth (though obtained after empiric abxs) - cont vanc and zosyn - possible aspiration PNA given location, speech unable to complete evaluation, known swallowing issues (cont NPO) Aspiration/swallowing issues - s/p multiple head and neck surgeries and radiation doses for head and neck cancer - continue aspiration and failed speech eval requiring NPO - approves of PEG tube needed for food and medication - consult surgery for PEG placement HTN - atenolol and metoprolol tartrate + hydralazine prn for SBP <160 - better s/p diltiazem drip Constipation (resolved) - multiple loose stools yesterday - ctm S/p lumbar spine surgery 10/18 - pain control - ctm JULITA - resolved - Cr down to 1.13 today - ctm Anemia - resolved - Hb 9.3 this am - Iron deficient, will supplement with venefor 200mg IV q48 - ctm Chronic: DM - ISS and accuchecks HLP - ctm Head/neck cancer hx Colon resections Discharge Summary Discharge Physical Examination Allergies: Coded Allergies: [id number] Reductase Inhibitor (Verified Allergy, Unknown, 10/20/22) simvastatin (Verified Allergy, Unknown, leg cramps, 10/25/22) Uncoded Allergies: SUBSTANCE WITH [id number] (Allergy, Unknown, muscle pain, 10/25/22) Vitals & I&Os Vital Signs Date Time Temp Pulse Resp B/P (MAP) Pulse Ox O2 Delivery O2 Flow Rate FiO2 10/30/22 10:06 10/30/22 09:00 99 24 100 Vapotherm 15.00 25.00 10/30/22 08:00 25 10/30/22 04:00 36.0 General Appearance: Alert, Other (frail and pale status) Respiratory: Clear to Auscultation Hospital Course Was the Problem List Reviewed?: Yes Lengthy course after he was transferred from ARU due to severe PNA and sepsis. IV abx initiated and he required Vapotherm. Overall he had problems recovering and then dysphagia due to previous head neck cancer and surgeries and radiation which changed basic anatomy. He was ultimately sent to [place] but remained DNI and no chest compressions. Labs (last 24 hrs) Laboratory Tests 10/24/22 09:09: Lactic Acid Level 1.58 10/24/22 15:10: Sodium Level 132L, Potassium Level 3.9, Chloride Level 100, Carbon Dioxide Level 18L, Anion Gap 14, Blood Urea Nitrogen 62H, Creatinine 2.22H, Estimat Glomerular Filtration Rate 32, BUN/Creatinine Ratio 28, Glucose Level 104, Calcium Level 8.2L, Magnesium Level 1.9 10/25/22 03:23: Sodium Level 134L, Potassium Level 3.0L, Chloride Level 105, Carbon Dioxide Level 18L, Anion Gap 11, Blood Urea Nitrogen 45H, Creatinine 1.68H, Estimat Glomerular Filtration Rate 44, BUN/Creatinine Ratio 27, Glucose Level 167H, Calcium Level 8.2L, Magnesium Level 1.8, White Blood Count 3.7L, Red Blood Count 2.81L, Hemoglobin 7.5L, Hematocrit 22L, Mean Corpuscular Volume 80, Mean Corpuscular Hemoglobin 27, Mean Corpuscular Hemoglobin Concent 34, Red Cell Distribution Width 17.2H, Platelet Count 421H, Mean Platelet Volume 11.0, Immature Granulocyte % (Auto) 1, Neutrophils (%) (Auto) 87H, Lymphocytes (%) (Auto) 3L, Monocytes (%) (Auto) 8, Eosinophils (%) (Auto) 1, Basophils (%) (Auto) 0, Neutrophils # (Auto) 3.2, Lymphocytes # (Auto) 0.1L, Monocytes # (Auto) 0.3, Eosinophils # (Auto) 0.0, Basophils # (Auto) 0.0, Immature Granulocyte # (Auto) 0.0, Corrected Calcium 9.5, Phosphorus Level 2.2L, Total Bilirubin 0.4, Aspartate Amino Transf (AST/SGOT) 32, Alanine Aminotransferase (ALT/SGPT) 17, Alkaline Phosphatase 51, Total Protein 5.2L, Albumin 2.4L 10/25/22 10:08: Iron Level 11L, Total Iron Binding Capacity 168L, Unsaturated Iron Binding Capacity 157, Transferrin % Saturation 7L 10/25/22 22:05: Vancomycin Level Trough 9.3L 10/26/22 04:05: White Blood Count 19.4H, Red Blood Count 3.53L, Hemoglobin 9.7#L, Hematocrit 28L , Mean Corpuscular Volume 79L, Mean Corpuscular Hemoglobin 27, Mean Corpuscular Hemoglobin Concent 35, Red Cell Distribution Width 17.2H, Platelet Count 661H, Mean Platelet Volume 10.4, Immature Granulocyte % (Auto) 1, Neutrophils (%) (Auto) 94H, Lymphocytes (%) (Auto) 2L, Monocytes (%) (Auto) 2, Eosinophils (%) (Auto) 0, Basophils (%) (Auto) 1, Neutrophils # (Auto) 18.3H, Lymphocytes # (Auto) 0.3L, Monocytes # (Auto) 0.4, Eosinophils # (Auto) 0.0, Basophils # (Auto) 0.1, Immature Granulocyte # (Auto) 0.2H, Sodium Level 140, Potassium Level 3.0L, Chloride Level 105, Carbon Dioxide Level 20L, Anion Gap 15H, Blood Urea Nitrogen 26H, Creatinine 1.13, Estimat Glomerular Filtration Rate 71, BUN/Creatinine Ratio 23, Glucose Level 146H, Calcium Level 8.7, Corrected Calcium 9.9, Phosphorus Level 2.0L, Magnesium Level 2.0, Total Bilirubin 0.8, Aspartate Amino Transf (AST/SGOT) 22, Alanine Aminotransferase (ALT/SGPT) 12, Alkaline Phosphatase 52, Total Protein 5.7L, Albumin 2.5L 10/26/22 11:40: Vitamin B12 Level >2000H 10/26/22 12:57: Lab Scanned Report Transfusion Reaction Form 10/27/22 04:00: White Blood Count 23.4H, Red Blood Count 3.44L, Hemoglobin 9.3L, Hematocrit 27L, Mean Corpuscular Volume 78L, Mean Corpuscular Hemoglobin 27, Mean Corpuscular Hemoglobin Concent 35, Red Cell Distribution Width 17.4H, Platelet Count 728H, Mean Platelet Volume 10.2, Immature Granulocyte % (Auto) 5, Neutrophils (%) (Auto) 89H, Lymphocytes (%) (Auto) 2L, Monocytes (%) (Auto) 4, Eosinophils (%) (Auto) 0, Basophils (%) (Auto) 1, Neutrophils # (Auto) 20.9H, Lymphocytes # (Auto) 0.4L, Monocytes # (Auto) 0.8, Eosinophils # (Auto) 0.0, Basophils # (Auto) 0.1, Immature Granulocyte # (Auto) 1.1H, Neutrophils % (Manual) 95, Lymphocytes % (Manual) 3, Monocytes % (Manual) 1, Eosinophils % (Manual) 1, Nucleated Red Blood Cells 1, Dohle Bodies SLIGHT, Microcytosis SLIGHT, Elliptocytes SLIGHT, Sodium Level 139, Potassium Level 2.8L, Chloride Level 107, Carbon Dioxide Level 19L, Anion Gap 13, Blood Urea Nitrogen 24H, Creatinine 0.87, Estimat Glomerular Filtration Rate 95, BUN/Creatinine Ratio 28, Glucose Level 111H, Calcium Level 8.7, Corrected Calcium 10.1, Phosphorus Level 2.1L, Magnesium Level 2.0, Total Bilirubin 0.6, Aspartate Amino Transf (AST/SGOT) 27, Alanine Aminotransferase (ALT/SGPT) 13, Alkaline Phosphatase 69, Total Protein 5.5L, Albumin 2.3L 10/27/22 06:57: Blood Gas Puncture Site RIGHT RADIAL, Blood Gas Patient Temperature 36.1, Arterial Blood pH 7.42, Arterial Blood Partial Pressure CO2 36, Arterial Blood Partial Pressure O2 46L, Arterial Blood HCO3 23, Arterial Blood Total CO2 24.5, Arterial Blood Oxygen Saturation 77L, Arterial Blood Base Excess -0.6, Arnulfo Test YES-POS, Blood Gas Ventilator Setting NO, Blood Gas Inspired Oxygen 100% 10/27/22 18:19: Potassium Level 3.4L 10/27/22 22:15: Vancomycin Level Trough 9.9L 10/28/22 05:25: White Blood Count 26.8H, Red Blood Count 3.41L, Hemoglobin 9.3L, Hematocrit 27L, Mean Corpuscular Volume 79L, Mean Corpuscular Hemoglobin 27, Mean Corpuscular Hemoglobin Concent 34, Red Cell Distribution Width 18.1H, Platelet Count 717H, Mean Platelet Volume 10.2, Immature Granulocyte % (Auto) 9, Neutrophils (%) (Auto) 85H, Lymphocytes (%) (Auto) 2L, Monocytes (%) (Auto) 4, Eosinophils (%) (Auto) 0, Basophils (%) (Auto) 0, Neutrophils # (Auto) 22.6H, Lymphocytes # (Auto) 0.5L, Monocytes # (Auto) 1.1H, Eosinophils # (Auto) 0.1, Basophils # (Auto) 0.1, Immature Granulocyte # (Auto) 2.4H, Sodium Level 146H, Potassium Level 3.1L, Chloride Level 116H, Carbon Dioxide Level 17L, Anion Gap 13, Blood Urea Nitrogen 23H, Creatinine 0.81, Estimat Glomerular Filtration Rate 97, BUN/Creatinine Ratio 28, Glucose Level 123H, Calcium Level 8.9, Corrected Calcium 10.1, Phosphorus Level 2.8, Magnesium Level 2.9H, Total Bilirubin 0.5, Aspartate Amino Transf (AST/SGOT) 25, Alanine Aminotransferase (ALT/SGPT) 13, Alkaline Phosphatase 73, Total Protein 5.7L, Albumin 2.5L 10/28/22 19:00: Potassium Level 4.4 10/29/22 04:15: White Blood Count 32.2*H, Red Blood Count 3.94L, Hemoglobin 10.5L, Hematocrit 32L, Mean Corpuscular Volume 81, Mean Corpuscular Hemoglobin 27, Mean Corpuscular Hemoglobin Concent 33, Red Cell Distribution Width 18.6H, Platelet Count 772H, Mean Platelet Volume 10.3, Immature Granulocyte % (Auto) 14, Neutrophils (%) (Auto) 80H, Lymphocytes (%) (Auto) 3L, Monocytes (%) (Auto) 3, Eosinophils (%) (Auto) 0, Basophils (%) (Auto) 1, Neutrophils # (Auto) 25.6H, Lymphocytes # (Auto) 0.8L, Monocytes # (Auto) 1.1H, Eosinophils # (Auto) 0.1, Basophils # (Auto) 0.2H, Immature Granulocyte # (Auto) 4.5H, Sodium Level 150H, Potassium Level 4.0, Chloride Level 120H, Carbon Dioxide Level 20L, Anion Gap 10, Blood Urea Nitrogen 26H, Creatinine 0.86, Estimat Glomerular Filtration Rate 95, BUN/Creatinine Ratio 30, Glucose Level 135H, Calcium Level 8.4L, Corrected Calcium 9.8, Phosphorus Level 2.9, Magnesium Level 2.1, Total Bilirubin 0.6, Aspartate Amino Transf (AST/SGOT) 28, Alanine Aminotransferase (ALT/SGPT) 10, Alkaline Phosphatase 84, Total Protein 5.3L, Albumin 2.3L 10/29/22 06:39: Blood Gas Puncture Site R radial, Blood Gas Patient Temperature , Arterial Blood pH 7.52H, Arterial Blood Partial Pressure CO2 27L, Arterial Blood Partial Pressure O2 55L, Arterial Blood HCO3 22L, Arterial Blood Total CO2 22.5, Arterial Blood Oxygen Saturation 90L, Arterial Blood Base Excess -1.2, Arnulfo Test , Blood Gas Ventilator Setting NO, Blood Gas Inspired Oxygen 10/30/22 03:20: White Blood Count 30.7*H, Red Blood Count 3.58L, Hemoglobin 9.8L, Hematocrit 30L , Mean Corpuscular Volume 82, Mean Corpuscular Hemoglobin 27, Mean Corpuscular Hemoglobin Concent 33, Red Cell Distribution Width 18.8H, Platelet Count 594H, Mean Platelet Volume 10.4, Immature Granulocyte % (Auto) 18, Neutrophils (%) (Auto) 76H, Lymphocytes (%) (Auto) 2L, Monocytes (%) (Auto) 3, Eosinophils (%) (Auto) 0, Basophils (%) (Auto) 1, Neutrophils # (Auto) 23.2H, Lymphocytes # (Auto) 0.7L, Monocytes # (Auto) 0.9, Eosinophils # (Auto) 0.1, Basophils # (Auto) 0.2H, Immature Granulocyte # (Auto) 5.7H, Sodium Level 156H, Potassium Level 3.1L, Chloride Level 122H, Carbon Dioxide Level 21, Anion Gap 13, Blood Urea Nitrogen 25H, Creatinine 0.97, Estimat Glomerular Filtration Rate 86, BUN/Creatinine Ratio 26, Glucose Level 160H, Calcium Level 8.7, Corrected Calcium 10.1, Phosphorus Level 3.4, Magnesium Level 2.2, Total Bilirubin 0.6, Aspartate Amino Transf (AST/SGOT) 25, Alanine Aminotransferase (ALT/SGPT) 13, Alkaline Phosphatase 80, Total Protein 5.4L, Albumin 2.3L 10/30/22 06:24: Blood Gas Puncture Site L RAD, Blood Gas Patient Temperature 37, Arterial Blood pH 7.50H, Arterial Blood Partial Pressure CO2 29L, Arterial Blood Partial Pressure O2 50L, Arterial Blood HCO3 22L, Arterial Blood Total CO2 23.0, Arterial Blood Oxygen Saturation 84L, Arterial Blood Base Excess -0.6, Arnulfo Test YES-POS, Blood Gas Ventilator Setting NO, Blood Gas Inspired Oxygen 25% Microbiology 10/26/22 Stool Culture - Final, Complete See Comments 10/24/22 Blood Culture - Final, Complete No growth 10/24/22 MRSA Screen - Final, Complete MRSA not isolated Pending Labs Microbiology Date/Time Source Procedure Growth Status 10/26/22 18:50 Stool Stool Culture - Final See Comments Complete 10/24/22 09:38 Peripheral Lt Hand Blood Culture - Final No growth Complete 10/24/22 09:30 Peripheral Rt Ac Blood Culture - Final No growth Complete 10/24/22 08:30 Nasal MRSA Screen - Final MRSA not isolated Complete Laboratory Tests 10/24/22 09:09: Lactic Acid Level 1.58 10/24/22 15:10: Sodium Level 132, Potassium Level 3.9, Chloride Level 100, Carbon Dioxide Level 18, Anion Gap 14, Blood Urea Nitrogen 62, Creatinine 2.22, Estimat Glomerular Filtration Rate 32, BUN/Creatinine Ratio 28, Glucose Level 104, Calcium Level 8.2, Magnesium Level 1.9 10/25/22 03:23: Sodium Level 134, Potassium Level 3.0, Chloride Level 105, Carbon Dioxide Level 18, Anion Gap 11, Blood Urea Nitrogen 45, Creatinine 1.68, Estimat Glomerular Filtration Rate 44, BUN/Creatinine Ratio 27, Glucose Level 167, Calcium Level 8.2, Magnesium Level 1.8, White Blood Count 3.7, Red Blood Count 2.81, Hemoglobin 7.5, Hematocrit 22, Mean Corpuscular Volume 80, Mean Corpuscular Hemoglobin 27, Mean Corpuscular Hemoglobin Concent 34, Red Cell Distribution Width 17.2, Platelet Count 421, Mean Platelet Volume 11.0, Immature Granulocyte % (Auto) 1, Neutrophils (%) (Auto) 87, Lymphocytes (%) (Auto) 3, Monocytes (%) (Auto) 8, Eosinophils (%) (Auto) 1, Basophils (%) (Auto) 0, Neutrophils # (Auto) 3.2, Lymphocytes # (Auto) 0.1, Monocytes # (Auto) 0.3, Eosinophils # (Auto) 0.0, Basophils # (Auto) 0.0, Immature Granulocyte # (Auto) 0.0, Corrected Calcium 9.5, Phosphorus Level 2.2, Total Bilirubin 0.4, Aspartate Amino Transf (AST/SGOT) 32, Alanine Aminotransferase (ALT/SGPT) 17, Alkaline Phosphatase 51, Total Protein 5.2, Albumin 2.4 10/25/22 10:08: Iron Level 11, Total Iron Binding Capacity 168, Unsaturated Iron Binding Capacity 157, Transferrin % Saturation 7 10/25/22 22:05: Vancomycin Level Trough 9.3 10/26/22 04:05: White Blood Count 19.4, Red Blood Count 3.53, Hemoglobin 9.7, Hematocrit 28, Mean Corpuscular Volume 79, Mean Corpuscular Hemoglobin 27, Mean Corpuscular Hemoglobin Concent 35, Red Cell Distribution Width 17.2, Platelet Count 661, Mean Platelet Volume 10.4, Immature Granulocyte % (Auto) 1, Neutrophils (%) (Auto) 94, Lymphocytes (%) (Auto) 2, Monocytes (%) (Auto) 2, Eosinophils (%) (Auto) 0, Basophils (%) (Auto) 1, Neutrophils # (Auto) 18.3, Lymphocytes # (Auto) 0.3, Monocytes # (Auto) 0.4, Eosinophils # (Auto) 0.0, Basophils # (Auto) 0.1, Immature Granulocyte # (Auto) 0.2, Sodium Level 140, Potassium Level 3.0, Chloride Level 105, Carbon Dioxide Level 20, Anion Gap 15, Blood Urea Nitrogen 26, Creatinine 1.13, Estimat Glomerular Filtration Rate 71, BUN/Creatinine Ratio 23, Glucose Level 146, Calcium Level 8.7, Corrected Calcium 9.9, Phosphorus Level 2.0, Magnesium Level 2.0, Total Bilirubin 0.8, Aspartate Amino Transf (AST/SGOT) 22, Alanine Aminotransferase (ALT/SGPT) 12, Alkaline Phosphatase 52, Total Protein 5.7, Albumin 2.5 10/26/22 11:40: Vitamin B12 Level >2000 10/26/22 12:57: Lab Scanned Report Transfusion Reaction Form 10/27/22 04:00: White Blood Count 23.4, Red Blood Count 3.44, Hemoglobin 9.3, Hematocrit 27, Mean Corpuscular Volume 78, Mean Corpuscular Hemoglobin 27, Mean Corpuscular Hemoglobin Concent 35, Red Cell Distribution Width 17.4, Platelet Count 728, Mean Platelet Volume 10.2, Immature Granulocyte % (Auto) 5, Neutrophils (%) (Auto) 89, Lymphocytes (%) (Auto) 2, Monocytes (%) (Auto) 4, Eosinophils (%) (Auto) 0, Basophils (%) (Auto) 1, Neutrophils # (Auto) 20.9, Lymphocytes # (Auto) 0.4, Monocytes # (Auto) 0.8, Eosinophils # (Auto) 0.0, Basophils # (Auto) 0.1, Immature Granulocyte # (Auto) 1.1, Neutrophils % (Manual) 95, Lymphocytes % (Manual) 3, Monocytes % (Manual) 1, Eosinophils % (Manual) 1, Nucleated Red Blood Cells 1, Dohle Bodies SLIGHT, Microcytosis SLIGHT, Elliptocytes SLIGHT, Sodium Level 139, Potassium Level 2.8, Chloride Level 107, Carbon Dioxide Level 19, Anion Gap 13, Blood Urea Nitrogen 24, Creatinine 0.87, Estimat Glomerular Filtration Rate 95, BUN/Creatinine Ratio 28, Glucose Level 111, Calcium Level 8.7, Corrected Calcium 10.1, Phosphorus Level 2.1, Magnesium Level 2.0, Total Bilirubin 0.6, Aspartate Amino Transf (AST/SGOT) 27, Alanine Aminotransferase (ALT/SGPT) 13, Alkaline Phosphatase 69, Total Protein 5.5, Albumin 2.3 10/27/22 06:57: Blood Gas Puncture Site RIGHT RADIAL, Blood Gas Patient Temperature 36.1, Arterial Blood pH 7.42, Arterial Blood Partial Pressure CO2 36, Arterial Blood Partial Pressure O2 46, Arterial Blood HCO3 23, Arterial Blood Total CO2 24.5, Arterial Blood Oxygen Saturation 77, Arterial Blood Base Excess -0.6, Arnulfo Test YES-POS, Blood Gas Ventilator Setting NO, Blood Gas Inspired Oxygen 100% 10/27/22 18:19: Potassium Level 3.4 10/27/22 22:15: Vancomycin Level Trough 9.9 10/28/22 05:25: White Blood Count 26.8, Red Blood Count 3.41, Hemoglobin 9.3, Hematocrit 27, Mean Corpuscular Volume 79, Mean Corpuscular Hemoglobin 27, Mean Corpuscular Hemoglobin Concent 34, Red Cell Distribution Width 18.1, Platelet Count 717, Mean Platelet Volume 10.2, Immature Granulocyte % (Auto) 9, Neutrophils (%) (Auto) 85, Lymphocytes (%) (Auto) 2, Monocytes (%) (Auto) 4, Eosinophils (%) (Auto) 0, Basophils (%) (Auto) 0, Neutrophils # (Auto) 22.6, Lymphocytes # (Auto) 0.5, Monocytes # (Auto) 1.1, Eosinophils # (Auto) 0.1, Basophils # (Auto) 0.1, Immature Granulocyte # (Auto) 2.4, Sodium Level 146, Potassium Level 3.1, Chloride Level 116, Carbon Dioxide Level 17, Anion Gap 13, Blood Urea Nitrogen 23, Creatinine 0.81, Estimat Glomerular Filtration Rate 97, BUN/Creatinine Ratio 28, Glucose Level 123, Calcium Level 8.9, Corrected Calcium 10.1, Phosphorus Level 2.8, Magnesium Level 2.9, Total Bilirubin 0.5, Aspartate Amino Transf (AST/SGOT) 25, Alanine Aminotransferase (ALT/SGPT) 13, Alkaline Phosphatase 73, Total Protein 5.7, Albumin 2.5 10/28/22 19:00: Potassium Level 4.4 10/29/22 04:15: White Blood Count 32.2, Red Blood Count 3.94, Hemoglobin 10.5, Hematocrit 32, Mean Corpuscular Volume 81, Mean Corpuscular Hemoglobin 27, Mean Corpuscular Hemoglobin Concent 33, Red Cell Distribution Width 18.6, Platelet Count 772, Mean Platelet Volume 10.3, Immature Granulocyte % (Auto) 14, Neutrophils (%) (Auto) 80, Lymphocytes (%) (Auto) 3, Monocytes (%) (Auto) 3, Eosinophils (%) (Auto) 0, Basophils (%) (Auto) 1, Neutrophils # (Auto) 25.6, Lymphocytes # (Auto) 0.8, Monocytes # (Auto) 1.1, Eosinophils # (Auto) 0.1, Basophils # (Auto) 0.2, Immature Granulocyte # (Auto) 4.5, Sodium Level 150, Potassium Level 4.0, Chloride Level 120, Carbon Dioxide Level 20, Anion Gap 10, Blood Urea Nitrogen 26, Creatinine 0.86, Estimat Glomerular Filtration Rate 95, BUN/Creatinine Ratio 30, Glucose Level 135, Calcium Level 8.4, Corrected Calcium 9.8, Phosphorus Level 2.9, Magnesium Level 2.1, Total Bilirubin 0.6, Aspartate Amino Transf (AST/SGOT) 28, Alanine Aminotransferase (ALT/SGPT) 10, Alkaline Phosphatase 84, Total Protein 5.3, Albumin 2.3 10/29/22 06:39: Blood Gas Puncture Site R radial, Blood Gas Patient Temperature , Arterial Blood pH 7.52, Arterial Blood Partial Pressure CO2 27, Arterial Blood Partial Pressure O2 55, Arterial Blood HCO3 22, Arterial Blood Total CO2 22.5, Arterial Blood Oxygen Saturation 90, Arterial Blood Base Excess -1.2, Arnulfo Test , Blood Gas Ventilator Setting NO, Blood Gas Inspired Oxygen 10/30/22 03:20: White Blood Count 30.7, Red Blood Count 3.58, Hemoglobin 9.8, Hematocrit 30, Mean Corpuscular Volume 82, Mean Corpuscular Hemoglobin 27, Mean Corpuscular Hemoglobin Concent 33, Red Cell Distribution Width 18.8, Platelet Count 594, Mean Platelet Volume 10.4, Immature Granulocyte % (Auto) 18, Neutrophils (%) (Auto) 76, Lymphocytes (%) (Auto) 2, Monocytes (%) (Auto) 3, Eosinophils (%) (Auto) 0, Basophils (%) (Auto) 1, Neutrophils # (Auto) 23.2, Lymphocytes # (Auto) 0.7, Monocytes # (Auto) 0.9, Eosinophils # (Auto) 0.1, Basophils # (Auto) 0.2, Immature Granulocyte # (Auto) 5.7, Sodium Level 156, Potassium Level 3.1, Chloride Level 122, Carbon Dioxide Level 21, Anion Gap 13, Blood Urea Nitrogen 25, Creatinine 0.97, Estimat Glomerular Filtration Rate 86, BUN/Creatinine Ratio 26, Glucose Level 160, Calcium Level 8.7, Corrected Calcium 10.1, Phosphorus Level 3.4, Magnesium Level 2.2, Total Bilirubin 0.6, Aspartate Amino Transf (AST/SGOT) 25, Alanine Aminotransferase (ALT/SGPT) 13, Alkaline Phosphatase 80, Total Protein 5.4, Albumin 2.3 10/30/22 06:24: Blood Gas Puncture Site L RAD, Blood Gas Patient Temperature 37, Arterial Blood pH 7.50, Arterial Blood Partial Pressure CO2 29, Arterial Blood Partial Pressure O2 50, Arterial Blood HCO3 22, Arterial Blood Total CO2 23.0, Arterial Blood Oxygen Saturation 84, Arterial Blood Base Excess -0.6, Arnulfo Test YES-POS, Blood Gas Ventilator Setting NO, Blood Gas Inspired Oxygen 25% Discharge Home Medications: Active Scripts Active Hydromorphone HCl 2 Mg/Ml Vial 0.25 Mg IV Q2H PRN 14 Days Diltiazem HCl-Ns 125 mg/125 ml (Diltiazem HCl in 0.9% NaCl) 125 Mg/125 Ml (1 Mg/Ml) Plast..bag 5 Mg IV UD 2 Days Hydralazine HCl 20 Mg/Ml Vial 10 Mg IV Q3HR PRN 14 Days Enoxaparin Sodium 80 Mg/0.8 Ml Syringe 80 Mg SC Q12H 14 Days Iprat-Albut 0.5-3(2.5) mg/3 ml (Ipratropium/Albuterol Sulfate) 0.5 Mg-3 Mg (2.5 Mg Base)/3 Ml Ampul.neb 3 Ml INH RTQ4HR 14 Days Vanco 750 mg/150 ml-0.9% NaCl (Vancomycin/0.9 % Sod Chloride) 750 Mg/150 Ml Froz.piggy 750 Mg IV Q12H 4 Days Zosyn 4.5 gm/100 ml Galaxy Bag (Mrgibormndls-Fzrq-Ibzvnfup,Iso) 4.5 Gram/100 Ml Froz.piggy 4.5 Gm IV Q8H Reported Promethazine Tablet (Promethazine HCl) 25 Mg Tablet 25 Mg PO Q6H PRN Ropinirole HCl 0.5 Mg Tablet 0.5 Mg PO HS Salagen (Pilocarpine) 5 Mg Tab 5 Mg PO BID Pantoprazole Sodium 40 Mg Tablet.dr 40 Mg PO DAILY Oxycodone HCl 5 Mg Tablet 5 Mg PO Q4H PRN MDD 30MG Morphine Sulfate ER (Morphine Sulfate) 30 Mg Tablet.er 30 Mg PO BID Lisinopril 20 Mg Tablet 20 Mg PO DAILY Levothyroxine Sodium 112 Mcg Tablet 112 Mcg PO DAILY Neurontin (Gabapentin) 300 Mg Capsule 300 Mg PO HS Fenofibrate (Fenofibrate Nanocrystallized) 145 Mg Tablet 145 Mg PO DAILY Docusate Sodium 100 Mg Capsule 100 Mg PO BID PRN Diphenoxylate-Atrop 2.5-0.025 (Diphenoxylate HCl/Atropine) 2.5 Mg-0.025 Mg Tablet 1 Each PO QID PRN Cyclobenzaprine HCl 10 Mg Tablet 10 Mg PO Q8H PRN Citalopram HBr (Citalopram Hydrobromide) 20 Mg Tablet 20 Mg PO HS Atenolol 50 Mg Tablet 50 Mg PO DAILY Amlodipine Besylate 5 Mg Tablet 5 Mg PO HS Ventolin Hfa (Albuterol Sulfate) 90 Mcg Hfa.aer.ad 2 Puff INH Q6H PRN Instructions to patient/family Please see electronic discharge instructions given to patient. YONAS JOHNSON DO October 29, 2022 12:16
[2022-10-29] MEDS: diphenhydrAMINE 50 MG/ML INJ (BENADRYL) IVP PRN (18:25)
[2022-10-29] MEDS ORDERED: LORazepam INJ 2 MG/ML (ATIVAN) VIAL IVP NR (18:30)
[2022-10-29] MEDS ORDERED: LORazepam INJ 2 MG/ML (ATIVAN) VIAL ONE (18:31)
[2022-10-30] MEDS: PIPERACILLIN SODIUM/TAZOBACTAM 4.5 GM in NS (IVPB) 100 ML IV SCH (01:01)
[2022-10-30] MEDS: NOREPINEPHRINE 8 MG/250 ML 250 ML IV SCH (01:32)
[2022-10-30] MEDS: RT-ALBUTEROL/IPRATROPIUM 3 ML (DUONEB) VIAL INH SCH ×2 (02:40→06:25)
[2022-10-30] MEDS: meTOprolol 5 MG/5 ML (LOPRESSOR) VIAL IV PRN (03:14)
[2022-10-30 03:30] LABS: BASOPHILS # (AUTO) 0.2 10^3/uL (0.0-0.1); BASOPHILS % (AUTO) 1 % (0-10); EOSINOPHILS # (AUTO) 0.1 10^3/uL (0.0-0.3); EOSINOPHILS % (AUTO) 0 % (0-10); HEMATOCRIT 30 % (40-54); HEMOGLOBIN 9.8 g/dL (13.3-17.7); LYMPHOCYTES # (AUTO) 0.7 10^3/uL (1.0-4.0); LYMPHOCYTES % (AUTO) 2 % (12-44); MEAN CORPUSCULAR HEMOGLOBIN 27 pg (25-34); MEAN CORPUSCULAR HGB CONC 33 g/dL (32-36); MEAN CORPUSCULAR VOLUME 82 fL (80-99); MEAN PLATELET VOLUME 10.4 fL (9.0-12.2); MONOCYTES # (AUTO) 0.9 10^3/uL (0.0-1.0); MONOCYTES % (AUTO) 3 % (0-12); NEUTROPHILS # (AUTO) 23.2 10^3/uL (1.8-7.8); NEUTROPHILS % (AUTO) 76 % (42-75); PLATELET COUNT 594 10^3/uL (130-400)
[2022-10-30 03:34] LABS: WHITE BLOOD COUNT 30.7 10^3/uL (4.3-11.0)
[2022-10-30 03:41] LABS: ALBUMIN 2.3 GM/DL (3.2-4.5); POTASSIUM 3.1 MMOL/L (3.6-5.0)
[2022-10-30 03:42] LABS: CALCIUM 8.7 MG/DL (8.5-10.1)
[2022-10-30 03:43] LABS: TOTAL PROTEIN 5.4 GM/DL (6.4-8.2)
[2022-10-30 03:45] LABS: BILIRUBIN,TOTAL 0.6 MG/DL (0.1-1.0)
[2022-10-30 03:47] LABS: CREATININE SERUM 0.97 MG/DL (0.60-1.30); PHOSPHORUS 3.4 MG/DL (2.3-4.7)
[2022-10-30 03:50] LABS: MAGNESIUM 2.2 MG/DL (1.6-2.4)
[2022-10-30] MEDS: POTASSIUM CL 10MEQ/50ML IVPB 50 ML IV SCH ×5 (03:56→08:21)
[2022-10-30] MEDS: MAGNESIUM 1 GM/100 ML IVPB 100 ML IV SCH (03:57)
[2022-10-30] MEDS: KCL 20 MEQ TAB (K-DUR) PO SCH (03:57)
[2022-10-30] MEDS: HYDROmorphone 2 MG/ML VIAL (DILAUDID) IV PRN ×3 (04:03→08:20)
[2022-10-30] MEDS: hydrALAZINE (APESOLINE) 20 MG/ML VIAL IV PRN ×2 (05:54→09:14)
[2022-10-30 06:33] LABS: ABG BASE EXCESS -0.6 MMOL/L (-2.5-2.5); ABG OXYGEN SATURATION 84 % (94-100); ABG PCO2 29 MMHG (35-45); ABG PO2 50 MMHG (79-93); ALLENS TEST YES-POS
[2022-10-30 06:34] LABS: INSPIRED O2 25%; PATIENT TEMP 37; VENTILATOR NO
[2022-10-30] MEDS ORDERED: LORazepam INJ 2 MG/ML (ATIVAN) VIAL ONE (07:35)
[2022-10-30] MEDS: diphenhydrAMINE 50 MG/ML INJ (BENADRYL) IVP PRN (07:39)
[2022-10-30] MEDS ORDERED: LORazepam INJ 2 MG/ML (ATIVAN) VIAL IVP PRN (07:45)
[2022-10-30] MEDS: IRON SUCROSE 200 MG/10 ML (VENOFER) VIAL IV SCH (08:29)
--- NOTE | 2022-10-30 08:41 | Diagnostic Imaging Report ---
HISTORY: Dyspnea TECHNIQUE: Frontal view of the chest. COMPARISON: 10/29/2022 FINDINGS: Lung volumes are mildly large. There are diffuse interstitial opacities and patchy airspace opacities in the lungs bilaterally. Overall aeration appears similar to the prior study. There is no pleural effusion or pneumothorax. The left PICC line is difficult to evaluate, but appears to project over the SVC. The heart is stable in size. IMPRESSION: 1. Bilateral pulmonary opacities, stable since the prior study. Dictated by: Dictated on workstation # [id number]
[2022-10-30] MEDS: DOCUSATE SODIUM 100 MG (COLACE) CAP PO SCH (09:31)
[2022-10-30] MEDS: SENNOSIDES 8.6 MG (SENOKOT) TAB PO SCH (09:32)
== END 2022-10-30 10:05 | DRG 871 ==
LOC: ICU 07:32
PROVIDERS: ADMIT Internal Medicine; ATTEND Internal Medicine
PROC: 0DH63UZ Insertion of Feeding Device into Stomach, Percutaneous Approach (ICD-10-PCS; 2022-10-28)
PROC: 5A0935A Assistance with Respiratory Ventilation, Less than 24 Consecutive Hours, High Flow/Velocity Cannula (ICD-10-PCS; 2022-10-28)
PROC: 0DD48ZX Extraction of Esophagogastric Junction, Via Natural or Artificial Opening Endoscopic, Diagnostic (ICD-10-PCS; principal; 2022-10-28 15:00)
PROC: 0DD68ZX Extraction of Stomach, Via Natural or Artificial Opening Endoscopic, Diagnostic (ICD-10-PCS; 2022-10-28 15:00)
DX: A41.9 Sepsis, unspecified organism (principal); G92.8 Other toxic encephalopathy; J96.01 Acute respiratory failure with hypoxia; J69.0 Pneumonitis due to inhalation of food and vomit; N17.9 Acute kidney failure, unspecified; E87.1 Hypo-osmolality and hyponatremia; F05 Delirium due to known physiological condition; B37.81 Candidal esophagitis; J44.0 Chronic obstructive pulmonary disease with (acute) lower respiratory infection; K21.9 Gastro-esophageal reflux disease without esophagitis; F32.A Depression, unspecified; E11.51 Type 2 diabetes mellitus with diabetic peripheral angiopathy without gangrene; Z87.891 Personal history of nicotine dependence; Z66 Do not resuscitate; E78.00 Pure hypercholesterolemia, unspecified; Z85.038 Personal history of other malignant neoplasm of large intestine; Z85.819 Personal history of malignant neoplasm of unspecified site of lip, oral cavity, and pharynx; N18.9 Chronic kidney disease, unspecified; E11.22 Type 2 diabetes mellitus with diabetic chronic kidney disease; D63.1 Anemia in chronic kidney disease; I12.9 Hypertensive chronic kidney disease with stage 1 through stage 4 chronic kidney disease, or unspecified chronic kidney disease; F41.9 Anxiety disorder, unspecified; K59.00 Constipation, unspecified; R19.7 Diarrhea, unspecified; K21.00 Gastro-esophageal reflux disease with esophagitis, without bleeding; K44.9 Diaphragmatic hernia without obstruction or gangrene; K29.70 Gastritis, unspecified, without bleeding; I48.0 Paroxysmal atrial fibrillation
CPT/HCPCS: 36415; 36569; 36600; 71045; 74230; 76937; 80048; 80053; 80202; 82607; 82805; 83540; 83550; 83605; 83735; 84100; 84132; 85007; 85025; 85027; 86850; 86900; 86901; 86920; 87015; 87040; 87045; 87046; 87081; 87101; 87106; 87899; 93005; 94640; 94799